=== PATIENT | female | born 1950 | race Caucasian/White ===

== ENCOUNTER 2020-11-07 09:51 | Outpatient (REF) | payer MEDICARE, MEDICAID, SELFPAY ==
[2020-11-07 11:07] LABS: MANUAL DIFF FLAG NO
[2020-11-07 11:12] LABS: Basophils Percent Auto 0.5 % (0-2); Eosinophils Absolute Auto 0.1 X10*3/uL (0.0-0.4); Eosinophils Percent Auto 2.2 % (0-4); Hematocrit 40.1 % (37-47); Hemoglobin 12.9 g/dl (12.0-16.0); Imm Gran Abs Auto 0.02 X10*3/uL (0.00-0.03); Imm Gran Pct Auto 0.4 % (0.0-0.4); Mean Corpuscular HGB Conc 32.2 g/dl (31.0-35.0); Mean Corpuscular Hemoglobin 31.2 pg (27.0-33.0); Mean Corpuscular Volume 97.1 fL (80-98); Mean Platelet Volume 11.7 fL (9.4-12.3); Monocytes Absolute Auto 0.4 X10*3/uL (0.1-1.2); Monocytes Percent Auto 7.7 % (2-11); Neutrophils Absolute Auto 3.9 X10*3/uL (2.0-8.3); Neutrophils Percent Auto 70.2 % (45-73); Platelet Count 168 X10*3/uL (160-400); Red Blood Count 4.13 X10*6/uL (4.20-5.50); Red Cell Distribution Width 12.5 % (11.0-16.0); White Blood Count 5.5 X10*3/uL (4.8-10.8)
[2020-11-07 11:28] LABS: Alanine Aminotransferase 28 U/L (0-31); Albumin Level 4.2 g/dL (3.5-5.0); Alkaline Phosphatase 86 U/L (39-117); Anion Gap 11 (12-20); Aspartate Amino Transferase 29 U/L (5-31); Bilirubin Total 0.4 mg/dL (0.0-1.0); Blood Urea Nitrogen 14 mg/dL (9-16); Calcium 8.9 mg/dL (8.4-10.2); Carbon Dioxide 29 mmol/L (22-29); Chloride 107 mmol/L (96-108); Cholesterol 140 mg/dL; Estimated Glomerular Filt Rate > 60; Glucose Fasting 81 mg/dL (60-99); HDL Cholesterol 61 mg/dL; LDL Cholesterol Calculated 67 mg/dl; Potassium 4.9 mmol/l (3.3-5.1); Sodium 142 mmol/L (135-145); Total Protein 6.5 g/dL (6.5-8.0); Triglycerides 61 mg/dL
[2020-11-07 11:49] LABS: Glucose Urine UA NEG (NEG); Leukocyte Esterase Urine NEG (NEG); Nitrite Urine NEG (NEG); Urine Blood NEG (NEG); Urine Ketones NEG (NEG); Urine Protein NEG (NEG-TRACE)
[2020-11-07 11:51] LABS: TSH reflex Free T4 1.08 mIU/mL (0.32-4.0); Vitamin D 25-OH Total 31.2 ng/mL (>30)
[2020-11-07 11:59] LABS: Appearance Urine CLEAR; Color Urine YELLOW
[2020-11-07 13:02] LABS: Mucus Urine TRACE /LPF; RBC Urine 0 /HPF (0); Squamous Epithelial Cell Urine TRACE /LPF; WBC Urine 0 /HPF (0-4)
== END 2020-11-07 09:52 | disposition home or self-care (01) ==
LOC: HO.LAB 09:51
PROVIDERS: PCP Internal Medicine; Visit Provider Internal Medicine
DX: Z00.00 Encounter for general adult medical examination without abnormal findings (principal); E78.5 Hyperlipidemia, unspecified; R94.5 Abnormal results of liver function studies; J30.9 Allergic rhinitis, unspecified; I49.1 Atrial premature depolarization
CPT/HCPCS: 36415; 80053; 80061; 81001; 82306; 84443; 85025

== ENCOUNTER → 2021-03-27 13:57 | Outpatient (BNVA) | payer MEDICARE, MEDICAID, SELFPAY | PROVIDERS: PCP Internal Medicine; Referring Provider Internal Medicine; Visit Provider Internal Medicine | DX: I49.3 Ventricular premature depolarization (principal); I49.1 Atrial premature depolarization; F79 Unspecified intellectual disabilities | CPT/HCPCS: 93005; 99202 ==

== ENCOUNTER → 2021-04-18 12:58 | Outpatient (REF) | payer MEDICARE, MEDICAID, SELFPAY ==
--- NOTE | 2021-04-18 13:25 | ECG_ITS ---
Hook-up date: 2021-04-18 13:07:00 Duration: 24:43:00 Test Indications: PVC's Medications: 88164 QRS complexes 6085 Ventricular ectopics which represent 6 % of total QRS comp. 77 Supraventricular ectopics which represent <1 % of total QRS comp. * Paced QRS complexs which represent % of total QRS comp. VENTRICULAR ECTOPY 5701 Isolated 266 Bigeminal Cycles 192 Couplets 0 Runs 0 Beats in Runs * Beats LONGEST at * BPM at :: -- * Beats FASTEST at * BPM at :: -- SUPRAVENTRICULAR ECTOPY 67 Isolated 2 Couplets 1 Runs 6 Beats in Runs 6 Beats LONGEST at 96 BPM at 21:20:51 2021-04-18 6 Beats FASTEST at 96 BPM at 21:20:51 2021-04-18 HEART RATES 54 MIN at 19:36:56 2021-04-18 66 AVG 120 MAX at 13:26:16 2021-04-18 LONGEST RR 1.1040 secs at 12:37:11 2021-04-19 S-T LEVELS Channel 1 - 128 mm at 13:07:00 2021-04-18 - 128 mm at 13:07:00 2021-04-18 Channel 2 - 128 mm at 13:07:00 2021-04-18 - 128 mm at 13:07:00 2021-04-18 Channel 3 - 128 mm at 13:07:00 2021-04-18 - 128 mm at 13:07:00 Basic rhythm Normal sinus rhythm No long pause or profound bradycardia Frequent Premature ventricular complexes , 6% of total beats Rare Premature atrial complexes Patient did not report any symptoms in the diary Referred By: Gregorio Garcia Overread By: AMI CHOWDARY MD
== END ==
LOC: HO.CARD 12:58
PROVIDERS: Visit Provider Internal Medicine
DX: I49.3 Ventricular premature depolarization (principal)
CPT/HCPCS: 93225; 93226

== ENCOUNTER → 2021-05-10 08:16 | Outpatient (REF) | payer MEDICARE, MEDICAID, SELFPAY ==
--- NOTE | 2021-05-10 08:24 | CA_ITS ---
Transthoracic Echocardiogram Patient (Last, First, Middle): Melony Chery, Gender: Female Date of : 1950 Age: 70 Procedure Date: 05/10/2021 Procedure Type: Transthoracic Echocardiogram Location: OP Height: 160.02 cm Weight: 63.5 kg BSA: 1.66 m2 Heart Rate: bpm BP: 124 / 60 mmHg Plate Preparer: FRANTZ Referring MD: Gregorio Garcia MD Stacker Attendant: Anthony Dsouza MD Symptoms: I49.3 - Ventricular premature depolarization Study Quality: Good ECG Rhythm: Sinus with extra beats Conclusions: - 1. Normal LV systolic function with grade 1 diastolic dysfunction 2. Normal cardiac valvular morphology 3. Normal RV systolic pressure 4. No pericardial effusion Findings Left Ventricle Normal left ventricular size, thickness, and systolic function. Spectral Doppler is indicative of an impaired relaxation filling pattern. E/E prime ratio is <8, consistent with normal filling pressures. Evidence suggests grade I (mild) diastolic dysfunction. Right Ventricle Normal right ventricular cavity size and systolic function. Atria The left atrium is normal in size. There is no evidence of interatrial shunt. The right atrium is normal in size. Aortic Valve The aortic valve structure and function is likely normal. There is no aortic valve stenosis. There is no aortic valve regurgitation. Mitral Valve Normal mitral valve structure and function. There is trace mitral valve regurgitation. There is no mitral valve stenosis. Pulmonic Valve The pulmonic valve was not well visualized. Tricuspid Valve Likely normal tricuspid valve structure and function. There is trace tricuspid valve regurgitation. The right ventricular systolic pressure is normal. The right ventricular systolic pressure is 22 mmHg. Normal right atrial pressure. There is no evidence of pulmonary hypertension. Great Vessels All visible segments of the aorta are normal in size. The pulmonary artery was not well visualized. Venous The inferior vena cava is normal in size and collapses greater than 50% with inspiration. Pericardium/Pleural There is no evidence of pericardial effusion. Prior Study Comparison No previous study in the last 5 years for comparison Measurements 2D Linear Measurements IVSd: 0.73 0.6-0.9/0.6-1.0 cm LVIDd: 4.73 3.9-5.3/4.2-5.9 cm LVIDd Index: 2.85 2.4-3.2/2.2-3.1 cm/m2 LVIDs: 2.94 2.0-3.6 cm LVPWd: 0.83 0.7-1.1 cm Ao Root: 2.70 2.1-3.5 cm LA Diam: 3.40 2.7-3.8/3.0-4.0 cm LAIDs Index: 2.05 1.5-2.3 cm/m2 LV Mass: 148.26 67-162/88-224 g LV Mass Index: 89.31 43-95/49-115 g/m2 LVOT Diam: 2.20 3.0+(-)1.3 cm 2D Systolic Function EF 4C: 59.80 >55% Mitral Valve MV Pk E: 0.80 MV PK A: 0.97 MV Decel Time: 134.00 E/A: 0.80 E'Lateral: 12.30 E'Medial: 6.53 E/E' Med: 12.30 E/E' Lat: 6.50 PHT: 39.00 MVA PHT: 5.64 Decel [place]: 6.17 Aortic Valve AoV Pk Cricket: 1.37 AoV Pk Grad: 8.00 LVOT LVOT Pk Cricket: 1.02 LVOT Mn Cricket: 0.67 LVOT VTI: 0.19 LVOT Pk Grad: 4.00 LVOT Mn Grad: 2.00 LVOT Diam: 2.20 LVOT Area: 3.80 Diastolic Function MV Pk E: 0.80 MV Pk A: 0.97 E/A: 0.80 E'Medial: 6.53 E/E' Med: 12.30 E' Laterial: 12.30 E/E' Lat: 6.50 Tricuspid Valve TR Pk Cricket: 2.20 TR Pk Grad: 19.00 RA Press: 3.00 RVSP: 22.00 Great Vessels Aorta Ao Root-2D: 2.70 2.0-3.7 cm Ao Asc: 2.90 2.1-3.4 cm Updated in Other Vendor System with Status of Final Anthony Dsouza MD electronically signed on 05/11/2021 5:46:24 PM with status of Final
== END ==
LOC: HO.CARD 08:16
PROVIDERS: Visit Provider Internal Medicine
DX: I49.3 Ventricular premature depolarization (principal)
CPT/HCPCS: 93306

== ENCOUNTER → 2021-05-17 13:41 | Outpatient (BNVA) | payer MEDICARE, MEDICAID, SELFPAY | PROVIDERS: PCP Internal Medicine; Visit Provider Internal Medicine | DX: I49.3 Ventricular premature depolarization (principal); I49.1 Atrial premature depolarization; F79 Unspecified intellectual disabilities | CPT/HCPCS: 99212 ==

== ENCOUNTER 2021-06-19 09:11 | Outpatient (REF) | payer MEDICARE, MEDICAID, SELFPAY ==
--- NOTE | ~2021-06-19 | MM_ITS ---
EXAMINATION: MM SCREENING DIGITAL BREAST TOMOSYNTHESIS, BILATERAL CLINICAL INFORMATION: Screening. Asymptomatic. The lifetime risk of breast cancer based on the Tyrer-Cuzick Model is 6%. COMPARISON: Mammography: 10/26/2019, 10/23/2018, 09/20/2017. TECHNIQUE: Digital breast tomosynthesis is performed in both the craniocaudal and mediolateral oblique views along with computer-aided detection (CAD). Synthesized 2D images are generated from the tomosynthesis. FINDINGS: There are scattered areas of fibroglandular density (ACR BI-RADS breast composition Category b). There is fine fibronodular parenchymal pattern similar to prior studies. No developing density. There is no interval mass or architectural abnormality or abnormal calcifications. The axilla are unremarkable. No significant changes. MM/MM tomosynthesis screening BI IMPRESSION: No mammographic evidence of malignancy. ASSESSMENT: BI-RADS 1: Negative RECOMMENDATION: Routine annual mammography screening. This patient's information was entered into a reminder system with a target due date for their next mammogram.
== END 2021-06-19 09:12 | disposition home or self-care (01) ==
LOC: HO.MAMMO 09:11
PROVIDERS: PCP Internal Medicine; Visit Provider Internal Medicine
DX: Z12.31 Encounter for screening mammogram for malignant neoplasm of breast (principal)
CPT/HCPCS: 77063; 77067

== ENCOUNTER 2021-08-11 12:44 | Outpatient (REF) | payer MEDICARE, MEDICAID, SELFPAY ==
--- NOTE | 2021-08-17 13:39 | MHC.AU.AEV ---
Adult Audiological Evaluation Date of Visit: 08/11/21 Reason for Appointment: History of mild to severe mixed hearing loss. Patient arrives to determine if there have been any changes in hearing. Her caregiver reports that the patient does not seem to have difficulty hearing in her residence. History of PKU. Has hearing been tested previously?: Yes Previous Hearing Test Results: At this clinic on 02/17/2018- Mild to severe mixed hearing loss bilaterally Medical History: Medical History: PKU Otoscopy: Right Ear: Unremarkable Left Ear: Unremarkable Tympanometry: Tympanometry performed due to: To assess integrity of the middle ear system Right Ear: Non-compliant Middle Ear System (Type B), consistent with previous results Left Ear: Non-compliant Middle Ear System (Type B), consistent with previous results Hearing Evaluation: Transducer(s) Used: Circumaural Headphones Method: Conventional Audiometry Stimuli Used: Pure Tones Right Ear: Description of Hearing: Mild/moderate to severe mixed hearing loss Left Ear: Description of Hearing: Mild/moderate to severe mixed hearing loss Speech Recognition Threshold (SRT): Method Used: Recorded Lists Stimuli Used: Spondee Words Right Ear: 40 dBHL Left Ear: 35 dBHL Word Discrimination: Method: Recorded Lists Word Lists Used:: W-22 Right Ear: 84% at 80 dBHL Left Ear: 76% at 80 dBHL Comparison: Compared to most recent evaluation: Slight decrease in thresholds bilaterally Interpretation of Results: Patient presents with mild/moderate to severe sensorineural hearing loss. If the patient is in a quiet environment, one-on-one and [id number], there may be some misunderstandings, but she is likely able to follow along in conversation. If there is background noise or the person talking is not directly in front of her, she is more likely to have difficulty hearing. She likely has trouble hearing the sounds /s/, /sh/, /th/, /k/, /v/, and /z/. Recommendations: Audiological re-evaluation in one year. Audiologically, patient is a candidate for hearing aids. Her caregiver reports that at this time, the patient appears to be hearing and communicating well at her residence. If her caregivers and family feel that she would benefit from amplification, they are welcome to schedule a hearing aid evaluation. Diagnosis: Primary Diagnosis: H90.3 Bilateral Sensorineural Hearing Loss Signature: Provider: Ericka Edge, CCC-A
== END 2021-08-11 12:45 | disposition home or self-care (01) ==
LOC: HO.SH 12:44
PROVIDERS: Visit Provider Internal Medicine
DX: H91.90 Unspecified hearing loss, unspecified ear (principal)
CPT/HCPCS: 92557; 92567

== ENCOUNTER 2022-01-27 07:34 | Outpatient (REF) | payer MEDICARE, MEDICAID, SELFPAY ==
[2022-01-27 08:02] LABS: MANUAL DIFF FLAG NO
[2022-01-27 08:16] LABS: Basophils Percent Auto 0.6 % (0-2); Eosinophils Absolute Auto 0.1 X10*3/uL (0.0-0.4); Eosinophils Percent Auto 2.7 % (0-4); Hematocrit 40.8 % (37.0-47.0); Hemoglobin 13.5 g/dl (12.0-16.0); Imm Gran Abs Auto 0.01 X10*3/uL (0.00-0.03); Imm Gran Pct Auto 0.2 % (0.0-0.4); Lymphocytes Absolute Auto 0.9 X10*3/uL (1.2-4.9); Lymphocytes Percent Auto 19.6 % (20-40); Mean Corpuscular HGB Conc 33.1 g/dl (31.0-35.0); Mean Corpuscular Volume 93.8 fL (80.0-98.0); Mean Platelet Volume 11.7 fL (9.4-12.3); Monocytes Absolute Auto 0.4 X10*3/uL (0.1-1.2); Neutrophils Absolute Auto 3.3 x10*3/uL (2.0-8.3); Neutrophils Percent Auto 67.9 % (45-73); Platelet Count 159 X10*3/uL (160-400); Red Blood Count 4.35 X10*6/uL (4.20-5.50); Red Cell Distribution Width 12.7 % (11.0-16.0); White Blood Count 4.8 X10*3/uL (4.8-10.8)
[2022-01-27 08:40] LABS: Alanine Aminotransferase 29 U/L (0-31); Albumin Level 4.2 g/dL (3.5-5.0); Alkaline Phosphatase 79 U/L (39-117); Anion Gap 12 (12-20); Aspartate Amino Transferase 29 U/L (5-31); Bilirubin Total 0.7 mg/dL (0.0-1.0); Blood Urea Nitrogen 13 mg/dL (9-16); Calcium 9.6 mg/dL (8.4-10.2); Carbon Dioxide 28 mmol/L (22-29); Chloride 108 mmol/L (96-108); Cholesterol 131 mg/dL; Estimated Glomerular Filt Rate > 60; Glucose Fasting 91 mg/dL (60-99); HDL Cholesterol 52 mg/dL; LDL Cholesterol Calculated 62 mg/dl; Potassium 4.2 mmol/L (3.3-5.1); Sodium 144 mmol/L (135-145); Total Protein 6.6 g/dL (6.5-8.0); Triglycerides 86 mg/dL
[2022-01-27 08:58] LABS: Appearance Urine CLEAR; Color Urine YELLOW; Glucose Urine UA NEG (NEG); Leukocyte Esterase Urine NEG (NEG); Nitrite Urine NEG (NEG); Specific Gravity - Urine 1.025 (1.005-1.025); Urine Blood NEG (NEG); Urine Ketones NEG (NEG); Urine Protein NEG (NEG-TRACE)
[2022-01-27 09:03] LABS: TSH reflex Free T4 2.01 uIU/mL (0.32-4.0); Vitamin D 25-OH Total 35.6 ng/mL (>30)
== END 2022-01-27 07:35 | disposition home or self-care (01) ==
LOC: HO.LAB 07:34
PROVIDERS: PCP Internal Medicine; Visit Provider Internal Medicine
DX: Z00.00 Encounter for general adult medical examination without abnormal findings (principal); M81.0 Age-related osteoporosis without current pathological fracture; I49.1 Atrial premature depolarization; I10 Essential (primary) hypertension; E78.00 Pure hypercholesterolemia, unspecified
CPT/HCPCS: 36415; 80053; 80061; 81003; 82306; 84443; 85025

== ENCOUNTER → 2022-05-22 11:01 | Outpatient (REF) | payer MEDICARE, MEDICAID, SELFPAY ==
--- NOTE | 2022-05-22 11:14 | ECG_ITS ---
Hook-up date: 2022-05-22 09:05:00 Duration: 25:03:00 Test Indications: VENTR. PREMATURE DEPOLARIZATION Medications: 74895 QRS complexes 351 Ventricular ectopics which represent <1 % of total QRS comp. 71 Supraventricular ectopics which represent <1 % of total QRS comp. * Paced QRS complexs which represent % of total QRS comp. VENTRICULAR ECTOPY 351 Isolated 3 Bigeminal Cycles 0 Couplets 0 Runs 0 Beats in Runs * Beats LONGEST at * BPM at :: -- * Beats FASTEST at * BPM at :: -- SUPRAVENTRICULAR ECTOPY 34 Isolated 10 Couplets 4 Runs 17 Beats in Runs 5 Beats LONGEST at 111 BPM at 15:44:10 2022-05-22 5 Beats FASTEST at 111 BPM at 15:44:10 2022-05-22 HEART RATES 55 MIN at 21:47:39 2022-05-22 71 AVG 114 MAX at 14:11:10 2022-05-22 LONGEST RR 1.0960 secs at 21:47:34 2022-05-22 S-T LEVELS Channel 1 - 128 mm at 09:05:00 2022-05-22 - 128 mm at 09:05:00 2022-05-22 Channel 2 - 128 mm at 09:05:00 2022-05-22 - 128 mm at 09:05:00 2022-05-22 Channel 3 - 128 mm at 02:82:41 -- - 128 mm at 02:82:41 Basic rhythm Normal sinus rhythm No long pause or profound bradycardia Occasional Premature ventricular complexes Patient did not report any symptoms in the diary Referred By: Gregorio Garcia Overread By: AMI CHOWDARY MD
== END ==
LOC: HO.CARD 11:01
PROVIDERS: PCP Internal Medicine; Visit Provider Internal Medicine
DX: I49.3 Ventricular premature depolarization (principal)
CPT/HCPCS: 93226

== ENCOUNTER → 2022-06-11 09:52 | Outpatient (BNVA) | payer MEDICARE, MEDICAID, SELFPAY | PROVIDERS: PCP Internal Medicine; Referring Provider Internal Medicine; Visit Provider Internal Medicine | DX: I49.3 Ventricular premature depolarization (principal); I49.1 Atrial premature depolarization; F79 Unspecified intellectual disabilities | CPT/HCPCS: 93005; 99212 ==

== ENCOUNTER 2022-07-30 10:01 | Outpatient (REF) | payer MEDICARE, MEDICAID, SELFPAY ==
--- NOTE | ~2022-07-30 | MM_ITS ---
EXAMINATION: MM SCREENING DIGITAL BREAST TOMOSYNTHESIS, BILATERAL CLINICAL INFORMATION: Screening. Asymptomatic. The lifetime risk of breast cancer based on the Tyrer-Cuzick Model is 5%. COMPARISON: Mammography: 06/19/2021, 10/26/2019, 10/23/2018 TECHNIQUE: Digital breast tomosynthesis is performed in both the craniocaudal and mediolateral oblique views along with computer-aided detection (CAD). Synthesized 2D images are generated from the tomosynthesis. Additional left CC and bilateral MLO views are provided. FINDINGS: There are scattered areas of fibroglandular density (ACR BI-RADS breast composition Category b). There are no significant masses, abnormal calcifications, or other abnormalities. Parenchymal pattern is similar to prior studies. There is fine fibronodular pattern with no developing density or architectural abnormality. The skin contours are unremarkable. MM/MM tomosynthesis screening BI IMPRESSION: No mammographic evidence of malignancy. ASSESSMENT: BI-RADS 1: Negative RECOMMENDATION: Routine annual mammography screening. This patient's information was entered into a reminder system with a target due date for their next mammogram.
== END 2022-07-30 10:02 | disposition home or self-care (01) ==
LOC: HO.MAMMO 10:01
PROVIDERS: PCP Internal Medicine; Visit Provider Internal Medicine
DX: Z12.31 Encounter for screening mammogram for malignant neoplasm of breast (principal)
CPT/HCPCS: 77063; 77067

== ENCOUNTER 2022-09-29 07:24 | Outpatient (REF) | payer MEDICARE, MEDICAID, SELFPAY ==
[2022-09-29 07:46] LABS: MANUAL DIFF FLAG NO
[2022-09-29 08:01] LABS: Basophils Percent Auto 0.8 % (0-2); Eosinophils Absolute Auto 0.1 X10*3/uL (0.0-0.4); Eosinophils Percent Auto 1.4 % (0-4); Hematocrit 41.7 % (37.0-47.0); Hemoglobin 14.1 g/dl (12.0-16.0); Imm Gran Abs Auto 0.01 X10*3/uL (0.00-0.03); Imm Gran Pct Auto 0.2 % (0.0-0.4); Lymphocytes Absolute Auto 1.1 X10*3/uL (1.2-4.9); Lymphocytes Percent Auto 20.8 % (20-40); Mean Corpuscular HGB Conc 33.8 g/dl (31.0-35.0); Mean Corpuscular Hemoglobin 31.7 pg (27.0-33.0); Mean Corpuscular Volume 93.7 fL (80.0-98.0); Mean Platelet Volume 10.8 fL (9.4-12.3); Monocytes Absolute Auto 0.4 X10*3/uL (0.1-1.2); Monocytes Percent Auto 7.6 % (2-11); Neutrophils Absolute Auto 3.6 x10*3/uL (2.0-8.3); Neutrophils Percent Auto 69.2 % (45-73); Platelet Count 171 X10*3/uL (160-400); Red Blood Count 4.45 X10*6/uL (4.20-5.50); Red Cell Distribution Width 12.1 % (11.0-16.0); White Blood Count 5.1 X10*3/uL (4.8-10.8)
[2022-09-29 08:47] LABS: Alanine Aminotransferase 26 U/L (0-31); Albumin Level 4.2 g/dL (3.5-5.0); Alkaline Phosphatase 73 U/L (39-117); Anion Gap 13 (12-20); Aspartate Amino Transferase 26 U/L (5-31); Bilirubin Total 0.7 mg/dL (0.0-1.0); Blood Urea Nitrogen 13 mg/dL (9-16); Calcium 9.4 mg/dL (8.4-10.2); Carbon Dioxide 27 mmol/L (22-29); Chloride 108 mmol/L (96-108); Cholesterol 147 mg/dL; Estimated Glomerular Filt Rate > 60; Glucose Fasting 92 mg/dL (60-99); HDL Cholesterol 55 mg/dL; LDL Cholesterol Calculated 74 mg/dl; Potassium 4.5 mmol/L (3.3-5.1); Sodium 143 mmol/L (135-145); TSH reflex Free T4 1.68 uIU/mL (0.32-4.0); Total Protein 6.6 g/dL (6.5-8.0); Triglycerides 92 mg/dL; Vitamin D 25-OH Total 36.4 ng/mL (>30)
[2022-09-29 09:13] LABS: Appearance Urine Clear; Color Urine Yellow; Glucose Urine UA Negative (Negative); Leukocyte Esterase Urine Negative (Negative); Nitrite Urine Negative (Negative); PH 6.5 (5.0-9.0); Urine Blood Negative (Negative); Urine Ketones Negative (Negative); Urine Protein Negative (Neg-Trace)
== END 2022-09-29 07:25 | disposition home or self-care (01) ==
LOC: HO.LAB 07:24
PROVIDERS: PCP Internal Medicine; Visit Provider Internal Medicine
DX: Z00.00 Encounter for general adult medical examination without abnormal findings (principal); E55.9 Vitamin D deficiency, unspecified; E78.00 Pure hypercholesterolemia, unspecified; I10 Essential (primary) hypertension
CPT/HCPCS: 36415; 80053; 80061; 81003; 82306; 84443; 85025

== ENCOUNTER 2023-08-06 09:09 | Outpatient (AMB) | payer MEDICARE, MEDICAID, SELFPAY ==
[2023-08-06 09:13] VITALS: BP 118/64; PULSE 67; BMI 28.8
--- NOTE | 2023-08-06 09:13 | MHC.OFFVIS ---
Intake Vital Signs 08/06/23 09:13 Height 5 ft 3 in Weight 162 lb 11.218 oz BMI 28.8 BP 118/64 Blood Pressure Location Lt brachial Position Sitting Pulse 67 Intake Visit Reasons: follow up Intake Note: follow up [employer] Se[employer] Clerk Required: No Accompanied by: Employee Allergies aspartame [ASPARTAME] Allergy (Unknown, Verified 08/06/23 09:16) UNKNOWN loratadine [From CLARITIN] Allergy (Unknown, Verified 08/06/23 09:16) UNKNOWN phenylalanine [Phenylalanine] Allergy (Unknown, Verified 08/06/23 09:16) UNKNOWN dustmites Allergy (Unknown, Uncoded 08/06/23 09:16) unknown ragweed Allergy (Unknown, Uncoded 08/06/23 09:16) unknown Medication List - Last Reconciled 08/06/23 by Gregorio Garcia MD acetaminophen 650 mg (2 x 325 mg) PO Q6H PRN 30 days atorvastatin 10 mg PO DAILY cetirizine 10 mg PO DAILY PRN cholecalciferol (vitamin D3) 25 mcg PO DAILY 28 days denosumab (Prolia) 60 mg subcut [id number] dicyclomine 20 mg PO BID PRN 28 days ketotifen fumarate 0.025%(0.035%) 1 drp ophthalmic (eye) .QD PRN rblyemiw-zsst-XW-calcium-mins 9 mg iron-400 mcg (Thera-M) 1 tab PO DAILY 28 days paroxetine HCl 40 mg PO DAILY valacyclovir 500 mg PO DAILY 28 days HPI HPI Comments History of Present Illness Details Melony returns for follow-up. Previously, she was seen regarding PACs/PVCs. Has also seen in the past. Overall, no known cardiac problems. No history of any coronary disease or myocardial infarction or any other cardiac issues. Discussed with executive wellness programs director from facility where she lives. Overall, generally doing good. No cardiac symptoms like angina or shortness of breath or in fact anything else cardiac related at all. No new symptoms overall since last seen. Patient herself does not really have much of insight. [facility] Medical History Allergic rhinitis Anxiety Compression fracture of lumbosacral spine Elevated LFTs Mental disability Osteoporosis Premature atrial contractions Pure hypercholesterolemia Surgical History S/P colonoscopy S/P laparoscopic cholecystectomy (~06/28/14) Family History Other Family history unknown Social History Housing: Assisted Living Facility Housing Other:: Residential home Alcohol intake: never Patient Tobacco Use Status: Never used Tobacco e-Cigarette/Vaping Use: Never Used Second Hand Smoke Exposure: No service: No Current occupational status: retired Cognitive needs: No Hearing needs: No Vision needs: No Review of Systems Const Denies weakness ENT Denies dizziness Card Denies chest pain, Denies chest pain with activity, Denies syncope, Denies rapid heart rate, Denies pedal edema, Denies edema, Denies leg edema, Denies lightheadedness, Denies palpitations, Denies dyspnea, Denies dyspnea on exertion and Denies orthopnea Resp Denies cough, Denies dyspnea and Denies dyspnea on exertion GI Denies hematochezia and Denies change in stool character Musc Denies abnormal gait, Denies muscle cramps, Denies muscle weakness, Denies numbness, Denies radiating pain into limb and Denies tingling Neuro Denies abnormal gait, Denies dizziness, Denies syncope, Denies numbness, Denies tingling and Denies weakness Endo Denies palpitations Physical Exam Vital Signs: Last Vital Signs Pulse 67 08/06/23 09:13 BP 118/64 08/06/23 09:13 BMI result Body Mass Index 28.8 Const General: comfortable and no acute distress Orientation/consciousness: No patient oriented x3 HEENT Other: Unremarkable Head: Yes normal to inspection Neck Neck: Yes normal visual inspection Chest Chest palpation & inspection: normal inspection of the chest Resp Auscultation: clear to auscultation bilaterally Cardio Palpation: normal PMI Heart sounds: S1 normal heart sound present, S2 normal heart sound present, no gallops, no murmurs and no rubs GI Palpation (GI): Soft to palpation Back/Spine/Pelvis Other: unremarkable Skin General skin exam: no rashes or lesions noted Neuro General: No patient oriented x3 Extrem General: Yes normal to inspection Psych Mental Status: mental status grossly abnormal Office Procedures EKG Details: EKG with sinus rhythm at 67/Min; no significant ST-T changes and otherwise unremarkable. [place]. 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 Baseline EKG is unremarkable. Echocardiogram with normal LVEF and otherwise unremarkable. Holter from 2020 with underlying sinus rhythm and frequent PVCs at a burden of 6%. In the repeat Holter from 2021, underlying sinus rhythm and PVC burden is minimal at less than 1%. PAC burden is also less than 1%. Clinically, she has got absolutely no symptoms. In the future, if any concerning symptoms thought to be cardiac, advised to contact us. Otherwise, no specific medications at this time. Due to mental disability, patient is unlikely to understand the clinical picture and hence discussed with executive wellness programs director about the plan. Medications: Changed From paroxetine HCl 40 mg PO DAILY 90 days 90 tabs 1RF F41.9 - Anxiety disorder, unspecified To paroxetine HCl 40 mg PO DAILY F41.9 - Anxiety disorder, unspecified Coding Level of Care Code Est Pt Level 3 (54674) Diagnoses PVC (premature ventricular contraction) I49.3 Premature atrial contractions I49.1 Mental disability F79 CPT Codes EKG - CPT: 62490-[id number], Complete ([id number])
== END 2023-08-06 10:15 | disposition home or self-care (01) ==
PROVIDERS: PCP Internal Medicine; Visit Provider Internal Medicine
DX: I49.3 Ventricular premature depolarization (principal); I49.1 Atrial premature depolarization; F79 Unspecified intellectual disabilities
CPT/HCPCS: 93010; 99213

== ENCOUNTER → 2023-08-06 09:09 | Outpatient (BNVA) | payer MEDICARE, MEDICAID, SELFPAY | PROVIDERS: PCP Internal Medicine; Visit Provider Internal Medicine | DX: I49.1 Atrial premature depolarization (principal); I49.3 Ventricular premature depolarization; F79 Unspecified intellectual disabilities | CPT/HCPCS: 93005; 99212 ==

== ENCOUNTER 2023-08-19 13:35 | Outpatient (AMB) | payer MEDICARE, MEDICAID, SELFPAY ==
[2023-08-19 13:37] VITALS: BP 124/80; PULSE 69; O2SAT 95; BMI 27.8
--- NOTE | 2023-08-19 13:37 | MHC.PC.OV ---
Vital Signs 08/19/23 13:37 Height 5 ft 3 in Weight 157 lb BMI 27.8 BP 124/80 Blood Pressure Location Lt brachial Position Sitting Pulse 69 Pulse Source Pulse Oximeter Pulse Oximetry (%) 95 Oxygen Delivery Method Room Air Intake Visit Reasons: PE Workforce Specialist Required: No Accompanied by: senior living staff - Jessica Peters Allergies aspartame [ASPARTAME] Allergy (Unknown, Verified 08/19/23 13:55) UNKNOWN loratadine [From CLARITIN] Allergy (Unknown, Verified 08/19/23 13:55) UNKNOWN phenylalanine [Phenylalanine] Allergy (Unknown, Verified 08/19/23 13:55) UNKNOWN dustmites Allergy (Unknown, Uncoded 08/19/23 13:55) unknown ragweed Allergy (Unknown, Uncoded 08/19/23 13:55) unknown Medication List - Last Reconciled 08/19/23 by Panchito Chance MD acetaminophen 650 mg (2 x 325 mg) PO Q6H PRN 30 days atorvastatin 10 mg PO DAILY cetirizine 10 mg PO DAILY PRN cholecalciferol (vitamin D3) 25 mcg PO DAILY 28 days denosumab (Prolia) 60 mg subcut [id number] dicyclomine 20 mg PO BID PRN 28 days ketotifen fumarate 0.025%(0.035%) 1 drp ophthalmic (eye) .QD PRN hpkydcol-mxpe-HM-calcium-mins 9 mg iron-400 mcg (Thera-M) 1 tab PO DAILY 28 days paroxetine HCl 40 mg PO DAILY valacyclovir 500 mg PO DAILY 28 days Tobacco use date assessed: 08/19/23 Fall risk assessment: No Falls in past year Last assessed Fall Risk: 08/19/23 Dental Screening Dental Screen Date: 08/19/23 Did you have a dental visit in the last 12 months?: Yes Did you have a dental problem in the last 6 months where you did not have access to dental care?: No Was dental information given to patient?: Patient has dentist HPI PE HPI Details Patient is brought in today by her senior living staff for her annual physical examination Staff states that patient had a little nasal congestion a few days ago but she tested negative for COVID Patient states that she currently feels okay She denies any headaches or dizziness; denies any fever or sore throat Denies any chest pains, no SOB No nausea/vomiting, no abdominal pain No change in bowel habits noted Denies any acute urinary symptoms She was reportedly brought to the [facility] [place] in [place] to get her labs done a couple of weeks ago She had her screening colonoscopy last done by Dr. Araiza back in 2019 and was advised that she will need a repeat colonoscopy in 10 years Had her annual mammogram last done in July 2022 and she is due for repeat mammogram Based on her age, she no longer needs to continue with her yearly gynecology exam and pap smear She has also not had her flu shot or COVID booster yet [facility] Medical History (Updated 08/19/23 @ 14:37 by Panchito Chance MD) Compression fracture of lumbosacral spine Anxiety Mental disability Allergic rhinitis Elevated LFTs Osteoporosis Pure hypercholesterolemia Premature atrial contractions Surgical History (Updated 08/19/23 @ 14:27 by Panchito Chance MD) S/P colonoscopy (~07/05/20) S/P laparoscopic cholecystectomy (~06/28/14) Family History Other Family history unknown Social History Housing: Assisted Living Facility Housing Other:: Residential home Alcohol intake: never Patient Tobacco Use Status: Never used Tobacco e-Cigarette/Vaping Use: Never Used Second Hand Smoke Exposure: No service: No Current occupational status: retired Cognitive needs: No Hearing needs: No Vision needs: No Questionnaire PHQ-9 Over the last 2 weeks, how often have you been bothered by any of the following problems? 1. Little interest or pleasure in doing things: not at all 2. Feeling down, depressed, or hopeless: not at all 3. Trouble falling or staying asleep, or sleeping too much: not at all 4. Feeling tired or having little energy: not at all 5. Poor appetite or overeating: not at all 6. Feeling bad about yourself - or that you are a failure or have let yourself or your family down: not at all 7. Trouble concentrating on things, such as reading the newspaper or watching television: not at all 8. Moving or speaking so slowly that other people could have noticed. Or the opposite - being so fidgety or restless that you have been moving around a lot more than usual: not at all 9. Thoughts that you would be better off or of hurting yourself in some way: not at all Total score: 0 Depression Screening Interpretation: Negative Depression Screening Done: Yes 45851 - PHQ-9 Billing: Yes Source: Developed by Drs. Suraj Rushing, Janice Navarro, Micah Pelaez and colleagues, with an educational amna from [employer] ([employer]). Thrive Questionnaire Date Thrive assessed: 08/19/23 I am a: Patient What is your living situation today?: I have a steady place to live Within the past 12 months, did the food you bought not last and you didn't have the money to get more?: Never true Within the past 12 months, did you worry whether your food would run out before you got money to buy more?: Never true Do you have trouble paying for medicines?: No Do you have trouble getting transportation to medical appointments?: No Do you have trouble paying your heating and electricity bill?: No Do you have trouble taking care of your child, family member or friend?: No Do you have trouble with day-to-day activities such as bathing, preparing meals, shopping, managing finances, etc.?: No Are you currently unemployed and looking for a job?: No Are you interested in more education?: No Please select the resources that you would like help with: None Currently or been in a relationship where the following occur: no concerns reported AUDIT C Alcohol Use Questionnaire (AUDIT-C) 1. How often do you have a drink containing alcohol?: Never 3. How often do you have six or more drinks on one occasion?: Never Total Score: 0 Score Reviewed/Action Taken: Yes OANH-7 AMB Questionnaire OANH-7 Date OANH - 7 assessed: 08/19/23 Feeling nervous, anxious, or on edge: 0 = Not at all Not being able to stop or control worryin = Not at all Worrying too much about different things: 0 = Not at all Trouble relaxin = Not at all Being so restless that it is hard to sit still: 0 = Not at all Becoming easily annoyed or irritable: 0 = Not at all Feeling afraid as if something awful might happen: 0 = Not at all Total OANH-7 score (0-4 normal; 5-9 mild; 10-14 moderate; 15-21 severe): 0 Source: Developed by Drs. Suraj Rushing, Janice Navarro, Micah Pelaez and colleagues, with an educational amna from [employer] ([employer]). Review of Systems Const Denies chills, Denies fatigue, Denies fever(s), Denies headache(s) and Denies malaise Eyes Denies blurry vision, Denies change in vision, Denies irritation and Denies itchy eyes ENT Denies dysphagia, Denies dizziness, Denies otalgia, Denies headache(s), Denies nasal congestion, Denies neck pain, Denies odynophagia, Denies sinus pain and Denies sore throat Card Denies chest pain, Denies rapid heart rate, Denies irregular heart rhythm, Denies palpitations and Denies dyspnea Resp Denies chest congestion, Denies cough, Denies dyspnea and Denies wheezing GI Denies abdominal pain, Denies bloating, Denies constipation, Denies dysphagia, Denies heartburn, Denies diarrhea, Denies nausea, Denies odynophagia and Denies vomiting Denies hematuria, Denies urinary frequency, Denies dysuria, Denies urinary incontinence and Denies urinary urgency Musc Denies back pain, Denies arthralgias, Denies joint swelling, Denies muscle weakness and Denies neck pain Skin/Breast Denies breast pain, Denies breast mass, Denies change in pigmentation, Denies lesions, Denies rash and Denies unusual bruising Neuro Denies dizziness, Denies headache(s) and Denies paresthesias Psych Denies anxiety and Denies depression (controlled on Rx) Endo Denies fatigue and Denies palpitations Harsh/Lymph Denies easy bruising Aller/Immun Denies itchy eyes and Denies wheezing Physical exam (Primary Care) Vital Signs: Last Vital Signs Pulse 69 08/19/23 13:37 BP 124/80 08/19/23 13:37 Pulse Ox 95 08/19/23 13:37 Oxygen Delivery Method Room Air 08/19/23 13:37 BMI result Body Mass Index 27.8 Tobacco/Smoking Status: Tobacco use Status Tobacco use date assessed 08/19/23 08/19/23 13:44 Patient Tobacco Use Status Never used Tobacco 08/19/23 13:44 e-Cigarette/Vaping Use Never Used 08/19/23 13:44 PHQ-9: PHQ-9 Score PHQ-9: Total score 0 08/19/23 14:18 Depression Screening Interpretation: Negative Thrive Assessment: Date of Thrive Assessment Date Thrive assessed 08/19/23 08/19/23 13:44 Currently or been in a relationship where the following occur: no concerns reported Const General: no acute distress, alert and awake Orientation/consciousness: patient oriented x3 HENMT Head: Yes normocephalic and Yes atraumatic Ears: external ears normal, TM's normal bilaterally and EAC's normal General nose exam: No nasal discharge present Face and sinus: Yes normal facial exam and Yes sinuses nontender Teeth and gingiva: dentition normal Throat: Yes posterior oropharynx normal and Yes tonsils normal (no TP congestion) Eyes Eyelids: Yes eyelids normal Conjunctivae: conjunctivae normal Pupils: Equal, round and reactive pupils present EOM: EOMs intact bilaterally Neck Neck: Yes no lymphadenopathy and Yes supple Thyroid: Thyroid normal Resp Auscultation: clear to auscultation bilaterally, no rales and no wheezes Cardio Rate: regular rate Rhythm: regular rhythm Heart sounds: no murmurs GI Palpation (GI): Soft to palpation, nontender and No hepatosplenomegaly present Auscultation: normal bowel sounds General: Yes no CVA tenderness Back/Spine/Pelvis Back: no CVA tenderness Thoracic/Lumbar Spine: thoracic and lumbar spine normal to inspection Skin Lesions: no lesions Rashes: no rashes Neuro General: patient oriented x3, moves all extremities, no focal motor deficits and CN's II-XI intact bilaterally Cranial nerves: Yes Equal, round and reactive pupils present Cognition (Neuro): normal cognition Gait exam (Neuro): Normal gait present Extrem General: Yes no clubbing, cyanosis or edema Office Procedures Flu Questionnaire Does the patient have a severe egg allergy?: No Does the patient have severe life threatening allergies?: No Does the patient have a fever or illness today?: No Has the patient ever had Guillain-Bristol Syndrome?: No Has the patient ever had any past reaction to a flu shot?: No Immunizations flu vacc [id number] 6mos up(PF) 60 mcg(15 mcgx4)/0.5 mL IM syringe Performing Provider: Panchito Chance MD [facility] Administered by: Fernando Sandhu on 08/19/23 14:26 Dose Route Admin Location Dispensed Lot Number Expiration Date [place] Ward Service Supervisor 0.5 mL IM Left Deltoid 0.5 mL [id number] 05/10/24 31832-103-55 Access [employer] VIS Given Date VIS Provided VIS Publication Date 08/19/23 Single Vaccine 21 Eligibility Eligibility Date Funding Source Not [facility] Eligible 08/19/23 Private Assessment and Plan Assessment & Plan (1) Annual physical exam: Code(s): Z00.00 - Encounter for general adult medical examination without abnormal findings Plan: Results of her labs done at [facility] a couple of weeks ago reviewed and discussed with patient and senior living staff although these were not fasting labs and did not include her cholesterol levels She is up-to-date with her screening colonoscopy and BMD Is due for repeat mammogram - ordered She no longer has to continue with annual pap smear and patient financial specialist exam (2) Pure hypercholesterolemia: Code(s): E78.00 - Pure hypercholesterolemia, unspecified Plan: Has not had her fasting lipids rechecked since September 2022 Reinforced low cholesterol diet Continue Atorvastatin 10 mg QD Will recheck her labs and fasting lipids in 6 months for follow up (3) Premature atrial contractions: Code(s): I49.1 - Atrial premature depolarization Plan: Stable with no recent recurrence Echocardiogram done a couple of years ago was mostly normal, with a normal EF [place] [facility] [place] as scheduled (4) Elevated LFTs: Code(s): R79.89 - Other specified abnormal findings of blood chemistry Plan: Improved; repeat LFTs were also not included on her recent labs Will recheck her LFTs in 6 months (5) Allergic rhinitis: Code(s): J30.9 - Allergic rhinitis, unspecified Qualifiers: Allergic rhinitis trigger: unspecified Allergic rhinitis seasonality: unspecified Qualified Code(s): J30.9 - Allergic rhinitis, unspecified Plan: Continue Fluticasone 50 mcg nasal spray QD PRN and Loratadine 10 mg QD PRN (6) Osteoporosis: Code(s): M81.0 - Age-related osteoporosis without current pathological fracture Qualifiers: Osteoporosis type: age-related Presence of current pathological fracture: without current pathological fracture Qualified Code(s): M81.0 - Age-related osteoporosis without current pathological fracture Plan: BMD done on 07/03/2018 showed (+) severe osteoporosis with a 23.4% increase in BMD in the AP spine from previous BMD 3 years ago and a 9% increase from baseline; left femur BMD showed just a 1.5% increase from previous Continue Calcium+D tablet 600-200 mg-unit once a day with food; patient was on Fosamax previously but this was discontinued by endocrinology several months ago Was started on Prolia by endocrinology last year and she had repeat BMD done in June 2022 Encouraged again on regular exercise daily, as well as fall precautions Follow up with endocrinology as scheduled (7) Anxiety: Code(s): F41.9 - Anxiety disorder, unspecified Plan: Continue Paroxetine 40 mg QD Follow up with psychiatry as scheduled (8) 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 Panel Fast 6 Months E78.00 - Pure hypercholesterolemia, unspecified Complete Blood Count Auto Diff 6 Months I10 - Essential (primary) hypertension MM tomosynthesis screening BI Today Z12.31 - Encounter for screening mammogram for malignant neoplasm of breast Influenza [id number] Immunization Today Z23 - Encounter for immunization Lipid Panel 6 Months E78.00 - Pure hypercholesterolemia, unspecified TSH reflex Free T4 6 Months E78.00 - Pure hypercholesterolemia, unspecified UA CC w/rflx Micro + Cult 6 Months R30.0 - Dysuria Vitamin D 25-OH Total 6 Months E55.9 - Vitamin D deficiency, unspecified Coding Level of Care Code Est Pt Prev Care >65y(32381) Diagnoses Annual physical exam Z00.00 Pure hypercholesterolemia E78.00 Premature atrial contractions I49.1 Elevated LFTs R79.89 Allergic rhinitis, unspecified seasonality, unspecified trigger J30.9 Allergic rhinitis trigger: unspecified Allergic rhinitis seasonality: unspecified Age-related osteoporosis without current pathological fracture M81.0 Osteoporosis type: age-related Presence of current pathological fracture: without current pathological fracture Anxiety F41.9 Mental disability F79
== END 2023-08-19 14:27 | disposition home or self-care (01) ==
PROVIDERS: PCP Internal Medicine; Visit Provider Internal Medicine
DX: Z00.00 Encounter for general adult medical examination without abnormal findings (principal); E78.00 Pure hypercholesterolemia, unspecified; I49.1 Atrial premature depolarization; R79.89 Other specified abnormal findings of blood chemistry; Z23 Encounter for immunization; J30.9 Allergic rhinitis, unspecified; M81.0 Age-related osteoporosis without current pathological fracture; F41.9 Anxiety disorder, unspecified; F79 Unspecified intellectual disabilities
CPT/HCPCS: 90471; 90686; 99397

== ENCOUNTER 2023-10-09 09:47 | Outpatient (REF) | payer MEDICARE, MEDICAID, SELFPAY | END 2023-10-09 09:48 | disposition home or self-care (01) | LOC: HO.MAMMO 09:47 | PROVIDERS: PCP Internal Medicine; Visit Provider Internal Medicine | DX: Z12.31 Encounter for screening mammogram for malignant neoplasm of breast (principal) | CPT/HCPCS: 77063; 77067 ==

== ENCOUNTER → 2023-10-09 10:00 | Outpatient (BNV) | payer MEDICARE, MEDICAID, SELFPAY | PROVIDERS: PCP Internal Medicine; Visit Provider Radiology Diagnostic Radiology | DX: Z12.31 Encounter for screening mammogram for malignant neoplasm of breast (principal) | CPT/HCPCS: 77063; 77067 ==

== ENCOUNTER 2023-10-21 17:44 | Emergency (ER) | payer MEDICARE, MEDICAID, SELFPAY ==
--- NOTE | ~2023-10-21 | XR_ITS ---
EXAMINATION: XR KNEE, RIGHT CLINICAL INFORMATION: Fall COMPARISON: None available. TECHNIQUE: Four views of the right knee. FINDINGS: No acute visible fracture or dislocation. Mild multicompartment arthritic changes. Joint space alignment are otherwise maintained. No large knee joint effusion. Soft tissues are unremarkable. XR/XR knee RT 4V IMPRESSION: 1. No acute visible fracture or dislocation. 2. Mild multicompartment arthritic changes.
--- NOTE | ~2023-10-21 | CT_ITS ---
EXAMINATION: CT HEAD WITHOUT CONTRAST CLINICAL INFORMATION: Fall. Rule out bleed COMPARISON: CT brain 08/06/2016. TECHNIQUE: Contiguous axial imaging was performed from the skull base to vertex without intravenous administration of contrast. This CT examination was performed using dose optimization techniques as appropriate, variously including the following: *Automated exposure control *Adjustment of mA and/or kV according to patient size (this includes techniques or standardized protocols for targeted exams where dose is matched to indication/reason for exam; i.e. extremities or head) *Use of iterative reconstruction technique DLP: 493 mGy-cm FINDINGS: There is no acute intra-axial, extra-axial bleed, masses or midline shift. There is no acute infarction in evolution.. The [place] to white matter differentiation maintained normal. The lateral ventricles are symmetrical in size and configuration with minimal enlargement. No abnormality seen in the posterior fossa.. Bone windows reveal no calvarial abnormality. Visualized bilateral sinuses are clear. CT/CT head/brain wo IV con IMPRESSION: No acute intracranial process seen
[2023-10-21 17:53] VITALS: BP 159/83; PULSE 69; RESP 18; TEMP 36.5; O2SAT 97; BMI 35.4
--- NOTE | 2023-10-21 17:54 | ED.GENADULT ---
HPI - General Adult General Chief complaint: Fall Stated complaint: fell, hit head, bruising on leg Time Seen by Provider: 10/21/23 20:21 Source: patient Mode of arrival: ambulatory Limitations: no limitations History of Present Illness HPI narrative: 73 yo female with PMH of compression fractures, HLD, anxiety, HLD, not on thinners she is at nursing home - staff heard her get out of shower slip and yell she was awake on her hands and knees and c/o R knee pain. There was water on the floor. Patient has been at baseline only c/o R knee pain. No concern for head trauma MD complaint: R knee pain Onset (ago): hour(s) (prior to arrival ) Location: right and lower extremity Radiation: non-radiation Severity: mild Quality: aching Pain Consistency: constant Relieving factors: rest Exacerbating factors: movement Associated symptoms: denies other symptoms Treatments prior to arrival: none Related Data Home Medications Medication Instructions Recorded Confirmed denosumab 60 mg/mL subcutaneous 60 mg subcut [id number] 08/06/22 08/19/23 syringe (Prolia) paroxetine HCl 40 mg tablet 40 mg PO DAILY 08/06/23 08/19/23 Previous Rx's Medication Instructions Recorded ketotifen fumarate 0.025 % (0.035 1 drp ophthalmic (eye) .QD PRN 06/25/23 %) eye drops allergy symptoms #5 mL valacyclovir 500 mg tablet 500 mg PO DAILY 28 days #28 tabs 06/26/23 atorvastatin 10 mg tablet 10 mg PO DAILY #28 tabs 09/24/23 cetirizine 10 mg tablet 10 mg PO DAILY PRN for allergies 09/24/23 #28 tabs cholecalciferol (vitamin D3) 25 25 mcg PO DAILY 28 days #28 caps 09/24/23 mcg (1,000 unit) capsule multivitamin-iron 9 mg-folic acid 1 tab PO DAILY 28 days #28 tabs 09/24/23 400 mcg-calcium and minerals tablet (Thera-M) acetaminophen 325 mg tablet 650 mg (2 x 325 mg) PO Q6H PRN 10/14/23 headache, toothache 30 days #120 tabs dicyclomine 20 mg tablet 20 mg .Route .COMPLEX abdominal 10/15/23 pain/cramping 30 days #90 tabs Allergies Allergy/AdvReac Type Severity Reaction Status Date / Time aspartame [ASPARTAME] Allergy Unknown UNKNOWN Verified 10/21/23 17:56 loratadine [From CLARITIN] Allergy Unknown UNKNOWN Verified 10/21/23 17:56 phenylalanine [Phenylalanine] Allergy Unknown UNKNOWN Verified 10/21/23 17:56 dustmites Allergy Unknown unknown Uncoded 08/19/23 13:55 ragweed Allergy Unknown unknown Uncoded 08/19/23 13:55 Review of Systems Review of Systems: Constitutional : No Fever, No Chills Cardiovascular : No Chest Pain, No SOB Respiratory : No Cough, No Dyspnea Gastrointestinal : No Nausea, No Vomiting, No Diarrhea, No abdominal Pain Genitourinary : No Dysuria, No Hematuria Musculoskeletal : positive joint pain, No Myalgias, No Joint Swelling Skin : No Skin lacerations, No rash Neuro : No Weakness, No Numbness, No Loss of Consciousness, No Dizziness, No Headache Psych : No Anxiety/Panic, No Depression All other systems reviewed and are negative PMFSH Past Medical History Source: old records reviewed Medical History Compression fracture of lumbosacral spine Anxiety Mental disability Allergic rhinitis Elevated LFTs Osteoporosis Pure hypercholesterolemia Premature atrial contractions Surgical History S/P colonoscopy (~07/05/20) S/P laparoscopic cholecystectomy (~06/28/14) Family History Family History Other Family history unknown Social History Social History Housing: Assisted Living Facility Housing Other:: Residential home Alcohol intake: never Patient Tobacco Use Status: Never used Tobacco Smoked in Last 30 Days: No e-Cigarette/Vaping Use: Never Used Second Hand Smoke Exposure: No Use of substances other than those prescribed or required for medical reasons: No Advance Directives: No Advance Directives Information Provided: Yes service: No Current occupational status: retired Cognitive needs: No Hearing needs: No Vision needs: No Physical Exam ED Vital Signs: Vital Signs - 24 hr 10/21/23 17:53 10/21/23 20:25 10/21/23 21:48 Temperature 97.7 F 98.1 F Pulse Rate 69 61 64 Respiratory Rate 18 20 18 Blood Pressure 159/83 H 141/76 H 152/71 H Pulse Oximetry 97 96 96 Oxygen Delivery Method Room Air Room Air Room Air BMI result Body Mass Index 35.4 Appearance: Alert. at baseline. No acute distress. Eyes: Pupils equal, round and reactive to light. ENT: Pharynx normal. atraumatic Neck: Normal inspection. Neck supple. CVS: Normal heart rate and rhythm. Pulses normal. Respiratory: No respiratory distress. Breath sounds normal. Abdomen: Soft and non-tender. Skin: Skin warm and dry. Normal skin color. Normal skin turgor. Extremities: No lower extremity edema. mild pain to R patella, no pain to left patella has normal ROM of both knees ankles and hips Neuro: at baseline. No motor deficit. No sensory deficit. Course Course Course Narrative: Patient from nursing home slipped on wet floor and hurt her right knee, not sure if she hit her head Possibility of head strike could not be eliminated in the history so I ordered a head CT Otherwise no evidence of fracture in the right knee which is scraped, patient does respond appropriately to questions and is alert and in no distress This is rapid medical exam in triage bending full evaluation by ER provider and disposition by ER provider Reevaluation(s) Reevaluation #1: up and walking no issues Medical Decision Making Medical Decision Making MDM Narrative: 73 yo female with PMH of compression fractures, HLD, anxiety, HLD, not on thinners at this time will need xray of R knee I see no trauma to the head and no trauma reported her mechanism would not be consistsent with head or neck trauma but given age CT head [facility] triage was ordered. Differential Diagnosis Differential Diagnoses: The differential diagnosis associated with the presentation includes contusion sprain strain to R knee Independent Interpretation I performed an independent interpretation of an: Plain X-Ray (no fracture) and CT Scan (no ICH) Radiology Impression Discussion of test interpretation with radiology: I have reviewed the radiologist's reading. Independent Historian Clinical information obtained from an independent historian. History obtained from or confirmed by: Other External Record Review External record reviewed: Office record Discharge Plan Discharge Clinical Impression: Contusion of knee Qualifiers: Encounter type: initial encounter Laterality: right Qualified Code(s): S80.01XA - Contusion of right knee, initial encounter Patient Disposition: Home, Self-Care Instructions: Contusion in Adults (ED) Additional Instructions: return for worsening symptoms confusion, vomiting, weakness, inability to walk or any other concerns. CT head shows no acute trauma knee xray shows no acute trauma Prescriptions: No Action ketotifen fumarate 0.025 % (0.035 %) drops 1 drp ophthalmic (eye) .QD PRN (Reason: allergy symptoms) Qty: 5 2RF Rx Instructions: apply to both eyes once daily at 4 PM valacyclovir 500 mg tablet 500 mg PO DAILY 28 Days Qty: 28 5RF Thera-M 9 mg iron-400 mcg tablet 1 tab PO DAILY 28 Days Qty: 28 5RF cholecalciferol (vitamin D3) 25 mcg (1,000 unit) capsule 25 mcg PO DAILY 28 Days Qty: 28 5RF atorvastatin 10 mg tablet 10 mg PO DAILY Qty: 28 3RF Hold Instructions: Doctor's Order cetirizine 10 mg tablet 10 mg PO DAILY PRN (Reason: for allergies) Qty: 28 2RF acetaminophen 325 mg tablet 650 mg PO Q6H PRN (Reason: headache, toothache) 30 Days Qty: 120 5RF Rx Instructions: Take 2 tablets for temperature > 101, headache, toothache, muscle pain, joint pain, discomfort due to minor injury or sutures. Call PCP if symptoms continue more than 48 hours; DO not exceed 4 doses in 24 hours dicyclomine 20 mg tablet 20 mg .ROUTE .COMPLEX 30 Days Qty: 90 3RF Rx Instructions: Take 1 tablet every 4 hours as needed for abdominal pain/cramps or diarrhea. Call PCP if symptoms last more than 3 days. Do not exceed 3 doses in 24 hours. Prolia 60 mg/mL syringe 60 mg subcut [id number] paroxetine HCl 40 mg tablet 40 mg PO DAILY Interventions: ED Discharge Assessment Last Done: 10/21/23 22:06 Discharge Date/Time: 10/21/23 22:07
[2023-10-21 20:25] VITALS: BP 141/76; PULSE 61; RESP 20; O2SAT 96
[2023-10-21 21:48] VITALS: BP 152/71; PULSE 64; RESP 18; TEMP 36.7; O2SAT 96
--- NOTE | 2023-10-21 22:06 | PC.NURSE ---
pt ambulated well to/from the bathroom, gait even and steady
== END 2023-10-21 22:07 | disposition home or self-care (01) ==
PROVIDERS: Emergency Provider Emergency Medicine; PCP Internal Medicine
DX: S80.01XA Contusion of right knee, initial encounter (principal); W18.2XXA Fall in (into) shower or empty bathtub, initial encounter; Y93.E1 Activity, personal bathing and showering; Y92.192 Bathroom in other specified residential institution as the place of occurrence of the external cause; Y99.9 Unspecified external cause status
CPT/HCPCS: 70450; 73564; 99284

== ENCOUNTER 2023-12-14 10:45 | Outpatient (AMB) | payer MEDICARE, MEDICAID, SELFPAY ==
[2023-12-14 11:24] VITALS: BP 140/70; PULSE 66; TEMP 36.7; O2SAT 94
--- NOTE | 2023-12-14 11:24 | AM.OFFWIN_ITS ---
Intake Vital Signs 12/14/23 11:24 Height 5 ft 5 in BMI Reason not done Patient refused/unable BP 140/70 H Blood Pressure Location Lt brachial Position Sitting Pulse 66 Pulse Source Pulse Oximeter Temp 98.0 F Temp Source Oral Pulse Oximetry (%) 94 Oxygen Delivery Method Room Air Intake Visit Reasons: EP [facility] Intake Note: pt is here for c.o possible pink eye Patient Tobacco Use Status: Never used Tobacco Allergies aspartame [ASPARTAME] Allergy (Unknown, Verified 12/14/23 11:24) UNKNOWN loratadine [From CLARITIN] Allergy (Unknown, Verified 12/14/23 11:24) UNKNOWN phenylalanine [Phenylalanine] Allergy (Unknown, Verified 12/14/23 11:24) UNKNOWN dustmites Allergy (Unknown, Uncoded 08/19/23 13:55) unknown ragweed Allergy (Unknown, Uncoded 08/19/23 13:55) unknown Do you need a note to return to daycare/school/sports/work: No HPI HPI Comments History of Present Illness Details This is a 73-year-old female who presented to the walk-in clinic today complaining of right eye redness and discharge. The patient was evaluated by her primary care physician and she was started on antihistamine eyedrops for suspected allergic conjunctivitis. However, the patient's right eye redness and discharge has not improved and has even slightly worsened. There are no visual disturbances. The patient does not wear contact lenses. History obtained by patient's caregiver at bedside. [facility] Medical History Compression fracture of lumbosacral spine Anxiety Mental disability Allergic rhinitis Elevated LFTs Osteoporosis Pure hypercholesterolemia Premature atrial contractions Surgical History S/P colonoscopy (~07/05/20) S/P laparoscopic cholecystectomy (~06/28/14) Family History Other Family history unknown Social History Housing: Assisted Living Facility Housing Other:: Residential home Alcohol intake: never Patient Tobacco Use Status: Never used Tobacco e-Cigarette/Vaping Use: Never Used Second Hand Smoke Exposure: No service: No Current occupational status: retired Cognitive needs: No Hearing needs: No Vision needs: No Review of Systems Const All systems reviewed & are unremarkable except as noted in HPI and below Reports no additional complaints Eyes Reports no additional complaints ENT Reports no additional complaints Card Reports no additional complaints Resp Reports no additional complaints GI Reports no additional complaints Reports no additional complaints Musc Reports no additional complaints Skin/Breast Reports system reviewed and no additional complaints, except as documented Neuro Reports no additional complaints Psych Reports no additional complaints Endo Reports no additional complaints Harsh/Lymph Reports no additional complaints Aller/Immun Reports no additional complaints Physical Exam Vital Signs: Last Vital Signs Temp 98.0 F 12/14/23 11:24 Pulse 66 12/14/23 11:24 BP 140/70 H 12/14/23 11:24 Pulse Ox 94 12/14/23 11:24 Oxygen Delivery Method Room Air 12/14/23 11:24 Const Other: Vital signs reviewed. Constitutional: Non-toxic appearing. No acute distress. Well-developed and well-nourished. HEENT: Normocephalic and atraumatic. There is mild conjunctival injection of bilateral eyes (right greater than left) with scant discharge. Skin: Warm and dry. No rashes or lesions noted. Neck: Full and painless range of motion. No cervical lymphadenopathy. Cardio: Regular rate. No lower extremity edema. No JVD. Pulmonary: No respiratory distress. No accessory muscle usage. Musculoskeletal: Normal range of motion in joints throughout the body. No deformity or other signs of injury. Neuro: Alert and oriented x4. Cranial nerves 2-12 grossly intact. No focal deficits appreciated. Psych: Normal mood and affect. Assessment & Plan Assessment & Plan (1) Bacterial conjunctivitis of both eyes: Code(s): H10.9 - Unspecified conjunctivitis; B96.89 - Other specified bacterial agents as the cause of diseases classified elsewhere Plan: This is a 73-year-old female presenting to the walk-in clinic today complaining of worsening right eye redness and discharge despite antihistamine eyedrops. On physical examination, there is bilateral conjunctival injection (right greater than left) with scant discharge. History and physical most consistent with bacterial conjunctivitis. She was prescribed ofloxacin 0.03% eyedrops 2 drops to both eyes 4 times daily x7 days. This was explained to patient's caregiver at bedside who verbalized her understanding. Medications: New ofloxacin 0.3% 2 drps ophthalmic (eye) QID 10 mL 0RF 7 days Coding Level of Care Code Est Pt Level 3 (28217) Diagnoses Bacterial conjunctivitis of both eyes H10.9; B96.89
== END 2023-12-14 11:41 | disposition home or self-care (01) ==
PROVIDERS: PCP Internal Medicine; Visit Provider Physician Assistant Medical
DX: H10.9 Unspecified conjunctivitis (principal); B96.89 Other specified bacterial agents as the cause of diseases classified elsewhere
CPT/HCPCS: 99213

== ENCOUNTER 2024-01-03 10:16 | Outpatient (AMB) | payer MEDICARE, MEDICAID, SELFPAY ==
[2024-01-03 10:21] VITALS: BP 120/70; PULSE 76; TEMP 36.8; O2SAT 96; BMI 26.3
--- NOTE | 2024-01-03 10:21 | AM.OFFWIN_ITS ---
Intake Vital Signs 01/03/24 10:21 Height 5 ft 5 in Weight 158 lb BMI 26.3 BP 120/70 Blood Pressure Location Lt brachial Position Sitting Pulse 76 Pulse Source Pulse Oximeter Temp 98.3 F Temp Source Temporal Artery Scan Pulse Oximetry (%) 96 Oxygen Delivery Method Room Air Intake Visit Reasons: EP ?[facility] not better Intake Note: pt is here today for pink eye Patient Tobacco Use Status: Never used Tobacco Allergies aspartame [ASPARTAME] Allergy (Unknown, Verified 01/03/24 10:21) UNKNOWN loratadine [From CLARITIN] Allergy (Unknown, Verified 01/03/24 10:21) UNKNOWN phenylalanine [Phenylalanine] Allergy (Unknown, Verified 01/03/24 10:21) UNKNOWN dustmites Allergy (Unknown, Uncoded 08/19/23 13:55) unknown ragweed Allergy (Unknown, Uncoded 08/19/23 13:55) unknown Do you need a note to return to daycare/school/sports/work: No HPI HPI Comments History of Present Illness Details 73 y/o female patient who presents to [facility] clinic with c/o bilateral eye infection. She was recently seen at walk in clinic and given Abx eye drops for 7 days. The long term care pharmacist reports that symptoms never went away. Pt lives in a halfway. Last eye examination 2 months ago. ?? Cataracts on both eyes. Denies any other symptoms. Denies vision changes, headaches or dizziness. [facility] Medical History Compression fracture of lumbosacral spine Anxiety Mental disability Allergic rhinitis Elevated LFTs Osteoporosis Pure hypercholesterolemia Premature atrial contractions Surgical History S/P colonoscopy (~07/05/20) S/P laparoscopic cholecystectomy (~06/28/14) Family History Other Family history unknown Social History Housing: Assisted Living Facility Housing Other:: Residential home Alcohol intake: never Patient Tobacco Use Status: Never used Tobacco e-Cigarette/Vaping Use: Never Used Second Hand Smoke Exposure: No service: No Current occupational status: retired Cognitive needs: No Hearing needs: No Vision needs: No Review of Systems Const All systems reviewed & are unremarkable except as noted in HPI and below Physical Exam Vital Signs: Last Vital Signs Temp 98.3 F 01/03/24 10:21 Pulse 76 01/03/24 10:21 BP 120/70 01/03/24 10:21 Pulse Ox 96 01/03/24 10:21 Oxygen Delivery Method Room Air 01/03/24 10:21 BMI result Body Mass Index 26.3 Const General: no acute distress and well developed HEENT Head: Yes normocephalic Ears: external ears normal and TM's normal bilaterally General nose exam: No nasal discharge present Face and sinus: Yes sinuses nontender Mouth: moist mucous membranes Throat: Yes posterior oropharynx normal Eyes Conjunctivae: conjunctival abnormal bilateral and diffuse Pupils: Equal, round and reactive pupils present EOM: EOMs intact bilaterally Direct Ophthalmoscopy: normal light reflex Neuro Cranial nerves: Yes Equal, round and reactive pupils present Assessment & Plan Assessment & Plan (1) Bacterial conjunctivitis of both eyes: Code(s): H10.9 - Unspecified conjunctivitis; B96.89 - Other specified bacterial agents as the cause of diseases classified elsewhere Plan: - Ointment Abx for 7 days - Advised to make an appointment with an eye doctor soon - Keep eyes clean with warm water - Avoid touching face and eyes - Keep hands clean, wash with soap and water Medications: New erythromycin APPLY A THIN LAYER ON BOTH EYES AT BEDTIME 1 appl ophthalmic (eye) BEDTIME 3.5 grams 0RF Coding Level of Care Code Est Pt Level 3 (93141) Diagnoses Bacterial conjunctivitis of both eyes H10.9; B96.89 Time Spent (min) 15
== END 2024-01-03 11:52 | disposition home or self-care (01) ==
PROVIDERS: PCP Internal Medicine; Visit Provider Nurse Practitioner Family
DX: H10.9 Unspecified conjunctivitis (principal); B96.89 Other specified bacterial agents as the cause of diseases classified elsewhere
CPT/HCPCS: 99213

== ENCOUNTER 2024-05-09 09:38 | Outpatient (AMB) | payer MEDICARE, MEDICAID, SELFPAY ==
[2024-05-09 09:51] VITALS: BP 126/80; PULSE 73; TEMP 36.3; O2SAT 95; BMI 25.8
--- NOTE | 2024-05-09 09:51 | AM.OFFWIN_ITS ---
Intake Vital Signs 05/09/24 09:51 Height 5 ft 5 in Weight 155 lb BMI 25.8 BP 126/80 Blood Pressure Location Lt brachial Position Sitting Pulse 73 Pulse Source Pulse Oximeter Temp 97.3 F Temp Source Temporal Artery Scan Pulse Oximetry (%) 95 Oxygen Delivery Method Room Air Intake Visit Reasons: EP Rash both arms Intake Note: pt is here today for rash on both arms started 3 days ago Patient Tobacco Use Status: Never used Tobacco Allergies aspartame [ASPARTAME] Allergy (Unknown, Verified 05/09/24 10:42) UNKNOWN loratadine [From CLARITIN] Allergy (Unknown, Verified 05/09/24 10:42) UNKNOWN phenylalanine [Phenylalanine] Allergy (Unknown, Verified 05/09/24 10:42) UNKNOWN dustmites Allergy (Unknown, Uncoded 05/09/24 10:42) unknown ragweed Allergy (Unknown, Uncoded 05/09/24 10:42) unknown Do you need a note to return to daycare/school/sports/work: No HPI EP Rash both arms HPI Details Patient is a 73-year-old female with 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 She presents to the walk-in with staff member who reports that she had developed a rash to her inner elbow areas over last few days. She goes to day camp, and her staff reports that they believe she got into something there . She reports some discomfort to the area as well as it lamont. Staff reports that she has not been found to itch the areas at all. No other apparent rashes, and no fever or chills, weakness or dizziness, or other obvious issues, however patient is not very reliable for review of systems in history otherwise. Family member gives no history of eczema or psoriasis, and ports allergies to environmental triggers as well as dust mite. Patient takes daily medication for this. [facility] Medical History Compression fracture of lumbosacral spine Anxiety Mental disability Allergic rhinitis Elevated LFTs Osteoporosis Pure hypercholesterolemia Premature atrial contractions Surgical History S/P colonoscopy (~07/05/20) S/P laparoscopic cholecystectomy (~06/28/14) Family History Other Family history unknown Social History Housing: Assisted Living Facility Housing Other:: Residential home Alcohol intake: never Patient Tobacco Use Status: Never used Tobacco e-Cigarette/Vaping Use: Never Used Second Hand Smoke Exposure: No service: No Current occupational status: retired Cognitive needs: No Hearing needs: No Vision needs: No Review of Systems Const All systems reviewed & are unremarkable except as noted in HPI and below Physical Exam Vital Signs: Last Vital Signs Temp 97.3 F 05/09/24 09:51 Pulse 73 05/09/24 09:51 BP 126/80 05/09/24 09:51 Pulse Ox 95 05/09/24 09:51 Oxygen Delivery Method Room Air 05/09/24 09:51 BMI result Body Mass Index 25.8 Skin Other: Bilateral AC areas on the anterior elbows are erythematous, edematous and warm to the touch. Skin is thickened and wrinkled and area, with an almost plaque- like appearance. Both areas are about 5 cm in area, with the left being more erythematous than right. No excoriation. No bleeding or discharge. Assessment & Plan Assessment & Plan (1) Cellulitis: Code(s): L03.90 - Cellulitis, unspecified Qualifiers: Site of cellulitis: extremity Site of cellulitis of extremity: upper extremity Laterality: unspecified laterality Qualified Code(s): L03.119 - Cellulitis of unspecified part of limb Plan Patient has rash to bilateral inner elbow creases that appear to be a dermatophyte infection that is possibly co infected with a bacteria, as it is now very warm, edematous and erythematous. We will cover her with Keflex today, and she can use antifungal cream also. If symptoms persist despite this, a steroid could be trialed. Staff knows to follow up if her symptoms persist or worsen. Medications: New tolnaftate 1% 1 appl topical BID 30 grams 0RF cephalexin 500 mg PO QID 40 caps 0RF 10 days Coding Level of Care Code Est Pt Level 3 (03047) Diagnoses Cellulitis of upper extremity, unspecified laterality L03.119 Site of cellulitis: extremity Site of cellulitis of extremity: upper extremity Laterality: unspecified laterality
== END 2024-05-09 11:44 | disposition home or self-care (01) ==
PROVIDERS: PCP Internal Medicine; Visit Provider Physician Assistant Medical
DX: L03.119 Cellulitis of unspecified part of limb (principal)
CPT/HCPCS: 99213

== ENCOUNTER 2024-06-17 09:57 | Outpatient (AMB) | payer MEDICARE, MEDICAID, SELFPAY ==
--- NOTE | 2024-06-17 10:02 | A.OFFPC_ITS ---
Vital Signs 06/17/24 10:03 Height 5 ft 5 in Weight 150 lb 0.4 oz BMI 25.0 BP 108/70 Blood Pressure Location Lt brachial Position Sitting Pulse 80 Pulse Source Pulse Oximeter Pulse Oximetry (%) 97 Oxygen Delivery Method Room Air Intake Visit Reasons: RxEvaluation Loss Control Engineer Required: No Allergies aspartame [ASPARTAME] Allergy (Unknown, Verified 06/17/24 10:03) UNKNOWN loratadine [From CLARITIN] Allergy (Unknown, Verified 06/17/24 10:03) UNKNOWN phenylalanine [Phenylalanine] Allergy (Unknown, Verified 06/17/24 10:03) UNKNOWN dustmites Allergy (Unknown, Uncoded 06/17/24 10:03) unknown ragweed Allergy (Unknown, Uncoded 06/17/24 10:03) unknown Medication List - Last Reconciled 06/17/24 by Mary Olivier PA-C acetaminophen 650 mg (2 x 325 mg) PO Q6H PRN 30 days atorvastatin 10 mg PO DAILY cetirizine 10 mg PO DAILY PRN cholecalciferol (vitamin D3) 25 mcg PO DAILY 28 days denosumab (Prolia) 60 mg subcut [id number] dicyclomine 20 mg PO QID ketotifen fumarate 0.025%(0.035%) 1 drp ophthalmic (eye) .QD PRN [id number]-gbab-KL-calcium-mins 9 mg iron-400 mcg 1 tab PO DAILY 28 days paroxetine HCl 40 mg PO DAILY 90 days tolnaftate 1% 1 appl topical BID valacyclovir 500 mg PO DAILY 28 days Tobacco use date assessed: 06/17/24 Fall risk assessment: No Falls in past year Last assessed Fall Risk: 06/17/24 Dental Screening Dental Screen Date: 08/19/23 HPI RxEvaluation HPI Details 73-year-old female with past medical his tory of hypercholesterolemia, anxiety, and compression fracture of lumbosacral spine last seen by Dr. Chance August 2023 coming in for follow up.? In review of the notes patient has been seen in the walk-in clinic for bacterial conjunctivitis.? Mammogram completed 10/09/2023 BI-RADS 1 follow up in 1 year.? Most recently was seen in the walk-in clinic 05/09/2024 treated for cellulitis. Patient was treated for cellulitis as well as fungal infection at urgent care. The rash initially resolved with treatment and has now returned. There was no identifiable trigger. [facility] Medical History Compression fracture of lumbosacral spine Anxiety Mental disability Allergic rhinitis Elevated LFTs Osteoporosis Pure hypercholesterolemia Premature atrial contractions Surgical History S/P colonoscopy (~07/05/20) S/P laparoscopic cholecystectomy (~06/28/14) Family History Other Family history unknown Social History Housing: Assisted Living Facility Housing Other:: Residential home Alcohol intake: never Patient Tobacco Use Status: Never used Tobacco e-Cigarette/Vaping Use: Never Used Second Hand Smoke Exposure: No service: No Current occupational status: retired Cognitive needs: No Hearing needs: No Vision needs: No Questionnaire Thrive Questionnaire Date Thrive assessed: 08/19/23 AUDIT C Alcohol Use Questionnaire (AUDIT-C) 1. How often do you have a drink containing alcohol?: Never 3. How often do you have six or more drinks on one occasion?: Never Total Score: 0 Score Reviewed/Action Taken: Yes OANH-7 AMB Questionnaire OANH-7 Date OANH - 7 assessed: 08/19/23 Source: Developed by Drs. Suraj Rushing, Janice Navarro, Micah Pelaez and colleagues, with an educational amna from [employer]. Review of Systems Const Denies body aches, Denies chills, Denies fever(s), Denies headache(s) and Denies poor appetite Eyes Reports no additional complaints ENT Denies headache(s) Card Denies chest pain GI Denies abdominal pain Reports no additional complaints Musc Reports no additional complaints and Denies abnormal gait Skin/Breast Details: Rash is only on in her elbows and not present on anywhere else on the body Reports as per HPI Neuro Denies abnormal gait and Denies headache(s) Psych Reports no additional complaints Physical exam (Primary Care) Vital Signs: Last Vital Signs Pulse 80 06/17/24 10:03 BP 108/70 06/17/24 10:03 Pulse Ox 97 06/17/24 10:03 Oxygen Delivery Method Room Air 06/17/24 10:03 BMI result Body Mass Index 25.0 Tobacco/Smoking Status: Tobacco use Status Tobacco use date assessed 06/17/24 06/17/24 10:08 Patient Tobacco Use Status Never used Tobacco 06/17/24 10:08 e-Cigarette/Vaping Use Never Used 06/17/24 10:08 Thrive Assessment: Date of Thrive Assessment Date Thrive assessed 08/19/23 06/17/24 10:08 Const General: cooperative, healthy appearing, comfortable and no acute distress Orientation/consciousness: patient oriented x3 HENMT Head: Yes normocephalic Ears: hearing grossly normal bilaterally General nose exam: Normal external nose present Eyes General: appearance normal, both eyes and all related structures Conjunctivae: conjunctivae normal Neck Neck: Yes full ROM and Yes no lymphadenopathy Resp Effort & Inspection: normal respiratory effort Auscultation: clear to auscultation bilaterally, no crackles, no rales, no rhonchi and no wheezes Cardio Rate: regular rate Rhythm: regular rhythm Skin Other: Red, flaking, warm rash on bilateral antecubital fossa with pain to palpation. No rash under the breasts or on the feet. Neuro General: patient oriented x3 Gait exam (Neuro): Normal gait present Extrem General: Yes normal to inspection, Yes full ROM and No edema Psych Affect: normal affect Attitude: cooperative Insight: Good insight present (Psych) Judgement: Good judgement present (Psych) Assessment and Plan Assessment & Plan (1) Rash: Code(s): R21 - Rash and other nonspecific skin eruption Plan: The location and presentation of the rash is most consistent with a fungal infection further supported by resolution with antifungal creams. However the rash is painful and warm as well as itchy and unclear if this is a cellulitis. We will treat with topical antifungal cream along with oral antibiotics to cover for possible cellulitis. Prescription for nystatin powder was also sent to pharmacy for prevention after the initial rash clears. Plan This note was constructed using voice recognition software. While every effort has been made to ensure accuracy and building performance specialist, still areas may have been included sometimes these areas may affect the content or meeting of the given symptoms. Total time spent caring for the patient today was 30 minutes. This includes time spent before the visit reviewing the chart, time spent during the visit, and time spent after the visit and documentation. Medications: New nystatin Not to be used with antifungal cream. 1 appl topical DAILY PRN 15 grams 0RF rash sulfamethoxazole-trimethoprim 800-160 mg (Bactrim DS) 1 tab PO BID 10 tabs 0RF 5 days Changed From tolnaftate 1% 1 appl topical BID 30 grams 0RF To tolnaftate 1% 1 appl topical BID PRN 30 grams 0RF rash Refilled tolnaftate 1% 1 appl topical BID PRN 30 grams 0RF rash Coding Level of Care Code Est Pt Level 4 (82650) Diagnoses Rash R21
[2024-06-17 10:03] VITALS: BP 108/70; PULSE 80; O2SAT 97; BMI 25.0
== END 2024-06-17 10:35 | disposition home or self-care (01) ==
PROVIDERS: PCP Internal Medicine
DX: R21 Rash and other nonspecific skin eruption (principal)
CPT/HCPCS: 99214

== ENCOUNTER 2024-08-21 10:03 | Outpatient (AMB) | payer MEDICARE, MEDICAID, SELFPAY ==
[2024-08-21 10:16] VITALS: BP 100/70; PULSE 68; O2SAT 97; BMI 25.1
--- NOTE | 2024-08-21 10:16 | MHC.PC.OV ---
Vital Signs 08/21/24 10:16 Height 5 ft 5 in Weight 151 lb 2 oz BMI 25.1 BP 100/70 Blood Pressure Location Lt brachial Position Sitting Pulse 68 Pulse Source Pulse Oximeter Pulse Oximetry (%) 97 Oxygen Delivery Method Room Air Intake Visit Reasons: annual exam Platform Worker Required: No Accompanied by: Self / Same As Patient Allergies aspartame [ASPARTAME] Allergy (Unknown, Verified 08/21/24 11:02) UNKNOWN loratadine [From CLARITIN] Allergy (Unknown, Verified 08/21/24 11:02) UNKNOWN phenylalanine [Phenylalanine] Allergy (Unknown, Verified 08/21/24 11:02) UNKNOWN dustmites Allergy (Unknown, Uncoded 08/21/24 11:02) unknown ragweed Allergy (Unknown, Uncoded 08/21/24 11:02) unknown Medication List - Last Reconciled 08/21/24 by Panchito Chance MD acetaminophen 650 mg (2 x 325 mg) PO Q6H PRN 30 days atorvastatin 10 mg PO DAILY cetirizine 10 mg PO DAILY PRN cholecalciferol (vitamin D3) 25 mcg PO DAILY 28 days denosumab (Prolia) 60 mg subcut [id number] dicyclomine 20 mg PO QID ketotifen fumarate 0.025%(0.035%) 1 drp ophthalmic (eye) .QD PRN nsdapdzh-rtzx-RS-calcium-mins 9 mg iron-400 mcg 1 tab PO DAILY 28 days nystatin 1 appl topical DAILY PRN paroxetine HCl 40 mg PO DAILY 90 days tolnaftate 1% 1 appl topical BID PRN valacyclovir 500 mg PO DAILY 28 days Tobacco use date assessed: 08/21/24 Fall risk assessment: 1 Fall in past year Last assessed Fall Risk: 08/21/24 Dental Screening Dental Screen Date: 08/21/24 Did you have a dental visit in the last 12 months?: Yes Did you have a dental problem in the last 6 months where you did not have access to dental care?: No Was dental information given to patient?: Patient has dentist HPI annual exam HPI Details Patient comes in today for her annual physical examination - is accompanied as usual by her [facility] staff/assistant credit manager Patient states that she feels okay She denies any headaches or dizziness Denies any chest pains, no SOB No nausea/vomiting, no abdominal pain No change in bowel habits noted She denies any acute urinary symptoms jail staff states that she will need her Ketotifen eyedrops Rx redone and changed to just PRN use They are also requesting for patient to get her flu shot today Patient was not able to get her follow-up labs done prior to today's visit Patient had her screening colonoscopy last done on 07/05/2020 and she was recommended to have repeat colonoscopy done in 10 years (2029) She is scheduled for her yearly mammogram on 10/12/2024 She no longer has to keep up with her yearly gynecology exam and pap smear based on her age She has not had a bone density scan done since 2018 [facility] Medical History Compression fracture of lumbosacral spine Anxiety Mental disability Allergic rhinitis Elevated LFTs Osteoporosis Pure hypercholesterolemia Premature atrial contractions Surgical History S/P colonoscopy (~07/05/20) S/P laparoscopic cholecystectomy (~06/28/14) Family History Other Family history unknown Social History Housing: Assisted Living Facility Housing Other:: Residential home Alcohol intake: never Patient Tobacco Use Status: Never used Tobacco e-Cigarette/Vaping Use: Never Used Second Hand Smoke Exposure: No service: No Current occupational status: retired Cognitive needs: No Hearing needs: No Vision needs: No Questionnaire PHQ-9 Over the last 2 weeks, how often have you been bothered by any of the following problems? 1. Little interest or pleasure in doing things: not at all 2. Feeling down, depressed, or hopeless: not at all 3. Trouble falling or staying asleep, or sleeping too much: not at all 4. Feeling tired or having little energy: not at all 5. Poor appetite or overeating: not at all 6. Feeling bad about yourself - or that you are a failure or have let yourself or your family down: not at all 7. Trouble concentrating on things, such as reading the newspaper or watching television: not at all 8. Moving or speaking so slowly that other people could have noticed. Or the opposite - being so fidgety or restless that you have been moving around a lot more than usual: not at all 9. Thoughts that you would be better off or of hurting yourself in some way: not at all Total score: 0 Depression Screening Interpretation: Negative Depression Screening Done: Yes 39776 - PHQ-9 Billing: Yes Source: Developed by Drs. Suraj Rushing, Janice Navarro, Micah Pelaez and colleagues, with an educational amna from [employer]. Thrive Questionnaire Date Thrive assessed: 08/21/24 I am a: Patient What is your living situation today?: I have a steady place to live Within the past 12 months, did the food you bought not last and you didn't have the money to get more?: Never true Within the past 12 months, did you worry whether your food would run out before you got money to buy more?: Never true Do you have trouble paying for medicines?: No Do you have trouble getting transportation to medical appointments?: No Do you have trouble paying your heating and electricity bill?: No Do you have trouble taking care of your child, family member or friend?: No Do you have trouble with day-to-day activities such as bathing, preparing meals, shopping, managing finances, etc.?: No Are you currently unemployed and looking for a job?: No Are you interested in more education?: No Please select the resources that you would like help with: None Currently or been in a relationship where the following occur: No concerns reported THRIVE Score: 0 AUDIT C Alcohol Use Questionnaire (AUDIT-C) 1. How often do you have a drink containing alcohol?: Never 3. How often do you have six or more drinks on one occasion?: Never Total Score: 0 Score Reviewed/Action Taken: Yes OANH-7 AMB Questionnaire OANH-7 Date OANH - 7 assessed: 08/21/24 Feeling nervous, anxious, or on edge: 0 = Not at all Not being able to stop or control worryin = Not at all Worrying too much about different things: 0 = Not at all Trouble relaxin = Not at all Being so restless that it is hard to sit still: 0 = Not at all Becoming easily annoyed or irritable: 0 = Not at all Feeling afraid as if something awful might happen: 0 = Not at all Total OANH-7 score (0-4 normal; 5-9 mild; 10-14 moderate; 15-21 severe): 0 Source: Developed by Drs. Suraj Rushing, Janice Navarro, Micah Pelaez and colleagues, with an educational amna from [employer]. Review of Systems Const Denies chills, Denies fatigue, Denies fever(s), Denies headache(s) and Denies malaise Eyes Denies blurry vision, Denies change in vision, Denies irritation and Denies itchy eyes ENT Denies dysphagia, Denies dizziness, Denies otalgia, Denies headache(s), Denies nasal congestion, Denies neck pain, Denies odynophagia, Denies sinus pain and Denies sore throat Card Denies chest pain, Denies rapid heart rate, Denies irregular heart rhythm, Denies palpitations and Denies dyspnea Resp Denies chest congestion, Denies cough, Denies dyspnea and Denies wheezing GI Denies abdominal pain, Denies bloating, Denies constipation, Denies dysphagia, Denies heartburn, Denies diarrhea, Denies nausea, Denies odynophagia and Denies vomiting Denies hematuria, Denies urinary frequency, Denies dysuria, Denies urinary incontinence and Denies urinary urgency Musc Denies back pain, Denies arthralgias, Denies joint swelling, Denies muscle weakness and Denies neck pain Skin/Breast Denies breast pain, Denies breast mass, Denies change in pigmentation, Denies lesions, Denies rash and Denies unusual bruising Neuro Denies dizziness, Denies headache(s) and Denies paresthesias Psych Denies anxiety and Denies depression (controlled on Rx) Endo Denies fatigue and Denies palpitations Harsh/Lymph Denies easy bruising Aller/Immun Denies itchy eyes and Denies wheezing Physical exam (Primary Care) Vital Signs: Last Vital Signs Pulse 68 08/21/24 10:16 BP 100/70 08/21/24 10:16 Pulse Ox 97 08/21/24 10:16 Oxygen Delivery Method Room Air 08/21/24 10:16 BMI result Body Mass Index 25.1 Tobacco/Smoking Status: Tobacco use Status Tobacco use date assessed 08/21/24 08/21/24 10:24 Patient Tobacco Use Status Never used Tobacco 08/21/24 10:24 e-Cigarette/Vaping Use Never Used 08/21/24 10:24 PHQ-9: PHQ-9 Score PHQ-9: Total score 0 08/21/24 16:15 Depression Screening Interpretation: Negative Thrive Assessment: Date of Thrive Assessment Date Thrive assessed 08/21/24 08/21/24 10:24 Currently or been in a relationship where the following occur: No concerns reported Const General: no acute distress, alert and awake Orientation/consciousness: patient oriented x3 HENMT Head: Yes normocephalic and Yes atraumatic Ears: external ears normal, TM's normal bilaterally and EAC's normal General nose exam: No nasal discharge present Face and sinus: Yes normal facial exam and Yes sinuses nontender Teeth and gingiva: dentition normal Throat: Yes posterior oropharynx normal and Yes tonsils normal (no TP congestion) Eyes Eyelids: Yes eyelids normal Conjunctivae: conjunctivae normal Pupils: Equal, round and reactive pupils present EOM: EOMs intact bilaterally Neck Neck: Yes no lymphadenopathy and Yes supple Thyroid: Thyroid normal Resp Auscultation: clear to auscultation bilaterally, no rales and no wheezes Cardio Rate: regular rate Rhythm: regular rhythm Heart sounds: no murmurs GI Palpation (GI): Soft to palpation, nontender and No hepatosplenomegaly present Auscultation: normal bowel sounds General: Yes no CVA tenderness Back/Spine/Pelvis Back: no CVA tenderness Thoracic/Lumbar Spine: thoracic and lumbar spine normal to inspection Skin Lesions: no lesions Rashes: no rashes Neuro General: patient oriented x3, moves all extremities, no focal motor deficits and CN's II-XI intact bilaterally Cranial nerves: Yes Equal, round and reactive pupils present Cognition (Neuro): normal cognition Gait exam (Neuro): Normal gait present Extrem General: Yes no clubbing, cyanosis or edema Office Procedures Flu Questionnaire Does the patient have a severe egg allergy?: No Does the patient have severe life threatening allergies?: No Does the patient have a fever or illness today?: No Has the patient ever had Guillain-[place] Syndrome?: No Has the patient ever had any past reaction to a flu shot?: No Immunizations Fluarix Triv [id number] (PF) 45 mcg (15 mcg x 3)/0.5 mL IM syringe Performing Provider: Panchito Chance MD Performing Location: [facility] Administered by: TYREE Sheldon on 08/21/24 11:17 Dose Route Admin Location Dispensed Lot Number Expiration Date NDC Flat Surfacer 0.5 mL IM Left Deltoid 0.5 mL [id number] 05/10/25 [id number] [id number] Local VIS Given Date VIS Provided VIS Publication Date 08/21/24 Single Vaccine 21 Eligibility Eligibility Date Funding Source Not [facility] Eligible 08/21/24 Private Coding Level of Care Code Est Pt Prev Care >65y(45248) Diagnoses Annual physical exam Z00.00 Pure hypercholesterolemia E78.00 Premature atrial contractions I49.1 Elevated LFTs R79.89 Allergic rhinitis, unspecified seasonality, unspecified trigger J30.9 Allergic rhinitis seasonality: unspecified Allergic rhinitis trigger: unspecified Age-related osteoporosis without current pathological fracture M81.0 Osteoporosis type: age-related Presence of current pathological fracture: without current pathological fracture Closed compression fracture of lumbosacral spine, sequela S32.000S Encounter type: sequela Fracture type: closed Anxiety F41.9 Mental disability F79 Assessment & Plan Assessment & Plan (1) Annual physical exam: Code(s): Z00.00 - Encounter for general adult medical examination without abnormal findings Category: Medical Plan: Check labs - orders are printed out and handed to her [facility] staff She had her BMD last done at [facility] in 2021; had one done here at [facility] in 2017 She is scheduled for her annual mammogram in October 2024 She is up-to-date with her screening colonoscopy (2) Pure hypercholesterolemia: Code(s): E78.00 - Pure hypercholesterolemia, unspecified Category: Medical Plan: Patient has not had her fasting lipids rechecked since September 2022 - will have her go and get her labs done STEPHANIE Reinforced low cholesterol diet Continue Atorvastatin 10 mg QD (3) Premature atrial contractions: Code(s): I49.1 - Atrial premature depolarization Category: Medical Plan: Stable with no recent recurrence Echocardiogram done a couple of years ago was mostly normal, with a normal EF Follow up with [facility] as scheduled (4) Elevated LFTs: Code(s): R79.89 - Other specified abnormal findings of blood chemistry Category: Medical Plan: Improved; repeat LFTs were also not included on her recent labs Will recheck her LFTs for follow up (5) Allergic rhinitis: Code(s): J30.9 - Allergic rhinitis, unspecified Category: Medical Qualifiers: Allergic rhinitis seasonality: unspecified Allergic rhinitis trigger: unspecified Qualified Code(s): J30.9 - Allergic rhinitis, unspecified Plan: Continue Fluticasone 50 mcg nasal spray QD PRN and Loratadine 10 mg QD PRN (6) Osteoporosis: Code(s): M81.0 - Age-related osteoporosis without current pathological fracture Category: Medical Qualifiers: Osteoporosis type: age-related Presence of current pathological fracture: without current pathological fracture Qualified Code(s): M81.0 - Age-related osteoporosis without current pathological fracture Plan: BMD done on 07/03/2018 showed (+) severe osteoporosis with a 23.4% increase in BMD in the AP spine from previous BMD 3 years ago and a 9% increase from baseline; left femur BMD showed just a 1.5% increase from previous Continue Calcium+D tablet 600-200 mg-unit once a day with food; patient was on Fosamax previously but this was discontinued by endocrinology several months ago She was started on Prolia by endocrinology last year and she had repeat BMD done in June 2022 - we do not have the results of this for review purposes She is encouraged again on regular exercise daily, as well as fall precautions Follow up with endocrinology as scheduled (7) Compression fracture of lumbosacral spine: Comment: L3 - seen on x-rays done in 09/2016 Code(s): S32.000A - Wedge compression fracture of unspecified lumbar vertebra, initial encounter for closed fracture Category: Medical Qualifiers: Encounter type: sequela Fracture type: closed Qualified Code(s): S32.000S - Wedge compression fracture of unspecified lumbar vertebra, sequela Plan: Reinforced activity and weight-lifting restrictions although patient does not do too much in terms of physical activity (8) Anxiety: Code(s): F41.9 - Anxiety disorder, unspecified Category: Medical Plan: Continue Paroxetine 40 mg QD Follow up with psychiatry as scheduled (9) 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 Panel Fast 08/22/24 E78.00 - Pure hypercholesterolemia, unspecified, Z00.00 - Encounter for general adult medical examination without abnormal findings Hemoglobin A1c 08/22/24 E11.9 - Type 2 diabetes mellitus without complications, Z00.00 - Encounter for general adult medical examination without abnormal findings Vitamin D 25-OH Total 08/22/24 E55.9 - Vitamin D deficiency, unspecified, Z00.00 - Encounter for general adult medical examination without abnormal findings Influenza [id number] Immunization 08/21/24 Z23 - Encounter for immunization Lipid Panel 08/22/24 E78.00 - Pure hypercholesterolemia, unspecified, Z00.00 - Encounter for general adult medical examination without abnormal findings TSH reflex Free T4 08/22/24 E78.00 - Pure hypercholesterolemia, unspecified, Z00.00 - Encounter for general adult medical examination without abnormal findings UA CC w/rflx Micro + Cult 08/22/24 R30.0 - Dysuria, Z00.00 - Encounter for general adult medical examination without abnormal findings
== END 2024-08-21 11:23 | disposition home or self-care (01) ==
PROVIDERS: PCP Internal Medicine; Visit Provider Internal Medicine
DX: Z00.00 Encounter for general adult medical examination without abnormal findings (principal); E78.00 Pure hypercholesterolemia, unspecified; I49.1 Atrial premature depolarization; R79.89 Other specified abnormal findings of blood chemistry; J30.9 Allergic rhinitis, unspecified; M81.0 Age-related osteoporosis without current pathological fracture; S32.000S Wedge compression fracture of unspecified lumbar vertebra, sequela; F41.9 Anxiety disorder, unspecified; F79 Unspecified intellectual disabilities

== ENCOUNTER → 2024-08-21 10:03 | Outpatient (BNVA) | payer MEDICARE, MEDICAID, SELFPAY | PROVIDERS: PCP Internal Medicine; Visit Provider Internal Medicine | DX: Z00.00 Encounter for general adult medical examination without abnormal findings (principal); Z23 Encounter for immunization; E78.00 Pure hypercholesterolemia, unspecified; I49.1 Atrial premature depolarization; R79.89 Other specified abnormal findings of blood chemistry; J30.9 Allergic rhinitis, unspecified; M81.0 Age-related osteoporosis without current pathological fracture; S32.000S Wedge compression fracture of unspecified lumbar vertebra, sequela; F41.9 Anxiety disorder, unspecified; F79 Unspecified intellectual disabilities | CPT/HCPCS: 90471; 90656; 96127; 99397 ==

== ENCOUNTER 2024-08-22 08:04 | Outpatient (REF) | payer MEDICARE, MEDICAID, SELFPAY ==
[2024-08-22 08:23] LABS: MANUAL DIFF FLAG NO
[2024-08-22 08:40] LABS: Appearance Urine Clear; Color Urine Yellow; Glucose Urine UA Negative (Negative); Leukocyte Esterase Urine Negative (Negative); Nitrite Urine Negative (Negative); PH 6.5 (5.0-9.0); Urine Blood Negative (Negative); Urine Ketones Negative (Negative); Urine Protein Negative (Neg-Trace)
[2024-08-22 08:54] LABS: Estimated Average Glucose 103 mg/dL; Hemoglobin A1C 108.4366 umol/L; Hemoglobin A1c % 5.2 % (<6.0); Total Hemoglobin (HGBA1C) 3227.7318 umol/L
[2024-08-22 09:15] LABS: Basophils Percent Auto 0.8 % (0-2); Eosinophils Absolute Auto 0.1 X10*3/uL (0.0-0.4); Eosinophils Percent Auto 1.4 % (0-4); Hematocrit 40.3 % (37.0-47.0); Hemoglobin 13.5 g/dl (12.0-16.0); Imm Gran Abs Auto 0.01 X10*3/uL (0.00-0.03); Imm Gran Pct Auto 0.2 % (0.0-0.4); Lymphocytes Absolute Auto 0.8 X10*3/uL (1.2-4.9); Lymphocytes Percent Auto 15.7 % (20-40); Mean Corpuscular HGB Conc 33.5 g/dl (31.0-35.0); Mean Corpuscular Hemoglobin 31.8 pg (27.0-33.0); Mean Platelet Volume 11.2 fL (9.4-12.3); Monocytes Absolute Auto 0.4 X10*3/uL (0.1-1.2); Monocytes Percent Auto 8.8 % (2-11); Neutrophils Absolute Auto 3.6 x10*3/uL (2.0-8.3); Neutrophils Percent Auto 73.1 % (45-73); Platelet Count 161 X10*3/uL (160-400); Red Blood Count 4.24 X10*6/uL (4.20-5.50); Red Cell Distribution Width 12.2 % (11.0-16.0); White Blood Count 4.9 X10*3/uL (4.8-10.8)
[2024-08-22 09:35] LABS: Alanine Aminotransferase 24 U/L (0-31); Alkaline Phosphatase 79 U/L (39-117); Anion Gap 11 (12-20); Aspartate Amino Transferase 22 U/L (5-31); Bilirubin Total 0.7 mg/dL (0.0-1.0); Blood Urea Nitrogen 16 mg/dL (9-16); Calcium 9.3 mg/dL (8.4-10.2); Carbon Dioxide 26 mmol/L (22-29); Chloride 109 mmol/L (96-108); Cholesterol 135 mg/dL (<200); Estimated Glomerular Filt Rate > 60; Glucose Fasting 92 mg/dL (60-99); HDL Cholesterol 53 mg/dL (>40); LDL Cholesterol Calculated 67 mg/dL (<100); Potassium 4.1 mmol/L (3.3-5.1); Sodium 142 mmol/L (135-145); Total Protein 6.7 g/dL (6.5-8.0); Triglycerides 79 mg/dL (<150)
[2024-08-22 09:42] LABS: Vitamin D 25-OH Total 40.3 ng/mL (>30)
== END 2024-08-22 08:05 | disposition home or self-care (01) ==
LOC: HO.LAB 08:04
PROVIDERS: PCP Internal Medicine; Visit Provider Internal Medicine
DX: Z00.00 Encounter for general adult medical examination without abnormal findings (principal); D64.9 Anemia, unspecified; E78.00 Pure hypercholesterolemia, unspecified; E11.9 Type 2 diabetes mellitus without complications; R30.0 Dysuria; E55.9 Vitamin D deficiency, unspecified
CPT/HCPCS: 36415; 80053; 80061; 81003; 82306; 83036; 84443; 85025

== ENCOUNTER 2024-10-12 14:41 | Outpatient (REF) | payer MEDICARE, MEDICAID, SELFPAY ==
--- NOTE | ~2024-10-12 | MM_ITS ---
EXAMINATION: MM SCREENING DIGITAL BREAST TOMOSYNTHESIS, BILATERAL CLINICAL INFORMATION: Screening. Asymptomatic. COMPARISON: Mammography: Comparison is made with available priors TECHNIQUE: Digital breast mammography with tomosynthesis is performed in both the craniocaudal and mediolateral oblique views along with computer-aided detection (CAD). FINDINGS: There are scattered areas of fibroglandular density (ACR BI-RADS breast composition Category b). There are no significant masses, abnormal calcifications, or other abnormalities. MM/MM tomosynthesis screening BI IMPRESSION: No mammographic evidence of malignancy. ASSESSMENT: BI-RADS BI-RADS 1 - Negative RECOMMENDATION: Routine annual mammography screening. 1 year F/U This examination should not preclude the clinical evaluation of a suspicious palpable abnormality. This patient's information was entered into a reminder system with a target due date for their next mammogram. Electronically signed by: Linette Huertas DO 10/19/2024 10:37 AM FLORINDA
== END 2024-10-12 14:42 | disposition home or self-care (01) ==
LOC: HO.MAMMO 14:41
PROVIDERS: PCP Internal Medicine; Visit Provider Internal Medicine
DX: Z12.31 Encounter for screening mammogram for malignant neoplasm of breast (principal)
CPT/HCPCS: 77063; 77067

== ENCOUNTER → 2024-10-12 14:45 | Outpatient (BNV) | payer MEDICARE, MEDICAID, SELFPAY | PROVIDERS: PCP Internal Medicine; Visit Provider Internal Medicine | DX: Z12.31 Encounter for screening mammogram for malignant neoplasm of breast (principal) | CPT/HCPCS: 77063; 77067 ==

== ENCOUNTER 2024-10-14 10:32 | Outpatient (REF) | payer MEDICARE, MEDICAID, SELFPAY ==
[2024-10-14 14:37] LABS: Influenza A PCR NEGATIVE (Negative); Influenza B PCR NEGATIVE (Negative); Resp Syncy Virus RNA Qual PCR POSITIVE (Negative); SARS COV2 PCR INHOUSE NEGATIVE (Negative)
== END 2024-10-14 10:33 | disposition home or self-care (01) ==
LOC: HO.LNP 10:32
PROVIDERS: PCP Internal Medicine; Visit Provider Registered Nurse
DX: J06.9 Acute upper respiratory infection, unspecified (principal)
CPT/HCPCS: 0241U; 99212

== ENCOUNTER 2024-10-14 10:32 | Outpatient (AMB) | payer MEDICARE, MEDICAID, SELFPAY ==
--- NOTE | 2024-10-14 11:25 | AM.OFFWIN_ITS ---
Intake Vital Signs 10/14/24 11:26 Height 5 ft 5 in Weight 154 lb BMI 25.6 BP 120/80 Blood Pressure Location Lt brachial Position Sitting Pulse 75 Pulse Source Pulse Oximeter Temp 98.8 F Temp Source Oral Pulse Oximetry (%) 95 Oxygen Delivery Method Room Air Intake Visit Reasons: EP cough, chest pain Intake Note: Patient here for cough, chest tightness, congestion and headaches that started yesterday. Patient Tobacco Use Status: Never used Tobacco Allergies aspartame [ASPARTAME] Allergy (Unknown, Verified 10/14/24 11:) UNKNOWN loratadine [From CLARITIN] Allergy (Unknown, Verified 10/14/24 11:) UNKNOWN phenylalanine [Phenylalanine] Allergy (Unknown, Verified 10/14/24:) UNKNOWN dustmites Allergy (Unknown, Uncoded 10/14/24:) unknown ragweed Allergy (Unknown, Uncoded 10/14/24:) unknown Do you need a note to return to daycare/school/sports/work: No HPI EP cough, chest pain HPI Details This note is constructed using voice recognition software. While every effort has been made to ensure accuracy, repair department manager errors may have been included. The patient is a 74 year old female who presents to the clinic today with cough, chest congestion, and fatigue for the past 2 days. She resides in a assisted, however has an independent apartment, and goes to a day program during the day. There are unknown sick contacts. She denies fever, chills, shortness of breath. She has not taken anything yet for symptom management. [facility] Medical History Compression fracture of lumbosacral spine Anxiety Mental disability Allergic rhinitis Elevated LFTs Osteoporosis Pure hypercholesterolemia Premature atrial contractions Surgical History S/P colonoscopy (~07/05/20) S/P laparoscopic cholecystectomy (~06/28/14) Family History Other Family history unknown Social History Housing: Assisted Living Facility Housing Other:: Residential home Alcohol intake: never Patient Tobacco Use Status: Never used Tobacco e-Cigarette/Vaping Use: Never Used Second Hand Smoke Exposure: No service: No Current occupational status: retired Cognitive needs: No Hearing needs: No Vision needs: No Review of Systems Const All systems reviewed & are unremarkable except as noted in HPI and below Physical Exam Vital Signs: Last Vital Signs Temp 98.8 F 10/14/24 11:26 Pulse 75 10/14/24 11:26 BP 120/80 10/14/24 11:26 Pulse Ox 95 10/14/24 11:26 Oxygen Delivery Method Room Air 10/14/24 11:26 BMI result Body Mass Index 25.6 Const General: cooperative, healthy appearing, comfortable and no acute distress Orientation/consciousness: patient oriented x3 Limitations: no limitations HEENT Head: Yes normal to inspection Ears: hearing grossly normal bilaterally, external ears normal and TM's normal bilaterally General nose exam: Normal external nose present, Normal nares present and No nasal discharge present Face and sinus: Yes normal facial exam and Yes sinuses nontender Mouth: Normal oral and palatal mucosa present and moist mucous membranes Throat: Yes tonsils normal, Yes uvula midline and Yes posterior oropharynx abnormal (Erythema) Eyes General: appearance normal, both eyes and all related structures Neck Neck: Yes normal visual inspection Resp Effort & Inspection: normal respiratory effort, able to speak in complete sentences, Actively coughing, no respiratory distress, not tachypneic, no tripod positioning and no use of accessory muscles Auscultation: clear to auscultation bilaterally Cardio Jugular venous distension: no JVD Rate: regular rate Rhythm: regular rhythm Heart sounds: S1 normal heart sound present, S2 normal heart sound present, no click, no gallops, no murmurs and no rubs Skin General skin exam: no rashes or lesions noted, elasticity normal and turgor normal Neuro General: patient oriented x3 Extrem General: Yes normal to inspection and Yes no clubbing, cyanosis or edema Assessment & Plan Assessment & Plan (1) URI (upper respiratory infection): Code(s): J06.9 - Acute upper respiratory infection, unspecified Qualifiers: URI type: unspecified URI Qualified Code(s): J06.9 - Acute upper respiratory infection, unspecified Plan: Viral swab obtained to rule out Covid, Influenza, and RSV based on symptoms. Advised mask wearing while symptomatic and quarantine per current CDC guidelines. Reviewed at home support methods including hydration, humidification, vix vapor rub, sinus rinse, and otc treatment options. Advised follow up with worsening symptoms such as dyspnea at rest, which would require emergent evaluation. Plan See above for full details and plan. Orders: Orders SARS-CoV2/FLU/RSV Today J06.9 - Acute upper respiratory infection, unspecified Coding Level of Care Code Est Pt Level 3 (07531) Diagnoses Upper respiratory tract infection, unspecified type J06.9 URI type: unspecified URI
[2024-10-14 11:26] VITALS: BP 120/80; PULSE 75; TEMP 37.1; O2SAT 95; BMI 25.6
== END 2024-10-14 12:09 | disposition home or self-care (01) ==
PROVIDERS: PCP Internal Medicine; Visit Provider Registered Nurse
DX: J06.9 Acute upper respiratory infection, unspecified (principal)

== ENCOUNTER 2024-10-14 11:47 | Outpatient (REF) | payer MEDICARE, MEDICAID, SELFPAY | END 2024-10-14 11:48 | disposition home or self-care (01) | LOC: HO.LAB 11:47 | PROVIDERS: Visit Provider Registered Nurse | DX: Z13.89 Encounter for screening for other disorder (principal) ==

== ENCOUNTER 2024-12-10 14:30 | Inpatient (IN) | payer MEDICARE, MEDICAID, SELFPAY ==
--- NOTE | ~2024-12-10 | XR_ITS ---
EXAMINATION: XR CHEST CLINICAL INFORMATION: cough COMPARISON: March 03, 2019 TECHNIQUE: 2 views of the chest were obtained. FINDINGS: Pulmonary reticular nodular pattern without subtle patchy opacities. No pleural effusion. No pneumothorax. Cardiomediastinal silhouette is normal in size. Multilevel thoracolumbar stenosis. Osteopenia versus to process. Calcifications along the anterior longitudinal ligament. XR/XR chest 2V IMPRESSION: Acute on chronic airspace disease should be considered. 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 Electronically signed by: Faizan Alexander MD 12/10/2024 03:54 PM EST
[2024-12-10 14:40] VITALS: BP 149/84; PULSE 86; RESP 20; TEMP 37.5; O2SAT 94; BMI 26.7
--- NOTE | 2024-12-10 14:46 | ED_ITS ---
HPI - General Adult General Chief complaint: Upper Respiratory Symptoms Stated complaint: Cough, low oxygen - sent by urgent care Time Seen by Provider: 12/10/24 19:26 Source: patient Limitations: no limitations History of Present Illness ED Provider: Yary Bowie PA-C HPI narrative: 74-year-old female with a history of anxiety, mental disability, PVCs/PACs, hyperlipidemia, presents with cough and cold symptoms x1 day. Patient was seen at urgent Care, her oxygen saturation was 90% on room air, she was sent here for further assessment. Per her caregiver who is at bedside, the patient does not have a history of asthma or COPD, she has never smoked tobacco per their knowledge. No sick contacts with same symptoms, unclear if the patient has had fevers. The patient has not been complaining of chest pain, or lower extremity swelling or pain. Related Data Home Medications ?Medication ?Instructions ?Recorded ?Confirmed denosumab 60 mg/mL subcutaneous 60 mg subcut [id number] 08/06/22 08/21/24 syringe (Prolia) dicyclomine 20 mg tablet 20 mg PO QID 06/17/24 08/21/24 Previous Rx's ?Medication ?Instructions ?Recorded nystatin 100,000 unit/gram topical 1 appl topical DAILY PRN rash #15 06/17/24 powder grams tolnaftate 1 % topical cream 1 appl topical BID PRN rash #30 06/17/24 grams ketotifen fumarate 0.025 % (0.035 1 drp ophthalmic (eye) .QD PRN 08/06/24 %) eye drops allergy symptoms #5 mL paroxetine HCl 40 mg tablet 40 mg PO DAILY 90 days #90 tabs 09/22/24 acetaminophen 325 mg tablet 650 mg (2 x 325 mg) PO Q6H PRN 10/13/24 headache, toothache 30 days #120 tabs dextromethorphan-guaifenesin 10 10 ml PO Q4H PRN cough #237 mL 10/15/24 mg-100 mg/5 mL oral syrup atorvastatin 10 mg tablet 10 mg PO DAILY #28 tabs 11/15/24 cholecalciferol (vitamin D3) 25 25 mcg PO DAILY 28 days #28 caps 11/15/24 mcg (1,000 unit) capsule multivitamin-iron 9 mg-folic acid 1 tab PO DAILY 28 days #28 tabs 11/15/24 400 mcg-calcium and minerals tablet valacyclovir 500 mg tablet 500 mg PO DAILY 28 days #28 tabs 11/15/24 cetirizine 10 mg tablet 10 mg PO DAILY PRN for allergies 12/01/24 #28 tabs Allergies Allergy/AdvReac Type Severity Reaction Status Date / Time aspartame [ASPARTAME] Allergy Unknown UNKNOWN Verified 12/10/24 14:43 loratadine [From CLARITIN] Allergy Unknown UNKNOWN Verified 12/10/24 14:43 phenylalanine [Phenylalanine] Allergy Unknown UNKNOWN Verified 12/10/24 14:43 dustmites Allergy Unknown unknown Uncoded 10/14/24 11:27 ragweed Allergy Unknown unknown Uncoded 10/14/24 11:27 Review of Systems 2 Review of Systems: Yes all other systems are reviewed and are negative Constitutional: Constitutional: Denies fatigue and Denies fever(s) Cardiovascular: Cardiovascular: Denies chest pain and Reports dyspnea Respiratory: Respiratory: Reports chest congestion, Reports cough, Reports dyspnea and Reports wheezing Endocrine: Endocrine: Denies fatigue Allergic/Immunologic: Allergic/Immunologic: Reports wheezing PMFSH Past Medical History Attestation statement: The following information was validated with the patient. Medical History Compression fracture of lumbosacral spine Anxiety Mental disability Allergic rhinitis Elevated LFTs Osteoporosis Pure hypercholesterolemia Premature atrial contractions Surgical History S/P colonoscopy (~07/05/20) S/P laparoscopic cholecystectomy (~06/28/14) Family History Family History Other Family history unknown Social History Social History Housing: Assisted Living Facility Housing Other:: Residential home Alcohol intake: never Patient Tobacco Use Status: Never used Tobacco Smoked in Last 30 Days: No e-Cigarette/Vaping Use: Never Used Second Hand Smoke Exposure: No Use of substances other than those prescribed or required for medical reasons: No Advance Directives: No Advance Directives Information Provided: Yes service: No Current occupational status: retired Cognitive needs: No Hearing needs: No Vision needs: No Physical Exam ED Vital Signs: Vital Signs - 24 hr 12/10/24 14:40 12/10/24 15:56 12/10/24 19:02 Temperature 99.5 F 98.8 F Pulse Rate 86 73 86 Respiratory Rate 20 18 21 H Blood Pressure 149/84 H 127/79 Pulse Oximetry 94 90 L Oxygen Delivery Method Room Air Room Air 12/10/24 19:39 12/10/24 19:41 12/10/24 22:07 Temperature 98.7 F Pulse Rate 86 90 Respiratory Rate 21 H 24 H Blood Pressure 126/67 Pulse Oximetry 93 92 Oxygen Delivery Method Room Air Nasal Cannula BMI result Body Mass Index 26.7 Const Other: Alert Orientation/consciousness: oriented to person Resp Other: Tachypneic, expiratory wheezes that are scattered noted posterior sears, active wet cough Cardio Other: Normal peripheral perfusion Skin Other: Warm dry no rash Neuro General: oriented to person, no focal motor deficits and CN's II-XI intact bilaterally Extrem Other: No unilateral calf pain or swelling Psych Other: Cooperative Course Course Course Narrative: RME, this is a rapid medical exam performed by Leonard Clements please refer to primary provider for complete H&P- 74-year-old female presents for evaluation of cough for last few days. She had RSV last month. She went to urgent care and was found to be wheezy, she had a chest x-ray that showed viral pneumonitis but no evidence of pneumonia. I was unable to have our radiology department up low these images. On exam she does have some mild wheezing, plan for repeat viral swabs and chest x-ray. Oxygen saturation of 94% on room air Reevaluation(s) Reevaluation #1: Ambulated the patient she dropped her oxygen to 88- 89% on room air, her heart rate bumped up to 126, we will now be place on 2 L nasal cannula Medications Administered Generic Name Dose Route Start Last Admin Trade Name Freq PRN Reason Stop Dose Admin Magnesium Sulfate 2 gm in 50 mls @ 25 mls/hr 12/10/24 21:33 12/10/24 21:54 Magnesium Sulfate/H2o IV 12/10/24 23:32 25 mls/hr ONCE ONE Administration Discontinued Medications Generic Name Dose Route Start Last Admin Trade Name Freq PRN Reason Stop Dose Admin Albuterol Sulfate 5 mg/ 7.5 mg 12/10/24 19:39 12/10/24 19:41 Albuterol Sulfate 2.5 mg INHALE 12/10/24 19:40 7.5 mg ONCE ONE Administration Albuterol/Ipratropium 3 ml 12/10/24 15:56 12/10/24 16:00 Albuterol/Iprat 2.5/0.5mg 3 Ml Ampul.Neb INHALE 12/10/24 15:57 3 ml ONCE ONE Administration Prednisone 40 mg 12/10/24 19:28 12/10/24 19:35 Prednisone 20 Mg Tablet PO 12/10/24 19:29 40 mg ONCE ONE Administration Medical Decision Making Medical Decision Making MDM Narrative: 74-year-old female with a history of anxiety, mental disability, PVCs/PACs, hyperlipidemia, presents with cough and cold symptoms x1 day. Patient was seen at urgent Care, her oxygen saturation was 90% on room air, she was sent here for further assessment. Per her caregiver who is at bedside, the patient does not have a history of asthma or COPD, she has never smoked tobacco per their knowledge. No sick contacts with same symptoms, unclear if the patient has had fevers. The patient has not been complaining of chest pain, or lower extremity swelling or pain. Problem: Mental disability History: Per patient's caregiver I have considered the following differential diagnoses: Asthma/COPD exacerbation, bronchitis, pneumonia, new heart failure, PE Plan: The patient's airway is reactive, she has no underlying respiratory illness. Screening labs including viral panel and chest x-ray were obtained, they are unremarkable. The patient had ipratropium, we will be giving albuterol and steroid. Thought about new heart failure, however the patient does not appear volume overloaded on exam, she is not overtly hypertensive, CXR is clear...adding trop, bnp and EKG. I am also considering PE, the patient does not have underlying respiratory illness to account for her hypoxia, I am adding a dimer. I have independently reviewed the following tests: Labs: No leukocytosis, not anemic, no electrolyte abnormality, troponin less than 2.7, dimer 245, with age correction, not positive EKG: Normal sinus rhythm, rate of 93, no ectopy, T-wave inversions noted inferior leads, Chest x-ray: XR/XR chest 2V IMPRESSION: Acute on chronic airspace disease should be considered. 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 Electronically signed by: Faizan Alexander MD 12/10/2024 03:54 PM [facility] [place], [place] Lab Data 12/10/24 21:49 12/10/24 21:49 Labs: Lab Results 12/10/24 12/10/24 12/10/24 Range/Units 14:48 21:44 21:49 WBC 5.3 (4.8-10.8) X10*3/uL RBC 4.08 L (4.20-5.50) X10*6/uL Hgb 12.8 (12.0-16.0) g/dl Hct 37.7 (37.0-47.0) % MCV 92.4 (80.0-98.0) fL MCH 31.4 (27.0-33.0) pg MCHC 34.0 (31.0-35.0) g/dl RDW 12.3 (11.0-16.0) % Plt Count 133 L (160-400) X10*3/uL MPV 10.6 (9.4-12.3) fL Immature Gran % (Auto) 0.2 (0.0-0.4) % Neut % (Auto) 84.5 H (45-73) % Lymph % (Auto) 10.1 L (20-40) % Cherry % (Auto) 4.6 (2-11) % Eos % (Auto) 0.4 (0-4) % Baso % (Auto) 0.2 (0-2) % Lymph # (Auto) 0.5 L (1.2-4.9) X10*3/uL Cherry # (Auto) 0.2 (0.1-1.2) X10*3/uL Eos # (Auto) 0.0 (0.0-0.4) X10*3/uL Baso # (Auto) 0.0 (0.0-0.2) X10*3/uL Abs Immat Gran (auto) 0.01 (0.00-0.03) X10*3/uL Absolute Neuts (auto) 4.5 (2.0-8.3) x10*3/uL Absolute Nucleated RBC 0.000 (0.0-0.012) X10*3/uL Nucleated RBC % (auto) 0.0 (0.0-0.2) /100WBC D-Dimer High Sensitivty 245 NG/ML Sodium 140 (135-145) mmol/L Potassium 3.7 (3.3-5.1) mmol/L Chloride 105 (96-108) mmol/L Carbon Dioxide 23 (22-29) mmol/L Anion Gap 16 (12-20) BUN 17 H (9-16) mg/dL Creatinine 0.79 (0.5-1.4) mg/dL Estim Creat Clear Calc 58.8 Estimated GFR > 60 Random Glucose 131 H (60-115) mg/dL Calcium 9.3 (8.4-10.2) mg/dL Troponin I High Sens < 2.7 (<3.5-17.0) ng/L B-Natriuretic Peptide < 10 (<100) pg/mL Influenza Type A (PCR) NEGATIVE (Negative) Influenza Type B (PCR) NEGATIVE (Negative) RSV RNA Qual (PCR) NEGATIVE (Negative) SARS-CoV-2 RNA (RT-PCR) NEGATIVE (Negative) Discharge Plan Discharge Prescriptions: No Action ketotifen fumarate 0.025 % (0.035 %) drops 1 drp ophthalmic (eye) .QD PRN (Reason: allergy symptoms) Qty: 5 0RF Rx Instructions: apply to both eyes once daily at 4 PM paroxetine HCl 40 mg tablet 40 mg PO DAILY 90 Days Qty: 90 0RF acetaminophen 325 mg tablet 650 mg PO Q6H PRN (Reason: headache, toothache) 30 Days Qty: 120 5RF Rx Instructions: Take 2 tablets for temperature > 101, headache, toothache, muscle pain, joint pain, discomfort due to minor injury or sutures. Call PCP if symptoms continue more than 48 hours; DO not exceed 4 doses in 24 hours dextromethorphan-guaifenesin 10-100 mg/5 mL syrup 10 ml PO Q4H PRN (Reason: cough) Qty: 237 3RF Rx Instructions: Call PCP if cough continues > 3 days; Orally every 4hrs prn; Do not exceed > 6 doses in 24hrs atorvastatin 10 mg tablet 10 mg PO DAILY Qty: 28 0RF cholecalciferol (vitamin D3) 25 mcg (1,000 unit) capsule 25 mcg PO DAILY 28 Days Qty: 28 0RF rrgwowad-hsss-TP-calcium-mins 9 mg iron-400 mcg tablet 1 tab PO DAILY 28 Days Qty: 28 0RF valacyclovir 500 mg tablet 500 mg PO DAILY 28 Days Qty: 28 0RF cetirizine 10 mg tablet 10 mg PO DAILY PRN (Reason: for allergies) Qty: 28 0RF Prolia 60 mg/mL syringe 60 mg subcut [id number] dicyclomine 20 mg tablet 20 mg PO QID nystatin 100,000 unit/gram powder 1 appl topical DAILY PRN (Reason: rash) Qty: 15 0RF Rx Instructions: Not to be used with antifungal cream. tolnaftate 1 % cream 1 appl topical BID PRN (Reason: rash) Qty: 30 0RF Print Language: Cuban
[2024-12-10 15:35] LABS: Influenza A PCR NEGATIVE (Negative); Influenza B PCR NEGATIVE (Negative); Resp Syncy Virus RNA Qual PCR NEGATIVE (Negative); SARS COV2 PCR INHOUSE NEGATIVE (Negative)
[2024-12-10 15:56] VITALS: PULSE 73; RESP 18; O2SAT 92
[2024-12-10] MEDS: Albuterol/Iprat 2.5/0.5MG 3 ML AMPUL.NEB INHALE (16:00)
[2024-12-10 19:02] VITALS: BP 127/79; PULSE 86; RESP 21; TEMP 37.1; O2SAT 90
[2024-12-10] MEDS: predniSONE 20 MG TABLET 40 MG PO (19:35)
[2024-12-10 19:39] VITALS: O2SAT 93
[2024-12-10 19:41] VITALS: PULSE 86; RESP 21; O2SAT 94
[2024-12-10] MEDS: Albuterol Sulfate 5 MG, Albuterol Sulfate (0.083%) 2.5 MG 7.5 MG INHALE (19:41)
--- NOTE | 2024-12-10 19:42 | PC.NURSE ---
this rn assumed care of pt @ 1900. retirement staff at bedside pt boosted up in bed placed on spo2 monitor 92-94% RA pt medicated according to nitin rt at bedside for breathing treatment
--- NOTE | 2024-12-10 21:45 | ECG_ITS ---
Test Reason : SOB Blood Pressure : */* mmHG Vent. Rate : 93 BPM Atrial Rate : 93 BPM P-R Int : 164 ms QRS Dur : 80 ms QT Int : 370 ms P-R-T Axes : 49 41 30 degrees QTcB Int : 460 ms Normal sinus rhythm Septal infarct , age undetermined Nonspecific ST and T wave abnormality Abnormal ECG When compared with ECG of 08-Mar-2018 20:08, T wave inversion now evident in Inferior leads Nonspecific T wave abnormality now evident in Anterior leads Referred By: Yary Bowie Electronically Signed By: SARAH BABB
[2024-12-10 21:54] LABS: MANUAL DIFF FLAG NO
[2024-12-10] MEDS: Magnesium Sulfate/H2O 2 GM/50 ML PIGGYBACK IV (21:54)
[2024-12-10 21:55] LABS: Basophils Percent Auto 0.2 % (0-2); Hemoglobin 12.8 g/dl (12.0-16.0); Mean Platelet Volume 10.6 fL (9.4-12.3); PLT CLUMP 1; SCAN SMEAR FLAG 1
[2024-12-10 21:56] LABS: Eosinophils Percent Auto 0.4 % (0-4); Hematocrit 37.7 % (37.0-47.0); Imm Gran Abs Auto 0.01 X10*3/uL (0.00-0.03); Imm Gran Pct Auto 0.2 % (0.0-0.4); Lymphocytes Absolute Auto 0.5 X10*3/uL (1.2-4.9); Lymphocytes Percent Auto 10.1 % (20-40); Mean Corpuscular Hemoglobin 31.4 pg (27.0-33.0); Mean Corpuscular Volume 92.4 fL (80.0-98.0); Monocytes Absolute Auto 0.2 X10*3/uL (0.1-1.2); Monocytes Percent Auto 4.6 % (2-11); Neutrophils Absolute Auto 4.5 x10*3/uL (2.0-8.3); Neutrophils Percent Auto 84.5 % (45-73); Red Blood Count 4.08 X10*6/uL (4.20-5.50); Red Cell Distribution Width 12.3 % (11.0-16.0)
[2024-12-10 21:57] LABS: Platelet Count 133 X10*3/uL (160-400); White Blood Count 5.3 X10*3/uL (4.8-10.8)
[2024-12-10 21:58] LABS: D Dimer High Sensitivity 245 NG/ML
[2024-12-10 22:07] VITALS: BP 126/67; PULSE 90; RESP 24; TEMP 37.1; O2SAT 92
[2024-12-10 22:07] LABS: Anion Gap 16 (12-20); Blood Urea Nitrogen 17 mg/dL (9-16); Calcium 9.3 mg/dL (8.4-10.2); Carbon Dioxide 23 mmol/L (22-29); Chloride 105 mmol/L (96-108); Creatinine Clr Calc Pharmacy 58.8; Estimated Glomerular Filt Rate > 60; Glucose Random 131 mg/dL (60-115); Potassium 3.7 mmol/L (3.3-5.1); Sodium 140 mmol/L (135-145)
[2024-12-10 22:14] LABS: B Type Natriuretic Peptide < 10 pg/mL (<100)
[2024-12-10 22:15] LABS: Troponin-I High Sensitivity < 2.7 ng/L (<3.5-17.0)
--- NOTE | 2024-12-10 23:19 | PM.IMHP ---
History of Present Illness Date of Service: 12/10/24 Chief Complaint: sob 74F PMH intellectual delay, hld, anxiety, presented from intermediate with cough and sob. Staff had noted the patient had been having a dry cough, tachypneic complaining of difficulty catching her breath. Was brought to urgent care where saturation was noted to be 90% sent to ED. In ED found to be wheezing and saturation of 88% on room air. Chest x-ray with acute on chronic airspace disease, RSV/flu/COVID negative, intermediate staff reports multiple exposures with people with similar upper respiratory tract symptoms. Review of Systems Review of Systems: Yes all other systems are reviewed and are negative [facility] Medical History Compression fracture of lumbosacral spine Anxiety Mental disability Allergic rhinitis Elevated LFTs Osteoporosis Pure hypercholesterolemia Premature atrial contractions Family History Other Family history unknown Surgical History S/P colonoscopy (~07/05/20) S/P laparoscopic cholecystectomy (~06/28/14) Social History Housing: Assisted Living Facility Housing Other:: Residential home Alcohol intake: never Patient Tobacco Use Status: Never used Tobacco Smoked in Last 30 Days: No e-Cigarette/Vaping Use: Never Used Second Hand Smoke Exposure: No Use of substances other than those prescribed or required for medical reasons: No Advance Directives: No Advance Directives Information Provided: Yes service: No Current occupational status: retired Cognitive needs: No Hearing needs: No Vision needs: No Meds Allergies Allergy/AdvReac Type Severity Reaction Status Date / Time aspartame [ASPARTAME] Allergy Unknown UNKNOWN Verified 12/10/24 14:43 loratadine [From CLARITIN] Allergy Unknown UNKNOWN Verified 12/10/24 14:43 phenylalanine [Phenylalanine] Allergy Unknown UNKNOWN Verified 12/10/24 14:43 dustmites Allergy Unknown unknown Uncoded 10/14/24 11:27 ragweed Allergy Unknown unknown Uncoded 10/14/24 11:27 Active Medications: Current Medications Albuterol/Ipratropium (Albuterol/Iprat 2.5/0.5mg 3 Ml Ampul.Neb) 3 ml INHALE RQ4H WHILE AWAKE PRN PRN Reason: sob Atorvastatin Calcium (Atorvastatin Calcium 10 Mg Tablet) 10 mg PO BEDTIME RENUKA Magnesium Sulfate (Magnesium Sulfate/H2o) 2 gm in 50 mls @ 25 mls/hr IV ONCE ONE Stop: 12/10/24 23:32 Last Admin: 12/10/24 21:54 Dose: 25 mls/hr Methylprednisolone Sodium Succinate (Methylprednisolone Sod Succ 40 Mg/Ml Vial) 40 mg IVPUSH Q12H RENUKA Paroxetine HCl (Paroxetine Hcl 10 Mg Tablet) 10 mg PO DAILY RENUKA Valacyclovir HCl (Valacyclovir Hcl 500 Mg Tablet) 500 mg PO DAILY RENUKA Home Medications ?Medication ?Instructions ?Recorded ?Confirmed ?Last Taken ?Type denosumab 60 mg/mL subcutaneous 60 mg subcut [id number] 08/06/22 08/21/24 Unknown History syringe (Prolia) dicyclomine 20 mg tablet 20 mg PO QID 06/17/24 08/21/24 Unknown History Physical Exam Vital Signs and Narrative: Vital Signs: Last Vital Signs Temp 98.7 F 12/10/24 22:07 Pulse 90 12/10/24 22:07 Resp 24 H 12/10/24 22:07 BP 126/67 12/10/24 22:07 Pulse Ox 92 12/10/24 22:07 O2 Del Method Nasal Cannula 12/10/24 22:07 BMI result Body Mass Index 26.7 General: AO X 2, no acute distress Resp: Kyphosis, mild expiratory wheeze CVS: S1,S2,RRR GI: soft, non tender, non distended Neuro: motor grossly intact, alert Psych: appropriate affect, impaired insight Results Labs 12/10/24 21:49 12/10/24 21:49 Labs: Laboratory Results - last 24 hr 12/10/24 12/10/24 12/10/24 14:48 21:44 21:49 MCV 92.4 MCH 31.4 MCHC 34.0 RDW 12.3 Plt Count 133 L MPV 10.6 Immature Gran % (Auto) 0.2 Neut % (Auto) 84.5 H Lymph % (Auto) 10.1 L Morrison % (Auto) 4.6 Eos % (Auto) 0.4 Baso % (Auto) 0.2 Lymph # (Auto) 0.5 L Morrison # (Auto) 0.2 Eos # (Auto) 0.0 Baso # (Auto) 0.0 Abs Immat Gran (auto) 0.01 Absolute Neuts (auto) 4.5 Absolute Nucleated RBC 0.000 Nucleated RBC % (auto) 0.0 D-Dimer High Sensitivty 245 Anion Gap 16 Estim Creat Clear Calc 58.8 Estimated GFR > 60 Random Glucose 131 H Calcium 9.3 Troponin I High Sens < 2.7 B-Natriuretic Peptide < 10 Influenza Type A (PCR) NEGATIVE Influenza Type B (PCR) NEGATIVE RSV RNA Qual (PCR) NEGATIVE SARS-CoV-2 RNA (RT-PCR) NEGATIVE Imaging Radiologist's Impressions: Impressions Chest X-Ray 12/10/24 15:15 IMPRESSION: Acute on chronic airspace disease should be considered. 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 Electronically signed by: Faizan Alexander MD 12/10/2024 03:54 PM EST Assessment and Plan (1) Anxiety: Status: Acute Plan 74F PMH intellectual delay, hld, anxiety, presented from intermediate with cough and sob Acute hypoxic respiratory failure secondary to acute bronchitis likely due to upper respiratory tract viral infection Steroids, DuoNebs, check respiratory viral swab Wean O2 as tolerated Hyperlipidemia Statin Anxiety Paroxetine DVT prophylaxis with Lovenox Full Code Given acute hypoxia and need for oxygen supplementation expected require at least 2 midnights inpatient Quality Stroke Does the patient have a stroke diagnosis?: No VTE Prior VTE?: No VTE Risk Level:: Medical - moderate - high VTE Device Contraindication: Treatment Not Indicated VTE Drug Contraindication: N/A - Med Ordered
[2024-12-11] VITALS (9 sets, daily range): BP systolic 121–138; BP diastolic 66–78; PULSE 75–90; RESP 16–20; TEMP 36–36.9; O2SAT 92–97
--- NOTE | 2024-12-11 00:36 | MHC.EDTECH ---
This pct assumed care of Patient at 2300 ,vitals taken ,Patient belonging list done ,Patient was given Chicken salad sandwich ,budding and nancy catalino for snack ,Patient Comfortable ,no apparent distress noted ,Call prabhakar within Pt reach .
[2024-12-11] MEDS: 0.9 % Sodium Chloride Flush 3 ML SYRINGE IVFLUSH ×4 (00:37→20:55)
[2024-12-11] MEDS: Albuterol/Iprat 2.5/0.5MG 3 ML AMPUL.NEB INHALE (03:40)
[2024-12-11 04:24] LABS: Hematocrit 38.6 % (37.0-47.0); Hemoglobin 13.2 g/dl (12.0-16.0); Mean Corpuscular HGB Conc 34.2 g/dl (31.0-35.0); Mean Corpuscular Hemoglobin 31.4 pg (27.0-33.0); Mean Corpuscular Volume 91.7 fL (80.0-98.0); Mean Platelet Volume 10.3 fL (9.4-12.3); Platelet Count 137 X10*3/uL (160-400); Red Blood Count 4.21 X10*6/uL (4.20-5.50); Red Cell Distribution Width 12.3 % (11.0-16.0)
[2024-12-11 04:49] LABS: Anion Gap 17 (12-20); Blood Urea Nitrogen 18 mg/dL (9-16); Carbon Dioxide 22 mmol/L (22-29); Chloride 105 mmol/L (96-108); Creatinine Clr Calc Pharmacy 53.4; Estimated Glomerular Filt Rate > 60; Glucose Random 263 mg/dL (60-115); Magnesium 2.5 mg/dL (1.6-2.6); Potassium 3.6 mmol/L (3.3-5.1); Sodium 140 mmol/L (135-145)
--- NOTE | 2024-12-11 06:42 | PC.NURSE ---
pt [facility] staff member remains in place at bedside pt disposition pending bed assignment
[2024-12-11] MEDS: valACYclovir HCL 500 MG TABLET PO (09:23)
[2024-12-11] MEDS: methylPREDNISolone Sod Succ 40 MG/ML VIAL IVPUSH ×2 (09:23→20:55)
[2024-12-11] MEDS: Enoxaparin Sodium 40 MG/0.4 ML SYRINGE SUBCUT (09:24)
[2024-12-11] MEDS: PARoxetine HCL 10 MG TABLET PO (09:24)
--- NOTE | 2024-12-11 09:47 | MHC.CM.PN ---
PT FROM [facility] WHERE SHE WILL RETURN WHEN DCD CALL DIVINE JUAREZ SHOULD BE CONTACTED TO MAKE THOSE ARRANGEMENT S [phone] REQUESTED A FAX OF [employer] FOR PT AND MD [employer] PAPERWORK DC PLAN RETURN TO [facility]
--- NOTE | 2024-12-11 12:02 | PHA.MEDREC ---
Addendum entered by Lev Ha RPh 12/11/24 12:15: MED REC CHECKED BY [facility] Original Note: Pharmacy Consult ? Medication Reconciliation Pharmacy has completed the medication reconciliation. Spoke with assistance biodiesel division manager D[facility] and she was able to confirm the patients medications. She stated the patient takes her medications every day at 1600. She confirmed the patient is still taking the denosumab 60 mg/mL subcutaneous syringe once ever 6 months and she stated the patient got it in the last few months from her Dr. Dena confirmed the patient has not taken any medications since Saturday @1600.
[2024-12-11 13:27] LABS: Adenovirus PCR Not Detected (Not Detect.); Bordetella parapertussis PCR Not Detected (Not Detect.); Bordetella pertussis PCR Not Detected (Not Detect.); Chlamydia pneumoniae PCR Not Detected (Not Detect.); Coronavirus 229E PCR Not Detected (Not Detect.); Coronavirus HKU1 PCR Not Detected (Not Detect.); Coronavirus NL63 PCR Not Detected (Not Detect.); Coronavirus OC43 PCR Not Detected (Not Detect.); Human metapneumovirus PCR Detected (Not Detect.); Influenza A PCR Not Detected (Not Detect.); Influenza B PCR Not Detected (Not Detect.); Mycoplasma pneumoniae PCR Not Detected (Not Detect.); Parainfluenza 1 PCR Not Detected (Not Detect.); Parainfluenza 2 PCR Not Detected (Not Detect.); Parainfluenza 3 PCR Not Detected (Not Detect.); Parainfluenza 4 PCR Not Detected (Not Detect.); RSV PCR Not Detected (Not Detect.); Rhino/Enterovirus PCR Not Detected (Not Detect.)
[2024-12-11 13:29] LABS: SARS-CoV-2 PCR Not Detected (Not Detect.)
--- NOTE | 2024-12-11 14:12 | HO.PM.IMPN ---
Subjective Subjective Date of Service: 12/11/24 Interval History: seen and examined this AM feeling better half-way staff bedside Review of Systems Negative except HPI/interval history. Physical Exam Vital Signs: Vital Signs: Last Vital Signs Temp 97.9 F 12/11/24 12:00 Pulse 90 12/11/24 12:00 Resp 18 12/11/24 12:00 BP 126/78 12/11/24 12:00 Pulse Ox 92 12/11/24 12:00 O2 Del Method Room Air 12/11/24 12:00 O2 Flow Rate 2.5 12/11/24 08:50 BMI result Body Mass Index 26.7 Const: Other: General - no acute distress, appears comfortable Cardiovascular - regular rate and rhythm, S1-S2 Lungs - min exp wheezing Abdomen - soft, nontender, no rebound or guarding Extremities - no edema bilaterally Neuro - awake and alert, no focal deficits Objective Data Active Medications Acetaminophen (Acetaminophen 325 Mg Tablet) 650 mg PO Q6H PRN PRN Reason: Pain, Mild 1-3,fever,headache Albuterol/Ipratropium (Albuterol/Iprat 2.5/0.5mg 3 Ml Ampul.Neb) 3 ml INHALE RQ4H WHILE AWAKE PRN PRN Reason: sob Last Admin: 12/11/24 03:40 Dose: 3 ml Documented By: LUCY Atorvastatin Calcium (Atorvastatin Calcium 10 Mg Tablet) 10 mg PO BEDTIME FORMERLY [facility], [facility]1983 Calcium Carbonate (Calcium Carbonate 750 Mg Tab.Chew) 750 mg PO Q4H PRN PRN Reason: Heartburn Enoxaparin Sodium (Enoxaparin Sodium 40 Mg/0.4 Ml Syringe) 40 mg SUBCUT DAILY FORMERLY [facility], [facility]–1983 Last Admin: 12/11/24 09:24 Dose: 40 mg Documented By: ANTONIO Magnesium Hydroxide (Milk Of Magnesia 30 Ml Oral.Susp) 30 ml PO DAILY PRN PRN Reason: Constipation Melatonin (Melatonin 3 Mg Tablet) 6 mg PO BEDTIME PRN PRN Reason: Insomnia Methylprednisolone Sodium Succinate (Methylprednisolone Sod Succ 40 Mg/Ml Vial) 40 mg IVPUSH Q12H FORMERLY [facility], [facility]–1983 Last Admin: 12/11/24 09:23 Dose: 40 mg Documented By: ANTONIO Paroxetine HCl (Paroxetine Hcl 10 Mg Tablet) 10 mg PO DAILY FORMERLY [facility], [facility]1983 Last Admin: 12/11/24 09:24 Dose: 10 mg Documented By: ANTONIO Sodium Chloride (0.9 % Sodium Chloride Flush 3 Ml Syringe) 3 ml IVFLUSH QSHIFT FORMERLY [facility], 1928–1983 Last Admin: 12/11/24 09:23 Dose: 3 ml Documented By: ANTONIO Valacyclovir HCl (Valacyclovir Hcl 500 Mg Tablet) 500 mg PO DAILY FORMERLY [facility], [facility]1983 Last Admin: 12/11/24 09:23 Dose: 500 mg Documented By: ANTONIO Labs 12/11/24 04:11 12/11/24 04:11 Labs: Laboratory Results - last 24 hr 12/10/24 12/10/24 12/10/24 14:48 21:44 21:49 MCV 92.4 MCH 31.4 MCHC 34.0 RDW 12.3 Plt Count 133 L MPV 10.6 Immature Gran % (Auto) 0.2 Neut % (Auto) 84.5 H Lymph % (Auto) 10.1 L [place] % (Auto) 4.6 Eos % (Auto) 0.4 Baso % (Auto) 0.2 Lymph # (Auto) 0.5 L [place] # (Auto) 0.2 Eos # (Auto) 0.0 Baso # (Auto) 0.0 Abs Immat Gran (auto) 0.01 Absolute Neuts (auto) 4.5 Absolute Nucleated RBC 0.000 Nucleated RBC % (auto) 0.0 D-Dimer High Sensitivty 245 Anion Gap 16 Estim Creat Clear Calc 58.8 Estimated GFR > 60 Random Glucose 131 H Calcium 9.3 Magnesium Troponin I High Sens < 2.7 B-Natriuretic Peptide < 10 Respiratory Panel Brown Adenovirus (Rapid PCR) B.pert (TEM-PCR) B.parapertussis DNA PCR C. pneumoniae DNA (PCR) Coronavirus OC43 (PCR) Coronavirus HKU1 (PCR) Coronavirus 229E (PCR) Coronavirus NL63 (PCR) Human Metapneumovir PCR Influenza A (RT-PCR) Influenza Type A (PCR) NEGATIVE Influenza Type B (PCR) NEGATIVE Influenza B (RT-PCR) M. pneumoniae (PCR) Parainfluenza 1 (PCR) Parainfluenza 2 (PCR) Parainfluenza 3 (PCR) Parainfluenza 4 (PCR) RSV RNA Qual (PCR) NEGATIVE RSV (PCR) Entero/Rhino (PCR) SARS-CoV-2 RNA (RT-PCR) NEGATIVE 12/11/24 12/11/24 00:33 04:11 MCV 91.7 MCH 31.4 MCHC 34.2 RDW 12.3 Plt Count 137 L MPV 10.3 Immature Gran % (Auto) Neut % (Auto) Lymph % (Auto) [place] % (Auto) Eos % (Auto) Baso % (Auto) Lymph # (Auto) [place] # (Auto) Eos # (Auto) Baso # (Auto) Abs Immat Gran (auto) Absolute Neuts (auto) Absolute Nucleated RBC 0.000 Nucleated RBC % (auto) 0.0 D-Dimer High Sensitivty Anion Gap 17 Estim Creat Clear Calc 53.4 Estimated GFR > 60 Random Glucose 263 H Calcium 9.0 Magnesium 2.5 Troponin I High Sens B-Natriuretic Peptide Respiratory Panel Brown See Note Adenovirus (Rapid PCR) Not Detected B.pert (TEM-PCR) Not Detected B.parapertussis DNA PCR Not Detected C. pneumoniae DNA (PCR) Not Detected Coronavirus OC43 (PCR) Not Detected Coronavirus HKU1 (PCR) Not Detected Coronavirus 229E (PCR) Not Detected Coronavirus NL63 (PCR) Not Detected Human Metapneumovir PCR Detected A Influenza A (RT-PCR) Not Detected Influenza Type A (PCR) Influenza Type B (PCR) Influenza B (RT-PCR) Not Detected M. pneumoniae (PCR) Not Detected Parainfluenza 1 (PCR) Not Detected Parainfluenza 2 (PCR) Not Detected Parainfluenza 3 (PCR) Not Detected Parainfluenza 4 (PCR) Not Detected RSV RNA Qual (PCR) RSV (PCR) Not Detected Entero/Rhino (PCR) Not Detected SARS-CoV-2 RNA (RT-PCR) Not Detected Assessment and Plan (1) Acute viral syndrome: Status: Acute Plan 74F PMH intellectual delay, hld, anxiety, presented from half-way with cough and sob Acute hypoxic respiratory failure secondary to acute bronchitis likely due to human metapneumo virus wean o2 as tolerated (doing okay this AM off o2) continue steroids and bronchodilators Hyperlipidemia Statin Anxiety Paroxetine DVT prophylaxis with Lovenox Full Code reason for continued hospitalization: monitoring oxygen status on RA, if stays stable off anticipate d/c tomorrow Quality Stroke Does the patient have a stroke diagnosis?: No VTE Prior VTE?: No VTE Risk Level:: Medical - moderate - high VTE Device Contraindication: Treatment Not Indicated VTE Drug Contraindication: N/A - Med Ordered
[2024-12-11] MEDS: Acetaminophen 325 MG TABLET 650 MG PO (20:53)
[2024-12-11] MEDS: Melatonin 3 MG TABLET 6 MG PO (20:53)
[2024-12-11] MEDS: Atorvastatin Calcium 10 MG TABLET PO (20:55)
[2024-12-12] VITALS: BP 127/66; PULSE 62; RESP 16; TEMP 36.1; O2SAT 92
[2024-12-12 03:41] VITALS: BP 156/66; PULSE 78; RESP 17; TEMP 36.1; O2SAT 92
[2024-12-12 08:00] VITALS: BP 138/62; PULSE 65; RESP 17; TEMP 36.8; O2SAT 90
--- NOTE | 2024-12-12 08:21 | P.DS_ITS ---
DS: Providers Provider Date of Service: 12/12/24 Date of admission: 12/10/24 23:18 Date of discharge: 12/12/24 Primary care physician: Panchito Chance MD DS: Diagnosis Discharge Diagnosis (1) Acute viral syndrome: Status: Inactive DS: Summary Hospital Course Hospital Course: HPI From admission H&P: 74F PMH intellectual delay, hld, anxiety, presented from assisted with cough and sob. Staff had noted the patient had been having a dry cough, tachypneic complaining of difficulty catching her breath. Was brought to urgent care where saturation was noted to be 90% sent to ED. In ED found to be wheezing and saturation of 88% on room air. Chest x-ray with acute on chronic airspace disease, RSV/flu/COVID negative, assisted staff reports multiple exposures with people with similar upper respiratory tract symptoms.' Hospital course: patient was placed on supplemental oxygen and was started on IV steroids and nebulized bronchodilators. She was able to be quickly weaned from her oxygen and was continued on IV steroids for an additional 24 hours. She has now improved, has saturations above 90 on room air without any symptoms. She will be transitioned to 3 more days of oral prednisone. Patient's other chronic conditions were stable in the hospital. Final discharge diagnoses 1. Acute respiratory failure with hypoxia due to viral bronchitis from human metapneumovirus 2. Hyperlipidemia 3. Anxiety Time Attestation Discharge Coordination Time (in mins): 35 Quality: Safe Use of Opioids Does Pt have an Active Cancer Diagnosis on the Problem List?: No Quality: Stroke Does the patient have a stroke diagnosis?: No Physical Exam Vital Signs: Vital Signs: Last Vital Signs Temp 98.3 F 12/12/24 08:00 Pulse 65 12/12/24 08:00 Resp 17 12/12/24 08:00 BP 138/62 12/12/24 08:00 Pulse Ox 90 L 12/12/24 08:00 O2 Del Method Room Air 12/12/24 08:00 O2 Flow Rate 2.5 12/11/24 08:50 BMI result Body Mass Index 26.7 DS: Data Data Completed and Pending Labs on day of discharge: Laboratory Results - last 24 hr 12/11/24 00:33 Respiratory Panel Brown See Note Adenovirus (Rapid PCR) Not Detected B.pert (TEM-PCR) Not Detected B.parapertussis DNA PCR Not Detected C. pneumoniae DNA (PCR) Not Detected Coronavirus OC43 (PCR) Not Detected Coronavirus HKU1 (PCR) Not Detected Coronavirus 229E (PCR) Not Detected Coronavirus NL63 (PCR) Not Detected Human Metapneumovir PCR Detected A Influenza A (RT-PCR) Not Detected Influenza B (RT-PCR) Not Detected M. pneumoniae (PCR) Not Detected Parainfluenza 1 (PCR) Not Detected Parainfluenza 2 (PCR) Not Detected Parainfluenza 3 (PCR) Not Detected Parainfluenza 4 (PCR) Not Detected RSV (PCR) Not Detected Entero/Rhino (PCR) Not Detected SARS-CoV-2 RNA (RT-PCR) Not Detected Discharge Plan Discharge Anticipated Discharge Date/Time: 12/12/24 08:16 Patient Disposition: Home, Self-Care Discharge Diagnosis: Viral bronchitis, acute respiratory failure with hypoxia Referrals: Panchito Chance MD [Primary Care Provider] - 1 Week Discharge Medications: New prednisone 20 mg tablet 40 mg PO DAILY Qty: 6 0RF Continued ketotifen fumarate 0.025 % (0.035 %) drops 1 drp ophthalmic (eye) .QD PRN (Reason: allergy symptoms) Qty: 5 0RF Rx Instructions: apply to both eyes once daily at 4 PM acetaminophen 325 mg tablet 650 mg PO Q6H PRN (Reason: headache, toothache) 30 Days Qty: 120 5RF Rx Instructions: Take 2 tablets for temperature > 101, headache, toothache, muscle pain, joint pain, discomfort due to minor injury or sutures. Call PCP if symptoms continue more than 48 hours; DO not exceed 4 doses in 24 hours dextromethorphan-guaifenesin 10-100 mg/5 mL syrup 10 ml PO Q4H PRN (Reason: cough) Qty: 237 3RF Rx Instructions: Call PCP if cough continues > 3 days; Orally every 4hrs prn; Do not exceed > 6 doses in 24hrs Prolia 60 mg/mL syringe 60 mg subcut [id number] dicyclomine 20 mg tablet 20 mg PO QID PRN (Reason: IBS) nystatin 100,000 unit/gram powder 1 appl topical DAILY PRN (Reason: rash) Qty: 15 0RF Rx Instructions: Not to be used with antifungal cream. tolnaftate 1 % cream 1 appl topical BID PRN (Reason: rash) Qty: 30 0RF No Action paroxetine HCl 40 mg tablet 40 mg PO DAILY Qty: 30 0RF cetirizine 10 mg tablet 10 mg PO DAILY PRN (Reason: for allergies) Qty: 28 0RF cholecalciferol (vitamin D3) [Vitamin D3] 25 mcg (1,000 unit) capsule 25 mcg PO DAILY Qty: 28 0RF valacyclovir 500 mg tablet 500 mg PO DAILY Qty: 28 0RF multivitamin with folic acid [High Potency Multivitamin] 400 mcg tablet 1 tab PO DAILY Qty: 28 0RF atorvastatin 10 mg tablet 10 mg PO DAILY Qty: 28 0RF Discharge Orders: Discharge Order (Routine); Ordered 12/12/24 Ordered By: Dean Junior Diet: Advance to usual diet Activity on Discharge: As tolerated Stand Alone Forms: Patient Portal Discharge page Print Language: Kinyarwanda Care Plan Goals: To stay healthy and out of the hospital. Health Concerns: See discharge summary Plan of Treatment: See discharge summary Assessment: See discharge summary Patient Instructions: Acute Bronchitis (GEN) Discharge Date/Time: 12/12/24 11:52
[2024-12-12 08:47] VITALS: O2SAT 94
[2024-12-12] MEDS: methylPREDNISolone Sod Succ 40 MG/ML VIAL IVPUSH (09:10)
[2024-12-12] MEDS: 0.9 % Sodium Chloride Flush 3 ML SYRINGE IVFLUSH (09:10)
[2024-12-12] MEDS: Enoxaparin Sodium 40 MG/0.4 ML SYRINGE SUBCUT (09:10)
[2024-12-12] MEDS: PARoxetine HCL 10 MG TABLET PO (09:10)
[2024-12-12] MEDS: valACYclovir HCL 500 MG TABLET PO (09:10)
--- NOTE | 2024-12-12 09:46 | MHC.CM.PN ---
Addendum entered by Lakia Whitmore 12/12/24 11:46: CM RECEIVED A MESSAGE FROM BAM [phone], RN, WHO REPORTED BEING UPSET THAT NURSING HAD NOT BEEN CONTACTED CM EXPLAINED THAT BOTH THE EQUALIZER OPERATOR AND DIRECTOR HAD BEEN CONTACTED AND NEITHER INDICATED ANYONE ELSE NEEDED TO BE NOTIFIED BAM REPORTS SHE NEEDS TO MAKE SURE ALL OF THE DOCUMENTATION IS CORRECT FOR PT TO GET HER MEDS, AND IT APPEARS A DC MED IS MISSING SHE REPORTS SHE WAS NOTIFIED THE PT WOULD HAVE PREDNISONE AND AN INHALER AT DC AND THE PHARMACY DOES NOT HAVE THE INHALER CM ASSURED HER PREDNISONE WAS THE ONLY NEW MEDICATION ORDERED PER THE DCS SHE REQUESTED A COPY OF THE DCS BE EMAILED TO HER AT [email or web address], WHICH WAS DONE CM MET WITH THE NEW STAFF MEMBER NOW AT BEDSIDE SHE CONFIRMS SHE WILL BE TRANSPORTING PT HOME Original Note: PT CLEARED TO DC TODAY CM SPOKE TO [employer] [phone], EQUALIZER OPERATOR, WHO STATES THE STAFF MEMBER AT BEDSIDE WILL TRANSPORT AND THEY WILL NEED THE SIGNED ENCOUNTER FORM AND DCS CM CALLED PTS LEGAL GUARDIAN, JANINE (VARUN) RAMIREZ [phone], SHE IS AWARE OF PLAN TO DC PT WILL DC BACK TO [facility] TODAY VIA STAFF
== END 2024-12-12 11:52 | disposition home or self-care (01) | DRG 202 ==
LOC: HO.ED 22:50 → HO.EDOVER 23:23 → HO.S3 12-11 07:29
PROVIDERS: Physician Assistant; Physician Assistant Medical; Admitting Provider Internal Medicine; Emergency Provider Emergency Medicine; PCP Internal Medicine; Visit Provider Family Medicine
DX: J20.8 Acute bronchitis due to other specified organisms (principal); J96.01 Acute respiratory failure with hypoxia; B97.81 Human metapneumovirus as the cause of diseases classified elsewhere; E78.5 Hyperlipidemia, unspecified; F41.9 Anxiety disorder, unspecified; Z20.822 Contact with and (suspected) exposure to COVID-19; Z79.899 Other long term (current) drug therapy
CPT/HCPCS: 0241U; 36415; 71046; 80048; 83735; 83880; 84484; 85025; 85027; 85379; 87633; 93005; 94640; 99285; J1650; J2919; J3475

== ENCOUNTER → 2024-12-10 14:44 | Outpatient (BNV) | payer MEDICARE, MEDICAID, SELFPAY | PROVIDERS: PCP Internal Medicine; Visit Provider Radiology Diagnostic Radiology | DX: R05.9 Cough, unspecified (principal) | CPT/HCPCS: 71046 ==

== ENCOUNTER → 2024-12-10 21:45 | Outpatient (BNV) | payer MEDICARE, MEDICAID, SELFPAY | PROVIDERS: Admitting Provider Internal Medicine; Emergency Provider Emergency Medicine; PCP Internal Medicine; Visit Provider Internal Medicine | DX: R94.31 Abnormal electrocardiogram [ECG] [EKG] (principal); R06.02 Shortness of breath | CPT/HCPCS: 93010 ==

== ENCOUNTER → 2024-12-10 23:18 | Outpatient (BNV) | payer MEDICARE, MEDICAID, SELFPAY | PROVIDERS: Admitting Provider Internal Medicine; Emergency Provider Emergency Medicine; PCP Internal Medicine; Visit Provider Internal Medicine | DX: J96.01 Acute respiratory failure with hypoxia (principal); B34.9 Viral infection, unspecified; F41.9 Anxiety disorder, unspecified; J20.9 Acute bronchitis, unspecified | CPT/HCPCS: 99223; 99232 ==

== ENCOUNTER 2024-12-25 11:20 | Outpatient (AMB) | payer MEDICARE, MEDICAID, SELFPAY ==
[2024-12-25 11:22] VITALS: BP 122/78; PULSE 78; TEMP 36.2; O2SAT 95; BMI 26.4
--- NOTE | 2024-12-25 11:22 | A.OFFPC_ITS ---
Vital Signs 12/25/24 11:22 Height 5 ft 3 in Weight 149 lb 2 oz BMI 26.4 BP 122/78 Blood Pressure Location Lt brachial Position Sitting Pulse 78 Pulse Source Pulse Oximeter Temp 97.1 F Temp Source Temporal Artery Scan Pulse Oximetry (%) 95 Oxygen Delivery Method Room Air Intake Visit Reasons: [facility] Bronchitis 12/11 Allergies aspartame [ASPARTAME] Allergy (Unknown, Verified 12/10/24 14:43) UNKNOWN loratadine [From CLARITIN] Allergy (Unknown, Verified 12/10/24 14:43) UNKNOWN phenylalanine [Phenylalanine] Allergy (Unknown, Verified 12/10/24 14:43) UNKNOWN dustmites Allergy (Unknown, Uncoded 10/14/24 11:27) unknown ragweed Allergy (Unknown, Uncoded 10/14/24 11:27) unknown Tobacco use date assessed: 08/21/24 Dental Screening Dental Screen Date: 08/21/24 HPI [facility] TCM Information Date of Discharge 12/12/24 Discharged From [facility] Interactive Contact Date (Reference documentation from this date) 12/14/24 HPI Comments History of Present Illness Details 74 Y/O Female patient who presents to [facility] for EDF. Her PMhx significant for intellectual delay, hld, and anxiety. Accompanied by New Car Inspector who provides history. She was admitted at [facility] on 12/10/24 and discharged home 12/12/24 due to SOB, cough and wheezing. RSV/COVID/Flu were negative. She was diagnosed with Acute viral Syndrome; Bronchitis. [facility] Medical History (Updated 12/25/24 @ 11:35 by Michelle Parker NP) Wheezing on auscultation Acute viral bronchitis Acute viral syndrome Reactive airway disease Hypoxia Compression fracture of lumbosacral spine Anxiety Mental disability Allergic rhinitis Elevated LFTs Osteoporosis Pure hypercholesterolemia Premature atrial contractions Surgical History S/P colonoscopy (~07/05/20) S/P laparoscopic cholecystectomy (~06/28/14) Family History Other Family history unknown Social History Household Members: Other Housing: Other Housing Other:: Snf Do you presently have visiting nurse or other home services: Yes Alcohol intake: never Comment: care home staff at bedside. Patient Tobacco Use Status: Never used Tobacco e-Cigarette/Vaping Use: Never Used Second Hand Smoke Exposure: No service: No Current occupational status: retired Cognitive needs: No Hearing needs: No Vision needs: No Questionnaire PHQ-9 Over the last 2 weeks, how often have you been bothered by any of the following problems? 1. Little interest or pleasure in doing things: not at all 2. Feeling down, depressed, or hopeless: not at all 3. Trouble falling or staying asleep, or sleeping too much: not at all 4. Feeling tired or having little energy: not at all 5. Poor appetite or overeating: not at all 6. Feeling bad about yourself - or that you are a failure or have let yourself or your family down: not at all 7. Trouble concentrating on things, such as reading the newspaper or watching television: not at all 8. Moving or speaking so slowly that other people could have noticed. Or the opposite - being so fidgety or restless that you have been moving around a lot more than usual: not at all 9. Thoughts that you would be better off or of hurting yourself in some way: not at all Total score: 0 Depression Screening Interpretation: Negative Depression Screening Done: Yes 88646 - PHQ-9 Billing: Yes Source: Developed by Drs. Suraj Rushing, Janice Navarro, Micah Pelaez and colleagues, with an educational amna from [employer]. Thrive Questionnaire Date Thrive assessed: 12/25/24 OANH-7 AMB Questionnaire OANH-7 Date OANH - 7 assessed: 12/25/24 Feeling nervous, anxious, or on edge: 0 = Not at all Not being able to stop or control worryin = Not at all Worrying too much about different things: 0 = Not at all Trouble relaxin = Not at all Being so restless that it is hard to sit still: 0 = Not at all Becoming easily annoyed or irritable: 0 = Not at all Feeling afraid as if something awful might happen: 0 = Not at all Total OANH-7 score (0-4 normal; 5-9 mild; 10-14 moderate; 15-21 severe): 0 Source: Developed by Drs. Suraj Rushing, Janice Navarro, Micah Pelaez and colleagues, with an educational amna from [employer]. OANH-7 Assessment Billing OANH-7 Assessment Tool: OANH-7 Assessment 90450 Review of Systems Const All systems reviewed & are unremarkable except as noted in HPI and below Physical exam (Primary Care) Vital Signs: Last Vital Signs Temp 97.1 F 12/25/24 11:22 Pulse 78 12/25/24 11:22 BP 122/78 12/25/24 11:22 Pulse Ox 95 12/25/24 11:22 Oxygen Delivery Method Room Air 12/25/24 11:22 BMI result Body Mass Index 26.4 Tobacco/Smoking Status: Tobacco use Status Tobacco use date assessed 08/21/24 12/25/24 11:24 Patient Tobacco Use Status Never used Tobacco 12/25/24 11:24 e-Cigarette/Vaping Use Never Used 12/25/24 11:24 PHQ-9: PHQ-9 Score PHQ-9: Total score 0 12/25/24 11:28 Depression Screening Interpretation: Negative Thrive Assessment: Date of Thrive Assessment Date Thrive assessed 12/25/24 12/25/24 11:24 Const General: cooperative and no acute distress Nutritional Appearance: overweight Orientation/consciousness: patient oriented x3 Resp Effort & Inspection: normal respiratory effort and able to speak in complete sentences Auscultation: clear to auscultation bilaterally, no crackles, no rales, no rhonchi and wheezes inspiratory wheezes Cardio Heart sounds: S1 normal heart sound present and S2 normal heart sound present Neuro General: patient oriented x3 Coding Level of Care Code TCM Mod MDM <= 14 Days Diagnoses Acute viral bronchitis J20.8 Wheezing on auscultation R06.2 Additional Codes OANH-7 Assessment Billing - OANH-7 Assessment Tool: OANH-7 Assessment 24557 ([id number]) PHQ-9 - 04228 - PHQ-9 Billing: Yes ([id number]) Time Spent (min) 20 Assessment & Plan Assessment & Plan (1) Acute viral bronchitis: Code(s): J20.8 - Acute bronchitis due to other specified organisms Category: Medical Plan: Ordered Prednisone due to Inspiratory Wheezes Ordered cough medicine Rest and hydrate well with warm fluids (2) Wheezing on auscultation: Code(s): R06.2 - Wheezing Category: Medical Plan: Ordered Prednisone due to Inspiratory Wheezes Ordered cough medicine Rest and hydrate well with warm fluids Medications: New prednisone 50 mg PO DAILY 5 days 5 tabs 0RF J20.8 - Acute bronchitis due to other specified organisms, R06.2 - Wheezing benzonatate 100 mg PO BID 14 days 28 caps 0RF J20.8 - Acute bronchitis due to other specified organisms Discontinued prednisone Discontinued Reason: Patient Completed Course 40 mg (2 x 20 mg) PO DAILY 6 tabs 0RF
== END 2024-12-25 13:25 | disposition home or self-care (01) ==
PROVIDERS: PCP Internal Medicine; Visit Provider Nurse Practitioner Family
DX: J20.8 Acute bronchitis due to other specified organisms (principal); R06.2 Wheezing

== ENCOUNTER → 2024-12-25 11:20 | Outpatient (BNVA) | payer MEDICARE, MEDICAID, SELFPAY | PROVIDERS: PCP Internal Medicine; Visit Provider Nurse Practitioner Family | DX: J20.8 Acute bronchitis due to other specified organisms (principal); R06.2 Wheezing | CPT/HCPCS: 96127; 99495 ==

== ENCOUNTER 2025-02-15 09:38 | Outpatient (REF) | payer MEDICARE, MEDICAID, SELFPAY | END 2025-02-15 09:39 | disposition home or self-care (01) | LOC: HO.SH 09:38 | PROVIDERS: Visit Provider Internal Medicine | DX: Z01.118 Encounter for examination of ears and hearing with other abnormal findings (principal); H91.90 Unspecified hearing loss, unspecified ear | CPT/HCPCS: 92553; 92555; 92567 ==

== ENCOUNTER 2025-02-19 10:43 | Outpatient (AMB) | payer MEDICARE, MEDICAID, SELFPAY ==
[2025-02-19 10:51] VITALS: BP 128/70; PULSE 70; TEMP 36.3; O2SAT 97; BMI 26.4
--- NOTE | 2025-02-19 10:51 | MHC.PC.OV ---
Vital Signs 02/19/25 10:51 Height 5 ft 3 in Weight 149 lb 4 oz BMI 26.4 BP 128/70 Blood Pressure Location Lt brachial Position Sitting Pulse 70 Pulse Source Pulse Oximeter Temp 97.3 F Temp Source Temporal Artery Scan Pulse Oximetry (%) 97 Oxygen Delivery Method Room Air Intake Visit Reasons: 6mth f/u Administrative Associate Required: No Accompanied by: Monica Dial Allergies aspartame [ASPARTAME] Allergy (Unknown, Verified 02/19/25 11:23) UNKNOWN loratadine [From CLARITIN] Allergy (Unknown, Verified 02/19/25 11:23) UNKNOWN phenylalanine [Phenylalanine] Allergy (Unknown, Verified 02/19/25 11:23) UNKNOWN dustmites Allergy (Unknown, Uncoded 02/19/25 11:23) unknown ragweed Allergy (Unknown, Uncoded 02/19/25 11:23) unknown Medication List - Last Reconciled 02/19/25 by Panchito Chance MD acetaminophen 650 mg (2 x 325 mg) PO Q6H PRN 30 days atorvastatin 10 mg PO DAILY cetirizine 10 mg PO DAILY PRN cholecalciferol (vitamin D3) (Vitamin D3) 25 mcg PO DAILY denosumab (Prolia) 60 mg subcut [id number] dextromethorphan-guaifenesin 10-100 mg/5 mL 10 mL PO Q4H PRN dicyclomine 20 mg PO QID PRN ketotifen fumarate 0.025%(0.035%) 1 drp ophthalmic (eye) .QD PRN multivitamin with folic acid 400 mcg (High Potency Multivitamin) 1 tab PO DAILY nystatin 1 appl topical DAILY PRN paroxetine HCl 40 mg PO DAILY tolnaftate 1% 1 appl topical BID PRN valacyclovir 500 mg PO DAILY Tobacco use date assessed: 02/19/25 Fall risk assessment: No Falls in past year Last assessed Fall Risk: 02/19/25 Dental Screening Dental Screen Date: 02/19/25 Did you have a dental visit in the last 12 months?: Yes Did you have a dental problem in the last 6 months where you did not have access to dental care?: No Was dental information given to patient?: Patient has dentist HPI 6mth f/u HPI Details Patient comes in today for her follow up visit - is accompanied as usual by one of her penitentiary staff Patient was admitted to the hospital for a few days back in November 2024 for pneumonia custodial staff states that she has been doing well since with no acute issues Patient denies any headaches or dizziness She denies any chest pains, no SOB No nausea/vomiting, no abdominal pain No change in bowel habits noted [facility] Medical History Wheezing on auscultation Acute viral bronchitis Acute viral syndrome Reactive airway disease Hypoxia Compression fracture of lumbosacral spine Anxiety Mental disability Allergic rhinitis Elevated LFTs Osteoporosis Pure hypercholesterolemia Premature atrial contractions Surgical History S/P colonoscopy (~07/05/20) S/P laparoscopic cholecystectomy (~06/28/14) Family History Other Family history unknown Social History Household Members: Other Housing: Other Housing Other:: Skilled Nursing Do you presently have visiting nurse or other home services: Yes Alcohol intake: never Comment: custodial staff at bedside. Patient Tobacco Use Status: Never used Tobacco e-Cigarette/Vaping Use: Never Used Second Hand Smoke Exposure: No service: No Current occupational status: retired Cognitive needs: No Hearing needs: No Vision needs: No Questionnaire Thrive Questionnaire Date Thrive assessed: 12/25/24 OANH-7 AMB Questionnaire OANH-7 Date OANH - 7 assessed: 12/25/24 Source: Developed by Drs. Suraj Rushing, Janice Navarro, Micah Pelaez and colleagues, with an educational amna from [email or web address]. Review of Systems Const Denies chills, Denies fatigue, Denies fever(s) and Denies headache(s) ENT Denies dysphagia, Denies dizziness, Denies otalgia, Denies headache(s), Denies neck pain, Denies odynophagia and Denies sore throat Card Denies chest pain, Denies irregular heart rhythm, Denies palpitations and Denies dyspnea Resp Denies chest congestion, Denies cough and Denies dyspnea GI Denies abdominal pain, Denies constipation, Denies dysphagia, Denies heartburn, Denies diarrhea, Denies nausea, Denies odynophagia and Denies vomiting Denies urinary frequency, Denies dysuria and Denies urinary urgency Musc Denies back pain, Denies arthralgias and Denies neck pain Skin/Breast Denies lesions and Denies unusual bruising Neuro Denies dizziness, Denies headache(s) and Denies paresthesias Psych Denies anxiety and Denies depression (controlled on Rx) Endo Denies fatigue and Denies palpitations Harsh/Lymph Denies easy bruising Physical exam (Primary Care) Vital Signs: Last Vital Signs Temp 97.3 F 02/19/25 10:51 Pulse 70 02/19/25 10:51 BP 128/70 02/19/25 10:51 Pulse Ox 97 02/19/25 10:51 Oxygen Delivery Method Room Air 02/19/25 10:51 BMI result Body Mass Index 26.4 Tobacco/Smoking Status: Tobacco use Status Tobacco use date assessed 02/19/25 02/19/25 11:06 Patient Tobacco Use Status Never used Tobacco 02/19/25 10:54 e-Cigarette/Vaping Use Never Used 02/19/25 10:54 Thrive Assessment: Date of Thrive Assessment Date Thrive assessed 12/25/24 02/19/25 10:54 Const General: no acute distress and alert HENMT Ears: TM's normal bilaterally and EAC's normal Throat: Yes posterior oropharynx normal and Yes tonsils normal (no TP congestion) Neck Neck: Yes supple and No lymphadenopathy Thyroid: Thyroid normal Resp Auscultation: clear to auscultation bilaterally, no rales and no wheezes Cardio Rate: regular rate Rhythm: regular rhythm Heart sounds: no murmurs GI Palpation (GI): Soft to palpation and nontender Auscultation: normal bowel sounds General: Yes no CVA tenderness Back/Spine/Pelvis Back: no CVA tenderness Thoracic/Lumbar Spine: No lumbar spinal tenderness Skin Rashes: no rashes Extrem General: Yes no clubbing, cyanosis or edema Coding Level of Care Code Est Pt Level 4 (47997) Diagnoses Pure hypercholesterolemia E78.00 Premature atrial contractions I49.1 Elevated LFTs R79.89 Allergic rhinitis, unspecified seasonality, unspecified trigger J30.9 Allergic rhinitis trigger: unspecified Allergic rhinitis seasonality: unspecified Age-related osteoporosis without current pathological fracture M81.0 Osteoporosis type: age-related Presence of current pathological fracture: without current pathological fracture Closed compression fracture of lumbosacral spine, sequela S32.000S Encounter type: sequela Fracture type: closed Anxiety F41.9 Mental disability F79 Assessment & Plan Assessment & Plan (1) Pure hypercholesterolemia: Code(s): E78.00 - Pure hypercholesterolemia, unspecified Category: Medical Plan: Her cholesterol levels were normal when they were last checked in August 2024 Reinforced low cholesterol diet Continue Atorvastatin 10 mg QD Will have patient recheck her labs and fasting lipids in 6 months for follow up (2) Premature atrial contractions: Code(s): I49.1 - Atrial premature depolarization Category: Medical Plan: Reports no recent recurrence of her cardiac symptoms Echocardiogram done a couple of years ago was mostly normal, with a normal EF Follow up with [facility] Cardiology as scheduled (3) Elevated LFTs: Code(s): R79.89 - Other specified abnormal findings of blood chemistry Category: Medical Plan: Improved - her LFTs were normal when last checked in August 2024 Will continue to monitor her LFTs regularly (4) Allergic rhinitis: Code(s): J30.9 - Allergic rhinitis, unspecified Category: Medical Qualifiers: Allergic rhinitis trigger: unspecified Allergic rhinitis seasonality: unspecified Qualified Code(s): J30.9 - Allergic rhinitis, unspecified Plan: Continue Fluticasone 50 mcg nasal spray QD PRN and Loratadine 10 mg QD PRN (5) Osteoporosis: Code(s): M81.0 - Age-related osteoporosis without current pathological fracture Category: Medical Qualifiers: Osteoporosis type: age-related Presence of current pathological fracture: without current pathological fracture Qualified Code(s): M81.0 - Age-related osteoporosis without current pathological fracture Plan: BMD done on 07/03/2018 showed (+) severe osteoporosis with a 23.4% increase in BMD in the AP spine from previous BMD 3 years ago and a 9% increase from baseline; left femur BMD showed just a 1.5% increase from previous Continue Calcium+D tablet 600-200 mg-unit once a day with food; patient was on Fosamax previously but this was discontinued by endocrinology several months ago She reportedly had a follow up BMD sometime a couple of years ago - we have not received a copy of this for documentation Continue Prolia 60 mg SQ Q 6 months Follow up with endocrinology as scheduled (6) Compression fracture of lumbosacral spine: Comment: L3 - seen on x-rays done in 09/2016 Code(s): S32.000A - Wedge compression fracture of unspecified lumbar vertebra, initial encounter for closed fracture Category: Medical Qualifiers: Encounter type: sequela Fracture type: closed Qualified Code(s): S32.000S - Wedge compression fracture of unspecified lumbar vertebra, sequela Plan: Reinforced activity and weight-lifting restrictions although patient does not do too much in terms of physical activity (7) Anxiety: Code(s): F41.9 - Anxiety disorder, unspecified Category: Medical Plan: Continue Paroxetine 40 mg QD Follow up with psychiatry as scheduled (8) 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 Panel Fast 08/11/25 E78.00 - Pure hypercholesterolemia, unspecified, Z00.00 - Encounter for general adult medical examination without abnormal findings TSH reflex Free T4 08/11/25 E78.00 - Pure hypercholesterolemia, unspecified, Z00.00 - Encounter for general adult medical examination without abnormal findings UA CC w/rflx Micro + Cult 08/11/25 R30.0 - Dysuria, Z00.00 - Encounter for general adult medical examination without abnormal findings Vitamin D 25-OH Total 08/11/25 E55.9 - Vitamin D deficiency, unspecified, Z00.00 - Encounter for general adult medical examination without abnormal findings AMB Hemoglobin A1c Today Z13.1 - Encounter for screening for diabetes mellitus Complete Blood Count Auto Diff 08/11/25 D64.9 - Anemia, unspecified, Z00.00 - Encounter for general adult medical examination without abnormal findings Lipid Panel 08/11/25 E78.00 - Pure hypercholesterolemia, unspecified, Z00.00 - Encounter for general adult medical examination without abnormal findings Vitamin B12 and Folate 08/11/25 E53.8 - Deficiency of other specified B group vitamins, Z00.00 - Encounter for general adult medical examination without abnormal findings
== END 2025-02-19 11:54 | disposition home or self-care (01) ==
LOC: HO.HMCH 10:44
PROVIDERS: PCP Internal Medicine; Visit Provider Internal Medicine
DX: E78.00 Pure hypercholesterolemia, unspecified (principal); I49.1 Atrial premature depolarization; R79.89 Other specified abnormal findings of blood chemistry; J30.9 Allergic rhinitis, unspecified; M81.0 Age-related osteoporosis without current pathological fracture; S32.000S Wedge compression fracture of unspecified lumbar vertebra, sequela; F41.9 Anxiety disorder, unspecified; F79 Unspecified intellectual disabilities

== ENCOUNTER → 2025-02-19 10:43 | Outpatient (BNVA) | payer MEDICARE, MEDICAID, SELFPAY | PROVIDERS: PCP Internal Medicine; Visit Provider Internal Medicine | DX: E78.00 Pure hypercholesterolemia, unspecified (principal); I49.1 Atrial premature depolarization; R79.89 Other specified abnormal findings of blood chemistry; J30.9 Allergic rhinitis, unspecified; M81.0 Age-related osteoporosis without current pathological fracture; F41.9 Anxiety disorder, unspecified; S32.000S Wedge compression fracture of unspecified lumbar vertebra, sequela; X58.XXXS Exposure to other specified factors, sequela; Z87.01 Personal history of pneumonia (recurrent) | CPT/HCPCS: 99212 ==

== ENCOUNTER 2025-02-22 12:25 | Inpatient (IN) | payer MEDICARE, MEDICAID, SELFPAY ==
--- NOTE | ~2025-02-22 | XR_ITS ---
EXAMINATION: XR WRIST 3 OR MORE VIEWS RIGHT, XR HAND 3 OR MORE VIEWS RIGHT HISTORY: FOOSH COMPARISON: There are no prior studies available for comparison. FINDINGS: Seven views of the right hand and wrist including a scaphoid view are submitted. The bones are osteopenic. There is no fracture or dislocation. 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 The soft tissues are unremarkable. XR/XR wrist RT min 3V IMPRESSION: Osteopenia. No evidence of fracture of the right hand or wrist. Electronically signed by: Suraj Reynoso MD 02/22/2025 01:32 PM EDT
--- NOTE | ~2025-02-22 | XR_ITS ---
EXAMINATION: XR KNEE 4 OR MORE VIEWS LEFT HISTORY: fall, left knee pain COMPARISON: There are no prior studies available for comparison. FINDINGS: Three views of the left knee are submitted. The patient refused a lateral view. Osseous mineralization is normal. No fracture is seen on these images. However, evaluation is limited by lack of a lateral view. The medial and lateral joint spaces are preserved. The patellofemoral compartment cannot be assessed without a lateral view. The presence of a joint effusion similarly, cannot be assessed by lack of a lateral view. XR/XR knee LT 4V IMPRESSION: Markedly limited examination by lack of a lateral view. No evidence of fracture on the views obtained. Electronically signed by: Suraj Reynoso MD 02/22/2025 01:34 PM EDT
--- NOTE | ~2025-02-22 | CT_ITS ---
CLINICAL HISTORY: new large mass CT chest with contrast Comparison: CT - CT CHEST W IV CON - 02/22/25 19:45 EDT Findings: The heart size is normal. The visualized thyroid and mediastinum are unremarkable. No mediastinal or axillary adenopathy. There is a pulmonary nodule in the left upper lobe measuring 2.2 x 1.5 x 2.9 cm. Linear scarring or atelectasis at the right lung base. Calcified granuloma in the right middle lobe, evidence of previous granulomatous disease. The upper abdomen is unremarkable. No acute fracture deformity. Multilevel degenerative change of the thoracic spine. No lytic or blastic bone lesion seen. IMPRESSION: 2.2 x 1.5 x 2.9 cm solitary left upper lobe pulmonary nodule, raising concern for malignancy. This document has been electronically signed by: Tam Maldonado MD on 02/22/2025 20:49:15
--- NOTE | ~2025-02-22 | CT_ITS ---
EXAMINATION: CT CERVICAL SPINE WITHOUT CONTRAST CLINICAL INFORMATION: Fall with head strike, neck pain. COMPARISON: None available. TECHNIQUE: Spiral CT imaging of the cervical spine performed in axial plane without contrast. Multiplanar reformatted images were constructed from the axial data set. This CT examination was performed using dose optimization techniques as appropriate, variously including the following: *Automated exposure control *Adjustment of mA and/or kV according to patient size (this includes techniques or standardized protocols for targeted exams where dose is matched to indication/reason for exam; i.e. extremities or head) *Use of iterative reconstruction technique FINDINGS: CORONAL ALIGNMENT: -Mild right convex scoliosis. SAGITTAL ALIGNMENT: -Minimal straightening of the normal lordosis. -2 mm degenerative appearing anterolistheses of C3 on C4 and C4 on C5. Alignment is otherwise anatomic. C1-C2 AND CRANIOCERVICAL JUNCTION: -Intact and normally aligned. VERTEBRAL BODIES AND FACETS: -No fracture, traumatic subluxation, compression deformity, or suspicious bone lesion. DISCS: -Mild to moderate disc degeneration present throughout, most significant C3-C7. There is relative sparing of C2-3. CENTRAL CANAL: -No evidence of high-grade central canal narrowing or large disc herniation allowing for modality limitations. PREVERTEBRAL AND PARAVERTEBRAL SOFT TISSUES: -No pre or paravertebral soft tissue swelling or fluid collection. -Small 0.9 cm left-sided thyroid nodule suspected, no follow-up recommended in this age group. LUNG APICES: -Masslike opacity measuring 2.0 x 1.6 cm in the superior segment of left lower lobe abutting the major fissure. This is incompletely imaged. This is suspicious. CT/CT cervical spine wo IV con IMPRESSION: 1. No CT evidence of acute cervical spine fracture or injury. 2. Masslike opacity measuring 2.0 x 1.6 cm in the superior segment of left lower lobe abutting the major fissure, incompletely imaged. This is suspicious. Consider correlating with chest CT in non-emergent setting. Electronically signed by: Antonino Carrera MD 02/22/2025 02:18 PM EDT
--- NOTE | ~2025-02-22 | XR_ITS ---
EXAMINATION: XR WRIST 3 OR MORE VIEWS RIGHT, XR HAND 3 OR MORE VIEWS RIGHT HISTORY: FOOSH COMPARISON: There are no prior studies available for comparison. FINDINGS: Seven views of the right hand and wrist including a scaphoid view are submitted. The bones are osteopenic. There is no fracture or dislocation. 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 The soft tissues are unremarkable. XR/XR hand RT min 3V IMPRESSION: Osteopenia. No evidence of fracture of the right hand or wrist. Electronically signed by: Suraj Reynoso MD 02/22/2025 01:32 PM EDT
--- NOTE | ~2025-02-22 | CT_ITS ---
EXAMINATION: CT HEAD AND FACIAL BONES WITHOUT CONTRAST CLINICAL INFORMATION: Fall with right facial strike. COMPARISON: CT head dated 10/21/2023. No prior CT facial bones. TECHNIQUE: Contiguous axial imaging was performed from the skull base to vertex, as well as the maxillofacial bones/mandible without intravenous administration of contrast. Multiplanar reformatted imaging was constructed from the axial data set. This CT examination was performed using dose optimization techniques as appropriate, variously including the following: *Automated exposure control *Adjustment of mA and/or kV according to patient size (this includes techniques or standardized protocols for targeted exams where dose is matched to indication/reason for exam; i.e. extremities or head) *Use of iterative reconstruction technique CT HEAD: There is no evidence of intracranial hemorrhage or extra-axial fluid collection. There is no mass effect, or edema. No CT evidence of acute territorial infarct. Ventricles, sulci, and cisterns are normal in size and configuration for patient age. No hydrocephalus. No midline shift. Negative hyperdense MCA sign. Negative insular ribbon sign. Patchy low attenuation in the supratentorial white matter, in keeping with mild to moderate small vessel ischemic changes. Normal pituitary. Globes and orbital contents image normally. No extracranial soft tissue abnormalities. The calvarium and skull base are intact without fracture. CT MAXILLOFACIAL BONES: The mandible is intact without fracture. The TM joints are normally oriented. Degenerative changes in the left TM joint. The nasal bones, nasal process, maxilla, orbits, zygomatic arches, pterygoid plates, and sphenoid bone are intact without fracture. Mild left nasal septal deviation. Paranasal sinuses are normally pneumatized throughout. No paranasal sinus fractures. Right mastoid effusion without evidence of tympanic space involvement. No definite mastoid fracture identified. The mastoids and tympanic cavities are normally aerated. Imaged maxillofacial/neck soft tissues appear normal. CT/CT facial bones wo IV con IMPRESSION: 1. No acute intracranial abnormality. No calvarial or skull base fracture. 2. No acute maxillofacial bone or mandibular fracture. 3. Right mastoid effusion. Electronically signed by: Antonino Carrera MD 02/22/2025 02:10 PM EDT
[2025-02-22 12:36] VITALS: BP 140/75; PULSE 81; RESP 19; TEMP 36.6; O2SAT 98; BMI 24.6
--- NOTE | 2025-02-22 12:38 | ED.GENADULT ---
HPI - General Adult General Chief complaint: Fall Stated complaint: R Sonnyie Face and Hand Pain Fall Time Seen by Provider: 02/22/25 17:40 Source: other History of Present Illness ED Provider: Carolina Bowie PA-C HPI narrative: 74-year-old female with a history of mental disability, OCD, anxiety, hyperlipidemia, osteoporosis, who presents after mechanical fall. Patient tripped, falling onto her right side, she did strike her head. No loss consciousness, the patient was not on a blood thinner, Related Data Home Medications ?Medication ?Instructions ?Recorded ?Confirmed denosumab 60 mg/mL subcutaneous 60 mg subcut [id number] 08/06/22 02/19/25 syringe (Prolia) dicyclomine 20 mg tablet 20 mg PO QID PRN IBS 06/17/24 02/19/25 Previous Rx's ?Medication ?Instructions ?Recorded nystatin 100,000 unit/gram topical 1 appl topical DAILY PRN rash #15 06/17/24 powder grams tolnaftate 1 % topical cream 1 appl topical BID PRN rash #30 06/17/24 grams ketotifen fumarate 0.025 % (0.035 1 drp ophthalmic (eye) .QD PRN 08/06/24 %) eye drops allergy symptoms #5 mL acetaminophen 325 mg tablet 650 mg (2 x 325 mg) PO Q6H PRN 10/13/24 headache, toothache 30 days #120 tabs dextromethorphan-guaifenesin 10 10 ml PO Q4H PRN cough #237 mL 10/15/24 mg-100 mg/5 mL oral syrup atorvastatin 10 mg tablet 10 mg PO DAILY #28 tabs 02/09/25 cetirizine 10 mg tablet 10 mg PO DAILY PRN for allergies 02/09/25 #28 tabs cholecalciferol (vitamin D3) 25 25 mcg PO DAILY #28 caps 02/09/25 mcg (1,000 unit) capsule (Vitamin D3) multivitamin with folic acid 400 1 tab PO DAILY #28 tabs 02/09/25 mcg tablet (High Potency Multivitamin) paroxetine HCl 40 mg tablet 40 mg PO DAILY #30 tabs 02/09/25 valacyclovir 500 mg tablet 500 mg PO DAILY #28 tabs 02/09/25 Allergies Allergy/AdvReac Type Severity Reaction Status Date / Time aspartame [ASPARTAME] Allergy Unknown UNKNOWN Verified 02/22/25 12:37 loratadine [From CLARITIN] Allergy Unknown UNKNOWN Verified 02/22/25 12:37 phenylalanine [Phenylalanine] Allergy Unknown UNKNOWN Verified 02/22/25 12:37 dustmites Allergy Unknown unknown Uncoded 02/22/25 12:37 ragweed Allergy Unknown unknown Uncoded 02/22/25 12:37 Review of Systems Review of Systems: Unable to obtain secondary to cognitive impairment Yes all other systems are reviewed and are negative [facility] Past Medical History Attestation statement: The following information was validated with the patient. Medical History Wheezing on auscultation Acute viral bronchitis Acute viral syndrome Reactive airway disease Hypoxia Compression fracture of lumbosacral spine Anxiety Mental disability Allergic rhinitis Elevated LFTs Osteoporosis Pure hypercholesterolemia Premature atrial contractions Surgical History S/P colonoscopy (~07/05/20) S/P laparoscopic cholecystectomy (~06/28/14) Family History Family History Other Family history unknown Social History Social History Household Members: Other Housing: Other Housing Other:: Senior Care Do you presently have visiting nurse or other home services: Yes Alcohol intake: never Comment: detention staff at bedside. Patient Tobacco Use Status: Never used Tobacco e-Cigarette/Vaping Use: Never Used Second Hand Smoke Exposure: No Advance Directives: No Advance Directives Information Provided: No Do you have a plan to hurt others: No Plan service: No Current occupational status: retired Cognitive needs: No Hearing needs: No Vision needs: No Physical Exam ED Vital Signs: Vital Signs - 24 hr 02/22/25 12:36 02/22/25 20:00 02/22/25 22:00 Temperature 98 F 97.2 F 97.8 F Pulse Rate 81 88 92 Respiratory Rate 19 16 16 Blood Pressure 140/75 H 139/73 122/73 Pulse Oximetry 98 94 90 L Oxygen Delivery Method Room Air Room Air Room Air Oxygen Flow Rate 02/22/25 23:00 02/22/25 23:01 02/22/25 23:02 Temperature 98.7 F Pulse Rate 94 Respiratory Rate 16 Blood Pressure 111/71 Pulse Oximetry 91 L 84 L 95 Oxygen Delivery Method Room Air Nasal Cannula Oxygen Flow Rate 2 BMI result Body Mass Index 24.6 Const Other: Alert well-appearing, contusion noted lateral right eye Orientation/consciousness: oriented to person Resp Effort & Inspection: normal respiratory effort Cardio Other: Normal peripheral perfusion Skin Other: Warm dry no rash Neuro Other: Antalgic gait General: oriented to person, no focal motor deficits and CN's II-XI intact bilaterally Extrem Other: Abrasion noted to anterior left knee able to flex and extend Psych Other: Cooperative Course Course Course Narrative: This is a Rapid Medical Examination (RME) performed by Tonia Simpson PA-C in triage. Full HPI, ROS, assessment and treatment plan per primary provider in the Main ED. 02/22/25 0679 PLAC[address] Go Hx: 74 yo female hx of mental disability here w/ managed care nurse following witnessed mechanical fall. Had just got done playing basketball at day program, attempting to get into a car when she lost her balance and fell. +head/facial strike. no thinners. no LOC. having right hand/wrist and left knee pain. PE/vitals: abrasions to right palm. No deformity. full ROM intact to right wrist. small abrasion to right eye brow. EOMs intact. PERRLA. no midline c spine tenderness. Plan: imaging. Reevaluation(s) Reevaluation #1: Ambulated the patient, she dropped to 84% on room air with a brief walk. At rest she maintains O2 of 90-91%. Placing on a nasal cannula. We will admit. Medications Administered Discontinued Medications Generic Name Dose Route Start Last Admin Trade Name Freq PRN Reason Stop Dose Admin Iohexol 100 ml 02/22/25 19:48 02/22/25 19:49 Iohexol 350 Mg/Ml 100 Ml Infus..Btl IV 02/22/25 19:49 65 ml ONCE ONE Administration Medical Decision Making Medical Decision Making [facility] Narrative: 74-year-old female with a history of mental disability, OCD, anxiety, hyperlipidemia, osteoporosis, who presents after mechanical fall. Patient tripped, falling onto her right side, she did strike her head. No loss consciousness, the patient was not on a blood thinner, Problem: Cognitive impairment History: Per patient's caregiver I have considered the following differential diagnoses: Intracranial hemorrhage, facial bone fracture, cervical spine injury, fracture, dislocation Plan: Imaging was ordered from triage, she has no acute injury. However, an incidental finding of a new lung mass was partially captured on the cervical spine imaging. We will obtain a dedicated chest CT, we will obtain screening labs at this time. To note the patient's oxygen saturation is 90% on room air. She has no underlying respiratory illnesses. I have independently reviewed the following tests: Labs: Leukocytosis with left shift, not anemic, no electrolyte abnormality CT brain: CT/CT head/brain wo IV con IMPRESSION: 1. No acute intracranial abnormality. No calvarial or skull base fracture. 2. No acute maxillofacial bone or mandibular fracture. 3. Right mastoid effusion. CT cervical spine: CT/CT cervical spine wo IV con IMPRESSION: 1. No CT evidence of acute cervical spine fracture or injury. 2. Masslike opacity measuring 2.0 x 1.6 cm in the superior segment of left lower lobe abutting the major fissure, incompletely imaged. This is suspicious. Consider correlating with chest CT in non-emergent setting. CT max face: CT/CT head/brain wo IV con IMPRESSION: 1. No acute intracranial abnormality. No calvarial or skull base fracture. 2. No acute maxillofacial bone or mandibular fracture. 3. Right mastoid effusion. Wrist x-ray: XR/XR wrist RT min 3V IMPRESSION: Osteopenia. No evidence of fracture of the right hand or wrist. Knee x-ray: XR/XR knee LT 4V IMPRESSION: Markedly limited examination by lack of a lateral view. No evidence of fracture on the views obtained. Hand x-ray: XR/XR hand RT min 3V IMPRESSION: Osteopenia. No evidence of fracture of the right hand or wrist. CT chest:IMPRESSION: 2.2 x 1.5 x 2.9 cm solitary left upper lobe pulmonary nodule, raising concern for malignancy. Lab Data 02/22/25 17:55 02/22/25 17:55 Labs: Lab Results 02/22/25 Range/Units 17:55 WBC 12.4 H (4.8-10.8) X10*3/uL RBC 4.37 (4.20-5.50) X10*6/uL Hgb 13.5 (12.0-16.0) g/dl Hct 40.2 (37.0-47.0) % MCV 92.0 (80.0-98.0) fL MCH 30.9 (27.0-33.0) pg MCHC 33.6 (31.0-35.0) g/dl RDW 12.9 (11.0-16.0) % Plt Count 162 (160-400) X10*3/uL MPV 10.9 (9.4-12.3) fL Immature Gran % (Auto) 0.3 (0.0-0.4) % Neut % (Auto) 87.1 H (45-73) % Lymph % (Auto) 5.7 L (20-40) % [place] % (Auto) 6.6 (2-11) % Eos % (Auto) 0.1 (0-4) % Baso % (Auto) 0.2 (0-2) % Lymph # (Auto) 0.7 L (1.2-4.9) X10*3/uL [place] # (Auto) 0.8 (0.1-1.2) X10*3/uL Eos # (Auto) 0.0 (0.0-0.4) X10*3/uL Baso # (Auto) 0.0 (0.0-0.2) X10*3/uL Abs Immat Gran (auto) 0.04 H (0.00-0.03) X10*3/uL Absolute Neuts (auto) 10.8 H (2.0-8.3) x10*3/uL Absolute Nucleated RBC 0.000 (0.0-0.012) X10*3/uL Nucleated RBC % (auto) 0.0 (0.0-0.2) /100WBC Sodium 139 (135-145) mmol/L Potassium 4.2 (3.3-5.1) mmol/L Chloride 103 (96-108) mmol/L Carbon Dioxide 27 (22-29) mmol/L Anion Gap 13 (12-20) BUN 13 (9-16) mg/dL Creatinine 0.80 (0.5-1.4) mg/dL Estim Creat Clear Calc 55.9 Estimated GFR > 60 Random Glucose 153 H (60-115) mg/dL Calcium 9.5 (8.4-10.2) mg/dL Magnesium 1.9 (1.6-2.6) mg/dL Total Bilirubin 0.8 (0.0-1.0) mg/dL AST 47 H (5-31) U/L ALT 34 H (0-31) U/L Alkaline Phosphatase 66 (39-117) U/L Total Protein 6.7 (6.5-8.0) g/dL Albumin 4.2 (3.5-5.0) g/dL Discharge Plan Discharge Clinical Impression: Mass of left lung, Hypoxia Patient Disposition: Admitted As Inpatient Prescriptions: No Action ketotifen fumarate 0.025 % (0.035 %) drops 1 drp ophthalmic (eye) .QD PRN (Reason: allergy symptoms) Qty: 5 0RF Rx Instructions: apply to both eyes once daily at 4 PM acetaminophen 325 mg tablet 650 mg PO Q6H PRN (Reason: headache, toothache) 30 Days Qty: 120 5RF Rx Instructions: Take 2 tablets for temperature > 101, headache, toothache, muscle pain, joint pain, discomfort due to minor injury or sutures. Call PCP if symptoms continue more than 48 hours; DO not exceed 4 doses in 24 hours dextromethorphan-guaifenesin 10-100 mg/5 mL syrup 10 ml PO Q4H PRN (Reason: cough) Qty: 237 3RF Rx Instructions: Call PCP if cough continues > 3 days; Orally every 4hrs prn; Do not exceed > 6 doses in 24hrs atorvastatin 10 mg tablet 10 mg PO DAILY Qty: 28 0RF cetirizine 10 mg tablet 10 mg PO DAILY PRN (Reason: for allergies) Qty: 28 0RF cholecalciferol (vitamin D3) [Vitamin D3] 25 mcg (1,000 unit) capsule 25 mcg PO DAILY Qty: 28 0RF multivitamin with folic acid [High Potency Multivitamin] 400 mcg tablet 1 tab PO DAILY Qty: 28 0RF paroxetine HCl 40 mg tablet 40 mg PO DAILY Qty: 30 0RF valacyclovir 500 mg tablet 500 mg PO DAILY Qty: 28 0RF Prolia 60 mg/mL syringe 60 mg subcut [id number] dicyclomine 20 mg tablet 20 mg PO QID PRN (Reason: IBS) nystatin 100,000 unit/gram powder 1 appl topical DAILY PRN (Reason: rash) Qty: 15 0RF Rx Instructions: Not to be used with antifungal cream. tolnaftate 1 % cream 1 appl topical BID PRN (Reason: rash) Qty: 30 0RF Print Language: [place]
[2025-02-22 17:59] LABS: MANUAL DIFF FLAG NO
[2025-02-22 18:01] LABS: Basophils Percent Auto 0.2 % (0-2); Eosinophils Percent Auto 0.1 % (0-4); Hematocrit 40.2 % (37.0-47.0); Hemoglobin 13.5 g/dl (12.0-16.0); Imm Gran Abs Auto 0.04 X10*3/uL (0.00-0.03); Imm Gran Pct Auto 0.3 % (0.0-0.4); Lymphocytes Absolute Auto 0.7 X10*3/uL (1.2-4.9); Lymphocytes Percent Auto 5.7 % (20-40); Mean Corpuscular HGB Conc 33.6 g/dl (31.0-35.0); Mean Corpuscular Hemoglobin 30.9 pg (27.0-33.0); Mean Platelet Volume 10.9 fL (9.4-12.3); Monocytes Absolute Auto 0.8 X10*3/uL (0.1-1.2); Monocytes Percent Auto 6.6 % (2-11); Neutrophils Absolute Auto 10.8 x10*3/uL (2.0-8.3); Neutrophils Percent Auto 87.1 % (45-73); Platelet Count 162 X10*3/uL (160-400); Red Blood Count 4.37 X10*6/uL (4.20-5.50); Red Cell Distribution Width 12.9 % (11.0-16.0); White Blood Count 12.4 X10*3/uL (4.8-10.8)
[2025-02-22 18:15] LABS: Alanine Aminotransferase 34 U/L (0-31); Albumin Level 4.2 g/dL (3.5-5.0); Alkaline Phosphatase 66 U/L (39-117); Anion Gap 13 (12-20); Aspartate Amino Transferase 47 U/L (5-31); Bilirubin Total 0.8 mg/dL (0.0-1.0); Blood Urea Nitrogen 13 mg/dL (9-16); Calcium 9.5 mg/dL (8.4-10.2); Carbon Dioxide 27 mmol/L (22-29); Chloride 103 mmol/L (96-108); Creatinine Clr Calc Pharmacy 55.9; Estimated Glomerular Filt Rate > 60; Glucose Random 153 mg/dL (60-115); Magnesium 1.9 mg/dL (1.6-2.6); Potassium 4.2 mmol/L (3.3-5.1); Sodium 139 mmol/L (135-145); Total Protein 6.7 g/dL (6.5-8.0)
--- NOTE | 2025-02-22 19:22 | PC.NURSE ---
this rn assumed care of pt, pt resting in stretcher, offers no complaints at this time. 20G placed in right ac, pt taken to ct. [employer] teacher at bedside.
[2025-02-22] MEDS: iohexoL 350 MG/ML 100 ML INFUS..BTL IV (19:49)
[2025-02-22 20:00] VITALS: BP 139/73; PULSE 88; RESP 16; TEMP 36.2; O2SAT 94
[2025-02-22 22:00] VITALS: BP 122/73; PULSE 92; RESP 16; TEMP 36.6; O2SAT 90
[2025-02-22 23:00] VITALS: BP 111/71; PULSE 94; RESP 16; TEMP 37.1; O2SAT 91
[2025-02-22 23:01] VITALS: O2SAT 84
[2025-02-22 23:02] VITALS: O2SAT 95
[2025-02-23] VITALS (8 sets, daily range): BP systolic 122–146; BP diastolic 66–75; PULSE 71–84; RESP 14–22; TEMP 36.1–36.9; O2SAT 95–98; BMI 25.6
--- NOTE | 2025-02-23 | ECG_ITS ---
Test Reason : CHEST SORENESS Blood Pressure : */* mmHG Vent. Rate : 67 BPM Atrial Rate : 67 BPM P-R Int : 164 ms QRS Dur : 82 ms QT Int : 394 ms P-R-T Axes : 41 45 51 degrees QTcB Int : 416 ms Normal sinus rhythm Normal ECG When compared with ECG of 10-Dec-2024 22:12, Criteria for Septal infarct are no longer Present Referred By: Pooja Kiser Electronically Signed By: AMI CHOWDARY MD
--- NOTE | 2025-02-23 01:08 | PC.NURSE ---
pt assisted with bedpan at this time, tolerated well. worker remains at [facility].
--- NOTE | 2025-02-23 03:31 | P.HPHOSP_ITS ---
History of Present Illness Date of Service: 02/23/25 Attending physician on admission: Mack Avelar Chief Complaint: fall Pt is a 74 yo [place] female living in a nursing home and is a client of [facility] with a legal guardian with past medical history of hyperlipidemia, OCD, osteoporosis, vitamin D def, mental disability, exposure to secondhand smoke, cholecystectomy presents to the emergency department status post a fall after playing basketball. Patient was trying to get into the car in the passenger side and fell to her right side. Patient is able to answer questions and denied any loss of consciousness, dizziness, lightheadedness, chest pain but did hit her head. Pt is not on blood thinners. A nursing home staff member was with patient at the time of the fall. Patient was also noted to be hypoxic with exertion upon further assessment. Patient had a contusion over the right eye and an abrasion on the left knee. CT of the head, cervical spine CT and x-rays of the left knee and right hand/wrist were all negative for acute findings except for an incidental finding of a 2.7 x 1.5 x 2.9 solid node in the left upper lobe highly. CT of the chest was completed and this node was suspicious for malignancy per radiologist's finding. A R mastoid effusion also noted. Patient is being admitted for oxygen requirement of 2 L and consultation with Oncology. Pt currently denies any pain issues. Pt has a luekocytosis, no fever, no evidence for PNA. Reviewed starting ABX for R mastoid effusion with attending Dr Avelar, have deciced to hold off on ABX. UA pending. Patient's guardian is Chanelle Ramirez [phone] and is involved in signing consents and approving treatment plan. Review of Systems 2 Review of Systems: Patient denies chest pain, shortness of breath at rest, nausea, vomiting, lower leg pain. Patient reports pain over the right eye. Patient reports current issues with constipation involving straining. Yes all other systems are reviewed and are negative [facility] Medical History Wheezing on auscultation Acute viral bronchitis Acute viral syndrome Reactive airway disease Hypoxia Compression fracture of lumbosacral spine Anxiety Mental disability Allergic rhinitis Elevated LFTs Osteoporosis Pure hypercholesterolemia Premature atrial contractions Cognitive capacity: Patient is awake, alert and orientated to self and location. Patient does have a legal guardian and lives in a nursing home. Functional capacity: independent ambulation Patient : No Family History Other Family history unknown Surgical History S/P colonoscopy (~07/05/20) S/P laparoscopic cholecystectomy (~06/28/14) Social History Household Members: Other Housing: Other Housing Other:: [facility] Do you presently have visiting nurse or other home services: Yes Alcohol intake: never Comment: [facility] staff at bedside. Patient Tobacco Use Status: Never used Tobacco e-Cigarette/Vaping Use: Never Used Second Hand Smoke Exposure: No Advance Directives: No Advance Directives Information Provided: No Do you have a plan to hurt others: No Plan Patient : No service: No Current occupational status: retired Cognitive needs: No Hearing needs: No Vision needs: No Ebola Risk: Travel/Contact With Anyone From Affected Area/s: No Has Patient Experienced Ebola Symptoms: No Meds Allergies Allergy/AdvReac Type Severity Reaction Status Date / Time aspartame [ASPARTAME] Allergy Unknown UNKNOWN Verified 02/22/25 12:37 loratadine [From CLARITIN] Allergy Unknown UNKNOWN Verified 02/22/25 12:37 phenylalanine [Phenylalanine] Allergy Unknown UNKNOWN Verified 02/22/25 12:37 dustmites Allergy Unknown unknown Uncoded 02/22/25 12:37 ragweed Allergy Unknown unknown Uncoded 02/22/25 12:37 Active Medications: Current Medications Acetaminophen (Acetaminophen 325 Mg Tablet) 650 mg PO Q6H PRN PRN Reason: Pain, Mild 1-3,fever,headache Albuterol/Ipratropium (Albuterol/Iprat 2.5/0.5mg 3 Ml Ampul.Neb) 3 ml INHALE Q4H PRN PRN Reason: Shortness of Breath/Wheezing Calcium Carbonate (Calcium Carbonate 750 Mg Tab.Chew) 750 mg PO Q4H PRN PRN Reason: Heartburn Enoxaparin Sodium (Enoxaparin Sodium 40 Mg/0.4 Ml Syringe) 40 mg SUBCUT Q24H RENUKA Magnesium Hydroxide (Milk Of Magnesia 30 Ml Oral.Susp) 30 ml PO DAILY PRN PRN Reason: Constipation Melatonin (Melatonin 3 Mg Tablet) 6 mg PO BEDTIME PRN PRN Reason: Insomnia Polyethylene Glycol (Polyethylene Glycol 3350 17 Gm Powd.Pack) 17 gm PO DAILY RENUKA Senna (Sennosides 8.6 Mg Tablet) 17.2 mg PO BEDTIME RENUKA Sodium Chloride (0.9 % Sodium Chloride Flush 3 Ml Syringe) 3 ml IVFLUSH QSHIFT RENUKA Home Medications ?Medication ?Instructions ?Recorded ?Confirmed ?Last Taken ?Type denosumab 60 mg/mL subcutaneous 60 mg subcut [id number] 08/06/22 02/19/25 3 Months Ago History syringe (Prolia) ~09/10/24 dicyclomine 20 mg tablet 20 mg PO QID PRN IBS 06/17/24 02/19/25 Unknown History Physical Exam 2 Vital Signs and Narrative: Vital Signs: Last Vital Signs Temp 98.7 F 02/22/25 23:00 Pulse 94 02/22/25 23:00 Resp 16 02/22/25 23:00 BP 111/71 02/22/25 23:00 Pulse Ox 95 02/22/25 23:02 O2 Del Method Nasal Cannula 02/22/25 23:02 O2 Flow Rate 2 02/22/25 23:02 BMI result Body Mass Index 24.6 Alert and orientated X2, able to answer questions, denies pain. Neuro: CN II-X11 intact, no deficits, visual acuity intact EYES: PERRLA, EOM intact ENT: hearing intact, no issues with swallowing, uvula midline, lips moist, nares patent no epistaxis Cardiac: S1 S2 RRR, no murmur, no JVD, no edema in Lower ext Pulmonary: lungs clear to auscultation B Abdominal: BS active in all 4 quadrants, no guarding, tenderness, rebounding MSK: strength 5/5 upper and lower extremities : no CVA tenderness no bladder distension Extremities: no edema in lower extremities, PT and DP pulses palpable +2 Psych: mood stable Skin:contusion over R eye, abrasion L knee Results Labs 02/22/25 17:55 02/22/25 17:55 Labs: Laboratory Results - last 24 hr 02/22/25 17:55 MCV 92.0 MCH 30.9 MCHC 33.6 RDW 12.9 Plt Count 162 MPV 10.9 Immature Gran % (Auto) 0.3 Neut % (Auto) 87.1 H Lymph % (Auto) 5.7 L [place] % (Auto) 6.6 Eos % (Auto) 0.1 Baso % (Auto) 0.2 Lymph # (Auto) 0.7 L [place] # (Auto) 0.8 Eos # (Auto) 0.0 Baso # (Auto) 0.0 Abs Immat Gran (auto) 0.04 H Absolute Neuts (auto) 10.8 H Absolute Nucleated RBC 0.000 Nucleated RBC % (auto) 0.0 Anion Gap 13 Estim Creat Clear Calc 55.9 Estimated GFR > 60 Random Glucose 153 H Calcium 9.5 Magnesium 1.9 Total Bilirubin 0.8 AST 47 H ALT 34 H Alkaline Phosphatase 66 Total Protein 6.7 Albumin 4.2 Imaging Radiologist's Impressions: Impressions Cervical Spine CT 02/22/25 12:38 IMPRESSION: 1. No CT evidence of acute cervical spine fracture or injury. 2. Masslike opacity measuring 2.0 x 1.6 cm in the superior segment of left lower lobe abutting the major fissure, incompletely imaged. This is suspicious. Consider correlating with chest CT in non-emergent setting. Electronically signed by: Antonino Carrera MD 02/22/2025 02:18 PM EDT Hand X-Ray 02/22/25 12:38 IMPRESSION: Osteopenia. No evidence of fracture of the right hand or wrist. Electronically signed by: Suraj Reynoso MD 02/22/2025 01:[address] 02/22/25 12:38 IMPRESSION: 1. No acute intracranial abnormality. No calvarial or skull base fracture. 2. No acute maxillofacial bone or mandibular fracture. 3. Right mastoid effusion. Electronically signed by: Antonino Carrera MD 02/22/2025 02:10 PM EDT Knee X-Ray 02/22/25 12:38 IMPRESSION: Markedly limited examination by lack of a lateral view. No evidence of fracture on the views obtained. Electronically signed by: Suraj Reynoso MD 02/22/2025 01:34 PM EDT RP Wrist X-Ray 02/22/25 12:57 IMPRESSION: Osteopenia. No evidence of fracture of the right hand or wrist. Electronically signed by: Suraj Reynoso MD 02/22/2025 01:32 PM EDT RP Face CT 02/22/25 13:11 IMPRESSION: 1. No acute intracranial abnormality. No calvarial or skull base fracture. 2. No acute maxillofacial bone or mandibular fracture. 3. Right mastoid effusion. Electronically signed by: Antonino Carrera MD 02/22/2025 02:10 PM EDT RP Assessment and Plan (1) Hypoxia: Status: Acute (2) Mass of left lung: Status: Acute (3) Fall: Qualifiers: Encounter type: initial encounter Qualified Code(s): W19.XXXA - Unspecified fall, initial encounter Status: Acute (4) Contusion, eye, right: Qualifiers: Encounter type: initial encounter Qualified Code(s): S05.11XA - Contusion of eyeball and orbital tissues, right eye, initial encounter Status: Acute (5) OCD (obsessive compulsive disorder): Qualifiers: Obsessive-compulsive disorder type: unspecified Qualified Code(s): F 42.9 - Obsessive-compulsive disorder, unspecified Status: Acute (6) Mental disability: Status: Acute (7) Leukocytosis: Qualifiers: Leukocytosis type: other Qualified Code(s): D72.828 - Other elevated white blood cell count Status: Acute Plan Pt is a 74 yo [place] female living in a nursing home and is a client of [facility] with a legal guardian with past medical history of hyperlipidemia, OCD, osteoporosis, vitamin D def, mental disability, exposure to secondhand smoke, cholecystectomy being admitted for hypoxia and current need for oxygen status post witnessed fall with no loss of consciousness. Incidental finding of a left upper lobe nodule that is highly suspicious for malignancy found when completing cervical spine CT. Right mastoid effusion also found and antibiotics are not indicated at this time. 1. Hypoxia -patient found to be hypoxic with exertion only, pulse ox 91-92% at rest. -oxygen via nasal cannula 2 L with normalized pulse ox -incidental finding of left lung nodule suspicious for malignancy may be contributing -patient was exposed to secondhand smoke for many years when she was younger -albuterol nebs p.r.n., wean O2 as tolerated -patient may require home O2 2. Mass of the left lung -incidental finding during cervical spine CT, chest CT completed left upper lobe has a 2.2 x 1.5 x 2.9 solid nodule highly suspicious for malignancy -oncology consulted -supportive care including oxygen 3. Fall -mechanical fall witnessed as patient was trying to get into the car after playing basketball -all scans negative for acute findings -left knee x-ray and right wrist x-ray all negative for fracture or acute findings -PT eval -patient is not orthostatic -fall precautions 4. Contusion right eye -Secondary to fall -visual acuity is intact, CT of the head/face negative -Tylenol for pain, cold pack as needed 5. OCD with known mental disability -patient resides in a nursing home. Due to her OCD patient can be restless and unable to sit still but currently doing well in the ED -patient has a legal guardian Sheila Ramirez [phone] 6. Leukocytosis -No evidence of PNA, UA pending -Mastoid effusion noted on CT, reviewed with attending, no current need for ABX at this time Medication reconciliation pending Lovenox for DVT prophylaxis Patient requires inpatient admission due to hypoxia and oxygen needs and will require a minimum of 48 hours for treatment to include Oncology consult for new finding of a suspicious nodule in the left upper lobe. Total time managing care of this patient today: 40 minutes. Quality Stroke Does the patient have a stroke diagnosis?: No Reason for No Anti-thrombotic by Day Two: N/A - Med Ordered VTE Prior VTE?: No VTE Risk Level:: Medical - moderate - high VTE Device Contraindication: N/A - Device Ordered VTE Drug Contraindication: N/A - Med Ordered
[2025-02-23 04:02] LABS: Free T4 (Free Thyroxine) 0.97 ng/dL (0.71-1.85); Thyroid Stimulating Hormone 1.34 uIU/mL (0.32-4.0)
[2025-02-23] MEDS: Enoxaparin Sodium 40 MG/0.4 ML SYRINGE SUBCUT (04:28)
--- NOTE | 2025-02-23 04:32 | PC.NURSE ---
pt assisted to bathroom, able to void urine and assisted back to bed.
[2025-02-23 06:27] LABS: MANUAL DIFF FLAG NO
[2025-02-23 06:33] LABS: Basophils Percent Auto 0.4 % (0-2); Eosinophils Absolute Auto 0.2 X10*3/uL (0.0-0.4); Eosinophils Percent Auto 2.3 % (0-4); Hemoglobin 12.4 g/dl (12.0-16.0); Imm Gran Abs Auto 0.02 X10*3/uL (0.00-0.03); Imm Gran Pct Auto 0.3 % (0.0-0.4); Lymphocytes Absolute Auto 0.9 X10*3/uL (1.2-4.9); Mean Corpuscular HGB Conc 34.4 g/dl (31.0-35.0); Mean Corpuscular Hemoglobin 31.6 pg (27.0-33.0); Mean Corpuscular Volume 91.8 fL (80.0-98.0); Mean Platelet Volume 11.5 fL (9.4-12.3); Monocytes Absolute Auto 0.7 X10*3/uL (0.1-1.2); Monocytes Percent Auto 9.7 % (2-11); Neutrophils Absolute Auto 5.5 x10*3/uL (2.0-8.3); Neutrophils Percent Auto 75.3 % (45-73); Platelet Count 153 X10*3/uL (160-400); Red Blood Count 3.92 X10*6/uL (4.20-5.50); Red Cell Distribution Width 13.2 % (11.0-16.0); White Blood Count 7.3 X10*3/uL (4.8-10.8)
[2025-02-23 06:44] LABS: Alanine Aminotransferase 26 U/L (0-31); Albumin Level 3.7 g/dL (3.5-5.0); Alkaline Phosphatase 62 U/L (39-117); Anion Gap 11 (12-20); Aspartate Amino Transferase 38 U/L (5-31); Bilirubin Total 0.7 mg/dL (0.0-1.0); Blood Urea Nitrogen 11 mg/dL (9-16); Carbon Dioxide 24 mmol/L (22-29); Chloride 109 mmol/L (96-108); Creatinine Clr Calc Pharmacy 61.4; Estimated Glomerular Filt Rate > 60; Glucose Random 101 mg/dL (60-115); Potassium 3.7 mmol/L (3.3-5.1); Sodium 140 mmol/L (135-145)
[2025-02-23 06:49] LABS: B Type Natriuretic Peptide 15 pg/mL (<100)
--- NOTE | 2025-02-23 08:56 | PC.NURSE ---
per [facility] rn pt has a guardian sarai aleman [phone]
[2025-02-23] MEDS: 0.9 % Sodium Chloride Flush 3 ML SYRINGE IVFLUSH ×3 (09:07→20:09)
--- NOTE | 2025-02-23 10:56 | PHA.MEDREC ---
Pharmacy Consult ? Medication Reconciliation Pharmacy has completed the medication reconciliation. Spoke to Sasha (assistant manager quality management of [facility]) in patient's room who had patient's medication list with her. Per Sasha, last dose of medications was Saturday02/21/25.
--- NOTE | 2025-02-23 12:03 | MHC.CM.PN ---
IMM 02/23/25, sent to guardian via email at her request, guardian is: Chanelle Pat. Pt. lives in a detention. penitentiary nurse: [phone], detention clinical program manager.: Cindy [phone]. Pt. lives in a detention, and has 24 / 7 care. PT eval rec no services, she can walk independently. Pt. is needing supplemental O2 here. DCP: home with services. CM to follow for DC needs.
[2025-02-23 13:53] LABS: Appearance Urine Clear; Color Urine Yellow; Glucose Urine UA Negative (Negative); Leukocyte Esterase Urine Trace (Negative); Nitrite Urine Negative (Negative); PH 7.5 (5.0-9.0); UMIC TRIGGER UA YES; Urine Blood Negative (Negative); Urine Ketones Negative (Negative); Urine Protein Negative (Neg-Trace)
[2025-02-23 13:58] LABS: Bacteria Urine None Seen (None Seen); Hyaline Casts Urine 0-2 /LPF (0-2); RBC Urine 0-2 /HPF (0-2); Squamous Epithelial Cell Urine 0-2 /HPF (0-2); WBC Urine 0-5 /HPF (0-5)
[2025-02-23] MEDS: Loratadine 10 MG TABLET PO (17:11)
[2025-02-23] MEDS: Atorvastatin Calcium 10 MG TABLET PO (17:12)
[2025-02-23] MEDS: PARoxetine HCL 40 MG TABLET PO (17:12)
[2025-02-23] MEDS: Cholecalciferol (Vitamin D3) 25 MCG TABLET PO (17:12)
[2025-02-23] MEDS: valACYclovir HCL 500 MG TABLET PO (17:12)
[2025-02-23] MEDS: Multivitamin TABLET 1 TAB PO (17:12)
--- NOTE | 2025-02-23 17:31 | PM.EVENT ---
Event Note Date of Service: 02/23/25 Event Note: This patient is seen and examined with hospitalist team this morning Seen and examined again. Patient keep repeating words on her own Seems like at about her baseline as per the staff sitting with her. Saying soreness all over chest but sitting without any discomfort Physical exam and assessment and plan coordinated in H&P note In addition: EKG done which seems to be NSR no ST changes. Continue monitor on tele. Rest of the assessment and plan as per H&P. hypoxia -improving ,unclear etiology pulm eval for hypoxia/lung nodule Time Spent With Patient Time: Total time managing care of this patient today ____ minutes.
[2025-02-23] MEDS: Sennosides 8.6 MG TABLET 17.2 MG PO (20:08)
[2025-02-24 03:04] VITALS: BP 136/72; PULSE 76; RESP 18; TEMP 36.1; O2SAT 95
[2025-02-24] MEDS: Enoxaparin Sodium 40 MG/0.4 ML SYRINGE SUBCUT (03:06)
--- NOTE | 2025-02-24 03:30 | ECG_ITS ---
Test Reason : SVT Blood Pressure : */* mmHG Vent. Rate : 74 BPM Atrial Rate : 74 BPM P-R Int : 156 ms QRS Dur : 78 ms QT Int : 422 ms P-R-T Axes : 32 56 50 degrees QTcB Int : 468 ms Normal sinus rhythm Septal infarct , age undetermined Abnormal ECG When compared with ECG of 23-Feb-2025 16:58, Septal infarct is now Present QT has lengthened Referred By: Mack Avelar Electronically Signed By: AMI CHOWDARY MD
--- NOTE | 2025-02-24 05:05 | PM.EVENT ---
Event Note Date of Service: 02/24/25 Event Note: As per the nurse, patient had a run of SVT which resolved without any intervention. Repeat EKG with normal sinus rhythm. Time Spent With Patient Time: Total time managing care of this patient today ____ minutes.
[2025-02-24 07:14] VITALS: BP 123/75; PULSE 70; RESP 16; TEMP 36.4; O2SAT 93
[2025-02-24] MEDS: Acetaminophen 325 MG TABLET 650 MG PO ×2 (07:52→18:21)
[2025-02-24] MEDS: polyethylene glycoL 3350 17 GM POWD.PACK PO (07:53)
[2025-02-24] MEDS: 0.9 % Sodium Chloride Flush 3 ML SYRINGE IVFLUSH ×3 (08:01→22:12)
--- NOTE | 2025-02-24 09:45 | P.CONPL_ITS ---
History of Present Illness History of Present Illness Consult date: 02/24/25 Chief complaint: S/p fall with incidental L lung nodule suspicious Narrative: This is an inpatient pulmonary consultation. The patient is a 74 yo [place] female living in a snf and is a client of [facility] with a legal guardian with past medical history of hyperlipidemia, OCD, osteoporosis, vitamin D def, mental disability, exposure to secondhand smoke, cholecystectomy presents to the emergency department status post a fall after playing basketball. Patient was trying to get into the car in the passenger side and fell to her right side. Patient is able to answer questions and denied any loss of consciousness, dizziness, lightheadedness, chest pain but did hit her head. Pt is not on blood thinners. A snf staff member was with patient at the time of the fall. Patient was also noted to be hypoxic with exertion upon further assessment. Patient had a contusion over the right eye and an abrasion on the left knee. CT of the head, cervical spine CT and x-rays of the left knee and right hand/wrist were all negative for acute findings except for an incidental finding of a 2.7 x 1.5 x 2.9 solid node in the left upper lobe. CT of the chest, personally by me, demonstrating some mosaic pattern in addition some areas of emphysema although difficult to interpret because of the motion artifact. Indeed she does have a 2.7 cm by 2.9 cm masslike density in the left upper lobe. In addition to that she does have some calcifications and some lymph nodes suggesting a exposure to granulomatous disease in the past. We do not have any testing for that. She is still on 2 L of oxygen. The patient is a poor historian although denies any chest pains denies any significant coughing or wheezing. The patient does not use any respiratory medications. She is a lifelong nonsmoker although she was not exposed to secondhand smoke. Therefore, 2 issues going up from a pulmonary standpoint is the incidental finding of this concerning masslike density in the left upper lobe and also the what appears to be hypoxia. Patient's guardian is Chanelle De Leon [phone] and is involved in signing consents and approving treatment plan. Review of Systems 2 Review of Systems: Yes all other systems are reviewed and are negative Constitutional: Constitutional: Denies fatigue and Denies fever(s) Cardiovascular: Cardiovascular: Denies chest pain and Denies dyspnea Respiratory: Respiratory: Denies chest congestion, Denies cough, Denies dyspnea and Denies wheezing Musculoskeletal: Musculoskeletal: Reports as per HPI and Reports myalgias Endocrine: Endocrine: Denies fatigue Hematologic/Lymphatic: Hematologic/Lymphatic: Reports no additional hematologic/lymphatic complaints Allergic/Immunologic: Allergic/Immunologic: Denies wheezing PMFSH Past Medical History Medical History Wheezing on auscultation Acute viral bronchitis Acute viral syndrome Reactive airway disease Hypoxia Compression fracture of lumbosacral spine Anxiety Mental disability Allergic rhinitis Elevated LFTs Osteoporosis Pure hypercholesterolemia Premature atrial contractions Family History Family History Other Family history unknown Surgical History Surgical History S/P colonoscopy (~07/05/20) S/P laparoscopic cholecystectomy (~06/28/14) Social History Social History Household Members: Other Household Members Other:: snf Housing: Other Housing Other:: snf Do you presently have visiting nurse or other home services: Yes Alcohol intake: never Comment: retirement staff at bedside. Patient Tobacco Use Status: Never used Tobacco e-Cigarette/Vaping Use: Never Used Second Hand Smoke Exposure: No service: No Current occupational status: retired Cognitive needs: No Hearing needs: No Vision needs: No Travel History Ebola Risk: Travel/Contact With Anyone From Affected Area/s: No Has Patient Experienced Ebola Symptoms: No Meds Allergies Allergy/AdvReac Type Severity Reaction Status Date / Time aspartame [ASPARTAME] Allergy Unknown UNKNOWN Verified 02/22/25 12:37 loratadine [From CLARITIN] Allergy Unknown UNKNOWN Verified 02/22/25 12:37 phenylalanine [Phenylalanine] Allergy Unknown UNKNOWN Verified 02/22/25 12:37 dustmites Allergy Unknown unknown Uncoded 02/22/25 12:37 ragweed Allergy Unknown unknown Uncoded 02/22/25 12:37 Active Medications: Current Medications Acetaminophen (Acetaminophen 325 Mg Tablet) 650 mg PO Q6H PRN PRN Reason: Pain, Mild 1-3,fever,headache Last Admin: 02/24/25 07:52 Dose: 650 mg Albuterol/Ipratropium (Albuterol/Iprat 2.5/0.5mg 3 Ml Ampul.Neb) 3 ml INHALE Q4H PRN PRN Reason: Shortness of Breath/Wheezing Atorvastatin Calcium (Atorvastatin Calcium 10 Mg Tablet) 10 mg PO DAILY@1600 [facility] Last Admin: 02/23/25 17:12 Dose: 10 mg Calcium Carbonate (Calcium Carbonate 750 Mg Tab.Chew) 750 mg PO Q4H PRN PRN Reason: Heartburn Clotrimazole (Clotrimazole 1 % Cream 15 Gm Tube) 1 appl TOPICAL BID PRN PRN Reason: rash Dicyclomine HCl (Dicyclomine Hcl 10 Mg Capsule) 20 mg PO Q4H PRN PRN Reason: IBS Enoxaparin Sodium (Enoxaparin Sodium 40 Mg/0.4 Ml Syringe) 40 mg SUBCUT Q24H [facility] Last Admin: 02/24/25 03:06 Dose: 40 mg Guaifenesin/Dextromethorphan (Guaifenesin Dm 100/10/5 Ml 5 Ml Syrup) 10 ml PO Q4H PRN PRN Reason: cough Ketotifen Fumarate (Ketotifen Fumarate 0.025% Oph 5 Ml Drpbtl) 1 drop EYE-BOTH DAILY PRN PRN Reason: allergy symptoms Loratadine (Loratadine 10 Mg Tablet) 10 mg PO DAILY@1600 [facility] Last Admin: 02/23/25 17:11 Dose: 10 mg Magnesium Hydroxide (Milk Of Magnesia 30 Ml Oral.Susp) 30 ml PO DAILY PRN PRN Reason: Constipation Melatonin (Melatonin 3 Mg Tablet) 6 mg PO BEDTIME PRN PRN Reason: Insomnia Multivitamins/Vitamin C (Multivitamin Tablet) 1 tab PO DAILY@1600 [facility] Last Admin: 02/23/25 17:12 Dose: 1 tab Nystatin (Nystatin Powder 15 Gm Bottle) 1 appl TOPICAL DAILY PRN; Protocol PRN Reason: rash Paroxetine HCl (Paroxetine Hcl 40 Mg Tablet) 40 mg PO DAILY@1600 [facility] Last Admin: 02/23/25 17:12 Dose: 40 mg Polyethylene Glycol (Polyethylene Glycol 3350 17 Gm Powd.Pack) 17 gm PO DAILY [facility] Last Admin: 02/24/25 07:53 Dose: 17 gm Senna (Sennosides 8.6 Mg Tablet) 17.2 mg PO BEDTIME [facility] Last Admin: 02/23/25 20:08 Dose: 17.2 mg Sodium Chloride (0.9 % Sodium Chloride Flush 3 Ml Syringe) 3 ml IVFLUSH QSHIFT [facility] Last Admin: 02/24/25 08:01 Dose: 3 ml Valacyclovir HCl (Valacyclovir Hcl 500 Mg Tablet) 500 mg PO DAILY@1600 [facility] Last Admin: 02/23/25 17:12 Dose: 500 mg Vitamin D (Cholecalciferol (Vitamin D3) 25 Mcg Tablet) 25 mcg PO DAILY@1600 [facility] Last Admin: 02/23/25 17:12 Dose: 25 mcg Home Medications ?Medication ?Instructions ?Recorded ?Confirmed ?Last Taken ?Type denosumab 60 mg/mL subcutaneous 60 mg subcut [id number] 08/06/22 02/23/25 3 Months Ago History syringe (Prolia) ~09/10/24 dicyclomine 20 mg tablet 20 mg PO Q4H PRN IBS 06/17/24 02/23/25 Unknown History acetaminophen 325 mg tablet 650 mg PO Q6H PRN Headache, 02/23/25 02/23/25 Unknown History Toothache, Muscle/Joint Pain, Discomfort atorvastatin 10 mg tablet 10 mg PO DAILY@159902/23/25 02/23/25 02/21/25 History calcium 600 mg (as 1 tab PO DAILY@159902/23/25 02/23/25 Unknown History carbonate)-vitamin D3 10 mcg (400 unit) tablet (Calcium 600 + D(3)) cetirizine 10 mg tablet 10 mg PO DAILY@1600 for allergies 02/23/25 02/23/25 02/21/25 History cholecalciferol (vitamin D3) 25 25 mcg PO DAILY@159902/23/25 02/23/25 02/21/25 History mcg (1,000 unit) capsule (Vitamin D3) ketotifen fumarate 0.025 % (0.035 1 drp ophthalmic (eye) DAILY PRN 02/23/25 02/23/25 Unknown History %) eye drops allergy symptoms multivitamin,tx-minerals 1 tab PO DAILY@159902/23/25 02/23/25 02/21/25 History paroxetine HCl 40 mg tablet 40 mg PO DAILY@159902/23/25 02/23/25 02/21/25 History valacyclovir 500 mg tablet 500 mg PO DAILY@1600 02/23/25 02/23/25 02/21/25 History Physical Exam 2 Vital Signs: Vital Signs: Last Vital Signs Temp 97.6 F 02/24/25 07:14 Pulse 70 02/24/25 07:14 Resp 16 02/24/25 07:14 BP 123/75 02/24/25 07:14 Pulse Ox 93 02/24/25 07:14 O2 Del Method Nasal Cannula 02/24/25 07:14 O2 Flow Rate 2 02/24/25 07:14 BMI result Body Mass Index 25.6 Const: General: comfortable and no acute distress HEENT: Other: Unremarkable Head: Yes normal to inspection Neck: Neck: Yes normal visual inspection Chest: Chest palpation & inspection: normal inspection of the chest Resp: Effort & Inspection: normal respiratory effort Auscultation: d iminished lung sounds Cardio: Heart sounds: S1 normal heart sound present and S2 normal heart sound present GI: Palpation (GI): Soft to palpation Back/Spine/Pelvis: Other: unremarkable Skin: General skin exam: no rashes or lesions noted Extrem: General: Yes normal to inspection Psych: Mental Status: mental status grossly abnormal Results Laboratory Findings 02/23/25 05:44 02/23/25 05:44 Abnormal lab findings: Abnormal Labs 02/22/25 02/23/25 02/23/25 17:55 05:44 13:07 WBC 12.4 H RBC 3.92 L Hct 36.0 L Plt Count 153 L Neut % (Auto) 87.1 H 75.3 H Lymph % (Auto) 5.7 L 12.0 L Lymph # (Auto) 0.7 L 0.9 L Abs Immat Gran (auto) 0.04 H Absolute Neuts (auto) 10.8 H Chloride 109 H Anion Gap 11 L Random Glucose 153 H AST 47 H 38 H ALT 34 H Total Protein 6.0 L Ur Leukocyte Esterase Trace H Assessment and Plan (1) Mass of left lung: Status: Acute (2) Hypoxia: Status: Acute Plan bloodwork ABG on RA to asesss PaO2 and if she has an aA gradient. If she does, then we will have to investigate the hypoxia further, if her aA gradiet is ok, then should encourage deep breathing exercises. Would add Breo for the Mosiac pattern on CT chest and the fact that she has had wheezing in the past Regarding the mass, she should get a biopsy, likely CT guided biopsy would be reasonable. Also can consider getting a PET scan as an outpt first to improve yield of the biopsy ISS/OOB Titrate O2 to keep pox>90% Procedures Date of Service Date of Service: 02/24/25
[2025-02-24 10:15] LABS: ABG Base Excess -0.7 mmol/L; ABG HCO3 23 mmol/L (22-26); ABG pCO2 36 mmHg (32-45); ABG pH 7.41 (7.35-7.45); ABG pO2 85 mmHg (83-108)
[2025-02-24 11:05] VITALS: BP 116/64; PULSE 75; RESP 20; TEMP 36.3; O2SAT 92
[2025-02-24 11:29] LABS: Erythrocyte Sedimentation Rate 36 MM/HR (0-20)
[2025-02-24 13:33] LABS: ABG Refer to POC result
[2025-02-24] MEDS: Multivitamin TABLET 1 TAB PO (15:28)
[2025-02-24] MEDS: Atorvastatin Calcium 10 MG TABLET PO (15:28)
[2025-02-24] MEDS: PARoxetine HCL 40 MG TABLET PO (15:28)
[2025-02-24] MEDS: Loratadine 10 MG TABLET PO (15:28)
[2025-02-24] MEDS: valACYclovir HCL 500 MG TABLET PO (15:28)
[2025-02-24] MEDS: Cholecalciferol (Vitamin D3) 25 MCG TABLET PO (15:28)
[2025-02-24 16:00] VITALS: BP 123/65; PULSE 76; RESP 14; TEMP 36.5; O2SAT 98
--- NOTE | 2025-02-24 16:11 | HO.PM.IMPN ---
Subjective Subjective Date of Service: 02/25/25 Interval History: hypoxia Review of Systems Patient De sats with walking in 88-89 range no fevers Physical Exam Vital Signs: Vital Signs: Last Vital Signs Temp 97.4 F 02/24/25 11:05 Pulse 75 02/24/25 11:05 Resp 20 02/24/25 11:05 BP 116/64 02/24/25 11:05 Pulse Ox 92 02/24/25 11:05 O2 Del Method Room Air 02/24/25 11:05 O2 Flow Rate 2 02/24/25 07:14 BMI result Body Mass Index 25.6 Appearance: Alert.? Oriented X3.? cvs: rrr, [id number]. res: clear to auscultation . abd: no rebound or guarding ,nt, bs present. ext pulses present , no cyanosis. neuro: axo3 , nonfocal. Objective Data Active Medications Acetaminophen (Acetaminophen 325 Mg Tablet) 650 mg PO Q6H PRN PRN Reason: Pain, Mild 1-3,fever,headache Last Admin: 02/24/25 07:52 Dose: 650 mg Documented By: KELLEY Albuterol/Ipratropium (Albuterol/Iprat 2.5/0.5mg 3 Ml Ampul.Neb) 3 ml INHALE Q4H PRN PRN Reason: Shortness of Breath/Wheezing Atorvastatin Calcium (Atorvastatin Calcium 10 Mg Tablet) 10 mg PO DAILY@1600 [facility] Last Admin: 02/24/25 15:28 Dose: 10 mg Documented By: KELLEY Calcium Carbonate (Calcium Carbonate 750 Mg Tab.Chew) 750 mg PO Q4H PRN PRN Reason: Heartburn Clotrimazole (Clotrimazole 1 % Cream 15 Gm Tube) 1 appl TOPICAL BID PRN PRN Reason: rash Dicyclomine HCl (Dicyclomine Hcl 10 Mg Capsule) 20 mg PO Q4H PRN PRN Reason: IBS Enoxaparin Sodium (Enoxaparin Sodium 40 Mg/0.4 Ml Syringe) 40 mg SUBCUT Q24H [facility] Last Admin: 02/24/25 03:06 Dose: 40 mg Documented By: BUDDY Fluticasone/Vilanterol (Fluticasone/Vilanterol 200/25 Blst.W.Dev) 1 puff INHALE [facility] Guaifenesin/Dextromethorphan (Guaifenesin Dm 100/10/5 Ml 5 Ml Syrup) 10 ml PO Q4H PRN PRN Reason: cough Ketotifen Fumarate (Ketotifen Fumarate 0.025% Oph 5 Ml Drpbtl) 1 drop EYE-BOTH DAILY PRN PRN Reason: allergy symptoms Loratadine (Loratadine 10 Mg Tablet) 10 mg PO DAILY@1600 [facility] Last Admin: 02/24/25 15:28 Dose: 10 mg Documented By: KELLEY Magnesium Hydroxide (Milk Of Magnesia 30 Ml Oral.Susp) 30 ml PO DAILY PRN PRN Reason: Constipation Melatonin (Melatonin 3 Mg Tablet) 6 mg PO BEDTIME PRN PRN Reason: Insomnia Multivitamins/Vitamin C (Multivitamin Tablet) 1 tab PO DAILY@1600 [facility] Last Admin: 02/24/25 15:28 Dose: 1 tab Documented By: KELLEY Nystatin (Nystatin Powder 15 Gm Bottle) 1 appl TOPICAL DAILY PRN; Protocol PRN Reason: rash Paroxetine HCl (Paroxetine Hcl 40 Mg Tablet) 40 mg PO DAILY@1600 [facility] Last Admin: 02/24/25 15:28 Dose: 40 mg Documented By: KELLEY Polyethylene Glycol (Polyethylene Glycol 3350 17 Gm Powd.Pack) 17 gm PO DAILY [facility] Last Admin: 02/24/25 07:53 Dose: 17 gm Documented By: KELLEY Senna (Sennosides 8.6 Mg Tablet) 17.2 mg PO BEDTIME [facility] Last Admin: 02/23/25 20:08 Dose: 17.2 mg Documented By: BUDDY Sodium Chloride (0.9 % Sodium Chloride Flush 3 Ml Syringe) 3 [facility] Last Admin: 02/24/25 15:33 Dose: 3 ml Documented By: KELLEY Valacyclovir HCl (Valacyclovir Hcl 500 Mg Tablet) 500 mg PO DAILY@1600 [facility] Last Admin: 02/24/25 15:28 Dose: 500 mg Documented By: KELLEY Vitamin D (Cholecalciferol (Vitamin D3) 25 Mcg Tablet) 25 mcg PO DAILY@1600 [facility] Last Admin: 02/24/25 15:28 Dose: 25 mcg Documented By: KELLEY Labs 02/23/25 05:44 02/23/25 05:44 Labs: Laboratory Results - last 24 hr 02/24/25 02/24/25 10:11 10:14 ESR 36 H O2 Saturation 98.0 ABG pH at Pt Temp 7.41 ABG pCO2 at Pt Temp 36 ABG pO2 at Pt Temp 85 ABG HCO3 23 ABG Base Excess (Actual) -0.7 Assessment and Plan (1) Hypoxia: Status: Acute Assessment and Plan: 74 yo [place] female living in a assisted and is a client of [facility] with a legal guardian with past medical history of hyperlipidemia, OCD, osteoporosis, vitamin D def, mental disability, exposure to secondhand smoke, cholecystectomy being admitted for hypoxia and current need for oxygen status post witnessed fall with no loss of consciousness. Incidental finding of a left upper lobe nodule that is highly suspicious for malignancy found when completing cervical spine CT. Right mastoid effusion also found and antibiotics are not indicated at this time. Hypoxia-patient found to be hypoxic with exertion only -oxygen via nasal cannula 2 L with normalized pulse ox -incidental finding of left lung nodule suspicious for malignancy may be contributing -patient was exposed to secondhand smoke for many years when she was younger plan: albuterol nebs p.r.n., wean O2 as tolerated, may require home O2 Mass of the left lung -incidental finding during cervical spine CT, chest CT completed left upper lobe has a 2.2 x 1.5 x 2.9 solid nodule highly suspicious for malignancy -supportive care including oxygen pulm eval added . Fall -mechanical fall witnessed as patient was trying to get into the car after playing basketball -all scans negative for acute findings -left knee x-ray and right wrist x-ray all negative for fracture or acute findings -PT eval -patient is not orthostatic -fall precautions Contusion right eye -Secondary to fall -visual acuity is intact, CT of the head/face negative -Tylenol for pain, cold pack as needed OCD with known mental disability -patient resides in a assisted. Due to her OCD patient can be restless and unable to sit still but currently doing well in the ED -patient has a legal guardian Sheila Ramirez [phone] Leukocytosis -No evidence of PNA, UA negative -Mastoid effusion noted on CT, reviewed with attending, no current need for ABX at this time Lovenox for DVT prophylaxis ongoing hospitlisation need due to hypoxia and oxygen needs and will require a minimum of 48 hours for treatment to include Oncology consult for new finding of a suspicious nodule in the left upper lobe. Quality Stroke Does the patient have a stroke diagnosis?: No Reason for No Anti-thrombotic by Day Two: N/A - Med Ordered VTE Prior VTE?: No VTE Risk Level:: Medical - moderate - high VTE Device Contraindication: N/A - Device Ordered VTE Drug Contraindication: N/A - Med Ordered
[2025-02-24 19:41] VITALS: BP 135/75; PULSE 77; RESP 14; TEMP 36.6; O2SAT 97
[2025-02-24] MEDS: Sennosides 8.6 MG TABLET 17.2 MG PO (22:12)
[2025-02-24 23:57] VITALS: BP 115/67; PULSE 79; RESP 18; TEMP 36.6; O2SAT 93
[2025-02-25] MEDS: Melatonin 3 MG TABLET 6 MG PO (00:55)
[2025-02-25 01:55] VITALS: RESP 20
[2025-02-25 03:49] VITALS: BP 134/79; PULSE 80; RESP 18; TEMP 36.2; O2SAT 93
[2025-02-25 07:23] LABS: Immunoglobulin E 6 kU/L (<OR=114)
[2025-02-25 07:25] VITALS: BP 131/73; PULSE 68; RESP 16; TEMP 36.3; O2SAT 94
[2025-02-25] MEDS: Fluticasone/Vilanterol 200/25 BLST.W.DEV 1 PUFF INHALE (07:34)
[2025-02-25 07:38] VITALS: PULSE 68; RESP 16; O2SAT 94
--- NOTE | 2025-02-25 09:34 | P.PNPL_ITS ---
Subjective Subjective Date of Service: 02/25/25 Interval history: The patient was seen on exam. Denies any complaints at this time. She did have a blood gas yesterday demonstrated a PaO2 of 85 mmHg which is completely normal. This suggests that her gas exchange is within normal limits. Will go ahead and titrate off the oxygen for home I have walking oximetry. In addition to that the patient should consider having a sleep study at some point. The patient does have a left upper lobe nodular density which is concerning in appearance. If the patient is doing well we can request a PET scan as an outpatient to better evaluate this area and if there is any other areas involved that would warrant a better yield biopsy. The other option is for her to stay in the hospital and perform a biopsy to try to facilitate a diagnosis. Objective Data Labs 02/23/25 05:44 02/23/25 05:44 Labs: Laboratory Results - last 24 hr 02/24/25 02/24/25 02/24/25 10:11 10:14 14:15 ESR 36 H O2 Saturation 98.0 ABG pH at Pt Temp 7.41 ABG pCO2 at Pt Temp 36 ABG pO2 at Pt Temp 85 ABG HCO3 23 ABG Base Excess (Actual) -0.7 IgE 6 Review of Systems Review of Systems Yes all other systems are reviewed and are negative Constitutional: Denies fatigue and Denies fever(s) Cardiovascular: Denies chest pain and Denies dyspnea Respiratory: Denies chest congestion, Denies cough, Denies dyspnea and Denies wheezing Musculoskeletal: Reports as per HPI and Reports myalgias Endocrine: Denies fatigue Hematologic/Lymphatic: Reports no additional hematologic/lymphatic complaints Allergic/Immunologic: Denies wheezing Physical Exam 2 Vital Signs: Vital Signs: Last Vital Signs Temp 97.3 F 02/25/25 07:25 Pulse 68 02/25/25 07:38 Resp 16 02/25/25 07:38 BP 131/73 02/25/25 07:25 Pulse Ox 94 02/25/25 07:25 O2 Del Method Room Air 02/25/25 07:25 O2 Flow Rate 2 02/25/25 03:49 BMI result Body Mass Index 25.6 Const: General: comfortable and no acute distress HEENT: Other: Unremarkable Head: Yes normal to inspection Neck: Neck: Yes normal visual inspection Chest: Chest palpation & inspection: normal inspection of the chest Resp: Effort & Inspection: normal respiratory effort Auscultation: d iminished lung sounds Cardio: Heart sounds: S1 normal heart sound present and S2 normal heart sound present GI: Palpation (GI): Soft to palpation Back/Spine/Pelvis: Other: unremarkable Skin: General skin exam: no rashes or lesions noted Extrem: General: Yes normal to inspection Psych: Mental Status: mental status grossly abnormal Procedures Date of Service Date of Service: 02/25/25 Assessment and Plan Assessment and plan (1) Mass of left lung: Status: Acute (2) Hypoxia: Status: Acute Plan Deep breathing exercises. Out of bed as tolerated with assistance. Should be using incentive spirometer 4 times a day Repeat walking oximetry If she is stable to be discharged she can have a PET scan as an outpatient. Otherwise if she continues to be hypoxic and needs additional evaluation in the hospital consider CT-guided biopsy while she is in-house. Consider sleep study Time Spent With Patient Time: Total time managing care of this patient today ____ minutes. Progress Note: Quality Stroke Does the patient have a stroke diagnosis?: No Reason for No Anti-thrombotic by Day Two: N/A - Med Ordered
[2025-02-25 11:16] VITALS: BP 152/68; PULSE 80; RESP 16; TEMP 36.2; O2SAT 93
--- NOTE | 2025-02-25 12:04 | MHC.CM.PN ---
Per MD, Patient is medically cleared for dc today, to return to the [facility]. STEPHANIE spoke with [facility] RN/Elizabeth @ [phone] to coordinate dc and [facility] staff will transport home today at 2PM. STEPHANIE has asked MD to contact Elizabeth to answer her clinical questions. is aware that staff will bring in required paperwork for MD's completion, today at noon.
--- NOTE | 2025-02-25 12:42 | PM.DS ---
DS: Providers Provider Date of Service: 02/25/25 Date of admission: 02/23/25 03:14 Date of discharge: 02/25/25 Primary care physician: Panchito Chance MD Consults: 02/23/25 03:28 Consult to Hematology / Oncology Routine Consulting Provider: [facility] [place] Reason for consultation: new lung nodule found, high suspicion for malignancy Has provider been notified: No 02/23/25 08:42 Consult to Pulmonology Routine Consulting Provider: [facility] Reason for consultation: hypoxia unclear etiology Attending physician on discharge: Pooja Kiser Discharging clinician: Pooja Kiser DS: Diagnosis Discharge Diagnosis (1) Mass of left lung: Status: Acute (2) Hypoxia: Status: Acute DS: Summary Hospital Course Hospital Course: hpi:74 yo [place] female living in a detention and is a client of DDS with a legal guardian with past medical history of hyperlipidemia, OCD, osteoporosis, vitamin D def, mental disability, exposure to secondhand smoke, cholecystectomy presents to the emergency department status post a fall after playing basketball. Patient was trying to get into the car in the passenger side and fell to her right side. Patient is able to answer questions and denied any loss of consciousness, dizziness, lightheadedness, chest pain but did hit her head. Pt is not on blood thinners. A detention staff member was with patient at the time of the fall. Patient was also noted to be hypoxic with exertion upon further assessment. Patient had a contusion over the right eye and an abrasion on the left knee. CT of the head, cervical spine CT and x-rays of the left knee and right hand/wrist were all negative for acute findings except for an incidental finding of a 2.7 x 1.5 x 2.9 solid node in the left upper lobe highly. CT of the chest was completed and this node was suspicious for malignancy per radiologist's finding. A R mastoid effusion also noted. Patient is being admitted for oxygen requirement of 2 L and consultation with Oncology. Pt currently denies any pain issues. Pt has a luekocytosis, no fever, no evidence for PNA. Reviewed starting ABX for R mastoid effusion with attending Dr Avelar, have deciced to hold off on ABX. UA pending. Patient's guardian is Chanellevitaliy GarciaRamirez [phone] and is involved in signing consents and approving treatment plan. Hospital course: 74 yo [place] female living in a detention and is a client of DDS with a legal guardian with past medical history of hyperlipidemia, OCD, osteoporosis, vitamin D def, mental disability, exposure to secondhand smoke, cholecystectomy being admitted for hypoxia and current need for oxygen status post witnessed fall with no loss of consciousness. Incidental finding of a left upper lobe nodule that is highly suspicious for malignancy found when completing cervical spine CT. Right mastoid effusion also found and antibiotics are not indicated at this time. Hypoxia-patient found to be hypoxia:possible Mosiac pattern on CT chest and the fact that she has had wheezing in the past: possible component of bronchospasm. given albuterol nebs p.r.n.,also added breo -hypoxia improved ,patient will benefit from outpatient sleep study. has episode per the nurse on 02/24/25: patient had a run of SVT which resolved without any intervention. Repeat EKG with normal sinus rhythm. Mass of the left lung-incidental finding during cervical spine CT, chest CT completed left upper lobe has a 2.2 x 1.5 x 2.9 solid nodule highly suspicious for malignancy:patient will need outpatient PET scan and workup possible biopsy. follow with pulmonary Dr Pathak office outpatient. Fall-mechanical fall witnessed as patient was trying to get into the car after playing basketball all scans negative for acute findings,left knee x-ray and right wrist x-ray all negative for fracture or acute findings. patient is not orthostatic. seen by PT -recomended go back to detention. Contusion right eye-Secondary to fall visual acuity is intact, CT of the head/face negative Tylenol prn if needed. Leukocytosis-No evidence of PNA, UA negative likely reactive ,improved. plan: continue breo follow with pulmonary Dr Pathak office outpatient. Patient is seen by PT recommended to go back to her detention program, patient can return to day program as tolerated. Assessment and plan coordination time spent 40 minute. Time Attestation Total time managing care of this patient today: 40 mintues. Discharge Coordination Time (in mins): 40 min Quality: Safe Use of Opioids Does Pt have an Active Cancer Diagnosis on the Problem List?: No Quality: Stroke Does the patient have a stroke diagnosis?: No Physical Exam Vital Signs: Vital Signs: Last Vital Signs Temp 97.2 F 04/17/25 11:16 Pulse 80 02/25/25 11:16 Resp 16 02/25/25 11:16 BP 152/68 H 02/25/25 11:16 Pulse Ox 93 02/25/25 11:16 O2 Del Method Room Air 02/25/25 11:16 O2 Flow Rate 2 02/25/25 03:49 BMI result Body Mass Index 25.6 Appearance: awake ,alert near to her baseline.? cvs: rrr, [id number]. res: clear to auscultation . abd: no rebound or guarding ,nt, bs present. ext pulses present , no cyanosis. neuro: nonfocal. DS: Data Data Completed and Pending Labs on day of discharge: Laboratory Results - last 24 hr 02/24/25 14:15 IgE 6 Imaging Chest x-ray: Radiologist's impression: ITS Impressions Cervical Spine CT 02/22/25 12:38 IMPRESSION: 1. No CT evidence of acute cervical spine fracture or injury. 2. Masslike opacity measuring 2.0 x 1.6 cm in the superior segment of left lower lobe abutting the major fissure, incompletely imaged. This is suspicious. Consider correlating with chest CT in non-emergent setting. Electronically signed by: Antonino Carrera MD 02/22/2025 02:18 PM EDT RP Hand X-Ray 02/22/25 12:38 IMPRESSION: Osteopenia. No evidence of fracture of the right hand or wrist. Electronically signed by: Suraj Reynoso MD 02/22/2025 01:32 PM EDT RP Head CT 02/22/25 12:38 IMPRESSION: 1. No acute intracranial abnormality. No calvarial or skull base fracture. 2. No acute maxillofacial bone or mandibular fracture. 3. Right mastoid effusion. Electronically signed by: Antonino Carrera MD 02/22/2025 02:10 PM EDT RP Knee X-Ray 02/22/25 12:38 IMPRESSION: Markedly limited examination by lack of a lateral view. No evidence of fracture on the views obtained. Electronically signed by: Suraj Reynoso MD 02/22/2025 01:34 PM EDT RP Wrist X-Ray 02/22/25 12:57 IMPRESSION: Osteopenia. No evidence of fracture of the right hand or wrist. Electronically signed by: Suraj Reynoso MD 02/22/2025 01:32 PM EDT RP Face CT 02/22/25 13:11 IMPRESSION: 1. No acute intracranial abnormality. No calvarial or skull base fracture. 2. No acute maxillofacial bone or mandibular fracture. 3. Right mastoid effusion. Electronically signed by: Antonino Carrera MD 02/22/2025 02:10 PM EDT RP Discharge Plan Discharge Anticipated Discharge Date/Time: 02/25/25 12:24 Patient Disposition: Home, Self-Care Discharge Diagnosis: Lung mass ,fall ,hypoxia Referrals: Panchito Chance MD [Primary Care Provider] - 1 Week Alek Pathak MD [Physician] - 1 Week Discharge Medications: New fluticasone furoate-vilanterol [Breo Ellipta] 200-25 mcg/dose Blister With Device 1 inh inhalation RDAILY Qty: 1 0RF Continued dextromethorphan-guaifenesin 10-100 mg/5 mL syrup 10 ml PO Q4H PRN (Reason: cough) Qty: 237 3RF Rx Instructions: Call PCP if cough continues > 3 days; Orally every 4hrs prn; Do not exceed > 6 doses in 24hrs multivitamin,tx-minerals Tablet 1 tab PO DAILY@1600 calcium carbonate-vitamin D3 [Calcium 600 + D(3)] 600 mg-10 mcg (400 unit) Tablet 1 tab PO DAILY@1600 acetaminophen 325 mg tablet 650 mg PO Q6H PRN (Reason: Headache, Toothache, Muscle/Joint Pain, Discomfort) Rx Instructions: Take 2 tablets for temperature > 101, headache, toothache, muscle pain, joint pain, discomfort due to minor injury or sutures. Call PCP if symptoms continue more than 48 hours; DO not exceed 4 doses in 24 hours cetirizine 10 mg tablet 10 mg PO DAILY@1600 atorvastatin 10 mg tablet 10 mg PO DAILY@1600 valacyclovir 500 mg tablet 500 mg PO DAILY@1600 paroxetine HCl 40 mg tablet 40 mg PO DAILY@1600 cholecalciferol (vitamin D3) [Vitamin D3] 25 mcg (1,000 unit) capsule 25 mcg PO DAILY@1600 ketotifen fumarate 0.025 % (0.035 %) drops 1 drp ophthalmic (eye) DAILY PRN (Reason: allergy symptoms) Rx Instructions: apply to both eyes once daily at 4 PM Prolia 60 mg/mL syringe 60 mg subcut [id number] dicyclomine 20 mg tablet 20 mg PO Q4H PRN (Reason: IBS) nystatin 100,000 unit/gram powder 1 appl topical DAILY PRN (Reason: rash) Qty: 15 0RF Rx Instructions: Not to be used with antifungal cream. tolnaftate 1 % cream 1 appl topical BID PRN (Reason: rash) Qty: 30 0RF Discharge Orders: Discharge Order (Routine); Ordered 02/25/25 Ordered By: Pooja Kiser Diet: Advance to usual diet Activity on Discharge: As tolerated Stand Alone Forms: Patient Portal Discharge page Print Language: Spanish Care Plan Goals: 74 yo [place] female living in a detention and is a client of DDS with a legal guardian with past medical history of hyperlipidemia, OCD, osteoporosis, vitamin D def, mental disability, exposure to secondhand smoke, cholecystectomy being admitted for hypoxia and current need for oxygen status post witnessed fall with no loss of consciousness. Incidental finding of a left upper lobe nodule that is highly suspicious for malignancy found when completing cervical spine CT. Right mastoid effusion also found and antibiotics are not indicated at this time. Hypoxia-patient found to be hypoxia:possible Mosiac pattern on CT chest and the fact that she has had wheezing in the past: possible component of bronchospasm. given albuterol nebs p.r.n.,also added breo -hypoxia improved,sats 90-93% on room air even with walking ,patient will benefit from outpatient sleep study. She had episode per the nurse on 02/24/25: patient had a run of SVT which resolved without any intervention. Repeat EKG with normal sinus rhythm.no new symptoms Mass of the left lung-incidental finding during cervical spine CT, chest CT completed left upper lobe has a 2.2 x 1.5 x 2.9 solid nodule highly suspicious for malignancy:patient will need outpatient PET scan and workup possible biopsy. follow with pulmonary Dr Pathak office outpatient. Fall-mechanical fall witnessed as patient was trying to get into the car after playing basketball all scans negative for acute findings,left knee x-ray and right wrist x-ray all negative for fracture or acute findings. patient is not orthostatic. seen by PT -recomended go back to detention. Contusion right eye-Secondary to fall visual acuity is intact, CT of the head/face negative Tylenol prn if needed. Leukocytosis-No evidence of PNA, UA negative likely reactive ,improved. Health Concerns: continue breo follow with pulmonary Dr Pathka office outpatient. Plan of Treatment: as above. Assessment: as above/
[2025-02-25 22:14] LABS: Myeloperoxidase Antibody <1.0 AI; Proteinase 3 PR3 Antibodies <1.0 AI
[2025-02-27 10:08] LABS: TS Negative Control Passed; TS Panel A 0; TS Panel B 0; TS Positive Control Passed; TSpotTB Negative (Negative)
[2025-02-28 14:13] LABS: Anti Nuclear Antibody Screen NEGATIVE (NEGATIVE)
[2025-03-03 12:33] LABS: Asperg fumigatus Precip Abs NEGATIVE (NEGATIVE); Micropoly faeni Abs NEGATIVE (NEGATIVE); Pigeon serum Abs NEGATIVE (NEGATIVE); Saccharo pora viridis Abs NEGATIVE (NEGATIVE); Thermo candidus Abs NEGATIVE (NEGATIVE); Thermoa vulgaris #1 NEGATIVE (NEGATIVE)
== END 2025-02-25 15:15 | disposition home or self-care (01) | DRG 206 ==
LOC: HO.ED 02-23 00:21 → HO.EDOVER 02-23 04:06 → HO.IMC 02-23 15:28
PROVIDERS: Hospitalist; Physician Assistant Medical; Admitting Provider Nurse Practitioner Family; Emergency Provider Emergency Medicine; PCP Internal Medicine; Visit Provider Internal Medicine
DX: R09.02 Hypoxemia (principal); I47.10 Supraventricular tachycardia, unspecified; C34.12 Malignant neoplasm of upper lobe, left bronchus or lung; F42.9 Obsessive-compulsive disorder, unspecified; S00.11XA Contusion of right eyelid and periocular area, initial encounter; W19.XXXA Unspecified fall, initial encounter; Z79.51 Long term (current) use of inhaled steroids; Z79.620 Long term (current) use of immunosuppressive biologic; Z79.899 Other long term (current) drug therapy
CPT/HCPCS: 36415; 36600; 70450; 70486; 71260; 72125; 73110; 73130; 73564; 80053; 81001; 82785; 82803; 83735; 83880; 84439; 84443; 85025; 85652; 86021; 86038; 86331; 86481; 86606; 86609; 93005; 94640; 97161; 99285; J1650; Q9967

== ENCOUNTER → 2025-02-22 12:38 | Outpatient (BNV) | payer MEDICARE, MEDICAID, SELFPAY | PROVIDERS: PCP Internal Medicine; Visit Provider Radiology Diagnostic Radiology | DX: R91.1 Solitary pulmonary nodule (principal); M54.2 Cervicalgia; S09.93XA Unspecified injury of face, initial encounter; M25.562 Pain in left knee; M25.531 Pain in right wrist; M85.841 Other specified disorders of bone density and structure, right hand | CPT/HCPCS: 70450; 70486; 72125 ==

== ENCOUNTER 2025-02-23 03:14 | Outpatient (BNV) | payer MEDICARE, MEDICAID, SELFPAY | END 2025-02-23 16:58 | PROVIDERS: Admitting Provider Nurse Practitioner Family; Emergency Provider Emergency Medicine; PCP Internal Medicine; Visit Provider Internal Medicine Cardiovascular Disease | DX: R07.89 Other chest pain (principal) | CPT/HCPCS: 93010 ==

== ENCOUNTER 2025-02-23 03:14 | Outpatient (BNV) | payer MEDICARE, MEDICAID, SELFPAY | END 2025-02-24 03:30 | PROVIDERS: Admitting Provider Nurse Practitioner Family; Emergency Provider Emergency Medicine; PCP Internal Medicine; Visit Provider Internal Medicine Cardiovascular Disease | DX: R94.31 Abnormal electrocardiogram [ECG] [EKG] (principal); I47.10 Supraventricular tachycardia, unspecified | CPT/HCPCS: 93010 ==

== ENCOUNTER → 2025-02-23 03:14 | Outpatient (BNV) | payer MEDICARE, MEDICAID, SELFPAY | PROVIDERS: Admitting Provider Nurse Practitioner Family; Emergency Provider Emergency Medicine; PCP Internal Medicine; Visit Provider Nurse Practitioner Family | DX: R09.02 Hypoxemia (principal); R91.8 Other nonspecific abnormal finding of lung field; W19.XXXA Unspecified fall, initial encounter; S05.11XA Contusion of eyeball and orbital tissues, right eye, initial encounter; F42.9 Obsessive-compulsive disorder, unspecified; F79 Unspecified intellectual disabilities; D72.828 Other elevated white blood cell count | CPT/HCPCS: 99222; 99499 ==

== ENCOUNTER → 2025-02-23 03:14 | Outpatient (BNV) | payer MEDICARE, MEDICAID, SELFPAY | PROVIDERS: Admitting Provider Nurse Practitioner Family; Emergency Provider Emergency Medicine; PCP Internal Medicine; Visit Provider Hospitalist | DX: R91.8 Other nonspecific abnormal finding of lung field (principal); R09.02 Hypoxemia | CPT/HCPCS: 99223; 99232 ==

== ENCOUNTER 2025-03-05 12:20 | Outpatient (AMB) | payer MEDICARE, MEDICAID, SELFPAY ==
[2025-03-05 12:30] VITALS: BP 116/64; PULSE 94; TEMP 36.3; O2SAT 96; BMI 25.9
--- NOTE | 2025-03-05 12:30 | A.OFFPC_ITS ---
Vital Signs 03/05/25 12:30 Height 5 ft 3 in Weight 146 lb 4 oz BMI 25.9 BP 116/64 Blood Pressure Location Lt brachial Position Sitting Pulse 94 Pulse Source Pulse Oximeter Temp 97.3 F Temp Source Temporal Artery Scan Pulse Oximetry (%) 96 Oxygen Delivery Method Room Air Intake Visit Reasons: TCM [facility] 02/24 Credit Verification Clerk Required: No Accompanied by: program Allergies aspartame [ASPARTAME] Allergy (Unknown, Verified 03/05/25 12:32) UNKNOWN loratadine [From CLARITIN] Allergy (Unknown, Verified 03/05/25 12:32) UNKNOWN phenylalanine [Phenylalanine] Allergy (Unknown, Verified 03/05/25 12:32) UNKNOWN dustmites Allergy (Unknown, Uncoded 03/05/25 12:32) unknown ragweed Allergy (Unknown, Uncoded 03/05/25 12:32) unknown Tobacco use date assessed: 02/19/25 Dental Screening Dental Screen Date: 02/19/25 [facility] TCM TCM Information Date of Discharge 02/24/25 Discharged From [facility] Interactive Contact Date (Reference documentation from this date) 03/02/25 HPI Comments History of Present Illness Details 74 y/o Female patient who presents [facility] today for TCM. She lives in a longterm and is a client of DDS accompanied with a legal guardian and has past medical history of hyperlipidemia, OCD, osteoporosis, vitamin D def, mental disability, exposure to secondhand smoke, and cholecystectomy. She was admitted at [facility] on 02/23 - 02/25 for hypoxia and current need for oxygen status post witnessed fall with no loss of consciousness. There was an Incidental finding of a left upper lobe nodule that is highly suspicious for malignancy found when completing cervical spine CT. Mass of the left lung upper lobe has a 2.2 x 1.5 x 2.9 solid nodule highly suspicious for malignancy. Care-taker states that Patient is having difficulties using her Breo Inhaler due to mental disability. In the past Patient was able to use Spacer with her Inhalers with no problem, unfortunately Breo is in powder form. Advised Pt that I will change to HFA. Patient waiting for Oncology and Pulmonology appointments. [facility] Medical History Wheezing on auscultation Acute viral bronchitis Acute viral syndrome Reactive airway disease Hypoxia Compression fracture of lumbosacral spine Anxiety Mental disability Allergic rhinitis Elevated LFTs Osteoporosis Pure hypercholesterolemia Premature atrial contractions Surgical History S/P colonoscopy (~07/05/20) S/P laparoscopic cholecystectomy (~06/28/14) Family History Other Family history unknown Social History Household Members: Other Household Members Other:: longterm Housing: Other Housing Other:: longterm Do you presently have visiting nurse or other home services: Yes Alcohol intake: never Comment: long term staff at bedside. Patient Tobacco Use Status: Never used Tobacco e-Cigarette/Vaping Use: Never Used Second Hand Smoke Exposure: No service: No Current occupational status: retired Cognitive needs: No Hearing needs: No Vision needs: No Questionnaire Thrive Questionnaire Date Thrive assessed: 12/25/24 OANH-7 AMB Questionnaire OANH-7 Date OANH - 7 assessed: 12/25/24 Source: Developed by Drs. Suraj Rushing, Janice Navarro, Micah Pelaez and colleagues, with an educational amna from [employer]. Review of Systems Const All systems reviewed & are unremarkable except as noted in HPI and below Physical exam (Primary Care) Vital Signs: Last Vital Signs Temp 97.3 F 03/05/25 12:30 Pulse 94 03/05/25 12:30 BP 116/64 03/05/25 12:30 Pulse Ox 96 03/05/25 12:30 Oxygen Delivery Method Room Air 03/05/25 12:30 BMI result Body Mass Index 25.9 Tobacco/Smoking Status: Tobacco use Status Tobacco use date assessed 02/19/25 03/05/25 12:32 Patient Tobacco Use Status Never used Tobacco 03/05/25 12:32 e-Cigarette/Vaping Use Never Used 03/05/25 12:32 Thrive Assessment: Date of Thrive Assessment Date Thrive assessed 12/25/24 03/05/25 12:32 Const General: no acute distress Nutritional Appearance: overweight Resp Effort & Inspection: normal respiratory effort Auscultation: clear to auscultation bilaterally Cardio Heart sounds: S1 normal heart sound present and S2 normal heart sound present Neuro General: gait normal and moves all extremities Coding Level of Care Code TCM Mod MDM <= 14 Days Diagnoses Mass of left lung R91.8 Wheezing on auscultation R06.2 Time Spent (min) 20 Assessment & Plan Assessment & Plan (1) Mass of left lung: Code(s): R91.8 - Other nonspecific abnormal finding of lung field Category: Medical Plan: Referral Placed to Pulmonology and Oncology. (2) Wheezing on auscultation: Code(s): R06.2 - Wheezing Category: Medical Plan: D/C Breo Prescribed Symbicort HFA with Spacer. Referral to Pulmonology Placed. Orders: Referrals Hematology & Oncology Referral R91.8 - Other nonspecific abnormal finding of lung field Pulmonology Referral R06.2 - Wheezing, R91.8 - Other nonspecific abnormal finding of lung field Medications: New budesonide-formoterol 80-4.5 mcg/actuation (Symbicort) 1 puff inhalation BID 10.2 grams 0RF R06.2 - Wheezing inhalational spacing device (Tae Aerosol [place] Enhancer spacer) As directed 1 ea 0RF R06.2 - Wheezing Discontinued fluticasone furoate-vilanterol 200-25 mcg/dose (Breo Ellipta) Discontinued Reason: Doctor's Order 1 inh inhalation RDAILY 1 ea 0RF dextromethorphan-guaifenesin 10-100 mg/5 mL Call PCP if cough continues > 3 days; Orally every 4hrs prn; Do not exceed > 6 doses in 24hrs Discontinued Reason: Patient Completed Course 10 mL PO Q4H PRN 237 mL 3RF cough
--- OUTSIDE RECORDS SUMMARY | 2025-03-05 13:04 | XMS_ITS | Continuity of Care Document ---
Author Organization [facility] Address [address] [place] [id number]- Care Team Providers Care Bonbon Cream Warmer Name Role Phone Robson JOHNSON, Panchito Smith Primary Care Physician [phone] Encounter [place] Date(s): 01/30/25 - 03/01/25 [facility] [address] [place] [id number] Encounter Type: Triage Allergies, Adverse Reactions, Alerts Substance Criticality Severity Reaction Reaction Severity Status Claritin Active Cats Active house dust mite allergen extract Active Pollen Active Medications Amoxicillin By Mouth, Maintenance, 04/18/16 1:53:10 PM EDT Start Date: 04/18/16 Status: Ordered Repeat number: 1 Atorvastatin By Mouth, Daily at bedtime, Maintenance, 02/07/15 2:12:32 PM EDT Start Date: 02/07/15 Status: Ordered Repeat number: 1 BD pen needles [id number] BD pen needles [id number], See Instructions, # 100 each, Refills 6, Tot. Refills 6, Maintenance, Use daily with Forteo, 09/02/18 2:16:12 PM EDT, Compound Start Date: 09/02/18 Status: Ordered Quantity: 100.0 Unit: each Repeat number: 7 calcium-vitamin D 600 mg-400 intl units oral tablet 1 tablet, By Mouth, Daily, AT 4PM., # 28 tablet, 11 Refills, Maintenance, 05/05/24 2:26:00 PM EDT, [facility], 0, 1 tablet By Mouth Daily,Instr:AT 4PM., 156, cm, 04/09/24 10:30:00 EDT,Height, 72, kg, 04/09/24 10:30:00 EDT, Dry Weight Start Date: 05/05/24 Status: Ordered Quantity: 28.0 Unit: tablet Repeat number: 12 D 1000 IU oral tablet See Instructions, TAKE 1 TABLET BY MOUTH ONCE DAILY IN THE AFTERNOON AT 4 P.M., # 28 tablet, 11 Refills, Soft Stop, 01/18/21 7:31:00 AM FLORINDA LONI [facility], 154.9, cm, 06/09/20 11:04:00 EDT, Height, 64.4, kg, 04/08/19 14:09:00 EDT, Dry Weight Start Date: 01/18/21 Status: Ordered Quantity: 28.0 Unit: tablet Repeat number: 12 dicyclomine 20 mg oral tablet 1 tablet = 20 mg, By Mouth, 4 times a day, 0 Refills, Maintenance, 04/18/16 1:53:25 PM EDT Start Date: 04/18/16 Status: Ordered Repeat number: 1 Metoprolol Succinate ER 25 mg oral tablet, extended release 1 tablet = 25 mg, By Mouth, Daily, 0 Refills, Maintenance, 02/07/15 2:11:39 PM EDT Start Date: 02/07/15 Status: Ordered Repeat number: 1 Multivitamin By Mouth, Daily, 0 Refills, Maintenance, 08/22/12 9:01:05 AM EDT Start Date: 08/22/12 Status: Ordered Repeat number: 1 Pataday 1 drops, Eyes, Both, Daily, 0 Refills, Maintenance, 02/07/15 2:14:08 PM EDT Start Date: 02/07/15 Status: Ordered Repeat number: 1 Pataday 0.2% ophthalmic solution 1 drops, Eyes, Both, Daily, # 2.5 mL, 0 Refills, Maintenance, 08/22/12 9:00:48 AM EDT, Ophth Solution Start Date: 08/22/12 Status: Ordered Quantity: 2.5 Unit: mL Repeat number: 1 Paxil 40 mg oral tablet 1 tablet = 40 mg, By Mouth, Daily, # 30 tablet, 0 Refills, Maintenance, 08/22/12 9:00:57 AM EDT, Tablet Start Date: 08/22/12 Status: Ordered Quantity: 30.0 Unit: tablet Repeat number: 1 permethrin 5% topical cream 1 application, Topically, Once, # 60 Gm, 0 Refills, Soft Stop, 06/02/13 12:44:26 PM EDT, Cream Start Date: 06/02/13 Status: Ordered Quantity: 60.0 Unit: g Repeat number: 1 Prolia 60 mg/mL subcutaneous solution 1 mL = 60 mg, Subcutaneous Injection, Once, # 1 mL, 0 Refills, Soft Stop, 02/05/25 11:27:00 AM EDT, Solution, Partial fill upon patient request if the prescription is for a schedule II opioid drug. Start Date: 02/05/25 Status: Ordered Quantity: 1.0 Unit: mL Repeat number: 1 Prolia 60 mg/mL subcutaneous solution 1 mL = 60 mg, Subcutaneous Injection, Every 6 months, # 1 mL, 0 Refills, Maintenance, 04/09/24 10:40:00 AM EDT, Solution, [facility], Partial fill upon patient request if the prescription is for a schedule II opioid drug., 156, cm, 04/09/24 10:30:00 EDT, Height, 72, kg, 04/09/24 10:30:00 EDT, Dry Weight Start Date: 04/09/24 Status: Ordered Quantity: 1.0 Unit: mL Repeat number: 1 Indication: Age-related osteoporosis without current pathological fracture Robitussin D 10 mL, By Mouth, Every 4 hours, 0 Refills, Maintenance, 04/18/16 1:52:30 PM EDT Start Date: 04/18/16 Status: Ordered Repeat number: 1 Tylenol Caplet = 650 mg, By Mouth, Every 4 hours, 0 Refills, Maintenance, 04/18/16 1:52:55 PM EDT Start Date: 04/18/16 Status: Ordered Repeat number: 1 Valtrex 500 mg oral tablet 1 tablet = 500 mg, By Mouth, Every 12 hours, # 6 tablet, 0 Refills, Maintenance, 08/22/12 9:00:25 AM EDT, Tablet Start Date: 08/22/12 Status: Ordered Quantity: 6.0 Unit: tablet Repeat number: 1 Zyrtec 10 mg oral tablet 1 tablet = 10 mg, By Mouth, Daily, # 30 tablet, 0 Refills, Maintenance, 08/22/12 9:01:34 AM EDT, Tablet Start Date: 08/22/12 Status: Ordered Quantity: 30.0 Unit: tablet Repeat number: 1 Problem List Condition Confirmation Course Effective Dates Status Health St atus Informant OP (osteoporosis) Confirmed Active Social History Social History Type Response Smoking Status Never smoker entered on: 04/01/17 Sex Sex Representation Female (finding) Patient Care team information Care Team Personnel Name: Robson JOHNSON, Panchito Smith Position: Reference Physician Member Role: PCP Address: [address] [place] [address] [place] [address] Telecom: Care Team Related Persons Name: REBEKA MAXWELL Name: ISAIAH GILLESPIE Name: RUBBER EXTRUSION MACHINE OPERATOR, GLADIS Name: STEPHANI BLAKE Insurance Providers Guarantor name: KAMI VAZQUEZ Health Plan Information #: 1 Payer: MEDICARE PART B OUTPT Member Number: NA Policy Number: NA Group Number: NA Health Plan Information #: 2 Payer: [facility] Member Number: NA Policy Number: NA Group Number: NA
== END 2025-03-05 13:08 | disposition home or self-care (01) ==
LOC: HO.HMCH 12:20
PROVIDERS: PCP Internal Medicine; Visit Provider Nurse Practitioner Family
DX: R91.8 Other nonspecific abnormal finding of lung field (principal); R06.2 Wheezing

== ENCOUNTER → 2025-03-05 12:20 | Outpatient (BNVA) | payer MEDICARE, MEDICAID, SELFPAY | PROVIDERS: PCP Internal Medicine; Visit Provider Nurse Practitioner Family | DX: R91.8 Other nonspecific abnormal finding of lung field (principal); R06.2 Wheezing | CPT/HCPCS: 99495 ==

== ENCOUNTER 2025-03-13 11:55 | Emergency (ER) | payer MEDICARE, MEDICAID, SELFPAY ==
--- NOTE | ~2025-03-13 | XR_ITS ---
CLINICAL HISTORY: chest pain 2 view chest x-ray Comparison: CT/SR - CT CHEST W IV CON - 02/22/25 19:48 EDT CR/SR - XR CHEST 2V - 12/10/24 15:24 EST Findings: Known left upper lobe mass measures 4.6 cm in craniocaudal dimension. On prior CT, corresponding measurement is 4.0 cm. Mild diffuse interstitial changes. Small calcified pulmonary granuloma in the right middle lobe. No pleural effusion or pneumothorax. Normal size heart. No acute fracture. There are surgical clips in the upper abdomen. IMPRESSION: 1. Mild increase size of the known left upper lobe mass versus apparent size difference related to different modalities. 2. Mild interstitial changes secondary to pneumonitis or fluid overload 3. No superimposed acute consolidation. This document has been electronically signed by: Amarilis Reese DO on 03/13/2025 13:50:57
--- NOTE | 2025-03-13 11:56 | ECG_ITS ---
Test Reason : CHEST PAIN Blood Pressure : */* mmHG Vent. Rate : 76 BPM Atrial Rate : 76 BPM P-R Int : 158 ms QRS Dur : 74 ms QT Int : 380 ms P-R-T Axes : 51 47 43 degrees QTcB Int : 427 ms Normal sinus rhythm Septal infarct (cited on or before 24-Feb-2025) Abnormal ECG When compared with ECG of 24-Feb-2025 03:30, Nonspecific T wave abnormality, worse in Anterior leads Referred By: Pratima Rain Electronically Signed By: Tino Guzman
[2025-03-13 12:16] VITALS: BP 139/86; PULSE 77; RESP 18; TEMP 36.2; O2SAT 94; BMI 23.9
--- NOTE | 2025-03-13 12:16 | ED_ITS ---
HPI - Chest Pain General Chief Complaint: Chest Pain Stated Complaint: chest pain Time Seen by Provider: 03/13/25 14:15 Related Data Home Medications ?Medication ?Instructions ?Recorded ?Confirmed denosumab 60 mg/mL subcutaneous 60 mg subcut [id number] 08/06/22 03/02/25 syringe (Prolia) dicyclomine 20 mg tablet 20 mg PO Q4H PRN IBS 06/17/24 03/02/25 acetaminophen 325 mg tablet 650 mg PO Q6H PRN Headache, 02/23/25 03/02/25 Toothache, Muscle/Joint Pain, Discomfort calcium 600 mg (as 1 tab PO DAILY@1600 02/23/25 03/02/25 carbonate)-vitamin D3 10 mcg (400 unit) tablet (Calcium 600 + D(3)) ketotifen fumarate 0.025 % (0.035 1 drp ophthalmic (eye) DAILY PRN 02/23/25 03/02/25 %) eye drops allergy symptoms Previous Rx's ?Medication ?Instructions ?Recorded nystatin 100,000 unit/gram topical 1 appl topical DAILY PRN rash #15 06/17/24 powder grams tolnaftate 1 % topical cream 1 appl topical BID PRN rash #30 06/17/24 grams atorvastatin 10 mg tablet 10 mg PO DAILY@1600 #30 tabs 03/04/25 cetirizine 10 mg tablet 10 mg PO DAILY@1600 for allergies 03/04/25 #30 tabs valacyclovir 500 mg tablet 500 mg PO DAILY@1600 #28 tabs 03/04/25 budesonide-formoterol HFA 80 1 puff inhalation BID #10.2 grams 03/05/25 mcg-4.5 mcg/actuation aerosol inhaler (Symbicort) inhalational spacing device (Tae #1 ea 03/05/25 Aerosol Brooks Enhancer spacer) cholecalciferol (vitamin D3) 25 25 mcg PO DAILY #28 caps 03/11/25 mcg (1,000 unit) capsule (Vitamin D3) multivitamin with folic acid 400 1 tab PO DAILY 90 days #90 tabs 03/11/25 mcg tablet (High Potency Multivitamin) paroxetine HCl 40 mg tablet 40 mg PO DAILY 90 days #90 tabs 03/11/25 Allergies Allergy/AdvReac Type Severity Reaction Status Date / Time aspartame [ASPARTAME] Allergy Unknown UNKNOWN Verified 03/13/25 12:18 loratadine [From CLARITIN] Allergy Unknown UNKNOWN Verified 03/13/25 12:18 phenylalanine [Phenylalanine] Allergy Unknown UNKNOWN Verified 03/13/25 12:18 dustmites Allergy Unknown unknown Uncoded 03/05/25 12:32 ragweed Allergy Unknown unknown Uncoded 03/05/25 12:32 [facility] Past Medical History Medical History Mental disability OCD (obsessive compulsive disorder) Wheezing on auscultation Acute viral bronchitis Acute viral syndrome Reactive airway disease Hypoxia Compression fracture of lumbosacral spine Anxiety Mental disability Allergic rhinitis Elevated LFTs Osteoporosis Pure hypercholesterolemia Premature atrial contractions Surgical History S/P colonoscopy (~07/05/20) S/P laparoscopic cholecystectomy (~06/28/14) Family History Family History Other Family history unknown Social History Social History Household Members: Other Household Members Other:: longterm Housing: Other Housing Other:: longterm Do you presently have visiting nurse or other home services: Yes Alcohol intake: never Comment: care home staff at bedside. Patient Tobacco Use Status: Never used Tobacco e-Cigarette/Vaping Use: Never Used Second Hand Smoke Exposure: No Advance Directives: No Advance Directives Information Provided: No service: No Current occupational status: retired Cognitive needs: No Hearing needs: No Vision needs: No Physical Exam 2 Vital Signs: Vital Signs: Last Vital Signs Temp 98.2 F 03/13/25 16:41 Pulse 69 03/13/25 16:41 Resp 16 03/13/25 16:41 BP 131/78 03/13/25 16:41 Pulse Ox 95 03/13/25 16:41 O2 Del Method Room Air 03/13/25 16:41 BMI result Body Mass Index 23.9 Course Course Course Narrative: This is an RME performed by Bety Rain CNP: Additional HPI, ROS, PE not included below will be deferred to primary provider. Patient is a 74-year-old female who presents emergency department for evaluation of chest pain since last night. Due to developmental delay, difficult to obtain much more history from patient, she simply repeats any questions that are asked of her Plan: Serum labs, EKG. CXR Reevaluation(s) Reevaluation #1: See additional note dated from Dr. Vernon 03/13/2025 Medications Administered Discontinued Medications Generic Name Dose Route Start Last Admin Trade Name Dev PRN Reason Stop Dose Admin Acetaminophen 975 mg 03/13/25 14:29 03/13/25 14:44 Acetaminophen 325 Mg Tablet PO 03/13/25 14:30 975 mg ONCE ONE Administration Medical Decision Making Lab Data 03/13/25 12:28 03/13/25 12:28 Labs: Lab Results 03/13/25 03/13/25 Range/Units 12:28 14:35 WBC 7.0 (4.8-10.8) X10*3/uL RBC 4.36 (4.20-5.50) X10*6/uL Hgb 13.3 (12.0-16.0) g/dl Hct 40.6 (37.0-47.0) % MCV 93.1 (80.0-98.0) fL MCH 30.5 (27.0-33.0) pg MCHC 32.8 (31.0-35.0) g/dl RDW 12.9 (11.0-16.0) % Plt Count 221 D (160-400) X10*3/uL MPV 10.5 (9.4-12.3) fL Immature Gran % (Auto) 0.4 (0.0-0.4) % Neut % (Auto) 71.2 (45-73) % Lymph % (Auto) 18.1 L (20-40) % [place] % (Auto) 7.5 (2-11) % Eos % (Auto) 1.9 (0-4) % Baso % (Auto) 0.9 (0-2) % Lymph # (Auto) 1.3 (1.2-4.9) X10*3/uL [place] # (Auto) 0.5 (0.1-1.2) X10*3/uL Eos # (Auto) 0.1 (0.0-0.4) X10*3/uL Baso # (Auto) 0.1 (0.0-0.2) X10*3/uL Abs Immat Gran (auto) 0.03 (0.00-0.03) X10*3/uL Absolute Neuts (auto) 5.0 (2.0-8.3) x10*3/uL Absolute Nucleated RBC 0.000 (0.0-0.012) X10*3/uL Nucleated RBC % (auto) 0.0 (0.0-0.2) /100WBC Sodium 146 H (135-145) mmol/L Potassium 4.1 (3.3-5.1) mmol/L Chloride 112 H (96-108) mmol/L Carbon Dioxide 24 (22-29) mmol/L Anion Gap 14 (12-20) BUN 18 H (9-16) mg/dL Creatinine 0.73 (0.5-1.4) mg/dL Estim Creat Clear Calc 64.2 Estimated GFR > 60 Random Glucose 83 (60-115) mg/dL Calcium 9.2 (8.4-10.2) mg/dL Magnesium 2.1 (1.6-2.6) mg/dL Total Bilirubin 0.3 (0.0-1.0) mg/dL AST 28 (5-31) U/L ALT 22 (0-31) U/L Alkaline Phosphatase 106 (39-117) U/L Troponin I High Sens < 2.7 < 2.7 (<3.5-17.0) ng/L B-Natriuretic Peptide 19 (<100) pg/mL Total Protein 6.5 (6.5-8.0) g/dL Albumin 3.9 (3.5-5.0) g/dL Influenza Type A (PCR) NEGATIVE (Negative) Influenza Type B (PCR) NEGATIVE (Negative) RSV RNA Qual (PCR) NEGATIVE (Negative) SARS-CoV-2 RNA (RT-PCR) NEGATIVE (Negative) Discharge Plan Discharge Clinical Impression: Mass of left lung Chest pain Qualifiers: Chest pain type: unspecified Qualified Code(s): R07.9 - Chest pain, unspecified Patient Disposition: Home, Self-Care Instructions: Chest Pain (DC) Additional Instructions: Please follow-up with your primary care physician on Saturday return to the emergency room if worse, take Tylenol extra-strength 2 tablets every 6 hour as needed for pain Prescriptions: No Action atorvastatin 10 mg tablet 10 mg PO DAILY@1600 Qty: 30 3RF cetirizine 10 mg tablet 10 mg PO DAILY@1600 Qty: 30 2RF valacyclovir 500 mg tablet 500 mg PO DAILY@1600 Qty: 28 0RF cholecalciferol (vitamin D3) [Vitamin D3] 25 mcg (1,000 unit) capsule 25 mcg PO DAILY Qty: 28 3RF paroxetine HCl 40 mg tablet 40 mg PO DAILY 90 Days Qty: 90 0RF multivitamin with folic acid [High Potency Multivitamin] 400 mcg tablet 1 tab PO DAILY 90 Days Qty: 90 3RF calcium carbonate-vitamin D3 [Calcium 600 + D(3)] 600 mg-10 mcg (400 unit) Tablet 1 tab PO DAILY@1600 acetaminophen 325 mg tablet 650 mg PO Q6H PRN (Reason: Headache, Toothache, Muscle/Joint Pain, Discomfort) Rx Instructions: Take 2 tablets for temperature > 101, headache, toothache, muscle pain, joint pain, discomfort due to minor injury or sutures. Call PCP if symptoms continue more than 48 hours; DO not exceed 4 doses in 24 hours ketotifen fumarate 0.025 % (0.035 %) drops 1 drp ophthalmic (eye) DAILY PRN (Reason: allergy symptoms) Rx Instructions: apply to both eyes once daily at 4 PM Prolia 60 mg/mL syringe 60 mg subcut [id number] dicyclomine 20 mg tablet 20 mg PO Q4H PRN (Reason: IBS) nystatin 100,000 unit/gram powder 1 appl topical DAILY PRN (Reason: rash) Qty: 15 0RF Rx Instructions: Not to be used with antifungal cream. tolnaftate 1 % cream 1 appl topical BID PRN (Reason: rash) Qty: 30 0RF budesonide-formoterol [Symbicort] 80-4.5 mcg/actuation HFA aerosol inhaler 1 puff inhalation BID Qty: 10.2 0RF (DME) Tae Aerosol Brooks Enhancer Spacer See Rx Instructions .Route Qty: 1 0RF Rx Instructions: As directed Referrals: Panchito Chance MD [Primary Care Provider] - 03/15/25 Interventions: ED Discharge Assessment Last Done: 03/13/25 16:41 Discharge Date/Time: 03/13/25 16:42 Print Language: Mauritanian
[2025-03-13 12:45] LABS: MANUAL DIFF FLAG NO
[2025-03-13 12:51] LABS: Basophils Absolute Auto 0.1 X10*3/uL (0.0-0.2); Basophils Percent Auto 0.9 % (0-2); Eosinophils Absolute Auto 0.1 X10*3/uL (0.0-0.4); Eosinophils Percent Auto 1.9 % (0-4); Hematocrit 40.6 % (37.0-47.0); Hemoglobin 13.3 g/dl (12.0-16.0); Imm Gran Abs Auto 0.03 X10*3/uL (0.00-0.03); Imm Gran Pct Auto 0.4 % (0.0-0.4); Lymphocytes Absolute Auto 1.3 X10*3/uL (1.2-4.9); Lymphocytes Percent Auto 18.1 % (20-40); Mean Corpuscular HGB Conc 32.8 g/dl (31.0-35.0); Mean Corpuscular Hemoglobin 30.5 pg (27.0-33.0); Mean Corpuscular Volume 93.1 fL (80.0-98.0); Mean Platelet Volume 10.5 fL (9.4-12.3); Monocytes Absolute Auto 0.5 X10*3/uL (0.1-1.2); Monocytes Percent Auto 7.5 % (2-11); Neutrophils Percent Auto 71.2 % (45-73); Platelet Count 221 X10*3/uL (160-400); Red Blood Count 4.36 X10*6/uL (4.20-5.50); Red Cell Distribution Width 12.9 % (11.0-16.0)
[2025-03-13 13:09] LABS: Alanine Aminotransferase 22 U/L (0-31); Albumin Level 3.9 g/dL (3.5-5.0); Alkaline Phosphatase 106 U/L (39-117); Anion Gap 14 (12-20); Aspartate Amino Transferase 28 U/L (5-31); Bilirubin Total 0.3 mg/dL (0.0-1.0); Blood Urea Nitrogen 18 mg/dL (9-16); Calcium 9.2 mg/dL (8.4-10.2); Carbon Dioxide 24 mmol/L (22-29); Chloride 112 mmol/L (96-108); Creatinine Clr Calc Pharmacy 64.2; Estimated Glomerular Filt Rate > 60; Glucose Random 83 mg/dL (60-115); Magnesium 2.1 mg/dL (1.6-2.6); Potassium 4.1 mmol/L (3.3-5.1); Sodium 146 mmol/L (135-145); Total Protein 6.5 g/dL (6.5-8.0)
[2025-03-13 13:14] LABS: B Type Natriuretic Peptide 19 pg/mL (<100)
[2025-03-13 13:22] LABS: Troponin-I High Sensitivity < 2.7 ng/L (<3.5-17.0)
[2025-03-13 13:51] LABS: Influenza A PCR NEGATIVE (Negative); Influenza B PCR NEGATIVE (Negative); Resp Syncy Virus RNA Qual PCR NEGATIVE (Negative); SARS COV2 PCR INHOUSE NEGATIVE (Negative)
--- NOTE | 2025-03-13 14:32 | ED_ITS ---
HPI - Chest Pain General Chief Complaint: Chest Pain Stated Complaint: chest pain Time Seen by Provider: 03/13/25 14:15 Source: patient Mode of arrival: ambulatory History of Present Illness HPI narrative: This is a 74 years old [facility] with intellectual disability, history of lung mass, presented to the emergency department with a chief complaint of chest pain since last night. Patient is very difficult historian according to the staff the chest pain started last night. MD complaint: chest pain Pertinent past history: other (Lung mass primary care physician is aware they are referring the patient to oncology) Onset (ago): day(s) (1) Prior episodes: No Onset: during rest Pain location: left chest Pain radiation: none Severity: mild Risk Factors Coronary artery disease risk factors: none Related Data Home Medications ?Medication ?Instructions ?Recorded ?Confirmed denosumab 60 mg/mL subcutaneous 60 mg subcut [id number] 08/06/22 03/02/25 syringe (Prolia) dicyclomine 20 mg tablet 20 mg PO Q4H PRN IBS 06/17/24 03/02/25 acetaminophen 325 mg tablet 650 mg PO Q6H PRN Headache, 02/23/25 03/02/25 Toothache, Muscle/Joint Pain, Discomfort calcium 600 mg (as 1 tab PO DAILY@1600 02/23/25 03/02/25 carbonate)-vitamin D3 10 mcg (400 unit) tablet (Calcium 600 + D(3)) ketotifen fumarate 0.025 % (0.035 1 drp ophthalmic (eye) DAILY PRN 02/23/25 03/02/25 %) eye drops allergy symptoms Previous Rx's ?Medication ?Instructions ?Recorded nystatin 100,000 unit/gram topical 1 appl topical DAILY PRN rash #15 06/17/24 powder grams tolnaftate 1 % topical cream 1 appl topical BID PRN rash #30 06/17/24 grams atorvastatin 10 mg tablet 10 mg PO DAILY@1600 #30 tabs 03/04/25 cetirizine 10 mg tablet 10 mg PO DAILY@1600 for allergies 03/04/25 #30 tabs valacyclovir 500 mg tablet 500 mg PO DAILY@1600 #28 tabs 03/04/25 budesonide-formoterol HFA 80 1 puff inhalation BID #10.2 grams 03/05/25 mcg-4.5 mcg/actuation aerosol inhaler (Symbicort) inhalational spacing device (Tae #1 ea 03/05/25 Aerosol Davis Enhancer spacer) cholecalciferol (vitamin D3) 25 25 mcg PO DAILY #28 caps 03/11/25 mcg (1,000 unit) capsule (Vitamin D3) multivitamin with folic acid 400 1 tab PO DAILY 90 days #90 tabs 03/11/25 mcg tablet (High Potency Multivitamin) paroxetine HCl 40 mg tablet 40 mg PO DAILY 90 days #90 tabs 03/11/25 Allergies Allergy/AdvReac Type Severity Reaction Status Date / Time aspartame [ASPARTAME] Allergy Unknown UNKNOWN Verified 03/13/25 12:18 loratadine [From CLARITIN] Allergy Unknown UNKNOWN Verified 03/13/25 12:18 phenylalanine [Phenylalanine] Allergy Unknown UNKNOWN Verified 03/13/25 12:18 dustmites Allergy Unknown unknown Uncoded 03/05/25 12:32 ragweed Allergy Unknown unknown Uncoded 03/05/25 12:32 Review of Systems 2 Constitutional: Constitutional: Reports no additional constitutional complaints Cardiovascular: Cardiovascular: Reports as per [facility] Past Medical History Attestation statement: The following information was validated with the patient. [facility] Narrative: LUNG MASS by ct scan 02/22/2025 Medical History Mental disability OCD (obsessive compulsive disorder) Wheezing on auscultation Acute viral bronchitis Acute viral syndrome Reactive airway disease Hypoxia Compression fracture of lumbosacral spine Anxiety Mental disability Allergic rhinitis Elevated LFTs Osteoporosis Pure hypercholesterolemia Premature atrial contractions Surgical History S/P colonoscopy (~07/05/20) S/P laparoscopic cholecystectomy (~06/28/14) Family History Family History Other Family history unknown Social History Social History Household Members: Other Household Members Other:: jail Housing: Other Housing Other:: jail Do you presently have visiting nurse or other home services: Yes Alcohol intake: never Comment: correction staff at bedside. Patient Tobacco Use Status: Never used Tobacco e-Cigarette/Vaping Use: Never Used Second Hand Smoke Exposure: No Advance Directives: No Advance Directives Information Provided: No service: No Current occupational status: retired Cognitive needs: No Hearing needs: No Vision needs: No Physical Exam 2 Vital Signs: Vital Signs: Last Vital Signs Temp 98.2 F 03/13/25 15:16 Pulse 70 03/13/25 15:16 Resp 16 03/13/25 15:16 BP 197/77 H 03/13/25 15:16 Pulse Ox 95 03/13/25 15:16 O2 Del Method Room Air 03/13/25 15:16 BMI result Body Mass Index 23.9 The patient is in no distress comfortable in the stretcher Const: General: cooperative Nutritional Appearance: well nourished HEENT: Head: Yes normal to inspection General nose exam: Normal external nose present Face and sinus: Yes normal facial exam Neck: Neck: Yes normal visual inspection Chest: Chest palpation & inspection: normal inspection of the chest Resp: Effort & Inspection: normal respiratory effort Auscultation: clear to auscultation bilaterally Cardio: Jugular venous distension: no JVD Rhythm: regular rhythm GI: Inspection: Yes normal to inspection Palpation (GI): Soft to palpation Skin: General skin exam: no rashes or lesions noted and elasticity normal Course Reevaluation(s) Reevaluation #1: Delta trop is flat she is feeling better at this point we will discharge her home. Also I did POCUS cardiac no effusion good wall motion Time: 16:18 Medications Administered Discontinued Medications Generic Name Dose Route Start Last Admin Trade Name Freq PRN Reason Stop Dose Admin Acetaminophen 975 mg 03/13/25 14:29 03/13/25 14:44 Acetaminophen 325 Mg Tablet PO 03/13/25 14:30 975 mg ONCE ONE Administration Medical Decision Making Medical Decision Making [facility] Narrative: Patient is here with chest yesterday very poor historian she does have a lung mass, we will obtain electrocardiogram I sensitive troponin Differential Diagnosis Differential Diagnoses: The differential diagnosis associated with the presentation includes Musculoskeletal pain/acute coronary syndrome/pericardial effusion/ Admission/Observation Consideration of admission/observation: Escalation of care including admission/observation considered Lab Data [facility] Lab Attestation statement: I reviewed the patient's lab results. 03/13/25 12:28 03/13/25 12:28 Labs: Lab Results 03/13/25 03/13/25 Range/Units 12:28 14:35 WBC 7.0 (4.8-10.8) X10*3/uL RBC 4.36 (4.20-5.50) X10*6/uL Hgb 13.3 (12.0-16.0) g/dl Hct 40.6 (37.0-47.0) % MCV 93.1 (80.0-98.0) fL MCH 30.5 (27.0-33.0) pg MCHC 32.8 (31.0-35.0) g/dl RDW 12.9 (11.0-16.0) % Plt Count 221 D (160-400) X10*3/uL MPV 10.5 (9.4-12.3) fL Immature Gran % (Auto) 0.4 (0.0-0.4) % Neut % (Auto) 71.2 (45-73) % Lymph % (Auto) 18.1 L (20-40) % [place] % (Auto) 7.5 (2-11) % Eos % (Auto) 1.9 (0-4) % Baso % (Auto) 0.9 (0-2) % Lymph # (Auto) 1.3 (1.2-4.9) X10*3/uL [place] # (Auto) 0.5 (0.1-1.2) X10*3/uL Eos # (Auto) 0.1 (0.0-0.4) X10*3/uL Baso # (Auto) 0.1 (0.0-0.2) X10*3/uL Abs Immat Gran (auto) 0.03 (0.00-0.03) X10*3/uL Absolute Neuts (auto) 5.0 (2.0-8.3) x10*3/uL Absolute Nucleated RBC 0.000 (0.0-0.012) X10*3/uL Nucleated RBC % (auto) 0.0 (0.0-0.2) /100WBC Sodium 146 H (135-145) mmol/L Potassium 4.1 (3.3-5.1) mmol/L Chloride 112 H (96-108) mmol/L Carbon Dioxide 24 (22-29) mmol/L Anion Gap 14 (12-20) BUN 18 H (9-16) mg/dL Creatinine 0.73 (0.5-1.4) mg/dL Estim Creat Clear Calc 64.2 Estimated GFR > 60 Random Glucose 83 (60-115) mg/dL Calcium 9.2 (8.4-10.2) mg/dL Magnesium 2.1 (1.6-2.6) mg/dL Total Bilirubin 0.3 (0.0-1.0) mg/dL AST 28 (5-31) U/L ALT 22 (0-31) U/L Alkaline Phosphatase 106 (39-117) U/L Troponin I High Sens < 2.7 < 2.7 (<3.5-17.0) ng/L B-Natriuretic Peptide 19 (<100) pg/mL Total Protein 6.5 (6.5-8.0) g/dL Albumin 3.9 (3.5-5.0) g/dL Influenza Type A (PCR) NEGATIVE (Negative) Influenza Type B (PCR) NEGATIVE (Negative) RSV RNA Qual (PCR) NEGATIVE (Negative) SARS-CoV-2 RNA (RT-PCR) NEGATIVE (Negative) Independent Interpretation I performed an independent interpretation of an: EKG (EKG shows normal sinus rhythm rate [address]-T changes this is a normal electrocardiogram) and Plain X- Ray Radiology Impression Discussion of test interpretation with radiology: I have reviewed the radiologist's reading. Radiologist Impression: Old lung mass Independent Historian Clinical information obtained from an independent historian. History obtained from or confirmed by: Other (correction staff) Discharge Plan Discharge Clinical Impression: Mass of left lung Chest pain Qualifiers: Chest pain type: unspecified Qualified Code(s): R07.9 - Chest pain, unspecified Patient Disposition: Home, Self-Care Instructions: Chest Pain (DC) Additional Instructions: Please follow-up with your primary care physician on Saturday return to the emergency room if worse, take Tylenol extra-strength 2 tablets every 6 hour as needed for pain Prescriptions: No Action atorvastatin 10 mg tablet 10 mg PO DAILY@1600 Qty: 30 3RF cetirizine 10 mg tablet 10 mg PO DAILY@1600 Qty: 30 2RF valacyclovir 500 mg tablet 500 mg PO DAILY@1600 Qty: 28 0RF cholecalciferol (vitamin D3) [Vitamin D3] 25 mcg (1,000 unit) capsule 25 mcg PO DAILY Qty: 28 3RF paroxetine HCl 40 mg tablet 40 mg PO DAILY 90 Days Qty: 90 0RF multivitamin with folic acid [High Potency Multivitamin] 400 mcg tablet 1 tab PO DAILY 90 Days Qty: 90 3RF calcium carbonate-vitamin D3 [Calcium 600 + D(3)] 600 mg-10 mcg (400 unit) Tablet 1 tab PO DAILY@1600 acetaminophen 325 mg tablet 650 mg PO Q6H PRN (Reason: Headache, Toothache, Muscle/Joint Pain, Discomfort) Rx Instructions: Take 2 tablets for temperature > 101, headache, toothache, muscle pain, joint pain, discomfort due to minor injury or sutures. Call PCP if symptoms continue more than 48 hours; DO not exceed 4 doses in 24 hours ketotifen fumarate 0.025 % (0.035 %) drops 1 drp ophthalmic (eye) DAILY PRN (Reason: allergy symptoms) Rx Instructions: apply to both eyes once daily at 4 PM Prolia 60 mg/mL syringe 60 mg subcut [id number] dicyclomine 20 mg tablet 20 mg PO Q4H PRN (Reason: IBS) nystatin 100,000 unit/gram powder 1 appl topical DAILY PRN (Reason: rash) Qty: 15 0RF Rx Instructions: Not to be used with antifungal cream. tolnaftate 1 % cream 1 appl topical BID PRN (Reason: rash) Qty: 30 0RF budesonide-formoterol [Symbicort] 80-4.5 mcg/actuation HFA aerosol inhaler 1 puff inhalation BID Qty: 10.2 0RF (DME) Tae Aerosol Davis Enhancer Spacer See Rx Instructions .Route Qty: 1 0RF Rx Instructions: As directed Referrals: Panchito Chance MD [Primary Care Provider] - 03/15/25 Print Language: Nepali
[2025-03-13] MEDS: Acetaminophen 325 MG TABLET 975 MG PO (14:44)
[2025-03-13 15:16] VITALS: BP 197/77; PULSE 70; RESP 16; TEMP 36.8; O2SAT 95
[2025-03-13 15:18] LABS: Troponin-I High Sensitivity < 2.7 ng/L (<3.5-17.0)
[2025-03-13 16:37] VITALS: BP 131/78; PULSE 69; RESP 16; TEMP 36.8; O2SAT 95
[2025-03-13 16:41] VITALS: BP 131/78; PULSE 69; RESP 16; TEMP 36.8; O2SAT 95
== END 2025-03-13 16:42 | disposition home or self-care (01) ==
PROVIDERS: Nurse Practitioner Family; Emergency Provider Emergency Medicine; PCP Internal Medicine
DX: R07.9 Chest pain, unspecified (principal); R91.8 Other nonspecific abnormal finding of lung field; Z03.818 Encounter for observation for suspected exposure to other biological agents ruled out; J45.909 Unspecified asthma, uncomplicated; E78.00 Pure hypercholesterolemia, unspecified; Z79.02 Long term (current) use of antithrombotics/antiplatelets; Z79.899 Other long term (current) drug therapy
CPT/HCPCS: 0241U; 36415; 71046; 80053; 83735; 83880; 84484; 85025; 93005; 99285

== ENCOUNTER → 2025-03-13 11:56 | Outpatient (BNV) | payer MEDICARE, MEDICAID, SELFPAY | PROVIDERS: Emergency Provider Emergency Medicine; PCP Internal Medicine; Visit Provider Internal Medicine Cardiovascular Disease | DX: I25.2 Old myocardial infarction (principal) | CPT/HCPCS: 93010 ==

== ENCOUNTER → 2025-03-13 12:20 | Outpatient (BNV) | payer MEDICARE, MEDICAID, SELFPAY | PROVIDERS: PCP Internal Medicine; Visit Provider Radiology Diagnostic Radiology | DX: R07.9 Chest pain, unspecified (principal) | CPT/HCPCS: 71046 ==

== ENCOUNTER → 2025-03-17 09:33 | Outpatient (BNV) | payer MEDICARE, MEDICAID, SELFPAY | PROVIDERS: PCP Internal Medicine; Referring Provider Internal Medicine; Visit Provider Internal Medicine | DX: C34.92 Malignant neoplasm of unspecified part of left bronchus or lung (principal) | CPT/HCPCS: 99204; G2211 ==

== ENCOUNTER 2025-03-23 12:52 | Outpatient (AMB) | payer MEDICARE, MEDICAID, SELFPAY ==
--- NOTE | 2025-03-23 13:02 | MHC.OFFVIS ---
Vital Signs 03/23/25 13:04 Height 5 ft 1 in Weight 149 lb BMI 28.2 BP 134/72 Pulse 66 Pulse Oximetry (%) 97 Oxygen Delivery Method Room Air Intake Visit Reasons: Lung Mass Workforce Development Specialist Required: No Editor Managing Director: Editor Managing Director offered & declined Accompanied by: Student Services Counselor Allergies aspartame [ASPARTAME] Allergy (Unknown, Verified 03/23/25 13:09) UNKNOWN loratadine [From CLARITIN] Allergy (Unknown, Verified 03/23/25 13:09) UNKNOWN phenylalanine [Phenylalanine] Allergy (Unknown, Verified 03/23/25 13:09) UNKNOWN dustmites Allergy (Unknown, Uncoded 03/23/25 13:09) unknown ragweed Allergy (Unknown, Uncoded 03/23/25 13:09) unknown Medication List - Last Reconciled 03/23/25 by Carol Ann Markham LPN acetaminophen 650 mg PO Q6H PRN atorvastatin 10 mg PO DAILY@1600 budesonide-formoterol 80-4.5 mcg/actuation (Symbicort) 1 puff inhalation BID calcium carbonate-vitamin D3 600 mg-10 mcg (400 unit) (Calcium 600 + D(3)) 1 tab PO DAILY@1600 cetirizine 10 mg PO DAILY@1600 cholecalciferol (vitamin D3) (Vitamin D3) 25 mcg PO DAILY denosumab (Prolia) 60 mg subcut [id number] dicyclomine 20 mg PO Q4H PRN fluticasone furoate-vilanterol 200-25 mcg/dose (Breo Ellipta) inhalation inhalational spacing device (Tae Aerosol Hitchcock Enhancer spacer) As directed ketotifen fumarate 0.025%(0.035%) 1 drp ophthalmic (eye) DAILY PRN multivitamin with folic acid 400 mcg (High Potency Multivitamin) 1 tab PO DAILY 90 days nystatin 1 appl topical DAILY PRN paroxetine HCl 40 mg PO DAILY 90 days tolnaftate 1% 1 appl topical BID PRN valacyclovir 500 mg PO DAILY@1600 HPI HPI Lung Mass: Details: Melony is a pleasant 74 year old female, never smoker, diagnosed with phenylketonuria at , HLD, osteoporosis, vitamin-D deficiency and history of cholecystectomy. She was referred by PCP for pulmonary evaluation for possible asthma vs RAD and incidental finding of JENNIFER nodule, now under the care of oncology. She is accompanied by staff from [facility], however unable to provide any information. 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 Liane stated patient had URI in November with prolonged cough and reports of chest pain from patient, otherwise no prior h/o asthma, respiratory symptoms or recurrent respiratory infections. Liane also noted that patient is quite active and would be visibly dyspneic with activity. She then had accidental fall in February subsequently evaluated [place] [facility] with incidental finding of suspicious 2.7 x 2.9 cm solid nodule in the left upper lobe. Upon discharge patient was started on Breo for symptoms suggestive of asthma, however patient could not use effectively, therefore switched to Symbicort. Since using for the last week patient reported her chest discomfort has been relieved and no longer appearing dyspneic with activity. She was evaluated by Dr. Dugan, who sent for PET scan which she had last week through [facility], report not available today. She is also scheduled for lung biopsy scheduled for next week. Liane- [phone] [facility] Medical History (Updated 03/23/25 @ 13:42 by Ana Villalobos NP) Reactive airway disease Mental disability OCD (obsessive compulsive disorder) Wheezing on auscultation Acute viral bronchitis Acute viral syndrome Hypoxia Compression fracture of lumbosacral spine Anxiety Mental disability Allergic rhinitis Elevated LFTs Osteoporosis Pure hypercholesterolemia Premature atrial contractions Surgical History (Updated 03/17/25 @ 09:54 by Kaitlin Dugan MD) S/P colonoscopy (~07/05/20) S/P laparoscopic cholecystectomy (~06/28/14) Family History Other Family history unknown Social History Household Members: Other Household Members Other:: [facility] Housing: Other Housing Other:: [facility] Do you presently have visiting nurse or other home services: Yes Alcohol intake: never Comment: [facility] staff at bedside. Patient Tobacco Use Status: Never used Tobacco e-Cigarette/Vaping Use: Never Used Second Hand Smoke Exposure: No service: No Current occupational status: retired Cognitive needs: No Hearing needs: No Vision needs: No Review of Systems Const Denies chills, Denies excessive sweating, Denies fever(s), Denies headache(s) and Denies night sweats Eyes Denies dry eyes, Denies irritation and Denies itchy eyes ENT Reports Normal hearing present, Denies headache(s), Denies nasal congestion, Denies nasal discharge, Denies post nasal drip and Denies sore throat Card Denies chest pain, Denies chest pain at rest, Denies chest pain with activity, Denies claudication, Denies leg edema, Denies dyspnea, Denies dyspnea on exertion, Denies orthopnea and Denies paroxysmal nocturnal dyspnea Resp Denies chest congestion, Denies cough, Denies excessive phlegm production, Denies pain on inspiration, Denies pain with cough, Denies dyspnea, Denies dyspnea on exertion, Denies stridor and Denies wheezing Musc Denies myalgias Neuro Reports Normal hearing present and Denies headache(s) Endo Denies excessive sweating Harsh/Lymph Denies lymphadenopathy Aller/Immun Denies itchy eyes, Denies seasonal rhinorrhea and Denies wheezing Physical Exam Vital Signs: Last Vital Signs Pulse 66 03/23/25 13:04 BP 134/72 03/23/25 13:04 Pulse Ox 97 03/23/25 13:04 Oxygen Delivery Method Room Air 03/23/25 13:04 BMI result Body Mass Index 28.2 Const General: cooperative, healthy appearing, comfortable, no acute distress, well developed and alert Limitations: other limitations (cognitive delay d/t PKU) HEENT Head: Yes normal to inspection, Yes normocephalic and Yes atraumatic Ears: hearing grossly normal bilaterally and external ears normal Eyes General: appearance normal, both eyes and all related structures Eyelids: Yes eyelids normal Sclerae: sclerae normal EOM: EOMs intact bilaterally Neck Neck: Yes normal visual inspection and Yes no lymphadenopathy Lymphatic: no lymphadenopathy noted Chest Chest palpation & inspection: normal inspection of the chest Resp Effort & Inspection: normal respiratory effort, able to speak in complete sentences, no audible wheezes, no cough, no stridor, not tachypneic, no tripod positioning and no use of accessory muscles Auscultation: clear to auscultation bilaterally Cardio Jugular venous distension: no JVD Rate: regular rate Rhythm: regular rhythm Skin Other: warm, dry General skin exam: no rashes or lesions noted Neuro Cranial nerves: Yes Normal hearing present Cognition (Neuro): normal cognition Gait exam (Neuro): Normal gait present Extrem General: Yes normal to inspection, Yes capillary refill normal, Yes no clubbing, cyanosis or edema and Yes no pedal edema Psych Appearance: grossly normal and well kempt Speech and movement: Normal speech and movement present and Clear speech present Attitude: cooperative Insight: Poor insight present (Psych) Judgement: Poor judgement present (Psych) Assessment & Plan Assessment & Plan (1) Reactive airway disease: Code(s): J45.909 - Unspecified asthma, uncomplicated Category: Medical (2) Mass of left lung: Code(s): R91.8 - Other nonspecific abnormal finding of lung field Category: Medical (3) Mental disability: Comment: 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 Unlikely should be able to perform PFT. She has been well controlled on Symbicort, advised to continue 1 inhalation twice daily. Staff is aware to call if symptoms become less controlled. She is under the care of Oncology for suspicious 2.7 x 2.9 cm solid nodule of left upper lobe. She denies any hemoptysis or prior family history of lung cancer. She underwent PET scan at [facility] last week, report not available today. She will be undergoing lung biopsy scheduled for next week. Will be following closely for results and plan through Oncology. All questions were answered and patient is in agreement of plan. Will follow-up in 6-8 weeks or sooner if needed. Medications: New budesonide-formoterol 80-4.5 mcg/actuation (Symbicort) 1 puff inhalation Q12H 10.2 grams 6RF Coding Level of Care Code New Pt Level 4 (84951) Diagnoses Reactive airway disease J45.909 Mass of left lung R91.8 Mental disability F79
[2025-03-23 13:04] VITALS: BP 134/72; PULSE 66; O2SAT 97; BMI 28.2
== END 2025-03-23 13:19 | disposition home or self-care (01) ==
LOC: HO.HPSW 12:53
PROVIDERS: PCP Internal Medicine; Referring Provider Nurse Practitioner Family; Visit Provider Nurse Practitioner Family
DX: J45.909 Unspecified asthma, uncomplicated (principal); R91.8 Other nonspecific abnormal finding of lung field; F79 Unspecified intellectual disabilities
CPT/HCPCS: 99204

== ENCOUNTER → 2025-03-23 12:52 | Outpatient (BNVA) | payer MEDICARE, MEDICAID, SELFPAY | PROVIDERS: PCP Internal Medicine; Referring Provider Nurse Practitioner Family; Visit Provider Nurse Practitioner Family | DX: J45.909 Unspecified asthma, uncomplicated (principal); R91.8 Other nonspecific abnormal finding of lung field; F79 Unspecified intellectual disabilities | CPT/HCPCS: 99202 ==

== ENCOUNTER 2025-03-31 11:07 | Day surgery (SDC) | payer MEDICARE, MEDICAID, SELFPAY ==
[2025-03-31 11:52] VITALS: BP 149/72; PULSE 66; RESP 14; TEMP 36.7; O2SAT 97; BMI 28.2
[2025-03-31 12:04] LABS: Prothrombin Time 11.3 SEC (10.9-12.4)
--- NOTE | 2025-03-31 14:45 | PC.NURSE ---
patient arrived to pacu as per Rn. Hernandez no procedure done and no anesthesia completed.
== END 2025-03-31 14:47 | disposition home or self-care (01) ==
LOC: HO.SSS 11:08
PROVIDERS: Radiology Diagnostic Radiology; Student in an Organized Health Care Education/Training Program; PCP Internal Medicine; Visit Provider Internal Medicine
DX: R91.8 Other nonspecific abnormal finding of lung field (principal); Z53.8 Procedure and treatment not carried out for other reasons; R06.02 Shortness of breath; R05.9 Cough, unspecified; J45.909 Unspecified asthma, uncomplicated; Z77.22 Contact with and (suspected) exposure to environmental tobacco smoke (acute) (chronic); E70.1 Other hyperphenylalaninemias; Z91.81 History of falling; F79 Unspecified intellectual disabilities; M81.0 Age-related osteoporosis without current pathological fracture; E55.9 Vitamin D deficiency, unspecified; E78.5 Hyperlipidemia, unspecified
CPT/HCPCS: 36415; 85610; J2003; J2250; J2310; J3010

== ENCOUNTER 2025-04-19 17:58 | Emergency (ER) | payer MEDICARE, MEDICAID, SELFPAY ==
--- NOTE | ~2025-04-19 | XR_ITS ---
CLINICAL HISTORY: trauma 4 view left knee Comparison: X-rays of the left knee from 02/22/2025. Findings: Lateral positioning of the patella as can be seen with patellofemoral tracking syndrome. Borderline patella [place]. No displaced fracture. No dislocation. Moderate to severe osteoarthritis of the left knee. Moderate effusion present. IMPRESSION: 1. [id number] osteoarthritis of the left knee. 2. Lateral positioning of the patella, without displaced fracture or dislocation. 3. Moderate effusion present. This document has been electronically signed by: Stefano Cervantes MD on 04/19/2025 19:53:53
[2025-04-19 18:11] VITALS: BP 123/75; PULSE 74; RESP 18; TEMP 36.6; O2SAT 98; BMI 28.3
--- NOTE | 2025-04-19 19:02 | ED.GENADULT ---
HPI - General Adult General Chief complaint: Extremity Injury, Lower Stated complaint: was in day program fell on knees swollen Time Seen by Provider: 04/19/25 22:43 Source: patient and other Mode of arrival: wheelchair Limitations: no limitations History of Present Illness ED Provider: SHANIKA QUICK narrative: 74 yo female with PMH of intellectual disability, PAC, HLD, no thinners here with c/o fall after basketball at day program. Landed on both knees no head strike. NO other injuries. This is the 2nd time she has fallen. Has residentialhome improvement contractor with her. I asked if I needed to call guardian they said as long as paper filled out should be okay complaint: knee pain Onset (ago): day(s) (today) Location: left, right and lower extremity Radiation: non-radiation Severity: moderate Quality: aching Pain Consistency: intermittent Relieving factors: rest Exacerbating factors: movement Associated symptoms: denies other symptoms Treatments prior to arrival: none Related Data Home Medications ?Medication ?Instructions ?Recorded ?Confirmed denosumab 60 mg/mL subcutaneous 60 mg subcut [id number] 08/06/22 03/23/25 syringe (Prolia) dicyclomine 20 mg tablet 20 mg PO Q4H PRN IBS 06/17/24 03/23/25 acetaminophen 325 mg tablet 650 mg PO Q6H PRN Headache, 02/23/25 03/23/25 Toothache, Muscle/Joint Pain, Discomfort calcium 600 mg (as 1 tab PO DAILY@1600 02/23/25 03/23/25 carbonate)-vitamin D3 10 mcg (400 unit) tablet (Calcium 600 + D(3)) ketotifen fumarate 0.025 % (0.035 1 drp ophthalmic (eye) DAILY PRN 02/23/25 03/23/25 %) eye drops allergy symptoms amoxicillin 500 mg capsule 1,000 mg PO BID 04/07/25 04/07/25 dextromethorphan-guaifenesin 20 10 ml PO DAILY 04/07/25 04/07/25 mg-200 mg/10 mL prefilled spoon dicyclomine 20 mg tablet 20 mg PO DAILY 04/07/25 04/07/25 valacyclovir 500 mg tablet mg 04/07/25 (Valtrex) Previous Rx's ?Medication ?Instructions ?Recorded nystatin 100,000 unit/gram topical 1 appl topical DAILY PRN rash #15 06/17/24 powder grams tolnaftate 1 % topical cream 1 appl topical BID PRN rash #30 06/17/24 grams atorvastatin 10 mg tablet 10 mg PO DAILY@1600 #30 tabs 03/04/25 inhalational spacing device (Tae #1 ea 03/05/[address] [place] Enhancer spacer) cholecalciferol (vitamin D3) 25 25 mcg PO DAILY #28 caps 03/11/25 mcg (1,000 unit) capsule (Vitamin D3) paroxetine HCl 40 mg tablet 40 mg PO DAILY 90 days #90 tabs 03/11/25 budesonide-formoterol HFA 80 1 puff inhalation BID #10.2 grams 03/23/25 mcg-4.5 mcg/actuation aerosol inhaler (Symbicort) budesonide-formoterol HFA 80 1 puff inhalation Q12H #10.2 grams 03/23/25 mcg-4.5 mcg/actuation aerosol inhaler (Symbicort) cetirizine 10 mg tablet 10 mg PO DAILY@1600 for allergies 04/06/25 #30 tabs multivitamin with folic acid 400 1 tab PO DAILY 90 days #90 tabs 04/06/25 mcg tablet (High Potency Multivitamin) valacyclovir 500 mg tablet 500 mg PO DAILY@1600 #28 tabs 04/06/25 Allergies Allergy/AdvReac Type Severity Reaction Status Date / Time aspartame [ASPARTAME] Allergy Unknown UNKNOWN Verified 04/19/25 18:13 loratadine [From CLARITIN] Allergy Unknown UNKNOWN Verified 04/19/25 18:13 phenylalanine [Phenylalanine] Allergy Unknown UNKNOWN Verified 04/19/25 18:13 dustmites Allergy Unknown unknown Uncoded 04/19/25 18:13 ragweed Allergy Unknown unknown Uncoded 04/19/25 18:13 Review of Systems Review of Systems: Constitutional : No Fever, No Chills ENT/Mouth : No Ear Pain, No Hoarseness, No sore throat Eyes: No Eye Pain, No Swelling, No Redness, No Foreign Body Cardiovascular : No Chest Pain, No SOB Respiratory : No Cough, No Dyspnea Gastrointestinal : No Nausea, No Vomiting, No Diarrhea, No abdominal Pain Genitourinary : No Dysuria, No Hematuria Musculoskeletal : positive joint pain, No Myalgias, pos Joint Swelling Skin : No Skin lacerations, No rash Neuro : No Weakness, No Numbness, No Loss of Consciousness, No Dizziness, No Headache All other systems reviewed and are negative [facility] Past Medical History Medical History (Updated 04/19/25 @ 22:49 by Meghann Quintero DO) PKU (phenylketonuria) OCD (obsessive compulsive disorder) Wheezing on auscultation Acute viral bronchitis Reactive airway disease Hypoxia Compression fracture of lumbosacral spine Anxiety Mental disability Allergic rhinitis Elevated LFTs Osteoporosis Pure hypercholesterolemia Premature atrial contractions Surgical History S/P colonoscopy (~07/05/20) S/P laparoscopic cholecystectomy (~06/28/14) Family History Family History Other Family history unknown Social History Social History Household Members: Other Household Members Other:: residential Housing: Other Housing Other:: residential Are you a primary home care associate to a significant other at home: No Do you presently have visiting nurse or other home services: No Alcohol intake: never Comment: alf staff at bedside. Patient Tobacco Use Status: Never used Tobacco e-Cigarette/Vaping Use: Never Used Second Hand Smoke Exposure: No Advance Directives: No Advance Directives Information Provided: No Do you have a plan to hurt others: No Plan service: No Current occupational status: retired Cognitive needs: No Hearing needs: No Vision needs: No Physical Exam ED Vital Signs: Vital Signs - 24 hr 04/19/25 18:11 Temperature 98 F Pulse Rate 74 Respiratory Rate 18 Blood Pressure 123/75 Pulse Oximetry 98 Oxygen Delivery Method Room Air BMI result Body Mass Index 28.3 Appearance: Alert. Oriented at baseline. No acute distress. Eyes: Pupils equal, round and reactive to light. ENT: Pharynx normal. Neck: Normal inspection. Neck supple. CVS: Normal heart rate and rhythm. Pulses normal. Respiratory: No respiratory distress. Breath sounds normal. Abdomen: Soft and nontender. Skin: Skin warm and dry. Normal skin color. Normal skin turgor. Extremities: No lower extremity edema. abrasions to both knees, effusion noted mild, distal NV intact, normal ROM of knee and no pain on patella Neuro: Oriented X at baseline No motor deficit. No sensory deficit. CN2-12 intact Course Course Course Narrative: RME, this is a rapid medical exam performed by Leonard Clements please refer to primary provider for complete H&P- 74-year-old female presents for evaluation of left knee pain. She is playing basketball at a day program when she fell on injure her left knee. Plan for x-rays Medications Administered Discontinued Medications Generic Name Dose Route Start Last Admin Trade Name Freq PRN Reason Stop Dose Admin Acetaminophen 650 mg 04/19/25 21:11 04/19/25 21:13 Acetaminophen 325 Mg Tablet PO 04/19/25 21:12 650 mg ONCE ONE Administration Medical Decision Making Medical Decision Making [facility] Narrative: 74 yo female with PMH of intellectual disability, PAC, HLD, no thinners here with c/o fall to knees no LOC and no headstrike reported at this time xray ordered, she is NV intact, will provide TAE wrap and defer crutches due to inability to use them. No head strike noted. Refer to PCP Differential Diagnosis Differential Diagnoses: The differential diagnosis associated with the presentation includes sprain, strain, fracture Independent Interpretation I performed an independent interpretation of an: Plain X-Ray (no fx) Radiology Impression Discussion of test interpretation with radiology: I have reviewed the radiologist's reading. Independent Historian Clinical information obtained from an independent historian. History obtained from or confirmed by: Other External Record Review External record reviewed: Outpatient record Prescription Management I considered prescription management with: Pain Medication Discharge Plan Discharge Clinical Impression: Injury of knee, left Qualifiers: Encounter type: initial encounter Qualified Code(s): S89.92XA - Unspecified injury of left lower leg, initial encounter Patient Disposition: Home, Self-Care Instructions: Swollen Knee Joint (ED), Arthralgia (ED) Additional Instructions: xray no broken bone needs to follow up with PCP for possible MRI no basketball until cleared return for worsening symptoms, pain, swelling or any other concerns tae wrap for the next 1 week Prescriptions: No Action atorvastatin 10 mg tablet 10 mg PO DAILY@1600 Qty: 30 3RF cholecalciferol (vitamin D3) [Vitamin D3] 25 mcg (1,000 unit) capsule 25 mcg PO DAILY Qty: 28 3RF paroxetine HCl 40 mg tablet 40 mg PO DAILY 90 Days Qty: 90 0RF budesonide-formoterol [Symbicort] 80-4.5 mcg/actuation HFA aerosol inhaler 1 puff inhalation BID Qty: 10.2 0RF valacyclovir 500 mg tablet 500 mg PO DAILY@1600 Qty: 28 0RF multivitamin with folic acid [High Potency Multivitamin] 400 mcg tablet 1 tab PO DAILY 90 Days Qty: 90 0RF cetirizine 10 mg tablet 10 mg PO DAILY@1600 Qty: 30 0RF calcium carbonate-vitamin D3 [Calcium 600 + D(3)] 600 mg-10 mcg (400 unit) Tablet 1 tab PO DAILY@1600 acetaminophen 325 mg tablet 650 mg PO Q6H PRN (Reason: Headache, Toothache, Muscle/Joint Pain, Discomfort) Rx Instructions: Take 2 tablets for temperature > 101, headache, toothache, muscle pain, joint pain, discomfort due to minor injury or sutures. Call PCP if symptoms continue more than 48 hours; DO not exceed 4 doses in 24 hours ketotifen fumarate 0.025 % (0.035 %) drops 1 drp ophthalmic (eye) DAILY PRN (Reason: allergy symptoms) Rx Instructions: apply to both eyes once daily at 4 PM amoxicillin 500 mg capsule 1,000 mg PO BID valacyclovir [Valtrex] 500 mg Tablet dicyclomine 20 mg Tablet 20 mg PO DAILY Robitussin DM To Go 20-200 mg/10 mL Prefilled Spoon 10 ml PO DAILY Prolia 60 mg/mL syringe 60 mg subcut [id number] dicyclomine 20 mg tablet 20 mg PO Q4H PRN (Reason: IBS) nystatin 100,000 unit/gram powder 1 appl topical DAILY PRN (Reason: rash) Qty: 15 0RF Rx Instructions: Not to be used with antifungal cream. tolnaftate 1 % cream 1 appl topical BID PRN (Reason: rash) Qty: 30 0RF (DME) Tae Aerosol [facility] Enhancer Spacer See Rx Instructions .Route Qty: 1 0RF Rx Instructions: As directed budesonide-formoterol [Symbicort] 80-4.5 mcg/actuation HFA aerosol inhaler 1 puff inhalation Q12H Qty: 10.2 6RF Interventions: ED Discharge Assessment Last Done: 04/19/25 23:02 Print Language: Indian
[2025-04-19] MEDS: Acetaminophen 325 MG TABLET 650 MG PO (21:13)
--- OUTSIDE RECORDS SUMMARY | 2025-04-19 22:51 | XMS_ITS | Clinical Summary ---
Author Organization [facility] Address [address] [place] [address] Phone Care Team Providers Care Slope Hoist Operator Name Role Phone Unavailable Primary Care Provider Unavailabl e Encounters Date Type Department Care Team Description 03/19/2025 10:30 AM EDT - 03/19/2025 11:59 PM EDT Hospital Encounter [facility] PET Scan [address] [place] [address] Lung mass Discharge Disposition: Home [...] Signed Date: 03/24/2025 13:53 ET Workstation ID: [id number] Transcribed By: Self Edit Transcribed Date: 03/24/2025 [...] Signed Date: 03/24/2025 13:53 ET Workstation ID: [id number] Transcribed By: Self Edit Transcribed Date: 03/24/2025 13:48 ET [facility]aitlin Dugan MD [facility] Final Result from Last 3 Months Insurance MEDICARE MEDICAID - [place]
[2025-04-19 23:02] VITALS: BP 123/75; PULSE 74; RESP 18; TEMP 36.6; O2SAT 98
== END 2025-04-19 23:02 | disposition home or self-care (01) ==
PROVIDERS: Emergency Provider Emergency Medicine; PCP Internal Medicine
DX: S89.92XA Unspecified injury of left lower leg, initial encounter (principal); F79 Unspecified intellectual disabilities; X50.1XXA Overexertion from prolonged static or awkward postures, initial encounter; X50.3XXA Overexertion from repetitive movements, initial encounter; Y93.9 Activity, unspecified; Y92.310 Basketball court as the place of occurrence of the external cause; Y99.8 Other external cause status; Z79.899 Other long term (current) drug therapy
CPT/HCPCS: 73564; 99283

== ENCOUNTER → 2025-04-19 19:02 | Outpatient (BNV) | payer MEDICARE, MEDICAID, SELFPAY | PROVIDERS: PCP Internal Medicine; Visit Provider Radiology Neuroradiology | DX: M17.12 Unilateral primary osteoarthritis, left knee (principal) | CPT/HCPCS: 73564 ==

== ENCOUNTER 2025-04-26 10:48 | Day surgery (SDC) | payer MEDICARE, MEDICAID, SELFPAY ==
--- OUTSIDE RECORDS SUMMARY | 2025-04-12 13:10 | XMS_ITS | Clinical Summary ---
Author Organization [facility] Address [address] [place] [address] Phone Care Team Providers Care Insulator Cutter And Former Name Role Phone Unavailable Primary Care Provider Unavailabl e Encounters Date Type Department Care Team Description 03/19/2025 10:30 AM EDT - 03/19/2025 11:59 PM EDT Hospital Encounter [facility] PET Scan [address] [place] [address] Lung mass Discharge Disposition: Home or Self Care from Last 3 Months Social History Tobacco Use Types Packs/Day Years Used Date Smoking Tobacco: Never Assessed Comments Unknown Sex and Gender Information Value Date Recorded Sex Assigned at Not on file Legal Sex Female 2:22 PM EDT Gender Identity Not on file Sexual Orientation Not on file Plan of Treatment Health Maintenance Due Date Last Done Comments Breast Cancer Screening 1950 Pneumococcal Vaccine: 50+ Years (2 of 2 - PCV) 04/11/2017 04/11/2016 Zoster Vaccines (2 of 2) 01/15/2020 11/20/2019, 08/04/2015 COVID-19 Vaccine ( season) 2024 11/29/2021, 01/13/2021, 12/16/2020 Colorectal Cancer Screening: Colonoscopy 03/19/2025 Depression Screening 03/19/2025 Falls Risk Assessment 03/19/2025 Hepatitis C Screening 03/19/2025 Medicare Annual Wellness Visit 03/19/2025 Osteoporosis Screening (Bone Density Screening) 03/19/2025 Social Influencers of Health Screening 03/19/2025 DTaP,Tdap,and Td Vaccines (2 - Td or Tdap) 04/11/2026 04/11/2016 RSV Immunization Adult Patients (1 - 1-dose 75+ series) 2026 Varicella Vaccines Aged Out 06/16/2015 No longer eligible based on patient's age to complete this topic Influenza Vaccine Completed 08/21/2024, , 09/15/2022, Additional history exists HIB Vaccines Aged Out No longer eligi ble based on patient's age to complete this topic HPV Vaccines Aged Out No longer eligi ble based on patient's age to complete this topic Hepatitis A Vaccines Aged Out No long er eligible based on patient's age to complete this topic Hepatitis B Vaccines Aged Out No long er eligible based on patient's age to complete this topic IPV Vaccines Aged Out No longer eligi ble based on patient's age to complete this topic MMR Vaccines Aged Out No longer eligi ble based on patient's age to complete this topic Meningococcal ACWY Vaccine Aged Out N o longer eligible based on patient's age to complete this topic Meningococcal B Vaccine Aged Out No l onger eligible based on patient's age to complete this topic RSV Immunization Patients Under 20 months Aged Out No longer eligible based on patient's age to complete this topic Procedures Procedure Name Priority Date/Time Associated Diagnosis Comments PET CT SKULL TO MID THIGH INITIAL Routine 03/19/2025 12:09 PM EDT Lung mass from Last 3 Months Results * PET CT Skull to Mid Thigh Initial (03/19/2025 12:09 PM EDT) Anatomical Region Laterality Modality Body Radiographic Charlette ging 03/24/2025 1:48 PM EDT Impressions 03/24/2025 1:53 PM EDT Mild metabolic activity associated with left upper lobe pulmonary nodule. Consider neoplasm versus inflammatory changes. Mild metabolic activity within left hilum and AP window regions may represent small avid nodes. Recommend CT scan with contrast for further evaluation. Diagnostic quality of imaging limited secondary to patient motion. -------- FINAL REPORT -------- Dictated By: Refugio Owens Dictated Date: 03/24/2025 13:48 ET Assigned Physician: Refugio Owens Reviewed and Electronically Signed By: Refugio Owens Signed Date: 03/24/2025 13:53 ET Workstation ID: [id number] Transcribed By: Self Edit Transcribed Date: 03/24/2025 13:48 ET Narrative 03/24/2025 1:53 PM EDT INDICATION: Lung carcinoma, initial treatment strategy Prior relevant studies: No prior studies available for review or comparison. Radiopharmaceutical: 11.1 mCi of F-18 FDG IV. Blood glucose: 99 mg/dl. PROCEDURE: Routine body FDG PET-CT imaging was performed from the skull base to the proximal/mid thighs and reconstructed in axial, coronal, and sagittal planes at the computer workstation with fused data from both the PET imaging study and attenuation correction CT. The CT portion of the examination was done strictly for attenuation correction and is not a true diagnostic CT examination. CTDI: 4.21 mGy FINDINGS: Study is limited secondary to motion which significantly limits the utility of the fused images particularly within the lower abdomen and pelvis as well as head and neck region. HEAD AND NECK: No abnormal FDG activity. THORAX: Mild focal activity associated with left upper lobe pulmonary nodule SUV max of 2. Mild focal activity in the region of the AP window and left upper hilar region SUV max of 2.6 is nonspecific and small avid nodes cannot be excluded. Multifocal activity noted along anterior right ribs consistent with fractures. ABDOMEN/PELVIS: No abnormal FDG activity. MUSCULOSKELETAL: No abnormal FDG activity. Procedure Note Refugio Owens MD - 03/24/2025 INDICATION: Lung carcinoma, initial treatment strategy Prior relevant studies: No prior studies available for review orcomparison. Radiopharmaceutical: 11.1 mCi of F-18 FDG IV. Blood glucose: 99 mg/dl. PROCEDURE: Routine body FDG PET-CT imaging was performed from the skullbase to the proximal/mid thighs and reconstructed in axial, coronal, andsagittal planes at the computer workstation with fused data from both thePET imaging study and attenuation correction CT. The CT portion of theexamination was done strictly for attenuation correction and is not a truediagnostic CT examination. CTDI: 4.21 mGy FINDINGS: Study is limited secondary to motion which significantly limitsthe utility of the fused images particularly within the lower abdomen andpelvis as well as head and neck region. HEAD AND NECK: No abnormal FDG activity. THORAX: Mild focal activity associated with left upper lobe pulmonarynodule SUV max of 2. Mild focal activity in the region of the AP window and left upper hilarregion SUV max of 2.6 is nonspecific and small avid nodes cannot beexcluded. Multifocal activity noted along anterior right ribs consistent withfractures. ABDOMEN/PELVIS: No abnormal FDG activity. MUSCULOSKELETAL: No abnormal FDG activity. IMPRESSION: Mild metabolic activity associated with left upper lobe pulmonary nodule.Consider neoplasm versus inflammatory changes. Mild metabolic activity within left hilum and AP window regions mayrepresent small avid nodes. Recommend CT scan with contrast for furtherevaluation. Diagnostic quality of imaging limited secondary to patient motion. -------- FINAL REPORT -------- Dictated By: Refugio Owens Dictated Date: 03/24/2025 13:48 ET Assigned Physician: Refugio Owens Reviewed and Electronically Signed By: Refugio Owens Signed Date: 03/24/2025 13:53 ET Workstation ID: [id number] Transcribed By: Self Edit Transcribed Date: 03/24/2025 13:48 ET Kaitlin Dugan MD [facility] Final Result from Last 3 Months Insurance MEDICARE [place]ICA[place] - [place]
[2025-04-21 09:45] VITALS: BMI 28.2
[2025-04-21 11:26] VITALS: BMI 23.0
--- NOTE | 2025-04-21 13:44 | HO.ANESPROP2 ---
Documented by User: Kay Mack NP 04/22/25 09:31 HPI - Anesthesia Eval Consult details Narrative: 74yo F for Left Fine Needle Biopsy CT Guided lung (pt previously did not tolerate with conscious sedation) PKU - consider when administering propofol or N2O Guardian for consent PMFSH Active Problems Active Problems: All Active Problems Leukocytosis (Acute) Contusion, eye, right (Acute) Fall (Acute) Hypoxia (Acute) Mass of left lung (Acute) Rash (Acute) Annual physical exam (Acute) PVC (premature ventricular contraction) (Acute) Reactive airway disease (Acute) Wheezing on auscultation (Acute) Acute viral bronchitis (Acute) Compression fracture of lumbosacral spine (Acute) Mental disability (Acute) Allergic rhinitis (Acute) Elevated LFTs (Acute) Osteoporosis (Acute) Pure hypercholesterolemia (Acute) Premature atrial contractions (Acute) Past Medical History Medical History (Updated 04/21/25 @ 09:57 by Yary Espinoza RN) PKU (phenylketonuria) OCD (obsessive compulsive disorder) Wheezing on auscultation Acute viral bronchitis Reactive airway disease Hypoxia Compression fracture of lumbosacral spine Anxiety Mental disability Allergic rhinitis Elevated LFTs Osteoporosis Pure hypercholesterolemia Premature atrial contractions Family History Family History Other Family history unknown Surgical History Surgical History S/P colonoscopy (~07/05/20) S/P laparoscopic cholecystectomy (~06/28/14) Social History Social History Household Members: Other Household Members Other:: long term residents 7 staff Housing: Other Housing Other:: long term Are you a primary palliative care coordinator to a significant other at home: No Do you presently have visiting nurse or other home services: Yes (resides in long term) Alcohol intake: never Comment: [facility] staff at bedside. Patient Tobacco Use Status: Never used Tobacco e-Cigarette/Vaping Use: Never Used Second Hand Smoke Exposure: No Use of substances other than those prescribed or required for medical reasons: No Have you been hit, kicked, punched, or otherwise hurt by someone within the past year? If so, by whom?: No Spiritual Healthcare Practices: no Rastafarian Healthcare Practices: no Cultural Healthcare Practices: no Are you DNR?: No Advance Directives: Yes (guardianship document) Advance Directives Information Provided: Yes Advance Directives on File: Yes Advance Directives Date on File: 02/26/25 Patient : No FDLMP: n/a service: No Current occupational status: retired Cognitive needs: No Hearing needs: No Vision needs: No Meds Allergies Allergy/AdvReac Type Severity Reaction Status Date / Time aspartame [ASPARTAME] Allergy Severe cannot Verified 04/26/25 11:23 take due to PKU dx phenylalanine [Phenylalanine] Allergy Severe cannot Verified 04/26/25 11:23 take due to PKU dx cat dander [cats] Allergy Intermediate Itching Verified 04/26/25 11:24 loratadine [From CLARITIN] Allergy Intermediate Itchy and Verified 04/26/25 11:23 red eyes tree and shrub pollen Allergy Intermediate Itching Verified 04/26/25 11:24 dustmites Allergy Intermediate Itching Uncoded 04/26/25 11:23 ragweed Allergy Intermediate Itching Uncoded 04/26/25 11:23 Home Medications ?Medication ?Instructions ?Recorded ?Confirmed ?Last Taken ?Type denosumab 60 mg/mL subcutaneous 60 mg subcut [id number] 08/06/22 04/26/25 3 Months Ago History syringe (Prolia) ~09/10/24 acetaminophen 325 mg tablet 650 mg PO Q6H PRN Headache, 02/23/25 04/26/25 Unknown History Toothache, Muscle/Joint Pain, Discomfort calcium 600 mg (as 1 tab PO DAILY@1600 02/23/25 04/26/25 Unknown History carbonate)-vitamin D3 10 mcg (400 unit) tablet (Calcium 600 + D(3)) ketotifen fumarate 0.025 % (0.035 1 drp ophthalmic (eye) DAILY PRN 02/23/25 04/26/25 Unknown History %) eye drops allergy symptoms dextromethorphan-guaifenesin 20 10 ml PO DAILY 04/07/25 04/26/25 Unknown History mg-200 mg/10 mL prefilled spoon dicyclomine 20 mg tablet 20 mg PO DAILY 04/07/25 04/26/25 Unknown History Exam Height,Weight and Vital Signs: Height 5 ft 2 in Weight 57.153 kg Pertinent Lab Results Pertinent Lab Results: Laboratory Tests 03/13/25 12:28 WBC 7.0 Hgb 13.3 Hct 40.6 Plt Count 221 D Sodium 146 H Potassium 4.1 Chloride 112 H Carbon Dioxide 24 BUN 18 H Creatinine 0.73 Narrative Narrative: EKG 03/2025 Vent. Rate : 76 BPM Atrial Rate : 76 BPM P-R Int : 158 ms QRS Dur : 74 ms QT Int : 380 ms P-R-T Axes : 51 47 43 degrees QTcB Int : 427 ms Normal sinus rhythm Septal infarct (cited on or before 24-Feb-2025) Abnormal ECG When compared with ECG of 24-Feb-2025 03:30, Nonspecific T wave abnormality, worse in Anterior leads Assessment and Plan Assessment Anesthesia Assessment: Chart Reviewed Documented by User: Kristi Rosario MD 04/26/25 11:47 [facility] Past Medical History Medical History (Updated 04/21/25 @ 09:57 by Yary Espinoza RN) PKU (phenylketonuria) OCD (obsessive compulsive disorder) Wheezing on auscultation Acute viral bronchitis Reactive airway disease Hypoxia Compression fracture of lumbosacral spine Anxiety Mental disability Allergic rhinitis Elevated LFTs Osteoporosis Pure hypercholesterolemia Premature atrial contractions Family History Family History Other Family history unknown Family history of problems with anesthesia: No Surgical History Surgical History S/P colonoscopy (~07/05/20) S/P laparoscopic cholecystectomy (~06/28/14) History of Problems with Anesthesia: No Social History Social History Household Members: Other Household Members Other:: long term residents 7 staff Housing: Other Housing Other:: long term Are you a primary palliative care coordinator to a significant other at home: No Do you presently have visiting nurse or other home services: Yes (resides in long term) Alcohol intake: never Comment: [facility] staff at bedside. Patient Tobacco Use Status: Never used Tobacco e-Cigarette/Vaping Use: Never Used Second Hand Smoke Exposure: No Use of substances other than those prescribed or required for medical reasons: No Have you been hit, kicked, punched, or otherwise hurt by someone within the past year? If so, by whom?: No Spiritual Healthcare Practices: no Rastafarian Healthcare Practices: no Cultural Healthcare Practices: no Are you DNR?: No Advance Directives: Yes (guardianship document) Advance Directives Information Provided: Yes Advance Directives on File: Yes Advance Directives Date on File: 02/26/25 Patient : No FDLMP: n/a service: No Current occupational status: retired Cognitive needs: No Hearing needs: No Vision needs: No Meds Allergies Allergy/AdvReac Type Severity Reaction Status Date / Time aspartame [ASPARTAME] Allergy Severe cannot Verified 04/26/25 11:23 take due to PKU dx phenylalanine [Phenylalanine] Allergy Severe cannot Verified 04/26/25 11:23 take due to PKU dx cat dander [cats] Allergy Intermediate Itching Verified 04/26/25 11:24 loratadine [From CLARITIN] Allergy Intermediate Itchy and Verified 04/26/25 11:23 red eyes tree and shrub pollen Allergy Intermediate Itching Verified 04/26/25 11:24 dustmites Allergy Intermediate Itching Uncoded 04/26/25 11:23 ragweed Allergy Intermediate Itching Uncoded 04/26/25 11:23 Home Medications ?Medication ?Instructions ?Recorded ?Confirmed ?Last Taken ?Type denosumab 60 mg/mL subcutaneous 60 mg subcut [id number] 08/06/22 04/26/25 3 Months Ago History syringe (Prolia) ~09/10/24 acetaminophen 325 mg tablet 650 mg PO Q6H PRN Headache, 02/23/25 04/26/25 Unknown History Toothache, Muscle/Joint Pain, Discomfort calcium 600 mg (as 1 tab PO DAILY@1600 02/23/25 04/26/25 Unknown History carbonate)-vitamin D3 10 mcg (400 unit) tablet (Calcium 600 + D(3)) ketotifen fumarate 0.025 % (0.035 1 drp ophthalmic (eye) DAILY PRN 02/23/25 04/26/25 Unknown History %) eye drops allergy symptoms dextromethorphan-guaifenesin 20 10 ml PO DAILY 04/07/25 04/26/25 Unknown History mg-200 mg/10 mL prefilled spoon dicyclomine 20 mg tablet 20 mg PO DAILY 04/07/25 04/26/25 Unknown History Exam Airway Mallampati Class: II TM Dist: >3cm Neck ROM: Full Partial: Lower Heart: rrr Lungs: cta Assessment and Plan Assessment Anesthesia Assessment: Anesthesia Plan Discussed Final Anesthetic Review Family History of Problems with Anesthesia: No History of Problems with Anesthesia: No NPO: Yes ASA Class: III Final Preanesthetic Review: No Changes in Pt Med Stat, Meds/Allgs Chart Reviewed and Consent Obtained/Reviewed Patient Risk: Intermediate Procedure Risk: Intermediate Anesthetic Plan Anesthetic Plan: MAC: Disposition: Standard PACU
[2025-04-26] VITALS (12 sets, daily range): BP systolic 103–153; BP diastolic 59–81; PULSE 76–93; RESP 16–21; TEMP 36.4–37.2; O2SAT 93–97
--- NOTE | ~2025-04-26 | XR_ITS ---
EXAMINATION: XR CHEST CLINICAL INFORMATION: s/p lung biopsy, assess pneumo COMPARISON: CT biopsy left lung earlier same day. Chest x-ray 03/13/2025. TECHNIQUE: Inspiratory and expiratory AP views of the chest were obtained. FINDINGS: The cardiac, hilar, and mediastinal contours are normal. Left upper lobe rounded opacity, consistent with postbiopsy changes and index lesion. Trace left apical pneumothorax measuring 4 mm seen only on the expiratory view. This is not well seen on the inspiratory view. The right lung remains clear. There is no focal osseous or soft tissue abnormality. Cholecystectomy clips noted. XR/XR chest 2V IMPRESSION: 1. Expected postbiopsy changes left upper lobe, with index lesion. 2. Tiny left apical pneumothorax seen only on expiratory view. This is similar in size to the post biopsy CT images. Electronically signed by: Antonino Carrera MD 04/26/2025 04:26 PM EDT
--- NOTE | ~2025-04-26 | CT_ITS ---
PROCEDURE: CT GUIDED BIOPSY, LUNG CLINICAL INFORMATION: Left upper lobe 2.9 x 2.2 x 1.5 cm mass. COMPARISON: CT chest 02/22/2025 TECHNIQUE: Following explaining CT-guided left upper lobe biopsy procedure, benefits and risk to the patient's guardian, a written consent was obtained. Patient was placed in the right semi decubitus view and preliminary CT imaging was obtained. Markers were placed along the left upper lateral chest wall and repeat CT imaging was obtained. An optimal marker was selected and marked on the skin. The marked site was cleaned and draped in usual sterile manner. 1% lidocaine was injected at puncture site. Through a small skin incision a 20-gauge guide needle was inserted from the marked site on the skin to the left upper lobe lesion. Coaxially a biopsy gun was administered and 3 pass biopsy was performed. After after obtaining adequate sample 5 to 10 mL of blood was injected through the guide needle and needle withdrawn. Patient tolerated procedure extremely well. Simple dressing was applied post procedure. A chest x-ray was to be obtained at 4:[address] was performed with anesthesia department. This CT examination was performed using dose optimization techniques as appropriate, variously including the following: *Automated exposure control *Adjustment of mA and/or kV according to patient size (this includes techniques or standardized protocols for targeted exams where dose is matched to indication/reason for exam; i.e. extremities or head) *Use of iterative reconstruction technique FINDINGS/ CT/CT biopsy lung LT IMPRESSION: There is a left upper lobe mass. The mass appears increased in size compared to previous study and measures approximately 2.[address] fluoroscopy guided left upper lobe mass biopsy performed. Postbiopsy there is a very tiny left apical pneumothorax noted. A chest x-ray was to be obtained subsequently at 4:00 PM. DLP: 410 mGy/cm. Electronically signed by: Jeancarlos Quiroga MD 04/26/2025 04:20 PM EDT
[2025-04-26] MEDS: Lactated Ringers 1,000 ML 100 ML IVCONT (11:31)
[2025-04-26 11:34] LABS: MANUAL DIFF FLAG NO
[2025-04-26 11:36] LABS: Basophils Percent Auto 0.5 % (0-2); Eosinophils Absolute Auto 0.1 X10*3/uL (0.0-0.4); Eosinophils Percent Auto 1.3 % (0-4); Hematocrit 40.3 % (37.0-47.0); Hemoglobin 13.5 g/dl (12.0-16.0); Imm Gran Abs Auto 0.02 X10*3/uL (0.00-0.03); Imm Gran Pct Auto 0.3 % (0.0-0.4); Lymphocytes Absolute Auto 1.3 X10*3/uL (1.2-4.9); Lymphocytes Percent Auto 20.8 % (20-40); Mean Corpuscular HGB Conc 33.5 g/dl (31.0-35.0); Mean Corpuscular Hemoglobin 30.8 pg (27.0-33.0); Mean Platelet Volume 10.6 fL (9.4-12.3); Monocytes Absolute Auto 0.5 X10*3/uL (0.1-1.2); Monocytes Percent Auto 8.3 % (2-11); Neutrophils Absolute Auto 4.4 x10*3/uL (2.0-8.3); Neutrophils Percent Auto 68.8 % (45-73); Platelet Count 180 X10*3/uL (160-400); Red Blood Count 4.38 X10*6/uL (4.20-5.50); Red Cell Distribution Width 12.5 % (11.0-16.0); White Blood Count 6.4 X10*3/uL (4.8-10.8)
[2025-04-26 11:47] LABS: Prothrombin Time 10.9 SEC (10.9-12.4)
[2025-04-26 11:48] LABS: Anion Gap 12 (12-20); Blood Urea Nitrogen 13 mg/dL (9-16); Calcium 9.2 mg/dL (8.4-10.2); Carbon Dioxide 27 mmol/L (22-29); Chloride 108 mmol/L (96-108); Creatinine Clr Calc Pharmacy 53.6; Estimated Glomerular Filt Rate > 60; Glucose Random 92 mg/dL (60-115); Potassium 4.2 mmol/L (3.3-5.1); Sodium 143 mmol/L (135-145)
[2025-04-26 11:50] LABS: Partial Thromboplastin Time 31.9 SEC (26.0-36.8)
== END 2025-04-26 17:09 | disposition home or self-care (01) ==
PROVIDERS: Radiology Diagnostic Radiology; PCP Internal Medicine; Visit Provider Internal Medicine
DX: R91.1 Solitary pulmonary nodule (principal); E70.1 Other hyperphenylalaninemias; F79 Unspecified intellectual disabilities; F42.9 Obsessive-compulsive disorder, unspecified; I49.1 Atrial premature depolarization; E78.00 Pure hypercholesterolemia, unspecified; J45.909 Unspecified asthma, uncomplicated; R09.02 Hypoxemia; M80.88XA Other osteoporosis with current pathological fracture, vertebra(e), initial encounter for fracture; Z77.22 Contact with and (suspected) exposure to environmental tobacco smoke (acute) (chronic); Z79.83 Long term (current) use of bisphosphonates; Z79.899 Other long term (current) drug therapy; Z88.8 Allergy status to other drugs, medicaments and biological substances; Z90.49 Acquired absence of other specified parts of digestive tract
CPT/HCPCS: 32408; 36415; 71046; 80048; 85025; 85610; 85730; 88305; J2003; J2250; J2704; J3010

== ENCOUNTER → 2025-04-26 13:16 | Outpatient (BNV) | payer MEDICARE, MEDICAID, SELFPAY | PROVIDERS: PCP Internal Medicine; Visit Provider Radiology Diagnostic Radiology | DX: R91.8 Other nonspecific abnormal finding of lung field (principal) | CPT/HCPCS: 32408; 71046 ==

== ENCOUNTER 2025-04-30 08:56 | Outpatient (AMB) | payer MEDICARE, MEDICAID, SELFPAY ==
--- OUTSIDE RECORDS SUMMARY | 2025-04-30 09:04 | XMS_ITS | Clinical Summary ---
Author Organization [facility] Address [address] [place] [address] Phone Care Team Providers Care Care Clinician Name Role Phone Unavailable Primary Care Provider Unavailabl e Encounters Date Type Department Care Team Description 03/19/2025 10:30 AM EDT - 03/19/2025 11:59 PM EDT Hospital Encounter [facility] PET Scan [address] [place] [address] Lung mass Discharge Disposition: Home [...] Signed Date: 03/24/2025 13:53 ET Workstation ID: [id number] Transcribed By: Self Edit Transcribed Date: 03/24/2025 [...] Signed Date: 03/24/2025 13:53 ET Workstation ID: [id number] Transcribed By: Self Edit Transcribed Date: 03/24/2025 13:48 ET Kaitlin Dugan MD [facility] Final Result from Last 3 Months Insurance MEDICARE MEDICAID - [place]
[2025-04-30 09:09] VITALS: BP 120/62; PULSE 70; TEMP 36.2; O2SAT 97
--- NOTE | 2025-04-30 09:09 | A.OFFPC_ITS ---
Vital Signs 04/30/25 09:09 Weight 149 lb 4 oz BP 120/62 Blood Pressure Location Lt brachial Position Sitting Pulse 70 Pulse Source Pulse Oximeter Temp 97.1 F Temp Source Temporal Artery Scan Pulse Oximetry (%) 97 Oxygen Delivery Method Room Air Intake Visit Reasons: [facility] [place] 04/19 left knee pain Registered Dietician Required: No Accompanied by: Commercial Litigation Paralegal-Patti Ford aspartame (ASPARTAME) Allergy (Severe, Verified 04/30/25 09:12) cannot take due to PKU dx phenylalanine (Phenylalanine) Allergy (Severe, Verified 04/30/25 09:12) cannot take due to PKU dx cat dander (cats) Allergy (Intermediate, Verified 04/30/25 09:12) Itching loratadine (From CLARITIN) Allergy (Intermediate, Verified 04/30/25 09:12) Itchy and red eyes tree and shrub pollen Allergy (Intermediate, Verified 04/30/25 09:12) Itching dustmites Allergy (Intermediate, Uncoded 04/30/25 09:12) Itching ragweed Allergy (Intermediate, Uncoded 04/30/25 09:12) Itching Tobacco use date assessed: 02/19/25 Fall risk assessment: 2 + Falls in past year Last assessed Fall Risk: 04/30/25 Dental Screening Dental Screen Date: 02/19/25 HPI HPI Comments History of Present Illness Details 74 y/o Female patient with intellectual disability presents to the clinic today for EDF. She was admitted at [facility] [place] [facility] on 04/19 for an evaluation and treatment of Left Knee pain after a mechanical Fall at a Day program. All imaging negative at the ED. Today Patient reports no pain and she has resumed her regular activities. FORMERLY [facility], [facility] Medical History (Updated 04/30/25 @ 09:17 by Michelle Parker NP) Acute arthralgia of knee PKU (phenylketonuria) OCD (obsessive compulsive disorder) Wheezing on auscultation Acute viral bronchitis Reactive airway disease Hypoxia Compression fracture of lumbosacral spine Anxiety Mental disability Allergic rhinitis Elevated LFTs Osteoporosis Pure hypercholesterolemia Premature atrial contractions Surgical History S/P colonoscopy (~07/05/20) S/P laparoscopic cholecystectomy (~06/28/14) Family History Other Family history unknown Social History Household Members: Other Household Members Other:: care home residents 7 staff Housing: Other Housing Other:: care home Are you a primary childcare teacher to a significant other at home: No Do you presently have visiting nurse or other home services: Yes (resides in care home) Alcohol intake: never Comment: assisted staff at bedside. Patient Tobacco Use Status: Never used Tobacco e-Cigarette/Vaping Use: Never Used Second Hand Smoke Exposure: No Advance Directives Date on File: 02/26/25 service: No Current occupational status: retired Cognitive needs: No Hearing needs: No Vision needs: No Questionnaire PHQ-9 Over the last 2 weeks, how often have you been bothered by any of the following problems? 1. Little interest or pleasure in doing things: not at all 2. Feeling down, depressed, or hopeless: not at all 3. Trouble falling or staying asleep, or sleeping too much: not at all 4. Feeling tired or having little energy: not at all 5. Poor appetite or overeating: not at all 6. Feeling bad about yourself - or that you are a failure or have let yourself or your family down: not at all 7. Trouble concentrating on things, such as reading the newspaper or watching television: not at all 8. Moving or speaking so slowly that other people could have noticed. Or the opposite - being so fidgety or restless that you have been moving around a lot more than usual: not at all 9. Thoughts that you would be better off or of hurting yourself in some way: not at all Total score: 0 Source: Developed by Drs. Suraj Rushing, Janice Navarro, Micah Pelaez and colleagues, with an educational amna from [employer]. Thrive Questionnaire Date Thrive assessed: 12/25/24 I am a: Patient What is your living situation today?: I have a steady place to live Within the past 12 months, did the food you bought not last and you didn't have the money to get more?: Never true Within the past 12 months, did you worry whether your food would run out before you got money to buy more?: Never true Do you have trouble paying for medicines?: No Do you have trouble getting transportation to medical appointments?: No Do you have trouble paying your heating and electricity bill?: No Do you have trouble taking care of your child, family member or friend?: No Do you have trouble with day-to-day activities such as bathing, preparing meals, shopping, managing finances, etc.?: No Are you currently unemployed and looking for a job?: No Are you interested in more education?: No Please select the resources that you would like help with: None Currently or been in a relationship where the following occur: No concerns reported THRIVE Score: 0 AUDIT C Alcohol Use Questionnaire (AUDIT-C) 1. How often do you have a drink containing alcohol?: Never Total Score: 0 OANH-7 AMB Questionnaire OANH-7 Date OANH - 7 assessed: 12/25/24 Feeling nervous, anxious, or on edge: 0 = Not at all Not being able to stop or control worryin = Not at all Worrying too much about different things: 0 = Not at all Trouble relaxin = Not at all Being so restless that it is hard to sit still: 0 = Not at all Becoming easily annoyed or irritable: 0 = Not at all Feeling afraid as if something awful might happen: 0 = Not at all Total OANH-7 score (0-4 normal; 5-9 mild; 10-14 moderate; 15-21 severe): 0 Source: Developed by Drs. Suraj Rushing, Janice Navarro, Micah Pelaez and colleagues, with an educational amna from [employer]. Review of Systems Const All systems reviewed & are unremarkable except as noted in HPI and below Physical exam (Primary Care) Vital Signs: Last Vital Signs Temp 97.1 F 04/30/25 09:09 Pulse 70 04/30/25 09:09 BP 120/62 04/30/25 09:09 Pulse Ox 97 04/30/25 09:09 Oxygen Delivery Method Room Air 04/30/25 09:09 Tobacco/Smoking Status: Tobacco use Status Tobacco use date assessed 02/19/25 04/30/25 09:13 Patient Tobacco Use Status Never used Tobacco 04/30/25 09:13 e-Cigarette/Vaping Use Never Used 04/30/25 09:13 PHQ-9: PHQ-9 Score PHQ-9: Total score 0 04/30/25 09:38 Thrive Assessment: Date of Thrive Assessment Date Thrive assessed 12/25/24 04/30/25 09:13 Currently or been in a relationship where the following occur: No concerns reported Coding Level of Care Code Est Pt Level 4 (29079) Diagnoses Acute arthralgia of knee M25.569 Time Spent (min) 20 Assessment & Plan Assessment & Plan (1) Acute arthralgia of knee: Code(s): M25.569 - Pain in unspecified knee Category: Medical Plan: Resolved.
== END 2025-04-30 10:02 | disposition home or self-care (01) ==
LOC: HO.HMCH 08:57
PROVIDERS: PCP Internal Medicine; Visit Provider Nurse Practitioner Family
DX: M25.569 Pain in unspecified knee (principal)

== ENCOUNTER → 2025-04-30 08:56 | Outpatient (BNVA) | payer MEDICARE, MEDICAID, SELFPAY | PROVIDERS: PCP Internal Medicine; Visit Provider Nurse Practitioner Family | DX: M25.562 Pain in left knee (principal) | CPT/HCPCS: 99212 ==

== ENCOUNTER 2025-05-23 11:24 | Emergency (ER) | payer MEDICARE, MEDICAID, SELFPAY ==
--- NOTE | ~2025-05-23 | XR_ITS ---
CLINICAL HISTORY: pain cough Chest radiograph, 1 view Comparison: CR/AK/SR - XR CHEST 2V - 04/26/25 16:05 EDT Findings: The cardiomediastinal silhouette is not enlarged. Pulmonary vascularity is mildly prominent. The left apical lesion is less well-defined than on the prior study. No other focal consolidation or pleural effusion. No definite pneumothorax. IMPRESSION: The left apical lesion is less well-defined than on the prior study. No other focal consolidation. Mild pulmonary vascular congestion. This document has been electronically signed by: Artis Barajas DO on 05/23/2025 13:03:01
--- NOTE | 2025-05-23 11:28 | ECG_ITS ---
Test Reason : chest pain Blood Pressure : */* mmHG Vent. Rate : 85 BPM Atrial Rate : 85 BPM P-R Int : 156 ms QRS Dur : 78 ms QT Int : 358 ms P-R-T Axes : 28 49 16 degrees QTcB Int : 426 ms Normal sinus rhythm Low voltage QRS Nonspecific ST and T wave abnormality Abnormal ECG When compared with ECG of 13-Mar-2025 11:56, Criteria for Septal infarct are no longer Present Inverted T waves have replaced nonspecific T wave abnormality in Inferior leads Referred By: Generic ED Physician Electronically Signed By: SARAH BABB
[2025-05-23 11:49] VITALS: BP 131/73; PULSE 79; RESP 20; TEMP 36.3; O2SAT 95; BMI 24.3
[2025-05-23 12:11] LABS: MANUAL DIFF FLAG NO
[2025-05-23 12:13] LABS: Hematocrit 38.5 % (37.0-47.0); Hemoglobin 13.1 g/dl (12.0-16.0); Imm Gran Abs Auto 0.04 X10*3/uL (0.00-0.03); Imm Gran Pct Auto 0.4 % (0.0-0.4); Lymphocytes Absolute Auto 1.2 X10*3/uL (1.2-4.9); Mean Corpuscular HGB Conc 34.0 g/dl (31.0-35.0); Mean Corpuscular Hemoglobin 30.9 pg (27.0-33.0); Mean Corpuscular Volume 90.8 fL (80.0-98.0); NRBC Abs Auto 0.000 X10*3/uL (0.0-0.012); NRBC Pct Auto 0.0 /100WBC (0.0-0.2); Platelet Count 177 X10*3/uL (160-400); Red Blood Count 4.24 X10*6/uL (4.20-5.50); White Blood Count 10.3 X10*3/uL (4.8-10.8)
[2025-05-23 12:43] LABS: Alanine Aminotransferase 24 U/L (0-31); Albumin Level 4.2 g/dL (3.5-5.0); Alkaline Phosphatase 83 U/L (39-117); Anion Gap 13 (12-20); Aspartate Amino Transferase 31 U/L (5-31); Blood Urea Nitrogen 13 mg/dL (9-16); Calcium 9.3 mg/dL (8.4-10.2); Carbon Dioxide 27 mmol/L (22-29); Chloride 104 mmol/L (96-108); Creatinine Clr Calc Pharmacy 63.3; Estimated Glomerular Filt Rate > 60; Lipase 24 U/L (8-78); Potassium 4.3 mmol/L (3.3-5.1); Sodium 140 mmol/L (135-145); Total Protein 7.0 g/dL (6.5-8.0)
[2025-05-23 12:50] LABS: Troponin-I High Sensitivity 2.9 ng/L (<3.5-17.0)
[2025-05-23 13:52] LABS: Resp Syncy Virus RNA Qual PCR NEGATIVE (Negative); SARS COV2 PCR INHOUSE NEGATIVE (Negative)
[2025-05-23 14:17] VITALS: BP 149/83; PULSE 75; RESP 20; O2SAT 96
--- NOTE | 2025-05-23 14:22 | ED.CHESTPAIN ---
HPI - Chest Pain General Chief Complaint: Chest Pain Stated Complaint: CP,head hurt and throat Time Seen by Provider: 05/23/25 14:22 History of Present Illness ED Provider: Venkat QUICK narrative: The patient is a 74-year-old woman who lives at a retirement. She is a client of the department of developmental Services and has a legal guardian. She has a history of reactive airways disease. Apparently she was coughing a great deal last night. She was given Robitussin at the retirement. Today she complained of chest pain that is worse when she coughs or takes a deep breath and so she was brought to the hospital. No definite fever. Related Data Home Medications ?Medication ?Instructions ?Recorded ?Confirmed denosumab 60 mg/mL subcutaneous 60 mg subcut [id number] 08/06/22 05/07/25 syringe (Prolia) acetaminophen 325 mg tablet 650 mg PO Q6H PRN Headache, 02/23/25 05/07/25 Toothache, Muscle/Joint Pain, Discomfort calcium 600 mg (as 1 tab PO DAILY@1600 02/23/25 05/07/25 carbonate)-vitamin D3 10 mcg (400 unit) tablet (Calcium 600 + D(3)) ketotifen fumarate 0.025 % (0.035 1 drp ophthalmic (eye) DAILY PRN 02/23/25 05/07/25 %) eye drops allergy symptoms dextromethorphan-guaifenesin 20 10 ml PO DAILY 04/07/25 05/07/25 mg-200 mg/10 mL prefilled spoon dicyclomine 20 mg tablet 20 mg PO DAILY 04/07/25 05/07/25 Previous Rx's ?Medication ?Instructions ?Recorded nystatin 100,000 unit/gram topical 1 appl topical DAILY PRN rash #15 06/17/24 powder grams tolnaftate 1 % topical cream 1 appl topical BID PRN rash #30 06/17/24 grams atorvastatin 10 mg tablet 10 mg PO DAILY@1600 #30 tabs 03/04/25 inhalational spacing device (Tae #1 ea 03/05/25 Aerosol [place] Enhancer spacer) cholecalciferol (vitamin D3) 25 25 mcg PO DAILY #28 caps 03/11/25 mcg (1,000 unit) capsule (Vitamin D3) paroxetine HCl 40 mg tablet 40 mg PO DAILY 90 days #90 tabs 03/11/25 multivitamin with folic acid 400 1 tab PO DAILY 90 days #90 tabs 04/06/25 mcg tablet (High Potency Multivitamin) cetirizine 10 mg tablet 10 mg PO DAILY@1600 for allergies 04/28/25 #30 tabs valacyclovir 500 mg tablet 500 mg PO DAILY@1600 #28 tabs 04/28/25 Breyna 80 mcg-4.5 mcg/actuation 1 puff inhalation Q12H #10.3 grams 05/06/25 HFA aerosol inhaler (budesonide-formoterol) acetaminophen 500 mg capsule 1,000 mg (2 x 500 mg) PO Q8H PRN 05/23/25 fever or pain #14 caps azithromycin 250 mg tablet 250 mg PO DAILY 4 days #4 tabs 05/23/25 prednisone 20 mg tablet 20 mg PO DAILY #12 tabs 05/23/25 Allergies Allergy/AdvReac Type Severity Reaction Status Date / Time aspartame (ASPARTAME) Allergy Severe cannot Verified 05/23/25 11:52 take due to PKU dx phenylalanine (Phenylalanine) Allergy Severe cannot Verified 05/23/25 11:52 take due to PKU dx cat dander (cats) Allergy Intermediate Itching Verified 05/23/25 11:52 loratadine (From CLARITIN) Allergy Intermediate Itchy and Verified 05/23/25 11:52 red eyes tree and shrub pollen Allergy Intermediate Itching Verified 05/23/25 11:52 dustmites Allergy Intermediate Itching Uncoded 04/30/25 09:12 ragweed Allergy Intermediate Itching Uncoded 04/30/25 09:12 Review of Systems Review of Systems: Yes all other systems are reviewed and are negative [facility] Past Medical History Medical History (Updated 05/24/25 @ 00:00 by Addison Gao) Acute arthralgia of knee PKU (phenylketonuria) OCD (obsessive compulsive disorder) Wheezing on auscultation Acute viral bronchitis Reactive airway disease Hypoxia Compression fracture of lumbosacral spine Anxiety Mental disability Allergic rhinitis Elevated LFTs Osteoporosis Pure hypercholesterolemia Premature atrial contractions Surgical History S/P colonoscopy (~07/05/20) S/P laparoscopic cholecystectomy (~06/28/14) Family History Family History Other Family history unknown Social History Social History Household Members: Other Household Members Other:: retirement residents 7 staff Housing: Other Housing Other:: retirement Are you a primary healthcare advisory services manager to a significant other at home: No Do you presently have visiting nurse or other home services: Yes (resides in retirement) Alcohol intake: never Comment: detention staff at bedside. Patient Tobacco Use Status: Never used Tobacco e-Cigarette/Vaping Use: Never Used Second Hand Smoke Exposure: No Advance Directives: Yes Advance Directives on File: Yes Advance Directives Date on File: 02/26/25 Do you have a plan to hurt others: No Plan service: No Current occupational status: retired Cognitive needs: No Hearing needs: No Vision needs: No Physical Exam Vital Signs: Vital Signs: Last Vital Signs Temp 98.2 F 05/23/25 17:25 Pulse 77 05/23/25 17:25 Resp 18 05/23/25 17:25 BP 134/84 05/23/25 17:25 Pulse Ox 97 05/23/25 17:25 O2 Del Method Room Air 05/23/25 17:25 BMI result Body Mass Index 24.3 Const: Other: The patient is awake and alert. She is pleasant cooperative. She was complaining of chest discomfort. She did not appear in distress. HEENT: Other: The face is symmetrical. Mucous membranes moist. Eyes: Other: Pupils are round equal, conjunctivae are clear, extraocular movements intact Neck: Neck: Yes normal visual inspection, Yes full ROM, Yes no lymphadenopathy and Yes no JVD Chest: Other: The patient has chest wall tenderness with palpation of the parasternal borders. Palpation seems to reproduce her pain. Resp: Other: No increased work of breathing. Scattered wheezes bilaterally. Cardio: Rate: regular rate Rhythm: regular rhythm Heart sounds: S1 normal heart sound present and S2 normal heart sound present GI: Other: Abdomen is soft nontender Skin: Other: The skin is dry and unremarkable General skin exam: no rashes or lesions noted Neuro: Other: the patient is awake and alert. She seems to have some cognitive impairment but is pleasant and cheerful. I believe she is at her normal mental status. Cranial nerves are grossly intact. She moves her extremities symmetrically in seems grossly neurologically intact without focal deficits. Extrem: Other: There is no calf swelling or tenderness. No asymmetry. No peripheral edema. Medications Administered Discontinued Medications Generic Name Dose Route Start Last Admin Trade Name Dev PRGeovanna Reason Stop Dose Admin Acetaminophen 975 mg 05/23/25 14:47 05/23/25 14:54 Acetaminophen 325 Mg Tablet PO 05/23/25 14:48 975 mg ONCE ONE Administration Albuterol/Ipratropium 3 ml 05/23/25 14:51 05/23/25 15:42 Albuterol/Iprat 2.5/0.5mg 3 Ml Ampul.Neb INHALE 05/23/25 14:52 3 ml ONCE ONE Administration Azithromycin 500 mg 05/23/25 14:51 05/23/25 14:59 Azithromycin 500 Mg Tablet PO 05/23/25 14:52 500 mg ONCE ONE Administration Ibuprofen 400 mg 05/23/25 14:47 05/23/25 14:54 Ibuprofen 400 Mg Tablet PO 05/23/25 14:48 400 mg ONCE ONE Administration Prednisone 60 mg 05/23/25 14:51 05/23/25 14:59 Prednisone 20 Mg Tablet PO 05/23/25 14:52 60 mg ONCE ONE Administration Medical Decision Making Medical Decision Making MDM Narrative: The patient is a 74-year-old woman with a history of cognitive impairment who lives at a retirement who presents with chest pain that seems to have followed an increase in her coughing. Clinically she seems to have chest wall pain. She does not appear obviously toxic or in significant distress. The patient has recently been going through a workup of a left upper lobe mass of uncertain etiology. A CT-guided biopsy was made at this hospital 1 month ago which was inconclusive and, according to a note by Dr. Dugan there was a plan for possible open biopsy by thoracic surgery. This was to be arranged. Today the chest x-ray looks better than previously. The mass is not as apparent today. I am not sure what to make of this left upper lobe mass but I do not think there is any worsening. I also think that the patient's presentation today is probably more related to an acute bronchitis with increased cough resulting in chest wall pain rather than anything to do with a chest mass. The patient will therefore be treated as a COPD exacerbation and her chest pain will be treated as chest wall pain. She will be placed on a course of azithromycin and prednisone. Acetaminophen as needed for discomfort. Follow up with her regular providers. Return to the emergency room if worse. I do not think her chest pain represents an acute coronary syndrome or pulmonary embolism for Lab Data 05/23/25 12:07 05/23/25 12:07 Labs: Lab Results 05/23/25 Range/Units 12:07 WBC 10.3 (4.8-10.8) X10*3/uL RBC 4.24 (4.20-5.50) X10*6/uL Hgb 13.1 (12.0-16.0) g/dl Hct 38.5 (37.0-47.0) % MCV 90.8 (80.0-98.0) fL MCH 30.9 (27.0-33.0) pg MCHC 34.0 (31.0-35.0) g/dl RDW 13.2 (11.0-16.0) % Plt Count 177 (160-400) X10*3/uL MPV 10.3 (9.4-12.3) fL Immature Gran % (Auto) 0.4 (0.0-0.4) % Neut % (Auto) 77.0 H (45-73) % Lymph % (Auto) 11.5 L (20-40) % Boundary % (Auto) 10.2 (2-11) % Eos % (Auto) 0.6 (0-4) % Baso % (Auto) 0.3 (0-2) % Lymph # (Auto) 1.2 (1.2-4.9) X10*3/uL Boundary # (Auto) 1.1 (0.1-1.2) X10*3/uL Eos # (Auto) 0.1 (0.0-0.4) X10*3/uL Baso # (Auto) 0.0 (0.0-0.2) X10*3/uL Abs Immat Gran (auto) 0.04 H (0.00-0.03) X10*3/uL Absolute Neuts (auto) 7.9 (2.0-8.3) x10*3/uL Absolute Nucleated RBC 0.000 (0.0-0.012) X10*3/uL Nucleated RBC % (auto) 0.0 (0.0-0.2) /100WBC Sodium 140 (135-145) mmol/L Potassium 4.3 (3.3-5.1) mmol/L Chloride 104 (96-108) mmol/L Carbon Dioxide 27 (22-29) mmol/L Anion Gap 13 (12-20) BUN 13 (9-16) mg/dL Creatinine 0.74 (0.5-1.4) mg/dL Estim Creat Clear Calc 63.3 Estimated GFR > 60 Random Glucose 94 (60-115) mg/dL Calcium 9.3 (8.4-10.2) mg/dL Total Bilirubin 0.9 (0.0-1.0) mg/dL Direct Bilirubin 0.4 (0.0-0.5) mg/dL AST 31 (5-31) U/L ALT 24 (0-31) U/L Alkaline Phosphatase 83 (39-117) U/L Troponin I High Sens 2.9 (<3.5-17.0) ng/L Total Protein 7.0 (6.5-8.0) g/dL Albumin 4.2 (3.5-5.0) g/dL Lipase 24 (8-78) U/L Influenza Type A (PCR) NEGATIVE (Negative) Influenza Type B (PCR) NEGATIVE (Negative) RSV RNA Qual (PCR) NEGATIVE (Negative) SARS-CoV-2 RNA (RT-PCR) NEGATIVE (Negative) Independent Interpretation Interpretation: EKG at 11:34 shows normal sinus rhythm at 85 beats per minute. No significant change from previous EKG according to my reading. No definite acute ischemic changes. Discharge Plan Discharge Clinical Impression: Acute chest wall pain, Cough, Acute exacerbation of chronic obstructive pulmonary disease Patient Disposition: Home, Self-Care Additional Instructions: I believe that she probably has some kind of bronchitis which is causing a lot of coughing and I think the coughing is causing pain in the chest. I think the pain is chest wall pain as a result of all the coughing. She should receive acetaminophen as needed for pain. For the bronchitis she has been prescribed a course of prednisone, a steroid medication which is an anti-inflammatory. She has also been started on a course of azithromycin, an antibiotic. Please make sure she takes her inhaler medications. Please have her follow up with the regular doctor. Return to the emergency room if significantly worse. Prescriptions: New azithromycin 250 mg tablet 250 mg PO DAILY 4 Days Qty: 4 0RF Rx Instructions: start on day 2 of therapy prednisone 20 mg tablet 20 mg PO DAILY Qty: 12 0RF Rx Instructions: Take 3 tablets by mouth daily for 2 days then take 2 tablets by mouth daily for 3 days. acetaminophen 500 mg capsule 1,000 mg PO Q8H PRN (Reason: fever or pain) Qty: 14 0RF No Action atorvastatin 10 mg tablet 10 mg PO DAILY@1600 Qty: 30 3RF cholecalciferol (vitamin D3) [Vitamin D3] 25 mcg (1,000 unit) capsule 25 mcg PO DAILY Qty: 28 3RF paroxetine HCl 40 mg tablet 40 mg PO DAILY 90 Days Qty: 90 0RF multivitamin with folic acid [High Potency Multivitamin] 400 mcg tablet 1 tab PO DAILY 90 Days Qty: 90 0RF cetirizine 10 mg tablet 10 mg PO DAILY@1600 Qty: 30 0RF valacyclovir 500 mg tablet 500 mg PO DAILY@1600 Qty: 28 0RF budesonide-formoterol [Breyna] 80-4.5 mcg/actuation HFA aerosol inhaler 1 puff inhalation Q12H Qty: 10.3 6RF calcium carbonate-vitamin D3 [Calcium 600 + D(3)] 600 mg-10 mcg (400 unit) Tablet 1 tab PO DAILY@1600 acetaminophen 325 mg tablet 650 mg PO Q6H PRN (Reason: Headache, Toothache, Muscle/Joint Pain, Discomfort) Rx Instructions: Take 2 tablets for temperature > 101, headache, toothache, muscle pain, joint pain, discomfort due to minor injury or sutures. Call PCP if symptoms continue more than 48 hours; DO not exceed 4 doses in 24 hours ketotifen fumarate 0.025 % (0.035 %) drops 1 drp ophthalmic (eye) DAILY PRN (Reason: allergy symptoms) Rx Instructions: apply to both eyes once daily at 4 PM dicyclomine 20 mg Tablet 20 mg PO DAILY Robitussin DM To Go 20-200 mg/10 mL Prefilled Spoon 10 ml PO DAILY Prolia 60 mg/mL syringe 60 mg subcut [id number] nystatin 100,000 unit/gram powder 1 appl topical DAILY PRN (Reason: rash) Qty: 15 0RF Rx Instructions: Not to be used with antifungal cream. tolnaftate 1 % cream 1 appl topical BID PRN (Reason: rash) Qty: 30 0RF (DME) Tae Aerosol [place] Enhancer Spacer See Rx Instructions .Route Qty: 1 0RF Rx Instructions: As directed Referrals: Panchito Chance MD [Physician, Internal Medicine] Interventions: ED Discharge Assessment Last Done: 05/23/25 17:25 Discharge Date/Time: 05/23/25 17:26 Print Language: Cymro
--- NOTE | 2025-05-23 15:05 | PC.NURSE ---
pt medicated per MAR
[2025-05-23] MEDS: Albuterol/Iprat 2.5/0.5MG 3 ML AMPUL.NEB INHALE (15:42)
[2025-05-23 15:45] VITALS: PULSE 77; RESP 18; O2SAT 95
[2025-05-23 17:25] VITALS: BP 134/84; PULSE 77; RESP 18; TEMP 36.8; O2SAT 97
== END 2025-05-23 17:26 | disposition home or self-care (01) ==
PROVIDERS: Emergency Provider Emergency Medicine
DX: R07.89 Other chest pain (principal); R05.9 Cough, unspecified; J44.1 Chronic obstructive pulmonary disease with (acute) exacerbation; Z79.899 Other long term (current) drug therapy; Z03.818 Encounter for observation for suspected exposure to other biological agents ruled out
CPT/HCPCS: 71045; 80048; 80076; 83690; 84484; 85025; 87637; 93005; 94640; 99284

== ENCOUNTER → 2025-05-23 11:28 | Outpatient (BNV) | payer MEDICARE, MEDICAID, SELFPAY | PROVIDERS: Emergency Provider Emergency Medicine; Visit Provider Internal Medicine | DX: R94.31 Abnormal electrocardiogram [ECG] [EKG] (principal); R07.9 Chest pain, unspecified | CPT/HCPCS: 93010 ==

== ENCOUNTER → 2025-05-23 11:54 | Outpatient (BNV) | payer MEDICARE, MEDICAID, SELFPAY | PROVIDERS: Visit Provider Radiology Diagnostic Radiology | DX: J98.4 Other disorders of lung (principal) | CPT/HCPCS: 71045 ==

== ENCOUNTER 2025-05-29 13:49 | Outpatient (AMB) | payer MEDICARE, MEDICAID, SELFPAY ==
[2025-05-29 13:51] VITALS: BP 100/60; PULSE 68; RESP 17; O2SAT 96; BMI 24.7
--- NOTE | 2025-05-29 13:51 | MHC.OFFWIV ---
Intake Vital Signs 05/29/25 13:51 Height 5 ft 6 in Weight 153 lb BMI 24.7 BP 100/60 Blood Pressure Location Lt brachial Position Sitting Respiration 17 Pulse 68 Pulse Source Pulse Oximeter Temp Source Oral Pulse Oximetry (%) 96 Oxygen Delivery Method Room Air Intake Visit Reasons: EP- sun burn Intake Note: Pt is here today c/o sun burn: arms,neck and face: yesterday Patient Tobacco Use Status: Never used Tobacco Allergies aspartame (ASPARTAME) Allergy (Severe, Verified 05/29/25 13:57) cannot take due to PKU dx phenylalanine (Phenylalanine) Allergy (Severe, Verified 05/29/25 13:57) cannot take due to PKU dx cat dander (cats) Allergy (Intermediate, Verified 05/29/25 13:57) Itching loratadine (From CLARITIN) Allergy (Intermediate, Verified 05/29/25 13:57) Itchy and red eyes tree and shrub pollen Allergy (Intermediate, Verified 05/29/25 13:57) Itching dustmites Allergy (Intermediate, Uncoded 05/29/25 13:57) Itching ragweed Allergy (Intermediate, Uncoded 05/29/25 13:57) Itching HPI HPI Comments History of Present Illness Details This is a 74-year-old female with a past medical history of 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 The patient was reportedly brought to the [facility] for the afternoon and no sunscreen was applied. Patient was treated with topical aloe only at her half-way but has been complaining of pain, mostly on her anterior chest wall. [facility] Medical History (Updated 05/29/25 @ 14:29 by Kristi Smith PA-C) Acute arthralgia of knee PKU (phenylketonuria) OCD (obsessive compulsive disorder) Wheezing on auscultation Acute viral bronchitis Reactive airway disease Hypoxia Compression fracture of lumbosacral spine Anxiety Mental disability Allergic rhinitis Elevated LFTs Osteoporosis Pure hypercholesterolemia Premature atrial contractions Surgical History S/P colonoscopy (~07/05/20) S/P laparoscopic cholecystectomy (~06/28/14) Family History Other Family history unknown Social History Household Members: Other Household Members Other:: half-way residents 7 staff Housing: Other Housing Other:: half-way Are you a primary personal care aide to a significant other at home: No Do you presently have visiting nurse or other home services: Yes (resides in half-way) Alcohol intake: never Comment: [facility] staff at bedside. Patient Tobacco Use Status: Never used Tobacco e-Cigarette/Vaping Use: Never Used Second Hand Smoke Exposure: No Advance Directives Date on File: 02/26/25 service: No Current occupational status: retired Cognitive needs: No Hearing needs: No Vision needs: No Review of Systems Const Details: Pt has known developmental delays; states only pain from the redness and points to anterior chest wall. All systems reviewed & are unremarkable except as noted in HPI and below Physical Exam Vital Signs: Last Vital Signs Pulse 68 05/29/25 13:51 Resp 17 05/29/25 13:51 BP 100/60 05/29/25 13:51 Pulse Ox 96 05/29/25 13:51 Oxygen Delivery Method Room Air 05/29/25 13:51 BMI result Body Mass Index 24.7 Const General: cooperative, healthy appearing, no acute distress, well developed, alert, awake and other (pleasant and interactive, no acute distress) Nutritional Appearance: average body habitus Orientation/consciousness: oriented to person Limitations: other limitations (Developmental delay) Eyes Visual Sears: normal visual sears by confrontation Alignment and Position: alignment normal Conjunctivae: conjunctival abnormal bilateral conjunctival injection EOM: EOMs intact bilaterally Direct Ophthalmoscopy: normal light reflex Skin Other: Patient has macular erythema consistent with sunburn on the forehead, malar region of the face and chin, superior aspect of anterior chest wall, dorsal arms bilaterally including dorsal surface of the hands; additionally there is a surface abrasion measuring 1.5 cm x 1 cm on the left chin without evidence of secondary cellulitis. There is no blistering or weeping of the dermis. Neuro General: oriented to person Psych Appearance: well kempt Mental Status: other (Alert, pleasant, answers questions appropriately.) Attitude: cooperative Insight: Limited insight present (Psych) Judgement: Limited judgement present (Psych) Assessment & Plan Assessment & Plan (1) Sunburn: Comment: Staff will continue to apply aloe lotion 3 times daily and utilize cool compresses intermittently. Patient is given ibuprofen 400 mg here in the department and ibuprofen 600 mg q.8 hours as prescribed to her pharmacy; staff is instructed to give her first dose of ibuprofen 600 mg with her nighttime medications this evening. Code(s): L55.9 - Sunburn, unspecified Plan: Cool compresses, aloe topically, ibuprofen 600 mg every 8 hours as prescribed and follow up with PCP within 3-5 days. SPF when outside at ALL times. Orders: Orders AMB Ibuprofen Adult Dose Today L55.9 - Sunburn, unspecified Medications: New ibuprofen 600 mg PO Q8H PRN 20 tabs 0RF pain ibuprofen 400 mg (2 x 200 mg) PO ONCE 2 tabs 0RF L55.9 - Sunburn, unspecified Coding Level of Care Code Est Pt Level 3 (65166) Diagnoses Sunburn L55.9 Time Spent (min) 20
== END 2025-05-29 14:18 | disposition home or self-care (01) ==
LOC: HO.HMCWIC 13:49
PROVIDERS: PCP Internal Medicine; Visit Provider Physician Assistant
DX: L55.9 Sunburn, unspecified (principal)

== ENCOUNTER → 2025-05-29 13:49 | Outpatient (BNVA) | payer MEDICARE, MEDICAID, SELFPAY | PROVIDERS: PCP Internal Medicine; Visit Provider Physician Assistant | DX: L55.9 Sunburn, unspecified (principal) | CPT/HCPCS: 99212 ==

== ENCOUNTER 2025-06-16 14:41 | Outpatient (AMB) | payer MEDICARE, MEDICAID, SELFPAY ==
[2025-06-16 14:46] VITALS: BMI 24.7
--- NOTE | 2025-06-16 14:46 | A.OFFVIS_ITS ---
Vital Signs 06/16/25 14:46 Height 5 ft 6 in Weight 153 lb BMI 24.7 Intake Visit Reasons: Lung Mass Medical Sales Consultant Required: No Gmat Instructor: Gmat Instructor offered & declined Accompanied by: business banking sales assistant Allergies aspartame (ASPARTAME) Allergy (Severe, Verified 05/29/25 13:57) cannot take due to PKU dx phenylalanine (Phenylalanine) Allergy (Severe, Verified 05/29/25 13:57) cannot take due to PKU dx cat dander (cats) Allergy (Intermediate, Verified 05/29/25 13:57) Itching loratadine (From CLARITIN) Allergy (Intermediate, Verified 05/29/25 13:57) Itchy and red eyes tree and shrub pollen Allergy (Intermediate, Verified 05/29/25 13:57) Itching dustmites Allergy (Intermediate, Uncoded 05/29/25 13:57) Itching ragweed Allergy (Intermediate, Uncoded 05/29/25 13:57) Itching Medication List - Last Reconciled 06/16/25 by Carol Ann Markham LPN acetaminophen 650 mg PO Q6H PRN atorvastatin 10 mg PO DAILY@1600 Breyna 80-4.5 mcg/actuation (budesonide-formoterol) 1 puff inhalation Q12H NS calcium carbonate-vitamin D3 600 mg-10 mcg (400 unit) (Calcium 600 + D(3)) 1 tab PO DAILY@1600 cetirizine 10 mg PO DAILY@1600 cholecalciferol (vitamin D3) (Vitamin D3) 25 mcg PO DAILY denosumab (Prolia) 60 mg subcut [id number] dextromethorphan-guaifenesin 20-200 mg/10 mL 10 mL PO DAILY dicyclomine 20 mg PO DAILY ibuprofen 600 mg PO Q8H PRN inhalational spacing device (Tae Aerosol [place] Enhancer spacer) As directed ketotifen fumarate 0.025%(0.035%) 1 drp ophthalmic (eye) DAILY PRN multivitamin with folic acid 400 mcg (High Potency Multivitamin) 1 tab PO DAILY 90 days nystatin 1 appl topical DAILY PRN paroxetine HCl 40 mg PO DAILY 90 days tolnaftate 1% 1 appl topical BID PRN valacyclovir 500 mg PO DAILY@1600 HPI HPI Lung Mass: Details: Melony is a pleasant 74 year old female, never smoker, diagnosed with phenylketonuria at , HLD, osteoporosis, vitamin-D deficiency and history of cholecystectomy. She was initially referred by PCP for pulmonary evaluation for possible asthma vs RAD and incidental finding of JENNIFER nodule, now under the care of oncology. She is accompanied by staff from detention,Patti who provides history, group product manager, as patient poor historian due to PKU. She states that since the last visit, patient diagnosed with bronchitis and treated with azithromycin as well as prednisone with resolution of symptoms. She continues to use Symbicort one inhalation BID with spacer however she does not feel patient is receiving full dose due to poor inspiration. She then had accidental fall in February subsequently evaluated [place] [facility] with incidental finding of suspicious 2.7 x 2.9 cm solid nodule in the left upper lobe. She was evaluated by Dr. Dugan, who sent for PET scan which revealed mild activity and underwent biopsy which was negative for malignancy however a tough biopsy. Subsequently she was referred to thoracic however has not had an evaluation at this time. [facility] Medical History (Updated 06/16/25 @ 15:22 by Ana Villalobos NP) Acute arthralgia of knee PKU (phenylketonuria) OCD (obsessive compulsive disorder) Wheezing on auscultation Acute viral bronchitis Reactive airway disease Hypoxia Compression fracture of lumbosacral spine Anxiety Mental disability Allergic rhinitis Elevated LFTs Osteoporosis Pure hypercholesterolemia Premature atrial contractions Surgical History S/P colonoscopy (~07/05/20) S/P laparoscopic cholecystectomy (~06/28/14) Family History Other Family history unknown Social History Household Members: Other Household Members Other:: detention residents 7 staff Housing: Other Housing Other:: detention Are you a primary respiratory care practitioner to a significant other at home: No Do you presently have visiting nurse or other home services: Yes (resides in detention) Alcohol intake: never Comment: senior living staff at bedside. Patient Tobacco Use Status: Never used Tobacco e-Cigarette/Vaping Use: Never Used Second Hand Smoke Exposure: No Advance Directives Date on File: 02/26/25 service: No Current occupational status: retired Cognitive needs: No Hearing needs: No Vision needs: No Review of Systems Const Denies chills, Denies excessive sweating, Denies fever(s), Denies headache(s) and Denies night sweats Eyes Denies dry eyes, Denies irritation and Denies itchy eyes ENT Reports Normal hearing present, Denies headache(s), Denies nasal congestion, Denies nasal discharge, Denies post nasal drip and Denies sore throat Card Denies chest pain, Denies chest pain at rest, Denies chest pain with activity, Denies claudication, Denies leg edema, Denies dyspnea, Denies dyspnea on exertion, Denies orthopnea and Denies paroxysmal nocturnal dyspnea Resp Denies chest congestion, Denies cough, Denies excessive phlegm production, Denies pain on inspiration, Denies pain with cough, Denies dyspnea, Denies dyspnea on exertion, Denies stridor and Denies wheezing Musc Denies myalgias Neuro Reports Normal hearing present and Denies headache(s) Endo Denies excessive sweating Harsh/Lymph Denies lymphadenopathy Aller/Immun Denies itchy eyes, Denies seasonal rhinorrhea and Denies wheezing Physical Exam Vital Signs: BMI result Body Mass Index 24.7 Const General: cooperative, healthy appearing, comfortable, no acute distress, well developed and alert Limitations: other limitations (cognitive delay d/t PKU) HEENT Head: Yes normal to inspection, Yes normocephalic and Yes atraumatic Ears: hearing grossly normal bilaterally and external ears normal Eyes General: appearance normal, both eyes and all related structures Eyelids: Yes eyelids normal Sclerae: sclerae normal EOM: EOMs intact bilaterally Neck Neck: Yes normal visual inspection and Yes no lymphadenopathy Lymphatic: no lymphadenopathy noted Chest Chest palpation & inspection: normal inspection of the chest Resp Effort & Inspection: normal respiratory effort, able to speak in complete sentences, no audible wheezes, no cough, no stridor, not tachypneic, no tripod positioning and no use of accessory muscles Auscultation: clear to auscultation bilaterally Cardio Jugular venous distension: no JVD Rate: regular rate Rhythm: regular rhythm Skin Other: warm, dry General skin exam: no rashes or lesions noted Neuro Cranial nerves: Yes Normal hearing present Cognition (Neuro): normal cognition Gait exam (Neuro): Normal gait present Extrem General: Yes normal to inspection, Yes capillary refill normal, Yes no clubbing, cyanosis or edema and Yes no pedal edema Psych Appearance: grossly normal and well kempt Speech and movement: Normal speech and movement present and Clear speech present Attitude: cooperative Insight: Poor insight present (Psych) Judgement: Poor judgement present (Psych) Assessment & Plan Assessment & Plan (1) Reactive airway disease: Code(s): J45.909 - Unspecified asthma, uncomplicated Category: Medical (2) Mass of left lung: Code(s): R91.8 - Other nonspecific abnormal finding of lung field Category: Medical (3) Mental disability: Comment: phenylketonuria-resides in a detention Code(s): F79 - Unspecified intellectual disabilities Category: Medical Plan Melony has been moderately controlled on Symbicort, advised to continue 2 inhalations BID. May need to consider nebulized therapy only as staff notes some difficulty with use of inhaler despite spacer. Staff is aware to call if symptoms become less controlled. She is under the care of Oncology for suspicious 2.7 x 2.9 cm solid nodule of left upper lobe, PET with mild FDG activity and biopsy 04/26 did not reveal any carcinoma however IR noted difficult biopsy. She was referred to thoracic for further evaluation however has yet to be notified by office. Unclear if referral was placed through [facility], will reenter. All questions were answered and patient is in agreement of plan. Will follow-up after thoracic consult or sooner if needed. Orders: Referrals Thoracic/General Surgery Referral R91.8 - Other nonspecific abnormal finding of lung field Medications: Changed From Breyna 80-4.5 mcg/actuation (budesonide-formoterol) 1 puff inhalation Q12H 10.3 grams 6RF NS To Breyna 80-4.5 mcg/actuation (budesonide-formoterol) 2 puffs inhalation Q12H 10.3 grams 6RF NS Coding Level of Care Code Est Pt Level 4 (86624) Diagnoses Reactive airway disease J45.909 Mass of left lung R91.8 Mental disability F79
--- OUTSIDE RECORDS SUMMARY | 2025-06-16 15:06 | XMS_ITS | Clinical Summary ---
Author Organization [facility] Address [address] [place] [address] Phone Care Team Providers Care Surveillance Sensor Operator Name Role Phone Unavailable Primary Care Provider Unavailabl e Encounters Date Type Department Care Team Description 03/19/2025 10:30 AM EDT - 03/19/2025 11:59 PM EDT Hospital Encounter [facility] PET Scan [address] [place] [address] Lung mass Discharge Disposition: Home [...] Zoster Vaccines (2 of 2) 01/15/2020 11/20/2019, 08/0 04/2015 COVID-19 Vaccine ( season) 2024 11/29/2021, 01/13/2021, 12/16/2020 Depression Screening 11/11/2024 Colorectal Cancer Screening: Colonoscopy 03/19/2025 Falls Risk Assessment 03/19/2025 Hepatitis C Screening 03/19/2025 Medicare Annual Wellness Visit 03/19/2025 Osteoporosis Screening (Bone Density Screening) 03/19/2025 Social Influencers of Health Screening 03/19/2025 Influenza Vaccine (#1) 2025 , 08/19/2023, 09/15/2022, Additional history exists DTaP,Tdap,and Td Vaccines (2 - Td or Tdap) 04/11/2026 04/11/2016 RSV Immunization Adult Patients (1 - 1-dose 75+ series) 2026 Varicella Vaccines Aged Out 06/16/2015 No longer eligible based on patient's age to complete this topic HIB Vaccines Aged Out No longer eligi [...] Signed Date: 03/24/2025 13:53 ET Workstation ID: [id number] Transcribed By: Self Edit Transcribed Date: 03/24/2025 [...] Signed Date: 03/24/2025 13:53 ET Workstation ID: [id number] Transcribed By: Self Edit Transcribed Date: 03/24/2025 13:48 ET Kaitlin uDgan MD [facility] PROCEDURES Final Result from Last 3 Months Insurance MEDICARE [place]ICAID - [place]
== END 2025-06-16 15:14 | disposition home or self-care (01) ==
LOC: HO.HPSW 14:42
PROVIDERS: PCP Internal Medicine; Visit Provider Nurse Practitioner Family
DX: J45.909 Unspecified asthma, uncomplicated (principal); R91.8 Other nonspecific abnormal finding of lung field; F79 Unspecified intellectual disabilities
CPT/HCPCS: 99214

== ENCOUNTER → 2025-06-16 14:41 | Outpatient (BNVA) | payer MEDICARE, MEDICAID, SELFPAY | PROVIDERS: PCP Internal Medicine; Visit Provider Nurse Practitioner Family | DX: R91.8 Other nonspecific abnormal finding of lung field (principal); J45.909 Unspecified asthma, uncomplicated; F79 Unspecified intellectual disabilities; Z79.899 Other long term (current) drug therapy | CPT/HCPCS: 99212 ==

== ENCOUNTER → 2025-06-24 | Outpatient (BNV) | payer MEDICARE, MEDICAID, SELFPAY | PROVIDERS: PCP Internal Medicine; Visit Provider Internal Medicine | DX: Z13.1 Encounter for screening for diabetes mellitus (principal) | CPT/HCPCS: 83036 ==

== ENCOUNTER → 2025-08-24 09:15 | Outpatient (BNVA) | payer MEDICARE, MEDICAID, SELFPAY | PROVIDERS: PCP Internal Medicine; Visit Provider Internal Medicine | DX: Z00.00 Encounter for general adult medical examination without abnormal findings (principal); C34.92 Malignant neoplasm of unspecified part of left bronchus or lung; I48.0 Paroxysmal atrial fibrillation; E78.00 Pure hypercholesterolemia, unspecified; R79.89 Other specified abnormal findings of blood chemistry; J30.9 Allergic rhinitis, unspecified; M81.0 Age-related osteoporosis without current pathological fracture; F41.9 Anxiety disorder, unspecified; S32.000S Wedge compression fracture of unspecified lumbar vertebra, sequela; X58.XXXS Exposure to other specified factors, sequela | CPT/HCPCS: 96127; 99397 ==

== ENCOUNTER 2025-08-24 09:49 | Outpatient (AMB) | payer MEDICARE, MEDICAID, SELFPAY ==
--- NOTE | 2025-08-24 09:16 | MHC.PC.OV ---
Vital Signs 08/24/25 09:17 Height 5 ft 1 in Weight 152 lb 4 oz BMI 28.8 BP 116/80 Blood Pressure Location Lt brachial Position Sitting Pulse 71 Pulse Source Pulse Oximeter Pulse Oximetry (%) 96 Oxygen Delivery Method Room Air Intake Visit Reasons: Annual Exam Mold Holder Required: No Accompanied by: Self / Same As Patient Allergies aspartame (ASPARTAME) Allergy (Severe, Verified 08/24/25 09:17) cannot take due to PKU dx phenylalanine (Phenylalanine) Allergy (Severe, Verified 08/24/25 09:17) cannot take due to PKU dx cat dander (cats) Allergy (Intermediate, Verified 08/24/25 09:17) Itching loratadine (From CLARITIN) Allergy (Intermediate, Verified 08/24/25 09:17) Itchy and red eyes tree and shrub pollen Allergy (Intermediate, Verified 08/24/25 09:17) Itching dustmites Allergy (Intermediate, Uncoded 08/24/25 09:17) Itching ragweed Allergy (Intermediate, Uncoded 08/24/25 09:17) Itching Tobacco use date assessed: 08/24/25 Fall risk assessment: 1 Fall in past year Last assessed Fall Risk: 08/24/25 Dental Screening Dental Screen Date: 08/24/25 Did you have a dental visit in the last 12 months?: Yes Did you have a dental problem in the last 6 months where you did not have access to dental care?: No Was dental information given to patient?: Patient has dentist [facility] Medical History (Updated 08/09/25 @ 14:24 by Kaitlin Dugan MD) Acute arthralgia of knee PKU (phenylketonuria) OCD (obsessive compulsive disorder) Wheezing on auscultation Acute viral bronchitis Reactive airway disease Hypoxia Compression fracture of lumbosacral spine Anxiety Mental disability Allergic rhinitis Elevated LFTs Osteoporosis Pure hypercholesterolemia Premature atrial contractions Surgical History S/P colonoscopy (~07/05/20) S/P laparoscopic cholecystectomy (~06/28/14) Family History Other Family history unknown Social History Household Members: Other Household Members Other:: intermediate residents 7 staff Housing: Other Housing Other:: intermediate Are you a primary rn palliative care to a significant other at home: No Do you presently have visiting nurse or other home services: Yes (resides in intermediate) Alcohol intake: never Comment: care home staff at bedside. Patient Tobacco Use Status: Never used Tobacco e-Cigarette/Vaping Use: Never Used Second Hand Smoke Exposure: No Advance Directives Date on File: 02/26/25 service: No Current occupational status: retired Cognitive needs: No Hearing needs: No Vision needs: No Questionnaire Thrive Questionnaire Date Thrive assessed: 04/30/25 I am a: Patient What is your living situation today?: I have a steady place to live Within the past 12 months, did the food you bought not last and you didn't have the money to get more?: Never true Within the past 12 months, did you worry whether your food would run out before you got money to buy more?: Never true Do you have trouble paying for medicines?: No Do you have trouble getting transportation to medical appointments?: No Do you have trouble paying your heating and electricity bill?: No Do you have trouble taking care of your child, family member or friend?: No Do you have trouble with day-to-day activities such as bathing, preparing meals, shopping, managing finances, etc.?: No Are you currently unemployed and looking for a job?: No Are you interested in more education?: No Please select the resources that you would like help with: None Currently or been in a relationship where the following occur: No concerns reported THRIVE Score: 0 AUDIT C Alcohol Use Questionnaire (AUDIT-C) 1. How often do you have a drink containing alcohol?: Never 3. How often do you have six or more drinks on one occasion?: Never Total Score: 0 OANH-7 AMB Questionnaire OANH-7 Date OANH - 7 assessed: 12/25/24 Source: Developed by Drs. Suraj Rushing, Janice Navarro, Micah Pelaez and colleagues, with an educational amna from [employer]. Physical exam (Primary Care) Vital Signs: Last Vital Signs Pulse 71 08/24/25 09:17 BP 116/80 08/24/25 09:17 Pulse Ox 96 08/24/25 09:17 Oxygen Delivery Method Room Air 10/14/25 09:17 BMI result Body Mass Index 28.8 Tobacco/Smoking Status: Tobacco use Status Tobacco use date assessed 08/24/25 08/24/25 09:22 Patient Tobacco Use Status Never used Tobacco 08/24/25 09:22 e-Cigarette/Vaping Use Never Used 08/24/25 09:22 Thrive Assessment: Date of Thrive Assessment Date Thrive assessed 04/30/25 08/24/25 09:22 Currently or been in a relationship where the following occur: No concerns reported Coding
[2025-08-24 09:17] VITALS: BP 116/80; PULSE 71; O2SAT 96; BMI 28.8
--- NOTE | 2025-08-24 09:47 | A.OFFVIS_ITS ---
Intake Vital Signs 08/24/25 09:17 Height 5 ft 1 in Weight 152 lb 4 oz BMI 28.8 BP 116/80 Blood Pressure Location Lt brachial Position Sitting Pulse 71 Pulse Source Pulse Oximeter Pulse Oximetry (%) 96 Oxygen Delivery Method Room Air Intake Visit Reasons: Annual Exam Basting Cleaner Required: No Accompanied by: caregiver Allergies aspartame (ASPARTAME) Allergy (Severe, Verified 08/24/25 09:17) cannot take due to PKU dx phenylalanine (Phenylalanine) Allergy (Severe, Verified 08/24/25 09:17) cannot take due to PKU dx cat dander (cats) Allergy (Intermediate, Verified 08/24/25 09:17) Itching loratadine (From CLARITIN) Allergy (Intermediate, Verified 08/24/25 09:17) Itchy and red eyes tree and shrub pollen Allergy (Intermediate, Verified 08/24/25 09:17) Itching dustmites Allergy (Intermediate, Uncoded 08/24/25 09:17) Itching ragweed Allergy (Intermediate, Uncoded 08/24/25 09:17) Itching Do you need a note to return to daycare/school/sports/work: No [facility] Medical History (Updated 08/09/25 @ 14:24 by Kaitlin Dugan MD) Acute arthralgia of knee PKU (phenylketonuria) OCD (obsessive compulsive disorder) Wheezing on auscultation Acute viral bronchitis Reactive airway disease Hypoxia Compression fracture of lumbosacral spine Anxiety Mental disability Allergic rhinitis Elevated LFTs Osteoporosis Pure hypercholesterolemia Premature atrial contractions Surgical History S/P colonoscopy (~07/05/20) S/P laparoscopic cholecystectomy (~06/28/14) Family History Other Family history unknown Social History Household Members: Other Household Members Other:: prison residents 7 staff Housing: Other Housing Other:: prison Are you a primary adult daycare coordinator to a significant other at home: No Do you presently have visiting nurse or other home services: Yes (resides in prison) Alcohol intake: never Comment: longterm staff at bedside. Patient Tobacco Use Status: Never used Tobacco e-Cigarette/Vaping Use: Never Used Second Hand Smoke Exposure: No Advance Directives Date on File: 02/26/25 service: No Current occupational status: retired Cognitive needs: No Hearing needs: No Vision needs: No Questionnaire PHQ-9 Over the last 2 weeks, how often have you been bothered by any of the following problems? 1. Little interest or pleasure in doing things: not at all 2. Feeling down, depressed, or hopeless: not at all 3. Trouble falling or staying asleep, or sleeping too much: not at all 4. Feeling tired or having little energy: not at all 5. Poor appetite or overeating: not at all 6. Feeling bad about yourself - or that you are a failure or have let yourself or your family down: not at all 7. Trouble concentrating on things, such as reading the newspaper or watching television: not at all 8. Moving or speaking so slowly that other people could have noticed. Or the opposite - being so fidgety or restless that you have been moving around a lot more than usual: not at all 9. Thoughts that you would be better off or of hurting yourself in some way: not at all Total score: 0 Source: Developed by Drs. Suraj Rushing, Janice Navarro, Micah Pelaez and colleagues, with an educational amna from [employer]. PHQ-2/PHQ-9 PHQ-2 Over the last 2 weeks, how often have you been bothered by any of the following problems? 1. Little interest or pleasure in doing things: not at all 2. Feeling down, depressed, or hopeless: not at all Total score: 0 If score is 3 or greater, continue 3. Trouble falling or staying asleep, or sleeping too much: not at all 4. Feeling tired or having little energy: not at all 5. Poor appetite or overeating: not at all 6. Feeling bad about yourself - or that you are a failure or have let yourself or your family down: not at all 7. Trouble concentrating on things, such as reading the newspaper or watching television: not at all 8. Moving or speaking so slowly that other people could have noticed. Or the opposite - being so fidgety or restless that you have been moving around a lot more than usual: not at all 9. Thoughts that you would be better off or of hurting yourself in some way: not at all Total score: 0 0-4 None-Minimal, 5-9 Mild, 10-14 Moderate, 15-19 Moderately Severe, 20-27 Severe Source: Developed by Drs. Suraj Rushing, Janice Navarro, Micah Pelaez and colleagues, with an educational amna from [employer]. Thrive Questionnaire Date Thrive assessed: 08/24/25 I am a: Patient What is your living situation today?: I have a steady place to live Within the past 12 months, did the food you bought not last and you didn't have the money to get more?: Never true Within the past 12 months, did you worry whether your food would run out before you got money to buy more?: Never true Do you have trouble paying for medicines?: No Do you have trouble getting transportation to medical appointments?: No Do you have trouble paying your heating and electricity bill?: No Do you have trouble taking care of your child, family member or friend?: No Do you have trouble with day-to-day activities such as bathing, preparing meals, shopping, managing finances, etc.?: No Are you currently unemployed and looking for a job?: No Are you interested in more education?: No Please select the resources that you would like help with: None Currently or been in a relationship where the following occur: No concerns reported THRIVE Score: 0 OANH-7 AMB Questionnaire OANH-7 Date OANH - 7 assessed: 08/24/25 Feeling nervous, anxious, or on edge: 0 = Not at all Not being able to stop or control worryin = Not at all Worrying too much about different things: 0 = Not at all Trouble relaxin = Not at all Being so restless that it is hard to sit still: 0 = Not at all Becoming easily annoyed or irritable: 0 = Not at all Feeling afraid as if something awful might happen: 0 = Not at all Total OANH-7 score (0-4 normal; 5-9 mild; 10-14 moderate; 15-21 severe): 0 Source: Developed by Drs. Suraj Rushing, Janice Micah Motley and colleagues, with an educational amna from [employer]. Physical Exam Vital Signs: Last Vital Signs Pulse 71 08/24/25 09:17 BP 116/80 08/24/25 09:17 Pulse Ox 96 08/24/25 09:17 Oxygen Delivery Method Room Air 08/24/25 09:17 BMI result Body Mass Index 28.8 Quality Reporting (2019) Depression/Bipolar (159/160/161/177) PHQ-9: Total score: 0 Coding
--- NOTE | 2025-08-24 09:49 | A.OFFPC_ITS ---
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 cat dander (cats) Allergy (Intermediate, Verified 08/29/25 23:53) Itching loratadine (From CLARITIN) Allergy (Intermediate, Verified 08/29/25 23:53) Itchy and red eyes tree and shrub pollen Allergy (Intermediate, Verified 08/29/25 23:53) Itching dustmites Allergy (Intermediate, Uncoded 08/29/25 23:53) Itching ragweed Allergy (Intermediate, Uncoded 08/29/25 23:53) Itching Medication List - Last Reconciled 08/29/25 by Panchito Chance MD acetaminophen 500 mg PO Q6H PRN 30 days atorvastatin 10 mg PO DAILY@1600 Breyna 80-4.5 mcg/actuation (budesonide-formoterol) 2 puffs inhalation Q12H NS calcium carbonate-vitamin D3 600 mg-10 mcg (400 unit) (Calcium 600 + D(3)) 1 tab PO DAILY@1600 cetirizine 10 mg PO DAILY@1600 cholecalciferol (vitamin D3) (Vitamin D3) 25 mcg PO DAILY denosumab (Prolia) 60 mg subcut [id number] dextromethorphan-guaifenesin 20-200 mg/10 mL 10 mL PO DAILY dicyclomine 20 mg PO DAILY ibuprofen 400 mg PO Q8H PRN 30 days inhalational spacing device (Tae Aerosol [place] Enhancer spacer) As directed ketotifen fumarate 0.025%(0.035%) 1 drp ophthalmic (eye) DAILY PRN multivitamin with folic acid 400 mcg 1 tab PO DAILY 90 days nystatin 1 appl topical DAILY PRN paroxetine HCl 40 mg PO DAILY 90 days tolnaftate 1% 1 appl topical BID PRN valacyclovir 500 mg PO DAILY@1600 90 days Tobacco use date assessed: 08/24/25 Fall risk assessment: 1 Fall in past year Last assessed Fall Risk: 08/24/25 Dental Screening Dental Screen Date: 08/24/25 Did you have a dental visit in the last 12 months?: Yes Did you have a dental problem in the last 6 months where you did not have access to dental care?: No Was dental information given to patient?: Patient has dentist HPI Annual Exam HPI Details Patient comes in today for her annual physical examination States that she feels okay She is accompanied by her intermediate staff, who helps provide information and coordination of her care as patient is cognitively impaired and has significant mental disability and is unable to participate in the decision-making process wi th regards to her healthcare Patient denies any headaches or dizziness Denies any chest pains, no increased shortness of breath No nausea/vomiting, no abdominal pain No change in bowel habits noted She denies any acute urinary symptoms She was recently diagnosed with adenocarcinoma of the lung with negative mediastinal lymph nodes when a chest CT done in February 2025 after a fall revealed the presence of a left upper lobe pulmonary nodule that appeared suspicious for malignancy A CT-guided biopsy was attempted on 04/26/2025 but results came back nondiagnostic She was then referred to thoracic surgery for surgical excision and biopsy, which revealed the above findings it was then decided that patient would benefit from a left upper lobectomy, which was successfully performed on 07/28/2025 Patient reportedly developed atrial fibrillation postop that responded to medication therapy with IV diltiazem and metoprolol She has since remained in sinus rhythm and because of her low chads-Vasc score, she was not started on anticoagulation She needs several of her Rx refilled She was not able to get her follow up labs done prior to her appointment today although she had extensive labs drawn over the past few months when she was admitted to the hospital and underwent left upper lobe lobectomy Her annual mammogram is scheduled in October 2025 She had her screening colonoscopy last done in 2019 in at the time, was advised repeat colonoscopy done in 10 years (2029), age and health permitting She no longer needs to keep up with yearly gynecology exam and Pap smear based on her age [facility] Medical History (Updated 08/30/25 @ 00:27 by Panchito Chance MD) Paroxysmal atrial fibrillation Adenocarcinoma of left lung Acute arthralgia of knee PKU (phenylketonuria) OCD (obsessive compulsive disorder) Wheezing on auscultation Acute viral bronchitis Reactive airway disease Hypoxia Compression fracture of lumbosacral spine Anxiety Mental disability Allergic rhinitis Elevated LFTs Osteoporosis Pure hypercholesterolemia Premature atrial contractions Surgical History (Updated 08/30/25 @ 00:25 by Panchito Chance MD) History of lobectomy of lung S/P colonoscopy (~07/05/20) S/P laparoscopic cholecystectomy (~06/28/14) Family History Other Family history unknown Social History Household Members: Other Household Members Other:: intermediate residents 7 staff Housing: Other Housing Other:: intermediate Are you a primary manager progressive care to a significant other at home: No Do you presently have visiting nurse or other home services: Yes (resides in intermediate) Alcohol intake: never Comment: long-term staff at bedside. Patient Tobacco Use Status: Never used Tobacco e-Cigarette/Vaping Use: Never Used Second Hand Smoke Exposure: No Advance Directives Date on File: 02/26/25 service: No Current occupational status: retired Cognitive needs: No Hearing needs: No Vision needs: No Questionnaire PHQ-9 Over the last 2 weeks, how often have you been bothered by any of the following problems? 1. Little interest or pleasure in doing things: not at all 2. Feeling down, depressed, or hopeless: not at all 3. Trouble falling or staying asleep, or sleeping too much: not at all 4. Feeling tired or having little energy: not at all 5. Poor appetite or overeating: not at all 6. Feeling bad about yourself - or that you are a failure or have let yourself or your family down: not at all 7. Trouble concentrating on things, such as reading the newspaper or watching television: not at all 8. Moving or speaking so slowly that other people could have noticed. Or the opposite - being so fidgety or restless that you have been moving around a lot more than usual: not at all 9. Thoughts that you would be better off or of hurting yourself in some way: not at all Total score: 0 Depression Screening Interpretation: Negative Depression Screening Done: Yes 44239 - PHQ-9 Billing: Yes Source: Developed by Drs. Suraj Rushing, Janice Navarro, Micah Pelaez and colleagues, with an educational amna from [employer]. Thrive Questionnaire Date Thrive assessed: 08/24/25 I am a: Patient What is your living situation today?: I have a steady place to live Within the past 12 months, did the food you bought not last and you didn't have the money to get more?: Never true Within the past 12 months, did you worry whether your food would run out before you got money to buy more?: Never true Do you have trouble paying for medicines?: No Do you have trouble getting transportation to medical appointments?: No Do you have trouble paying your heating and electricity bill?: No Do you have trouble taking care of your child, family member or friend?: No Do you have trouble with day-to-day activities such as bathing, preparing meals, shopping, managing finances, etc.?: No Are you currently unemployed and looking for a job?: No Are you interested in more education?: No Please select the resources that you would like help with: None Currently or been in a relationship where the following occur: No concerns reported THRIVE Score: 0 AUDIT C Alcohol Use Questionnaire (AUDIT-C) 1. How often do you have a drink containing alcohol?: Never 3. How often do you have six or more drinks on one occasion?: Never Total Score: 0 Score Reviewed/Action Taken: Yes OANH-7 AMB Questionnaire OANH-7 Date OANH - 7 assessed: 12/25/24 Source: Developed by Drs. Suraj Rushing, Micah Warner and colleagues, with an educational amna from [employer]. Review of Systems Const Details: Information here is obtained primarily from staff from patient's intermediate, as patient has significant cognitive impairment and mental disability Denies chills, Denies fatigue, Denies fever(s), Denies headache(s) and Denies malaise Eyes Denies blurry vision, Denies change in vision, Denies irritation and Denies itchy eyes ENT Denies dysphagia, Denies dizziness, Denies otalgia, Denies headache(s), Denies nasal congestion, Denies neck pain, Denies odynophagia, Denies sinus pain and Denies sore throat Card Denies chest pain, Denies rapid heart rate, Denies irregular heart rhythm, Denies palpitations and Denies dyspnea Resp Denies chest congestion, Denies cough, Denies dyspnea and Denies wheezing GI Denies abdominal pain, Denies bloating, Denies constipation, Denies dysphagia, Denies heartburn, Denies diarrhea, Denies nausea, Denies odynophagia and Denies vomiting Denies hematuria, Denies urinary frequency, Denies dysuria, Denies urinary incontinence and Denies urinary urgency Musc Denies back pain, Denies arthralgias, Denies joint swelling, Denies muscle weakness and Denies neck pain Skin/Breast Denies breast pain, Denies breast mass, Denies change in pigmentation, Denies lesions, Denies rash and Denies unusual bruising Neuro Denies dizziness, Denies headache(s) and Denies paresthesias Psych Denies anxiety and Denies depression Endo Denies fatigue and Denies palpitations Harsh/Lymph Denies easy bruising Aller/Immun Denies itchy eyes and Denies wheezing Physical exam (Primary Care) Vital Signs: Last Vital Signs Pulse 71 08/24/25 09:17 BP 116/80 08/24/25 09:17 Pulse Ox 96 08/24/25 09:17 Oxygen Delivery Method Room Air 08/24/25 09:17 BMI result Body Mass Index 28.8 Tobacco/Smoking Status: Tobacco use Status Tobacco use date assessed 08/24/25 08/24/25 09:50 Patient Tobacco Use Status Never used Tobacco 08/24/25 09:50 e-Cigarette/Vaping Use Never Used 08/24/25 09:50 Depression Screening Interpretation: Negative Thrive Assessment: Date of Thrive Assessment Date Thrive assessed 04/30/25 08/24/25 09:50 Currently or been in a relationship where the following occur: No concerns reported Const General: no acute distress, alert and awake Orientation/consciousness: oriented to person Limitations: other limitations (has mental disability and is cognitively impaired) [facility] Head: Yes normocephalic and Yes atraumatic Ears: external ears normal, TM's normal bilaterally and EAC's normal General nose exam: No nasal discharge present Face and sinus: Yes normal facial exam and Yes sinuses nontender Teeth and gingiva: dentition normal Throat: Yes posterior oropharynx normal and Yes tonsils normal (no TP congestion) Eyes Eyelids: Yes eyelids normal Conjunctivae: conjunctivae normal Pupils: Equal, round and reactive pupils present EOM: EOMs intact bilaterally Neck Neck: Yes supple and No lymphadenopathy Thyroid: Thyroid normal Resp Auscultation: clear to auscultation bilaterally, no rales and no wheezes Cardio Rate: regular rate Rhythm: regular rhythm Heart sounds: no murmurs GI Palpation (GI): Soft to palpation, nontender and No hepatosplenomegaly present Auscultation: normal bowel sounds General: Yes no CVA tenderness Back/Spine/Pelvis Back: no CVA tenderness Thoracic/Lumbar Spine: No lumbar spinal tenderness Skin Lesions: no lesions Rashes: no rashes Neuro General: oriented to person, moves all extremities, no focal motor deficits and CN's II-XI intact bilaterally Cranial nerves: Yes Equal, round and reactive pupils present Cognition (Neuro): abnormal cognition (is cognitively impaired) Gait exam (Neuro): Normal gait present Extrem General: Yes no clubbing, cyanosis or edema Results Reviewed Results Reviewed: Laboratory Tests 05/23/25 12:07 WBC 10.3 Hgb 13.1 Hct 38.5 Plt Count 177 Sodium 140 Potassium 4.3 Creatinine 0.74 Estimated GFR > 60 Random Glucose 94 Calcium 9.3 AST 31 ALT 24 Total Protein 7.0 Albumin 4.2 Coding Level of Care Code Est Pt Prev Care >65y(00854) Diagnoses Annual physical exam Z00.00 Adenocarcinoma of left lung C34.92 Paroxysmal atrial fibrillation I48.0 Premature atrial contractions I49.1 Pure hypercholesterolemia E78.00 Elevated LFTs R79.89 Allergic rhinitis, unspecified seasonality, unspecified trigger J30.9 Allergic rhinitis trigger: unspecified Allergic rhinitis seasonality: unspecified Age-related osteoporosis without current pathological fracture M81.0 Osteoporosis type: age-related Presence of current pathological fracture: without current pathological fracture Closed compression fracture of lumbosacral spine, sequela S32.000S Encounter type: sequela Fracture type: closed Anxiety F41.9 Mental disability F79 Additional Codes PHQ-9 - 11304 - PHQ-9 Billing: Yes ([id number]) Assessment & Plan Assessment & Plan (1) Annual physical exam: Code(s): Z00.00 - Encounter for general adult medical examination without abnormal findings Category: Medical Plan: She was not able to get her follow-up labs done prior to her appointment today and the intermediate staff who is with her today is advised to try to help patient get these done as soon as possible Her annual mammogram is scheduled in October 2025 She had her screening colonoscopy last done in 2019 in at the time, was advised repeat colonoscopy done in 10 years (2029), age and health permitting She no longer needs to keep up with yearly gynecology exam and Pap smear based on her age (2) Adenocarcinoma of left lung: Code(s): C34.92 - Malignant neoplasm of unspecified part of left bronchus or lung Category: Medical Plan: S/P da Cherrie left upper lobectomy with Dr. Jignesh Jiménez last month on 07/28/2025 Mediastinal lymph nodes were negative Follow-up with Oncology as scheduled This was diagnosed when a chest CT done in February 2025 after a fall revealed the presence of a left upper lobe pulmonary nodule that appeared suspicious for malignancy A CT-guided biopsy was attempted on 04/26/2025 but results came back nondiagnostic She was then referred to thoracic surgery for surgical excision and biopsy, which revealed the above findings it was then decided that patient would benefit from a left upper lobectomy, which was successfully performed on 07/28/2025 (3) Paroxysmal atrial fibrillation: Code(s): I48.0 - Paroxysmal atrial fibrillation Category: Medical Plan: Patient reportedly developed atrial fibrillation after her pulmonary lobectomy last month that responded to medical management with IV Diltiazem and Metoprolol She has since remained in sinus rhythm and because of her low chads-Vasc score, she was not started on anticoagulation (4) Premature atrial contractions: Code(s): I49.1 - Atrial premature depolarization Category: Medical Plan: Patient has had no recent recurrence of her cardiac symptoms except for her brief bout with AF last month post-op Echocardiogram done a couple of years ago was mostly normal, with a normal EF [place] with [facility] as scheduled (5) Pure hypercholesterolemia: Code(s): E78.00 - Pure hypercholesterolemia, unspecified Category: Medical Plan: Her cholesterol levels were normal when they were last checked in August 2024 Reinforced low cholesterol diet Continue Atorvastatin 10 mg QD Will have patient recheck her labs and fasting lipids STEPHANIE for follow up (6) Elevated LFTs: Code(s): R79.89 - Other specified abnormal findings of blood chemistry Category: Medical Plan: Improved - her LFTs were normal when last checked in August 2024 Will continue to monitor her LFTs regularly (7) Allergic rhinitis: Code(s): J30.9 - Allergic rhinitis, unspecified Category: Medical Qualifiers: Allergic rhinitis trigger: unspecified Allergic rhinitis seasonality: unspecified Qualified Code(s): J30.9 - Allergic rhinitis, unspecified Plan: Continue Fluticasone 50 mcg nasal spray QD PRN and Loratadine 10 mg QD PRN (8) Osteoporosis: Code(s): M81.0 - Age-related osteoporosis without current pathological fracture Category: Medical Qualifiers: Osteoporosis type: age-related Presence of current pathological fracture: without current pathological fracture Qualified Code(s): M81.0 - Age- related osteoporosis without current pathological fracture Plan: BMD done on 07/03/2018 showed (+) severe osteoporosis with a 23.4% increase in BMD in the AP spine from previous BMD 3 years ago and a 9% increase from b aseline; left femur BMD showed just a 1.5% increase from previous Continue Calcium+D tablet 600-200 mg-unit once a day with food; patient was on Fosamax previously but this was discontinued by endocrinology several months ago She reportedly had a follow up BMD sometime a couple of years ago - we have not received a copy of this for documentation Continue Prolia 60 mg SQ Q 6 months Follow up with endocrinology as scheduled (9) Compression fracture of lumbosacral spine: Comment: L3 - seen on x-rays done in 09/2016 Code(s): S32.000A - Wedge compression fracture of unspecified lumbar vertebra, initial encounter for closed fracture Category: Medical Qualifiers: Encounter type: sequela Fracture type: closed Qualified Code(s): S32.000S - Wedge compression fracture of unspecified lumbar vertebra, sequela Plan: Reinforced activity and weight-lifting restrictions although patient does not do too much in terms of physical activity (10) Anxiety: Code(s): F41.9 - Anxiety disorder, unspecified Category: Medical Plan: Continue Paroxetine 40 mg QD Follow up with psychiatry as scheduled (11) Mental disability: Comment: 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 Code(s): F79 - Unspecified intellectual disabilities Category: Medical Plan: Patient has had no agitation or behavioral issues noted recently, per intermediate staff Plan Follow-up in 6 months Medications: New ketotifen fumarate 0.025%(0.035%) apply to both eyes once daily at 4 PM 1 drp ophthalmic (eye) DAILY PRN 5 mL 1RF allergy symptoms/eye itching Changed From ibuprofen 600 mg PO Q8H PRN 20 tabs 0RF pain To ibuprofen Take with food 400 mg PO Q8H PRN 90 tabs 1RF pain 30 days From valacyclovir 500 mg PO DAILY@1600 28 tabs 0RF To valacyclovir 500 mg PO DAILY@1600 90 tabs 1RF 90 days From acetaminophen Take 2 tablets for temperature > 101, headache, toothache, muscle pain, joint pain, discomfort due to minor injury or sutures. Call PCP if symptoms continue more than 48 hours; DO not exceed 4 doses in 24 hours 650 mg PO Q6H PRN To acetaminophen Take 2 tablets for temperature > 101, headache, toothache, muscle pain, joint pain, discomfort due to minor injury or sutures. Call PCP if symptoms continue more than 48 hours; DO not exceed 4 doses in 24 hours 500 mg PO Q6H PRN 120 tabs 3RF Headache, Toothache, Muscle/Joint Pain, Discomfort 30 days Refilled nystatin Not to be used with antifungal cream. 1 appl topical DAILY PRN 60 grams 0RF rash tolnaftate 1% 1 appl topical BID PRN 30 grams 0RF rash paroxetine HCl 40 mg PO DAILY 90 tabs 0RF 90 days
--- OUTSIDE RECORDS SUMMARY | 2025-08-24 10:04 | XMS_ITS ---
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 She was discussed at our multidisciplinary weekly tumor board meeting with the decision made to refer to medical oncology for discussion of any further treatment options. Her and her caregiver were also instructed while in office we would be continuing to follow her with chest CT surveillance with her next chest CT scan due in 6 months time which would be January 2026 and have a visit at the thoracic surgery department thereafter discussed results. She has no longer required the use of oxycodone for pain analgesics and was instructed to continue with Tylenol 1000 mg every 6 hours as needed for her incisional pain for the next 2 weeks at which point in time she can decrease her dosage to 650 mg every 6 hours as needed she was doing prior to her surgery. Pleural effusion 08/11/2025 Assessment & Plan (08/11/2025 4:06 PM EDT): On 07/28/2025 she underwent a da Cherrie left upper lobectomy and mediastinal lymphadenectomy. Her postoperative 2-week chest x-ray does show increase of now a moderate left- sided pleural effusion. We will be referring her to interventional pulmonology for further assessment of the left-sided pleural effusion. Primary cancer of left upper lobe of lung (CMS/HCC V24, CMS/HCC V28) 07/08/2025 PKU (phenylketonuria) (CMS/HCC V24) 06/24/2025 Lung mass 06/24/2025 Current Treatment and Therapy Plans No current plan information found. Past Treatment and Therapy Plans No past plan information found. Lifetime Dose Tracking * Chemical Lifetime Dose Automatic Entry Manual Entr y CTDIvol 4.83 mGy 4.83 mGy 0 mGy
--- OUTSIDE RECORDS SUMMARY | 2025-08-24 10:04 | XMS_ITS | Clinical Summary ---
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 05/23/20 25 Active atorvastatin (LIPITOR) 10 mg tablet Take 1 tablet (10 mg total) by mouth 1 (one) time each day. 06/15/20 25 Active PARoxetine (PAXIL) 40 mg tablet Take 1 tablet (40 mg total) by mouth. 06/15/20 25 Active valACYclovir (VALTREX) 500 mg tablet Take 1 tablet (500 mg total) by mouth 1 (one) time each day. 06/15/20 25 Active cetirizine (ZyrTEC) 10 mg tablet Take 1 tablet (10 mg total) by mouth 1 (one) time each day. Active cholecalcifero l (VITAMIN D-3) 25 mcg (1,000 unit) tablet Take 1 tablet (1,000 Units total) by mouth 1 (one) time each day. Active Breyna 80-4.5 mcg/actuation inhaler Inhale 2 puffs by mouth 2 (two) times a day. 07/15/20 25 Active calcium carbonate-vit D3-min 600 mg-10 mcg (400 unit) tablet Take 1 tablet by mouth 1 (one) time each day. Active multivitamin tablet Take 1 tablet by mouth 1 (one) time each day. Active oxyCODONE (OXY-IR) 5 mg immediate release capsule Take 1 capsule (5 mg total) by mouth every 6 (six) hours if needed for severe pain. Max Daily Amount: 20 mg 15 capsule 08/01/20 Active acetaminophen (Tylenol Extra Strength) 500 mg tablet Take 2 tablets (1,000 mg total) by mouth every 6 (six) hours if needed for mild pain or moderate pain. 60 tablet 08/01/20 25 Active amoxicillin (AMOXIL) 500 mg capsule Only 1 hr prior to dental appts 09/07/20 24 Discontinued(En tered in Error) dicyclomine (BENTYL) 20 mg tablet Take 1 tablet (20 mg total) by mouth 4 (four) times a day if needed. 10/12/20 24 025 Discontinued multivitamin tablet Take 1 tablet by mouth 1 (one) time each day. Discontinued( erapy completed) budesonide-for moteroL (SYMBICORT) 160-4.5 mcg/actuation inhaler Inhale 2 puffs by mouth 2 (two) times a day. Rinse mouth with water after use to reduce aftertaste and incidence of candidiasis. Do not swallow. Discontinued(Do se adjustment) tolnaftate (TINACTIN) 1 % cream Apply topically 2 (two) times a day. Discontinued( erapy completed) nystatin (MYCOSTATIN) 100,000 unit/mL suspension Swish and swallow 4 (four) times a day. Discontinued( erapy completed) calcium carbonate-mariama min D 500 mg-5 mcg (200 unit) per tablet Take 1 tablet by mouth 1 (one) time each day. Discontinued dextromethorph an-guaiFENesin (ROBITUSSIN-DM ) 10-100 mg/5 mL syrup Take by mouth every 4 (four) hours if needed for cough. 2 teapsoons as needed Discontinued( erapy completed) ibuprofen (ADVIL,MOTRIN) 400 mg tablet Take 1 tablet (400 mg total) by mouth every 8 (eight) hours if needed for mild pain for up to 10 days. 30 each 08/01/20 25 025 oxyCODONE (OXY-IR) 5 mg immediate release capsule Take 1 capsule (5 mg total) by mouth every 6 (six) hours if needed for severe pain for up to 10 days. Max Daily Amount: 20 mg 40 capsule 08/01/20 25 025 Active Problems Problem Noted Date Diagnosed Date [...] (phenylketonuria) (CMS/HCC V24) 06/24/2025 Lung mass 06/24/2025 Encounters Date Type Department Care Team Description 08/23/2025 Telephone [facility] Hematology Oncology [address] [place] [phone] Panchito Chance MD 08/13/2025 9:27 AM EDT - 08/13/2025 11:59 PM EDT Hospital Encounter [facility] Xray [address] [place] [phone] Pleural effusion on left Discharge Disposition: Home or Self Care 08/13/2025 8:00 AM EDT Consult Pulmonology - [place] [address] [facility] [address] [place] [phone] Cheryl Matthews MD Pleural effusion on left (Primary Dx) 08/11/2025 1:00 PM EDT Office Visit Thoracic Surgery - [place] [address] [phone] Erich Jiménez, PA History of lung cancer (Primary Dx); Pleural effusion 08/11/2025 12:10 PM EDT - 08/11/2025 11:59 PM EDT Hospital Encounter [facility] Xray [address] [place] [phone] Primary cancer of left upper lobe of lung (CMS/HCC V24, CMS/HCC V28) Discharge Disposition: Home or Self Care 08/03/2025 Telephone Thoracic Surgery - [place] [address] [phone] Rose Andrews MD 07/28/2025 7:30 AM EDT - 07/28/2025 12:00 PM EDT Surgery [facility] Main OR [address] [place] [phone] Rose Andrews MD DAVINCI left upper lobectomy [61117 (CPT ) +1 more] 07/28/2025 7:10 AM EDT Anesthesia Event [facility] Main OR [address] [place] [phone] Marcelo Peoples MD Chang, Ling, CRNA 07/28/2025 5:35 AM EDT - 08/01/2025 5:21 PM EDT Hospital Encounter [facility] Intermediate Care Unit B [address] [place] [phone] Rose Andrews MD Kokosadze, Estate, MD Primary cancer of left upper lobe of lung ([facility]/HCC V24, [facility]/HCC V28) Discharge Disposition: Home-Health Care Svc 07/08/2025 11:00 AM EDT Office Visit Thoracic Surgery - [place] [address] [phone] Rose Andrews MD Primary cancer of left upper lobe of lung ([facility]/HCC V24, [facility]/HCC V28) (Primary Dx); Neoplasm 07/02/2025 2:23 PM EDT Anesthesia Event [facility] Main OR [address] [place] [phone] Arjun Scruggs DO 07/02/2025 2:00 PM EDT - 07/02/2025 3:30 PM EDT Surgery [facility] Main OR [address] [place] [phone] Rose Andrews MD Navigation bronchoscopy/EBUS with biopsies [62158 (CPT ) +5 more] 07/02/2025 9:52 AM EDT - 07/02/2025 4:56 PM EDT Hospital Encounter [facility] Main OR [address] [place] [place] [phone] Rose Andrews MD Lung mass Discharge Disposition: Jail Care 07/02/2025 6:25 AM EDT - 07/02/2025 11:59 PM EDT Hospital Encounter [facility] Xray [address] [place] [phone] Pain Discharge Disposition: Home or Self Care 06/30/2025 1:46 PM EDT - 06/30/2025 11:59 PM EDT Hospital Encounter [facility] Pulmonary [address] [place] [phone] Lung mass Discharge Disposition: Home or Self Care 06/25/2025 Telephone Thoracic Surgery - [place] 299 [facility] [address] [phone] Kolby Villa [place] 06/24/2025 12:23 PM EDT - 06/24/2025 11:59 PM EDT Hospital Encounter [facility] CT Scan [address] [place] [phone] Lung mass Discharge Disposition: Home or Self Care 06/24/2025 11:30 AM EDT Consult Thoracic Surgery - [place] [address] [facility] [address] [place] [phone] Rose Andrews MD Lung mass (Primary Dx); Neoplasm 06/22/2025 Telephone Thoracic Surgery - [place] 299 [facility] [address] [place] [phone] Brenda Dc MA from Last 3 Months Surgical History Surgery Date Site/Laterality Comments CHOLECYSTECTOMY CT NAVIGATIONAL BRONCH PLAN SCAN 07/02/2025 Left JENNIFER Shahram Bronch BRONCHOSCOPY Navigation bronchoscopy/EBUS w Bx LUNG LOBECTOMY 07/28/2025 Left JENNIFER Lobectomy Medical History Medical History Date Comments Hyperlipidemia Arthritis Angina pectoris ([facility] V24) Heart valve disease Anxiety OCD (obsessive compulsive disorder) PKU (phenylketonuria) ([facility] V24) Osteoporosis Recurrent cold sores Pulmonary nodule 07/02/2025 JENNIFER nodule Cancer ([facility] V24, [facility] V28) Cancer of bronchus of left u pper lobe ([facility] V24, [facility] V28) Lung cancer ([facility] V24, [facility] V28) JENNIFER Social History Tobacco Use Types Packs/Day Years Used Date Smoking Tobacco: Never Smokeless Tobacco: Never Tobacco Cessation:Counseling Given: Not Answered Alcohol Use Standard Drinks/Week Comments Never 0 (1 standard drink = 0.6 oz pur e alcohol) Interpersonal Safety Answer Date Record ed Physical Abuse Unrecognized value 07/28/2025 Verbal Abuse Unrecognized value 07/28/2025 Comments No Sex and Gender Information Value Date Recorded Sex Assigned at Not on file Legal Sex Female 2:22 PM EDT Gender Identity Not on file Sexual Orientation Not on file Obstetrics History Last Filed Vital Signs Vital Sign Reading Time Taken Comments Blood Pressure 136/80 08/13/2025 8:11 AM EDT Pulse 82 08/13/2025 8:11 AM EDT Temperature 36.7 C (98.1 F) 08/13/2025 8:11 AM EDT Respiratory Rate 14 08/11/2025 12:5 9 PM EDT Oxygen Saturation 95% 08/13/2025 8:11 AM EDT Inhaled Oxygen Concentration - - Weight 69.7 kg (153 lb 11.2 oz) 08/13/2025 8:11 AM EDT Height 162.6 cm (5' 4 ) 08/13/2025 8:11 AM EDT Body Mass Index 26.38 08/13/2025 8:11 AM EDT Plan of Treatment Upcoming Encounters Date Type Department Care Team (Late st Contact Info) Description 08/30/2025 3:00 PM EDT Office Visit [facility] Hematology Oncology [address] [place] [phone] Aisha Rojas DO [address] [place] [address] 09/07/2025 8:30 AM EDT Office Visit Pulmonology - [place] [address] [facility] [address] [place] [phone] Cheryl Matthews MD [address] [place] [address] Health Maintenance Due Date Last Done Comments Breast Cancer Screening 1950 Colorectal Cancer Screening: Colonoscopy 1950 RSV Immunization Adult Patients (1 - Risk 50-74 years 1-dose series) 2001 Pneumococcal Vaccine: 50+ Years (2 of 2 - PCV) 04/11/2017 04/11/2016 Zoster Vaccines (2 of 2) 01/15/2020 11/20/2019, 08/04/2015 Depression Screening 11/11/2024 Cholesterol Screening (Lipid Panel) 03/19/2025 Hepatitis C Screening 03/19/2025 Medicare Annual Wellness Visit 03/19/2025 Osteoporosis Screening (Bone Density Screening) 03/19/2025 Social Influencers of Health Screening 03/19/2025 COVID-19 Vaccine ( season) 2025 11/29/2021, 01/13/2021, 12/16/2020 Influenza Vaccine (#1) 2025 4, 08/19/2023, 09/15/2022, Additional history exists DTaP,Tdap,and Td Vaccines (2 - Td or Tdap) 04/11/2026 04/11/2016 Falls Risk Assessment 08/01/2026 08/01/2025 Varicella Vaccines Aged Out 06/16/2015 No longer [...] on patient's age to complete this topic Medical Devices Implanted Type Area Carpentry Specialist Device Identifier Shelf Expiration Date Model / Serial / Lot Sealant Progel Air Pleural 4ml - Sna - [id number] Implanted:Qty: 1 on 07/28/2025 by Rose Andrews MD at [facility] Hemostasis Left: Chest CR BARD - DAVOL DIV [id number] 08/11/2026 [id number] / [id number] / [id number] Sealant Fibrin Vistaseal 10ml - [id number] - [id number] Implanted:Qty: 1 on 07/28/2025 by Rose Andrews MD at [facility] Hemostasis Left: Chest [employer] [id number] 12/29/2026 [id number] / [id number] / [id number] Sealant Patch Fibrin Evarrest 4x2in - [id number] - [id number] Implanted:Qty: 1 on 07/28/2025 by Rose Andrews MD at [facility] [place] Hemostasis Left: Chest [employer] [id number] 01/08/2026 [id number] / [id number] / [id number] Procedures Procedure Name Priority Date/Time Associated Diagnosis Comments XR CHEST 2 VIEWS STAT 08/13/2025 9:40 AM EDT Pleural effusion on left LA THORACENTESIS PLEURAL SPACE NEEDLE/CATH ASPIRATION W IMAGING GUIDANCE Routine 08/13/2025 9:27 AM EDT Pleural effusion on left NON-GYNECOLOGIC CYTOLOGY Routine 08/13/2025 9:26 AM EDT Pleural effusion on left DIFFERENTIAL BODY FLUID Routine 08/13/2025 9:26 AM EDT Pleural effusion on left CELL COUNT WITH REFLEX DIFFERENTIAL, BODY FLUID Routine 08/13/2025 9:26 AM EDT Pleural effusion on left GLUCOSE, BODY FLUID Routine 08/13/2025 9 :26 AM EDT Pleural effusion on left PROTEIN, BODY FLUID Routine 08/13/2025 9 :26 AM EDT Pleural effusion on left LACTATE DEHYDROGENASE, BODY FLUID Routine 08/13/2025 9:26 AM EDT Pleural effusion on left CULTURE BODY FLUID WITH GRAM STAIN Routine 08/13/2025 9:26 AM EDT Pleural effusion on left XR CHEST 2 VIEWS Routine 08/11/2025 12:1 9 PM EDT Primary cancer of left upper lobe of lung (CMS/HCC V24, CMS/HCC V28) ECG OUTSIDE 08/02/2025 RESPIRATORY VIRUS PANEL MOLECULAR STUDY Routine 07/31/2025 1:39 PM EDT PEP THERAPY Routine 07/31/2025 12:00 PM EDT CBC WITH AUTO DIFFERENTIAL Routine 07/31/2025 8:31 AM EDT BASIC METABOLIC PANEL Routine 07/31/2025 8:31 AM EDT CBC AND DIFFERENTIAL Routine 07/31/2025 8:31 AM EDT PEP THERAPY Routine 07/31/2025 8:01 AM EDT ECG 12-LEAD STAT 07/31/2025 6:40 AM EDT PEP THERAPY Routine 07/30/2025 8:00 PM EDT PEP THERAPY Routine 07/30/2025 4:00 PM EDT XR CHEST 1 VIEW STAT 07/30/2025 12:37 PM EDT MAGNESIUM Add-On 07/30/2025 12:26 PM EDT TROPONIN I HIGH SENSITIVITY Routine 07/30/2025 12:26 PM EDT BASIC METABOLIC PANEL Routine 07/30/2025 12:26 PM EDT COMPLETE BLOOD COUNT Routine 07/30/2025 12:26 PM EDT ECG 12-LEAD Routine 07/30/2025 12:22 PM EDT PEP THERAPY Routine 07/30/2025 12:01 PM EDT PEP THERAPY Routine 07/30/2025 8:02 AM EDT XR CHEST 1 VIEW STAT 07/30/2025 6:10 AM EDT POCT GLUCOSE BLOOD Routine 07/29/2025 7: 38 PM EDT PEP THERAPY Routine 07/29/2025 4:00 PM EDT PEP THERAPY Routine 07/29/2025 12:02 PM EDT PEP THERAPY Routine 07/29/2025 8:02 AM EDT XR CHEST 1 VIEW STAT 07/29/2025 6:01 AM EDT MAGNESIUM Routine 07/29/2025 5:47 AM EDT PHOSPHORUS Routine 07/29/2025 5:47 AM EDT BASIC METABOLIC PANEL Routine 07/29/2025 5:47 AM EDT COMPLETE BLOOD COUNT Routine 07/29/2025 5:47 AM EDT HEMOGLOBIN AND HEMATOCRIT Routine 07/28/2025 6:40 PM EDT XR CHEST 1 VIEW Routine 07/28/2025 5:53 PM EDT PEP THERAPY Routine 07/28/2025 4:00 PM EDT PEP THERAPY Routine 07/28/2025 2:28 PM EDT PEP THERAPY Routine 07/28/2025 2:28 PM EDT PEP THERAPY Routine 07/28/2025 2:28 PM EDT PEP THERAPY Routine 07/28/2025 2:28 PM EDT MAGNESIUM STAT 07/28/2025 12:12 PM EDT PHOSPHORUS STAT 07/28/2025 12:12 PM EDT BASIC METABOLIC PANEL STAT 07/28/2025 12:12 PM EDT COMPLETE BLOOD COUNT STAT 07/28/2025 12:12 PM EDT XR CHEST 1 VIEW STAT 07/28/2025 11:55 AM EDT PREPARE RBC STAT 07/28/2025 10:03 AM EDT TISSUE EXAM Routine 07/28/2025 8:27 AM EDT Primary cancer of left upper lobe of lung (CMS/HCC V24, CMS/HCC V28) TH AN ARTERIAL LINE (CHARGE) Routine 07/28/2025 8:18 AM EDT TH AN ENDOTRACHEAL(NO CHARGE) Routine 07/28/2025 8:14 AM EDT LA REMOVAL OF LUNG OTHER THAN PNEUMONECTOMY SINGLE LOBE 07/28/2025 7:18 AM EDT Primary cancer of left upper lobe of lung (CMS/HCC V24, CMS/HCC V28) Case Notes [employer] LA THORACOSCOPY SURGICAL WITH LOBECTOMY 07/28/2025 7:18 AM EDT Primary cancer of left upper lobe of lung (CMS/HCC V24, CMS/HCC V28) Case Notes [employer] PREPARE RBC Routine 07/28/2025 7:10 AM EDT CBC WITH AUTO DIFFERENTIAL Routine 07/20/2025 9:17 AM EDT Primary cancer of left upper lobe of lung (CMS/HCC V24, CMS/HCC V28) BASIC METABOLIC PANEL Routine 07/20/2025 9:17 AM EDT Primary cancer of left upper lobe of lung (CMS/HCC V24, CMS/HCC V28) CBC AND DIFFERENTIAL Routine 07/20/2025 9:17 AM EDT Primary cancer of left upper lobe of lung (CMS/HCC V24, CMS/HCC V28) PROTHROMBIN TIME WITH INR Routine 07/20/2025 9:17 AM EDT Primary cancer of left upper lobe of lung (CMS/HCC V24, CMS/HCC V28) Neoplasm ACTIVATED PARTIAL THROMBOPLASTIN TIME Routine 07/20/2025 9:17 AM EDT Primary cancer of left upper lobe of lung (CMS/HCC V24, CMS/HCC V28) Neoplasm TYPE AND SCREEN Routine 07/20/2025 9:17 AM EDT Primary cancer of left upper lobe of lung (CMS/HCC V24, CMS/HCC V28) MOLECULAR INTELLIGENCE TUMOR PROFILING Routine 07/16/2025 10:23 AM EDT XR CHEST 1 VIEW STAT 07/02/2025 4:04 PM EDT OXYGEN THERAPY, ADULT Routine 07/02/2025 3:32 PM EDT XR CHEST 1 VIEW Routine 07/02/2025 3:19 PM EDT Pain ..CONCENTRATION Routine 07/02/2025 3:18 PM EDT Lung mass ACID FAST BACILLI STAIN Routine 07/02/2025 3:18 PM EDT Lung mass CULTURE, AFB AND SMEAR WITH REFLEX TO IDENTIFICATION AND SUSCEPTIBILITY Routine 07/02/2025 3:18 PM EDT Lung mass CULTURE FUNGAL, OTHER Routine 07/02/2025 3:18 PM EDT Lung mass TISSUE EXAM Routine 07/02/2025 3:11 PM EDT Lung mass NON-GYNECOLOGIC CYTOLOGY Routine 07/02/2025 3:06 PM EDT Lung mass TH AN ENDOTRACHEAL(NO CHARGE) Routine 07/02/2025 2:47 PM EDT LA CORE NDL BX LNG/MED PERQ 07/02/2025 2:23 PM EDT Lung mass Case Notes CYTOLOGY Special Needs TIME CHANGE W/ KOLBY VIA PHONE 06/24 JT NOTIFIED CYTOLOGY LA BRONCHOSCOPY INCL FLUORO GUIDANCE W BRONCHIAL/ENDOBRONCHIA L BX SGL/MULT 07/02/2025 2:23 PM EDT Lung mass Case Notes CYTOLOGY Special Needs TIME CHANGE W/ KOLBY VIA PHONE 06/24 JT NOTIFIED CYTOLOGY LA BRONCHOSCOPY RIGID/FLEXIBLE W/TRANSBRONCHIAL LUNG BIOPSY(S) SINGLE LOBE 07/02/2025 2:23 PM EDT Lung mass Case Notes CYTOLOGY Special Needs TIME CHANGE W/ KOLBY VIA PHONE 06/24 JT NOTIFIED CYTOLOGY LA BRONCHOSCOPY RIGID/FLEXIBLE COMPUTER ASSISTED IMAGE GUIDED NAVIGATION 07/02/2025 2:23 PM EDT Lung mass Case Notes CYTOLOGY Special Needs TIME CHANGE W/ KOLBY VIA PHONE 06/24 JT NOTIFIED CYTOLOGY LA BRONCHOSCOPY INCL FLUOROSCOPIC GUID W EBUS DURING PERIPHERAL LESION 07/02/2025 2:23 PM EDT Lung mass Case Notes CYTOLOGY Special Needs TIME CHANGE W/ KOLBY VIA PHONE 06/24 JT NOTIFIED CYTOLOGY LA BRONCHOSCOPY INCL FLUROSCOPIC GUIDANCE W PLCMNT FIDUCIAL MARKER SGL/MULT 07/02/2025 2:23 PM EDT Lung mass Case Notes CYTOLOGY Special Needs TIME CHANGE W/ KOLBY VIA PHONE 06/24 JT NOTIFIED CYTOLOGY HC SPIROMETRY BRONCHODILATION RESPONSIVENESS PRE/POST BRONCHODILATOR ADMINISTRATION Routine 06/30/2025 2:40 PM EDT Lung mass PROCEDURAL ECG Routine 06/28/2025 10:46 AM EDT Lung mass CBC WITH AUTO DIFFERENTIAL Routine 06/28/2025 10:38 AM EDT Lung mass BASIC METABOLIC PANEL Routine 06/28/2025 10:38 AM EDT Lung mass CBC AND DIFFERENTIAL Routine 06/28/2025 10:38 AM EDT Lung mass PROTHROMBIN TIME WITH INR Routine 06/28/2025 10:38 AM EDT Lung mass Neoplasm ACTIVATED PARTIAL THROMBOPLASTIN TIME Routine 06/28/2025 10:38 AM EDT Lung mass Neoplasm TYPE AND SCREEN Routine 06/28/2025 10:38 AM EDT Lung mass CT CHEST WO CONTRAST Routine 06/24/2025 12:35 PM EDT Lung mass from Last 3 Months Results * XR Chest 2 Views (08/13/2025 9:40 AM EDT) Only the most recent of2 resultswithin the time period is included. Anatomical Region Laterality Modality Body Radiographic Charlette ging 08/13/2025 9:42 AM EDT Impressions 08/13/2025 9:45 AM EDT Previous surgery. Interval decrease in the amount of left pleural fluid. Although there are few markings in the left apex there is no convincing extrapleural gas collection. -------- FINAL REPORT -------- Dictated By: Chava Broussard Dictated Date: 08/13/2025 09:42 ET Assigned Physician: Chava Broussard Reviewed and Electronically Signed By: Chava Broussard Signed Date: 08/13/2025 09:45 ET Workstation ID: [id number] Transcribed By: Self Edit Transcribed Date: 08/13/2025 09:42 ET Narrative 08/13/2025 9:45 AM EDT EXAMINATION: CHEST CLINICAL INFORMATION: Left thoracentesis COMPARISON: Frontal view 08/11/25 TECHNIQUE: 2 views of the chest FINDINGS: Kyphosis and rotation to the right. Cardiac size, lower left mediastinum and left hilum are obscured. The central markings on the right are prominent but unchanged. Some opacities associated with the anterior aspect of the mid lower right ribs appear similar to previous. I suspect some metallic suture around the left hilum. Linear opacities in the remaining left upper lung. Possibility of markings in the left apex similar to previous. There is interval decrease in the amount of left pleural fluid. Bridging osteophytes and/or syndesmophytes in the visualized thoracic spine. There is at least moderate compression deformity in the lumbar spine. There are surgical clips in the abdomen. Procedure Note Chava Broussard MD - 08/13/2025 EXAMINATION: CHEST CLINICAL INFORMATION: Left thoracentesis COMPARISON: Frontal view 08/11/25 TECHNIQUE: 2 views of the chest FINDINGS: Kyphosis and rotation to the right. Cardiac size, lower left mediastinum and left hilum are obscured. The central markings on the right are prominent but unchanged. Someopacities associated with the anterior aspect of the mid lower right ribsappear similar to previous. I suspect some metallic suture around the left hilum. Linear opacities in the remaining left upper lung. Possibility of markings in the left apex similar to previous. There is interval decrease in the amount of left pleural fluid. Bridging osteophytes and/or syndesmophytes in the visualized thoracicspine. There is at least moderate compression deformity in the lumbarspine. There are surgical clips in the abdomen. IMPRESSION: Previous surgery. Interval decrease in the amount of left pleural fluid. Although there are few markings in the left apex there is no convincingextrapleural gas collection. -------- FINAL REPORT -------- Dictated By: Chava Broussard Dictated Date: 08/13/2025 09:42 ET Assigned Physician: Chava Broussard Reviewed and Electronically Signed By: Chava Broussard Signed Date: 08/13/2025 09:45 ET Workstation ID: [id number] Transcribed By: Self Edit Transcribed Date: 08/13/2025 09:42 ET Cheryl Matthews MD IMG XR PROCEDURES Final Re sult * LA THORACENTESIS PLEURAL SPACE NEEDLE/CATH ASPIRATION W IMAGING GUIDANCE (08/13/2025 9:27 AM EDT) Cheryl Burgos MD - 08/13/2025 9:27 AM EDT Cheryl Matthews MD 08/13/2025 9:28 AM Thoracentesis Date/Time: 08/13/2025 9:27 AM Performed by: Cheryl Matthews MD Authorized by: Cheryl Matthews MD Consent: Consent obtained: Verbal Consent given by: Guardian Risks, benefits, and alternatives were discussed: yes Risks discussed: Bleeding, infection, pain and pneumothorax Alternatives discussed: No treatment [place] protocol: Procedure explained and questions answered to patient or proxy's satisfaction: yes Relevant documents present and verified: yes Test results available: yes Imaging studies available: yes Required blood products, implants, devices, and special equipment available: yes Site/side marked: yes Immediately prior to procedure, a time out was called: yes Patient identity confirmed: Verbally with patient Sedation: Sedation type: None Anesthesia: Anesthesia method: Local infiltration Local anesthetic: Lidocaine 1% WITH epi Procedure details: Preparation: Patient was prepped and draped in usual sterile fashion Patient position: Sitting Location: L midscapular line Intercostal space: 8th Puncture method: [id number] catheter Ultrasound guidance: yes Indwelling catheter placed: no Needle gauge: 20 Catheter size: 8 Fr Number of attempts: 1 Fluid characteristics: serous. Post-procedure details: Post-procedure chest x-ray: pending. Procedure completion: Tolerated well, no immediate complications Comments: 800 mL serous fluid removed, stopped for no further fluid Cheryl Matthews MD IN CLINIC/BEDSIDE ORDERABL ES Final Result * Cell count with reflex differential, body fluid (08/13/2025 9:26 AM EDT) Body Fluid Total Nucleated Cells 2,965 /mm3 LAB HEMETOLOGY METHOD 08/13/2025 11:45 AM EDT [facility] Body Fluid RBC 5,000 /mm3 LAB HEMETOLOGY METHOD 08/13/2025 11:45 AM EDT [facility] Body Fluid Color Yellow 08/13/2025 11:45 AM EDT [facility] Body Fluid Clarity Cloudy 08/13/2025 11:45 AM EDT [facility] Body Fluid Source Pleural 08/13/2025 11:45 AM EDT [facility] Pleural Fluid Structure of left pleural cavity / Unknown Non-blood Collection / Unknown 08/13/2025 9:26 AM EDT 08/13/2025 9:35 AM EDT Narrative [facility] - 08/13/2025 11:45 AM EDT No reference ranges have been established for body fluids. Clinical correlation recommended. Cheryl Matthews MD LAB BODY FLUIDS AND STOOLS ORDERABLES Final Result [facility] [address] [place] [address], [place] [phone] * Culture body fluid with gram stain (08/13/2025 9:26 AM EDT) Fluid Culture No growth at 3 days LAB MICROBIOLOGY METHOD 08/16/2025 10:22 AM EDT [facility] Gram Stain Result No polymorphonuclear leukocytes, No epithelial cells, and No organisms noted 08/16/2025 10:22 AM EDT [facility] Pleural Fluid Structure of left pleural cavity / Unknown Non-blood Collection / Unknown 08/13/2025 9:26 AM EDT 08/13/2025 9:35 AM EDT Cheryl Matthews MD LAB MICROBIOLOGY - GENERAL ORDERABLES Final Result [facility] [address] [place] [address], * Differential body fluid (08/13/2025 9:26 AM EDT) Fluid Neutrophils % 2 % 08/13/2025 11:45 AM EDT [facility] Fluid Lymphocytes % 68 % 08/13/2025 11:45 AM EDT [facility] Fluid Monocytes/Macrop hages 10 % 08/13/2025 11:45 AM EDT [facility] Fluid Eosinophils % 20 % 08/13/2025 11:45 AM EDT [facility] Fluid Basophils % 1 % 08/13/2025 11:45 AM EDT [facility] Fluid Other Cells % 0 % 08/13/2025 11:45 AM EDT [facility] Pleural Fluid Structure of left pleural cavity / Unknown Non-blood Collection / Unknown 08/13/2025 9:26 AM EDT 08/13/2025 9:35 AM EDT Narrative [facility] - 08/13/2025 11:45 AM EDT No reference ranges have been established for body fluids. Clinical correlation recommended. Cheryl Matthews MD LAB BODY FLUIDS AND STOOLS ORDERABLES Final Result Performing Organization Address [facility]/ZIP Co de Phone Number [facility] [address] [place] [address], * Protein, body fluid (08/13/2025 9:26 AM EDT) Protein, Fluid 3.9 See Comment g/dL LAB CHEMISTRY METHOD 08/13/2025 10:57 AM EDT [facility] Pleural Fluid Structure of left pleural cavity / Unknown Non-blood Collection / Unknown 08/13/2025 9:26 AM EDT 08/13/2025 9:35 AM EDT [facility] - 08/13/2025 10:57 AM EDT No reference ranges have been established for body fluids. Clinical correlation recommended. Cheryl Matthews MD LAB BODY FLUIDS AND STOOLS ORDERABLES Final Result Performing Organization Address [facility] de Phone Number [facility] [address] [place] [address], [place] [phone] * Lactate dehydrogenase, body fluid (08/13/2025 9:26 AM EDT) LD, Fluid 226 See Comment unit/L LAB CHEMISTRY METHOD 08/13/2025 10:57 AM EDT [facility] Pleural Fluid Structure of left pleural cavity / Unknown Non-blood Collection / Unknown 08/13/2025 9:26 AM EDT 08/13/2025 9:35 AM EDT [facility] - 08/13/2025 10:57 AM EDT No reference ranges have been established for body fluids. Clinical correlation recommended. us Cheryl Matthews MD LAB BODY FLUIDS AND STOOLS ORDERABLES Final Result Performing Organization Address [facility] de Phone Number [facility] [address] [place] [address], [place] [phone] * Glucose, body fluid (08/13/2025 9:26 AM EDT) Glucose, Fluid 99 See Comment mg/dL LAB CHEMISTRY METHOD 08/13/2025 10:57 AM EDT [facility] Pleural Fluid Structure of left pleural cavity / Unknown Non-blood Collection / Unknown 08/13/2025 9:26 AM EDT 08/13/2025 9:35 AM EDT [facility] - 08/13/2025 10:57 AM EDT No reference ranges have been established for body fluids. Clinical correlation recommended. Cheryl Matthews MD LAB BODY FLUIDS AND STOOLS ORDERABLES Final Result Performing Organization Address City/[facility]/ZIP Co de Phone Number [facility] [address] [place] [address], [place] [phone] * Non-gynecologic cytology (08/13/2025 9:26 AM EDT) Only the most recent of2 resultswithin the time period is included. Final Diagnosis Pleural Fluid Left, Thoracentesis, (ThinPrep, cell block): -NEGATIVE FOR MALIGNANT CELLS 08/16/2025 8:32 AM EDT [facility] at 0832 EDT Specimen A Adequacy Satisfactory for evaluation 08/16/2025 8:32 AM EDT [facility] Gross Description A. Pleural Cavity, Left, pleural fluid: Received is 800 ml of red cloudy fluid. One ThinPrep and one cell block are made. Cell block placed in formalin at 1200, total formalin fixation time is 57 hours. rp 08/16/2025 8:32 AM EDT [facility] Disclaimer Unless otherwise specified, all tissue is 10% NB formalin fixed and paraffin embedded. Technical cytopathology services provided by [facility], at [address] [place] [address] (CLIA # [id number]/Aidan Morris MD, Support Director.) 08/16/2025 8:32 AM EDT [facility] Pleural Fluid Structure of left pleural cavity / Unknown Non-blood Collection / Unknown 08/13/2025 9:26 AM EDT 08/13/2025 11:17 AM EDT Cheryl Matthews MD LAB CYTOLOGY ORDERABLES Fi nal Result Performing Organization Address City/[facility]/ZIP Co de Phone Number [facility] [address] [place] [address], [place] [phone] * ECG-Outside (08/02/2025) us Provider Onbase ECG ORDERABLES Final Result * Respiratory virus panel molecular study (07/31/2025 1:39 PM EDT) Adenovirus Detection by PCR Not Detected Not Detected LAB MICROBIOLOGY METHOD 07/31/2025 7:37 PM EDT [facility] Influenza A PCR Not Detected Not Detected LAB MICROBIOLOGY METHOD 07/31/2025 7:37 PM EDT [facility] Influenza B PCR Not Detected Not Detected LAB MICROBIOLOGY METHOD 07/31/2025 7:37 PM EDT [facility] Coronavirus 229E Not Detected Not Detected LAB MICROBIOLOGY METHOD 07/31/2025 7:37 PM EDT [facility] Coronavirus HKU1 Not Detected Not Detected LAB MICROBIOLOGY METHOD 07/31/2025 7:37 PM EDT [facility] Coronavirus OC43 Not Detected Not Detected LAB MICROBIOLOGY METHOD 07/31/2025 7:37 PM EDT [facility] Coronavirus NL63 Not Detected Not Detected LAB MICROBIOLOGY METHOD 07/31/2025 7:37 PM EDT [facility] Parainfluenza Virus 1 Not Detected Not Detected LAB MICROBIOLOGY METHOD 07/31/2025 7:37 PM EDT [facility] Parainfluenza Virus 2 Not Detected Not Detected LAB MICROBIOLOGY METHOD 07/31/2025 7:37 PM EDT [facility] Parainfluenza Virus 3 Not Detected Not Detected LAB MICROBIOLOGY METHOD 07/31/2025 7:37 PM EDT [facility] Parainfluenza Virus 4 Not Detected Not Detected LAB MICROBIOLOGY METHOD 07/31/2025 7:37 PM EDT [facility] RSV PCR Not Detected Not Detected LAB MICROBIOLOGY METHOD 07/31/2025 7:37 PM EDT [facility] Human Metapneumovirus A and B Not Detected Not Detected LAB MICROBIOLOGY METHOD 07/31/2025 7:37 PM EDT [facility] Rhinovirus/Entero virus Not Detected Not Detected LAB MICROBIOLOGY METHOD 07/31/2025 7:37 PM EDT [facility] Bordetella pertussis Not Detected Not Detected LAB MICROBIOLOGY METHOD 07/31/2025 7:37 PM EDT [facility] Bordetella parapertussis Not Detected Not Detected LAB MICROBIOLOGY METHOD 07/31/2025 7:37 PM EDT [facility] Mycoplasma pneumo by PCR Not Detected Not Detected LAB MICROBIOLOGY METHOD 07/31/2025 7:37 PM EDT [facility] Chlamydia pneumoniae Not Detected Not Detected LAB MICROBIOLOGY METHOD 07/31/2025 7:37 PM EDT [facility] SARS COV-2 Not Detected Not Detected LAB MICROBIOLOGY METHOD 07/31/2025 7:37 PM EDT [facility] Swab Nasopharyngeal structure / Unknown Non-blood Collection / Unknown 07/31/2025 1:39 PM EDT 07/31/2025 6:08 PM EDT [facility] - 07/31/2025 7:37 PM EDT Testing was performed using the [employer]™ Interactive[employer] Respiratory Pathogen PCR Assay. All results must be correlated with the clinical findings. Results should not be used as the sole basis for diagnosis. False Negative results may occur from the presence of sequence variants in the region targeted by the assay or the presence of inhibitors. Results may be affected by concurrent antiviral/antimicrobial therapy or levels of organisms that are below the limit of detection. us [place] Amy JOHNSON LAB MICROBIOLOGY - GENERAL O RDERABLES Final Result [facility] [address] [place] [address], * (ABNORMAL) CBC auto differential (07/31/2025 8:31 AM EDT) Only the most recent of3 resultswithin the time period is included. [facility] Signature WBC 11.2(H) 4.8 - 10.8 K/mcL LAB HEMETOLOGY METHOD 07/31/2025 8:51 AM EDT [facility] RBC 4.30 3.80 - 4.80 M/mcL LAB HEMETOLOGY METHOD 07/31/2025 8:51 AM EDT [facility] Hemoglobin 13.5 11.5 - 16.0 g/dL LAB HEMETOLOGY METHOD 07/31/2025 8:51 AM [facility] Hematocrit 41.3 35.0 - 47.0 % LAB HEMETOLOGY METHOD 07/31/2025 8:51 AM [facility] MCV 95.6 79.0 - 98.0 FL LAB HEMETOLOGY METHOD 07/31/2025 8:51 AM [facility] MCH 31.3 27.0 - 32.0 pcg LAB HEMETOLOGY METHOD 07/31/2025 8:51 AM [facility] MCHC 32.7 32.0 - 37.0 g/dL LAB HEMETOLOGY METHOD 07/31/2025 8:51 AM [facility] RDW 13.6 11.0 - 15.0 % LAB HEMETOLOGY METHOD 07/31/2025 8:51 AM [facility] Platelets 196 130 - 400 K/mcL LAB HEMETOLOGY METHOD 07/31/2025 8:[facility] MPV 10.5 7.0 - 11.0 FL LAB HEMETOLOGY METHOD 07/31/2025 8:51 AM [facility] NRBC 0.0 <1.0 % LAB HEMETOLOGY METHOD 07/31/2025 8:51 AM EDT [facility] NRBC Absolute 0.00 <0.10 K/mcL LAB HEMETOLOGY METHOD 07/31/2025 8:51 AM [facility] Neutrophils Relative 84.0 % LAB HEMETOLOGY METHOD 07/31/2025 8:51 AM [facility] Lymphocytes Relative 9.6 % LAB HEMETOLOGY METHOD 07/31/2025 8:51 AM [facility] Monocytes Relative 5.0 % LAB HEMETOLOGY METHOD 07/31/2025 8:51 AM [facility] Eosinophils Relative 0.8 % LAB HEMETOLOGY METHOD 07/31/2025 8:51 AM [facility] Basophils Relative 0.3 % LAB HEMETOLOGY METHOD 07/31/2025 8:51 AM [facility] Immature Granulocytes Relative 0.3 % LAB HEMETOLOGY METHOD 07/31/2025 8:51 AM [facility] Neutrophils Absolute 9.44(H) 1.50 - 7.00 K/mcL LAB HEMETOLOGY METHOD 07/31/2025 8:51 AM [facility] Lymphocytes Absolute 1.08 1.00 - 5.00 K/mcL LAB HEMETOLOGY METHOD 07/31/2025 8:51 AM [facility] Monocytes Absolute 0.56 0.20 - 1.00 K/mcL LAB HEMETOLOGY METHOD 07/31/2025 8:51 AM [facility] Eosinophils Absolute 0.09 0.00 - 0.50 K/mcL LAB HEMETOLOGY METHOD 07/31/2025 8:51 AM [facility] Basophils Absolute 0.03 0.00 - 0.20 K/mcL LAB HEMETOLOGY METHOD 07/31/2025 8:51 AM [facility] Immature Granulocytes Absolute 0.03 0.00 - 0.03 K/mcL LAB HEMETOLOGY METHOD 07/31/2025 8:51 AM [facility] Blood Venous blood specimen / Unknown Venipuncture / Unknown 07/31/2025 8:31 AM EDT 07/31/2025 8:41 AM EDT us Pedro Reyes MD LAB BLOOD ORDERABLES Final R esult [facility] [address] [place] [address], * (ABNORMAL) Basic metabolic panel (07/31/2025 8:31 AM EDT) Only the most recent of6 resultswithin the time period is included. Sodium 142 133 - 145 mmol/L LAB CHEMISTRY METHOD 07/31/2025 9:06 AM [facility] Potassium 3.9 3.5 - 5.5 mmol/L LAB CHEMISTRY METHOD 07/31/2025 9:06 AM [facility] Chloride 108 96 - 110 mmol/L LAB CHEMISTRY METHOD 07/31/2025 9:06 AM [facility] CO2 28 21 - 32 mmol/L LAB CHEMISTRY METHOD 07/31/2025 9:06 AM [facility] Anion Gap 6 3 - 11 LAB CHEMISTRY METHOD 07/31/2025 9:06 AM [facility] Glucose 169(H) 70 - 100 mg/dL LAB CHEMISTRY METHOD 07/31/2025 9:06 AM [facility] BUN 21 5 - 25 mg/dL LAB CHEMISTRY METHOD 07/31/2025 9:06 AM [facility] Creatinine 0.78 0.50 - 1.10 mg/dL LAB CHEMISTRY METHOD 07/31/2025 9:06 AM [facility] eGFR 80 >=60 mL/min/1. 73m2 LAB CHEMISTRY METHOD 07/31/2025 9:06 AM [facility] Comment:Calculation based on the Chronic Kidney Disease Epidemiology Collaboration (CKD-EPI) equation refit without adjustment for race. BUN/Creatinine Ratio 26.9 LAB CHEMISTRY METHOD 07/31/2025 9:06 AM EDT [facility] Calcium 8.8 8.5 - 10.5 mg/dL LAB CHEMISTRY METHOD 07/31/2025 9:06 AM EDT [facility] Blood Venous blood specimen / Unknown Venipuncture / Unknown 07/31/2025 8:31 AM EDT 07/31/2025 8:42 AM EDT us Pedro Reyes MD LAB BLOOD ORDERABLES Final R esult [facility] [address] [place] [address], [place] [phone] * ECG 12 lead (07/31/2025 6:40 AM EDT) Only the most recent of2 resultswithin the time period is included. Ventricular Rate ECG 58 BPM [facility] Atrial Rate 58 BPM [facility] P-R Interval 168 ms GEMUSE QRS Duration 74 ms GEMUSE Q-T Interval 422 ms GEM[facility] QTc 414 ms GEMUSE P Wave [place] 18 degrees GEMUSE R [place] 35 degrees GEMUSE T [place] 22 degrees GEMUSE ECG Interpretation Sinus bradycardia Septal infarct , age undetermined Abnormal ECG When compared with ECG of 30-JUL-2025 12:22, Atrial fibrillation has resolved Confirmed by Demetra RIOS JAMES ([id number]) on 07/31/2025 10:24:59 PM [facility] 07/31/2025 6:40 AM EDT 07/31/2025 10:24 PM EDT us Pedro Reyes MD ECG ORDERABLES Final Result Performing Organization Address City/[facility]/ZIP Co de Phone Number [facility] * XR Chest 1 View (07/30/2025 12:37 PM EDT) Only the most recent of7 resultswithin the time period is included. Anatomical Region Laterality Modality Body Radiographic Charlette ging 07/30/2025 12:5 8 PM EDT Impressions 07/30/2025 12:59 PM EDT FINDINGS/IMPRESSION: Interval removal of a left chest tube without visible pneumothorax. Postoperative left chest. Small left pleural effusion and associated volume loss/infiltrate. Stable coarse reticular markings throughout the left lung. -------- FINAL REPORT -------- Dictated By: Arabella Kiser Dictated Date: 07/30/2025 12:58 ET Assigned Physician: Arabella Kiser Reviewed and Electronically Signed By: Arabella Kiser Signed Date: 07/30/2025 12:59 ET Workstation ID: [id number] Transcribed By: Self Edit Transcribed Date: 07/30/2025 12:58 ET Narrative 07/30/2025 12:59 PM EDT XR CHEST 1 VIEW INDICATION: pain TECHNIQUE: XR CHEST 1 VIEW COMPARISON: No priors available. Procedure Note Arabella Kiser MD - 07/30/2025 XR CHEST 1 VIEW INDICATION: pain TECHNIQUE: XR CHEST 1 VIEW COMPARISON: No priors available. IMPRESSION: FINDINGS/IMPRESSION: Interval removal of a left chest tube without visiblepneumothorax. Postoperative left chest. Small left pleural effusion andassociated volume loss/infiltrate. Stable coarse reticular markingsthroughout the left lung. -------- FINAL REPORT -------- Dictated By: Arabella Kiser Dictated Date: 07/30/2025 12:58 ET Assigned Physician: Arabella Kiser Reviewed and Electronically Signed By: Arabella Kiser Signed Date: 07/30/2025 12:59 ET Workstation ID: [id number] Transcribed By: Self Edit Transcribed Date: 07/30/2025 12:58 ET us [facility] Amy JOHNSON IMG XR PROCEDURES Final Resu lt * Troponin I high sensitivity (07/30/2025 12:26 PM EDT) High Sensitivity Troponin I 18 <=54 ng/L LAB CHEMISTRY METHOD 07/30/2025 1:02 PM EDT [facility] Blood Venous blood specimen / Unknown Venipuncture / Unknown 07/30/2025 12:26 PM EDT 07/30/2025 12:34 PM EDT Narrative [facility] - 07/30/2025 1:02 PM EDT High levels of biotin in samples may falsely decrease hsTroponin values. Use caution when interpreting hsTroponin results in patients taking biotin who exhibit renal impairment (eGFR <60) or in patients taking more than 20 mg/day of biotin. [facility] Amy [facility]OH[facility] LAB BLOOD ORDERABLES Final R esult [facility] [address] [place] [address], [place] [phone] * (ABNORMAL) Complete blood count (07/30/2025 12:26 PM EDT) Only the most recent of3 resultswithin the time period is included. WBC 14.8(H) 4.8 - 10.8 K/mcL LAB HEMETOLOGY METHOD 07/30/2025 12:38 PM EDT [facility] RBC 4.40 3.80 - 4.80 M/mcL LAB HEMETOLOGY METHOD 07/30/2025 12:38 PM EDT [facility] Hemoglobin 13.6 11.5 - 16.0 g/dL LAB HEMETOLOGY METHOD 07/30/2025 12:38 PM EDT [facility] Hematocrit 41.3 35.0 - 47.0 % LAB HEMETOLOGY METHOD 07/30/2025 12:38 PM EDT [facility] MCV 94.9 79.0 - 98.0 FL LAB HEMETOLOGY METHOD 07/30/2025 12:38 PM EDT [facility] MCH 31.3 27.0 - 32.0 pcg LAB HEMETOLOGY METHOD 07/30/2025 12:38 PM EDT [facility] MCHC 32.9 32.0 - 37.0 g/dL LAB HEMETOLOGY METHOD 07/30/2025 12:38 PM EDT [facility] RDW 13.6 11.0 - 15.0 % LAB HEMETOLOGY METHOD 07/30/2025 12:38 PM EDT [facility] Platelets 212 130 - 400 K/mcL LAB HEMETOLOGY METHOD 07/30/2025 12:38 PM EDT [facility] MPV 10.8 7.0 - 11.0 FL LAB HEMETOLOGY METHOD 07/30/2025 12:38 PM EDT [facility] NRBC 0.0 <1.0 % LAB HEMETOLOGY METHOD 07/30/2025 12:38 PM EDT [facility] NRBC Absolute 0.00 <0.10 K/mcL LAB HEMETOLOGY METHOD 07/30/2025 12:38 PM EDT [facility] Blood Venous blood specimen / Unknown Venipuncture / Unknown 07/30/2025 12:26 PM EDT 07/30/2025 12:34 PM EDT [place] Amy JOHNSON LAB BLOOD ORDERABLES Final R esult [facility] [address] [place] [address], * Magnesium (07/30/2025 12:26 PM EDT) Only the most recent of3 resultswithin the time period is included. Magnesium 2.1 1.9 - 2.6 mg/dL LAB CHEMISTRY METHOD 07/30/2025 1:57 PM EDT [facility] Comment:Hemolysis present Blood Venous blood specimen / Unknown Venipuncture / Unknown 07/30/2025 12:26 PM EDT 07/30/2025 12:34 PM EDT us Pedro Reyes MD LAB BLOOD ORDERABLES Final R esult Performing Organization Address City/[facility]/ZIP Co de Phone Number [facility] [address] [place] [address], [place] [phone] * (ABNORMAL) POCT Glucose, blood (07/29/2025 7:38 PM EDT) [facility] Glucose POCT 145(H) 70 - 100 mg/dL 07/29/2025 7:38 PM EDT [facility] Blood Capillary blood specimen / Unknown 07/29/2025 7:38 PM EDT 07/29/2025 7:40 PM EDT us Pedro Reyes MD LAB POINT OF CARE TE ST DOCKED DEVICE UNSOLICITED RESULTS Final Result Performing Organization Address [facility] Co de Phone Number [facility] [address] [place] [address], [place] [phone] * Phosphorus (07/29/2025 5:47 AM EDT) Only the most recent of2 resultswithin the time period is included. [facility] Phosphorus 2.9 2.5 - 4.5 mg/dL LAB CHEMISTRY METHOD 07/29/2025 7:30 AM EDT [facility] Blood Venous blood specimen / Unknown Venipuncture / Unknown 07/29/2025 5:47 AM EDT 07/29/2025 6:17 AM EDT us Vandana Morgan NP LAB BLOOD ORDERABLES Final Result Performing Organization Address [facility]/ZIP Co de Phone Number [facility] [address] [place] [address], [place] [phone] * Hemoglobin and hematocrit (07/28/2025 6:40 PM EDT) [facility] Hemoglobin 12.7 11.5 - 16.0 g/dL LAB HEMETOLOGY METHOD 07/28/2025 7:07 PM EDT [facility] Hematocrit 38.1 35.0 - 47.0 % LAB HEMETOLOGY METHOD 07/28/2025 7:07 PM EDT [facility] Blood Venous blood specimen / Unknown Venipuncture / Unknown 07/28/2025 6:40 PM EDT 07/28/2025 6:57 PM EDT us Anaid CUMMINS LAB BLOOD ORDERABLES Final Re sult [facility] [address] [place] [address], * Prepare RBC: 2 Units (07/28/2025 10:03 AM EDT) Only the most recent of2 resultswithin the time period is included. Product Code [id number] 07/28/2025 12:26 PM EDT [facility] Unit Number [id number] 07/28/20 12:26 PM EDT [facility] Crossmatch Compatible 07/28/2025 10:08 AM EDT [facility] Dispense Status Released From Crossmatch 07/28/2025 12:26 PM EDT [facility] Unit ABO Rh OPOS 07/28/2025 12:26 PM EDT [facility] Unit Expiration Date Time [id number] 07/28/2025 12:26 PM EDT [facility] Unit Blood Type 5100 07/28/2025 12:26 PM EDT [facility] Product Code [id number] 07/28/2025 12:[facility] Number [id number] 07/28/20 12:27 PM EDT [facility] Crossmatch Compatible 07/28/2025 10:08 AM EDT [facility] Dispense Status Released From Crossmatch 07/28/2025 12:27 PM EDT [facility] Unit ABO Rh OPOS 07/28/2025 12:27 PM EDT [facility] Unit Expiration Date Time [id number] 07/28/2025 12:27 PM EDT [facility] Unit Blood Type 5100 07/28/2025 12:27 PM EDT [facility] Blood Venous blood specimen / Unknown 07/28/2025 10:03 AM EDT 07/20/2025 9:33 AM EDT Marcelo Peolpes MD BLOOD BANK PRODUCT ORDERABLES Final Result [facility] [address] [place] [address], [place] [phone] * Tissue exam (07/28/2025 8:27 AM EDT) Only the most recent of2 resultswithin the time period is included. Final Diagnosis A. Lymph Node, Level 8, Left-biopsy: -BENIGN LYMPH NODE B. Lymph Node, Level 9, Left-biopsy: -BENIGN LYMPH NODE C. 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, moderately differentiated Spread Through Air Spaces (REGINALDO): Not identified Visceral Pleura Invasion: Present Direct Invasion of Other Structures: Not applicable (no other structures present) Treatment Effect: No known presurgical therapy Lymphatic and / or Vascular Invasion: Not identified Tumor Comment: Elastic stain confirms pleural invasion MARGINS Margin Status for Invasive Tumor: All margins negative for invasive tumor Closest Margin(s) to Invasive Tumor: Bronchial Closest Margin(s) to Invasive Tumor: Vascular Closest Margin(s) to Invasive Tumor: Parenchymal Distance from Invasive Tumor to Closest Margin: 4.1 cm Margin Status for Non-Invasive Tumor: Not applicable REGIONAL LYMPH NODES Lymph Node(s) from Prior Procedures: No known prior lymph node sampling performed Regional Lymph Node Status: : All regional lymph nodes negative for tumor Number of Lymph Nodes Examined: two Cesar Site(s) Examined: 8L: Para-esophageal (below trent) Cesar Site(s) Examined: 9L: Pulmonary ligament DISTANT METASTASIS Distant Site(s) Involved: Cannot be determined pTNM CLASSIFICATION (AJCC Version 9) Reporting of pT, pN, and (when applicable) pM categories is based on information available to the pathologist at the time the report is issued. As per the AJCC (Chapter 1, 8th Ed.) it is the managing physician's responsibility to establish the final pathologic stage based upon all pertinent information, including but potentially not limited to this pathology report. pT Category: pT1c pN Category: pN0 ADDITIONAL FINDINGS Additional Findings: Atypical adenomatous hyperplasia: three foci Additional Findings: Fibrosis: subpleuarl fibroelastosis Additional Findings: Emphysema Additional Findings: Rare non-casseating granuloma, suggestive of aspiration 5 11:38 AM EDT [facility] ([facility]) [facility] Gross Description A. Lymph Node, Level 8, Left: Labeled level 8, lymph node . Received in formalin, on Telfa, is a 0.7 x 0.4 x 0.3 cm focally anthracotic, [place] portion of cesar tissue with minimally attached adipose tissue. The specimen is bisected, wrapped in paper and submitted entirely in one cassette, two pieces. B. Lymph Node, Level 9, Left: Labeled level 9, lymph node . Received in formalin, on Telfa, is a 0.8 x 0.6 x 0.3 cm focally anthracotic, [place] portion of cesar tissue with minimally attached adipose tissue. The specimen is bisected, with the paper and submitted entirely in one cassette, two pieces. C. Lung, Left Upper Lobe, : Labeled Lung JENNIFER . Received in formalin is a 134 g, 15.6 x 10.3 x 2.2 cm lobe of lung that displays one staple line that extends from the hilum. The staple line is removed and the underlying parenchyma is inked blue. The stapled bronchovascular margins are removed and submitted en face. The serosa is brown-hanna with a firm, puckered area on the superior aspect that is inked katarina. The cut surfaces show a 2.3 x 1.9 x 1.9 cm well-circumscribed, rubbery, white lesion that is contiguous with the inked puckering. The lesion is located 4.1 cm from the hilum, and 4.3 cm from the staple line. The remaining uninvolved parenchyma is hanna-brown and spongiform. No additional masses are identified. Four possible intraparenchymal lymph nodes are identified ranging from 0.2 cm to 0.4 cm. Additionally, there is a 1.6 x 1.1 x 0.4 cm portion of friable brown tissue that was submitted with the specimen. Sewer Pipe Offbearer sections are submitted in twenty-two cassettes. 1: Bronchial margin (inked green), en face, two pieces 2: Vasculature margins (inked green), en face, two pieces 3-12: Entirety of lesion sequentially submitted from superior to inferior (5-6, 7-8, 9-10 are bisected), one piece each 13-14: Tissue adjacent to lesion, one piece each 15-16: Random lung from the superior lobe, two pieces each 17-18: Random lung from the middle lobe, two pieces each 19-20: Random lung from the inferior lobe, two pieces each 21: Four possible lymph nodes, four pieces 22: Friable tissue, in toto, one piece KR 5 11:38 AM EDT [facility] ([facility]) [facility] Disclaimer NOTE: The immunohistochemical tests and in situ hybridization tests were developed and their performance characteristics were determined by [facility]. They have not been cleared or approved by the U.S. Food and Drug Administration. The FDA has determined that such clearance or approval is not necessary. These tests are used for clinical purposes. They should not be regarded as investigational or for research. This laboratory is certified under the Clinical Laboratory Improvement Amendments of 1988 (CLIA) as qualified to perform high complexity clinical laboratory testing. (controls appropriate) Unless otherwise specified, all tissue is 10% NB formalin fixed and paraffin embedded. 11:38 AM EDT [facility] Tissue Lymph node specimen / Unknown 07/28/2025 8:27 AM EDT 07/28/2025 2:02 PM EDT Tissue specimen (specimen) Lymph node specimen / Unknown 07/28/2025 8:30 AM EDT 07/28/2025 2:02 PM EDT Tissue specimen (specimen) Structure of upper lobe of left lung / Unknown 07/28/2025 10:16 AM EDT 07/28/2025 2:02 PM EDT us Rose Andrews MD LAB PATHOLOGY ORDERABLES Final R esult [facility] [address] [place] [address], [place] [phone] * TH AN ARTERIAL LINE (CHARGE) (07/28/2025 8:18 AM EDT) Cosme Chen SRNA - 07/28/2025 8:18 AM EDT SABRINA Myers 07/28/2025 8:20 AM Arterial Line Performed by: SABRINA Myers Authorized by: Marcelo Peoples MD Consent: Written consent obtained. Risks and benefits: risks, benefits and alternatives were discussed Consent given by: guardian Patient understanding: patient states understanding of the procedure being performed Patient consent: the patient's understanding of the procedure matches consent given Procedure consent: procedure consent matches procedure scheduled Relevant documents: relevant documents present and verified Site marked: the operative site was marked Patient identity confirmed: verbally with patient Time out: Immediately prior to procedure a time out was called to verify the correct patient, procedure, equipment, support merchandiser and site/side marked as required. Preparation: Patient was prepped and draped in the usual sterile fashion. Indications: hemodynamic monitoring Location: right radial Sedation: Patient sedated: yes Sedatives: see MAR for details Seymour's test normal: yes Needle gauge: 18 Seldinger technique: Seldinger technique used Number of attempts: 1 Post-procedure: dressing applied Post-procedure CMS: normal Staffing Anesthesiologist: Marcelo Peoples MD Resident/BRANCHER: Mckenna Mondragon CRNA us Marcelo Peoples MD ANESTHESIA ORDERABLES Final Re sult * TH AN ENDOTRACHEAL(NO CHARGE) (07/28/2025 8:14 AM EDT) Cosme Chen SRNA - 07/28/2025 8:14 AM EDT SABRINA Myers 07/28/2025 8:18 AM General Information and Staff Patient location during procedure: OR Anesthesiologist: Marcelo Peoples MD Resident/BRANCHER: Mckenna Mnodragon CRNA Other anesthesia staff: SABRINA Myers Performed: other anesthesia staff Performed by: SABRINA Myers Authorized by: Marcelo Peoples MD Intubation Airway not difficult Urgency: elective Final Airway Details Successful airway: ETT - double lumen left Cuffed: yes Successful intubation technique: direct laryngoscopy Facilitating devices/methods: anterior pressure/BURP Blade: Vanessa Blade size: #3 ETT DL size (fr): 35 Cormack-Lehane Classification: grade IIa - partial view of glottis Placement verified by: chest auscultation Measured from: teeth ETT to teeth (cm): 29 Number of attempts at approach: 1Final airway type: endotracheal airway Indications and Patient Condition Indications for airway management: anesthesia Spontaneous Ventilation: absent Sedation level: Yes Preoxygenated: yes Soft Tissue Damage: No Dentition Unchanged: Yes Patient position: sniffing Mask difficulty assessment: 2 - vent by mask + OA or adjuvant +/- NMBA us Marcelo Peoples MD ANESTHESIA ORDERABLES Final Re sult * Activated partial thromboplastin time (07/20/2025 9:17 AM EDT) Only the most recent of2 resultswithin the time period is included. aPTT 30.9 24.1 - 39.3 sec LAB COAGULATION METHOD 07/20/2025 9:50 AM EDT [facility] Blood Venous blood specimen / Unknown Venipuncture / Unknown 07/20/2025 9:17 AM EDT 07/20/2025 9:33 AM EDT us Rose Andrews MD LAB BLOOD ORDERABLES Final Resul t Performing Organization Address [facility] Co de Phone Number [facility] [address] [place] [address], [place] [phone] * Prothrombin time with INR (07/20/2025 9:17 AM EDT) Only the most recent of2 resultswithin the time period is included. Protime 10.9 10.6 - 13.9 sec LAB COAGULATION METHOD 07/20/2025 9:50 AM EDT [facility] INR 0.9 LAB COAGULATION METHOD 07/20/2025 9:50 AM EDT [facility] Blood Venous blood specimen / Unknown Venipuncture / Unknown 07/20/2025 9:17 AM EDT 07/20/2025 9:33 AM EDT us Rose Andrews MD LAB BLOOD ORDERABLES Final Resul t Performing Organization Address [facility]/ZIP Co de Phone Number [facility] [address] [place] [address], [place] [phone] * Type and screen (07/20/2025 9:17 AM EDT) Only the most recent of2 resultswithin the time period is included. ABO Group O 07/20/2025 10:33 AM EDT [facility] Rh Type Positive 07/20/2025 10:33 AM EDT [facility] Antibody Screen Negative 07/20/2025 10:33 AM EDT [facility] Blood Venous blood specimen / Unknown Venipuncture / Unknown 07/20/2025 9:17 AM EDT 07/20/2025 9:33 AM EDT Rose Andrews MD LAB BLOOD BANK TEST ORDERABLES F inal Result [facility] [address] [place] [address], [place] [phone] * Molecular intelligence tumor profiling (07/16/2025 10:23 AM EDT) Tissue Travon Provider LAB MOLECULAR DIAGNOSTICS ORDERABLES Final Result * Concentration (07/02/2025 3:18 PM EDT) AFB Concentration Performed 9:05 AM EDT [facility] Structure of upper lobe of left lung / Unknown 07/02/2025 3:18 PM EDT 07/02/2025 3:45 PM EDT Narrative [facility] - 08/16/2025 9:05 AM EDT Performed at: 01 - [facility] [id number] [employer]: Sandi Rueda MD, Phone: [phone] Rose Andrews MD LAB BLOOD ORDERABLES Edited Resu lt - Final [facility] * Culture, afb and smear with reflex to identification and susceptibility (07/02/2025 3:18 PM EDT) AFB Specimen Processing Concentration 08/16/2025 9:05 AM EDT [facility] Acid Fast Smear Negative 08/16/2025 9:05 AM EDT [facility] Acid Fast Culture Negative 08/16/2025 9:05 AM EDT [facility] Comment:No acid fast bacilli isolated after 6 weeks. Wash Structure of upper lobe of left lung / Unknown 07/02/2025 3:18 PM EDT 07/02/2025 3:45 PM EDT Narrative [facility] - 08/16/2025 9:05 AM EDT Performed at: - [facility] [address] [id number] [employer]: Sandi Rueda MD, Phone: [phone] us Rose Andrews MD LAB MICROBIOLOGY - GENERAL ORDER NIMO Final Result [facility] * Acid fast bacilli stain (07/02/2025 3:18 PM EDT) AFB Stain Result No Acid fast bacilli seen on direct smear (Fuchsin method, 1000x) No Acid Fast Bacilli seen on direct smear 07/02/2025 10:15 PM EDT [facility] Wash Structure of upper lobe of left lung / Unknown 07/02/2025 3:18 PM EDT 07/02/2025 3:45 PM EDT us Rose Andrews MD LAB MICROBIOLOGY - GENERAL ORDER NIMO Final Result Performing Organization Address [facility] Co de Phone Number [facility] [address] [place] [address], [place] [phone] * Culture fungal, other (07/02/2025 3:18 PM EDT) Culture, Fungus Negative for Fungus after 4 Weeks 08/02/2025 7:58 AM EDT [facility] Wash Structure of upper lobe of left lung / Unknown 07/02/2025 3:18 PM EDT 07/02/2025 3:45 PM EDT us Rose Andrews MD LAB MICROBIOLOGY - GENERAL ORDER NIMO Final Result Performing Organization Address City/[facility]/ZIP Co de Phone Number [facility] [address] [place] [address], [place] [phone] * TH AN ENDOTRACHEAL(NO CHARGE) (07/02/2025 2:47 PM EDT) Ruma Macario CRNA - 07/02/2025 2:47 PM EDT Ruma Sanchez CRNA 07/02/2025 2:47 PM General Information and Staff Patient location during procedure: OR Resident/BRANCHER: Ruma Sanchez CRNA Performed: resident/BRANCHER/CAA Performed by: Ruma Sanchez CRNA Authorized by: Arjun Scruggs DO Intubation Airway not difficult Urgency: elective Final Airway Details Successful airway: ETT Cuffed: yes Successful intubation technique: video laryngoscopy Blade: Vanessa Blade size: #3 ETT size (mm): 8.5 Cormack-Lehane Classification: grade I - full view of glottis Placement verified by: chest auscultation and capnometry Measured from: lips ETT to lips (cm): 20 Number of attempts at approach: 1Final airway type: endotracheal airway Indications and Patient Condition Indications for airway management: anesthesia and airway protection Spontaneous ventilation: present Sedation level: Yes Preoxygenated: yes Soft Tissue Damage: No Dentition Unchanged: Yes Patient position: sniffing MILS maintained throughout Mask difficulty assessment: 1 - vent by mask Arjun Scruggs DO ANESTHESIA ORDERABLES Final Res ult * Pulmonary function testing: Carbon Monoxide Diffusing Capacity, Nitrogen Wash Out, Spirometry with Bronchodilator (06/30/2025 2:40 PM EDT) Rhonda Cole MD - 07/01/2025 12:46 PM EDT Table formatting from the original result was not included. Images from the original result were not included. [facility] [address] [place] [id number] Pulmonary Functions Report Date of service: 06/30/25 Patient Name: Melony Flowers Date of : 1950 Age: 74 y.o. Gender: female Ordering Provider: Rose Andrews MD Diagnosis listed on Order: Lung mass Reason for Exam: Order Questions Answers Reason for Exam: Preop Which PFTs would you like to perform? Carbon Monoxide Diffusing Capacity,Nitrogen Wash Out,Spirometry with Bronchodilator Pulmonary Test Finding: Spirometry/ Flow Volume Loop: FEV1 is 1.48 and 75 % of predicted., FVC is 59 % of predicted. , FEV1/FVC ratio is 99 % of predicted. Spirometry Post Bronchodilator Response: No bronchodilator response. Lung Volumes: TLC is 61 % of predicted. RV is 70 % of predicted. RV/TLC is is 114 % of predicted. Diffusion Capacity: DLCO is 81 % of predicted (Adjusted DLCO is 80 %). DLCO/VA is 116 % of predicted. Quality of Study: Meets ATS criteria for acceptability and repeatability Refer to scanned report for all additional results and graphs. Interpretation/Impression: No obstruction. Moderate restriction. And no decrease in diffusion. Findings consistent with moderate restrictive lung disease. Rose Andrews MD PFT ORDERABLES Final Result * ECG 12 lead - Procedural (No Charge) (06/28/2025 10:46 AM EDT) Ventricular Rate ECG 70 BPM GEMUSE Atrial Rate 70 BPM GEMUSE P-R Interval 156 ms GEMUSE QRS Duration 74 ms GEMUSE Q-T Interval 394 ms GEMUSE QTc 425 ms GEMUSE P Wave [place] 59 degrees GEMUSE R [place] 62 degrees GEMUSE T [place] 51 degrees GEMUSE ECG Interpretation Normal sinus rhythm Normal ECG No previous ECGs available Confirmed by ZAKIA GONZALEZ ([id number]) on 06/29/2025 1:16:27 PM GEMUSE 06/28/2025 10:4 6 AM EDT 06/29/2025 1:16 PM EDT us Rose Andrews MD ECG ORDERABLES Final Result GEMUSE * CT Chest wo Contrast (06/24/2025 12:35 PM EDT) Anatomical Region Laterality Modality Body Computed Tomogra phy 06/29/2025 5:51 PM EDT Impressions 06/29/2025 7:01 PM EDT Left upper lobe mass is similar compared to 02/2025 and is suspicious for neoplasm. No thoracic lymphadenopathy. -------- FINAL REPORT -------- Dictated By: ANOOP RUBIN Dictated Date: 06/29/2025 17:51 ET Assigned Physician: ANOOP RUBIN Reviewed and Electronically Signed By: ANOOP RUBIN Signed Date: 06/29/2025 19:01 ET Workstation ID: [id number] Transcribed By: Self Edit Transcribed Date: 06/29/2025 17:51 ET Narrative 06/29/2025 7:01 PM EDT PROCEDURE: Chest CT INDICATION: Lung nodule TECHNIQUE: Chest CT without contrast. Multi planar reformats were created and interpreted. The examination was performed utilizing dose reduction techniques. Total DLP 150 COMPARISON: 04/26/2025 and 02/22/2025, PET/CT 03/19/2025 FINDINGS: LUNGS/PLEURA: Central airways are patent. There is a 4 cm mass in the left upper lobe with adjacent linear scarring, similar compared to 02/22/2025. Right middle lobe granuloma. No other nodules. No pleural effusion or pneumothorax. MEDIASTINUM: Thyroid gland is normal. No mediastinal or hilar lymphadenopathy. Esophagus is normal. Cardiac chambers are normal in size. No pericardial effusion. CHEST WALL: No axillary lymphadenopathy or superficial hematoma. UPPER ABDOMEN:Cholecystectomy. BONES: Exaggerated thoracic kyphosis. Degenerative changes seen throughout the thoracic spine. Multiple old, nondisplaced, healed right rib fractures. Procedure Note Anoop Rubin MD - 06/29/2025 PROCEDURE: Chest CT INDICATION: Lung nodule TECHNIQUE: Chest CT without contrast. Multi planar reformats were createdand interpreted. The examination was performed utilizing dose reductiontechniques. Total DLP 150 COMPARISON: 04/26/2025 and 02/22/2025, PET/CT 03/19/2025 FINDINGS: LUNGS/PLEURA: Central airways are patent. There is a 4 cm mass in theleft upper lobe with adjacent linear scarring, similar compared to02/22/2025. Right middle lobe granuloma. No other nodules. No pleuraleffusion or pneumothorax. MEDIASTINUM: Thyroid gland is normal. No mediastinal or hilarlymphadenopathy. Esophagus is normal. Cardiac chambers are normal insize. No pericardial effusion. CHEST WALL: No axillary lymphadenopathy or superficial hematoma. UPPER ABDOMEN:Cholecystectomy. BONES: Exaggerated thoracic kyphosis. Degenerative changes seenthroughout the thoracic spine. Multiple old, nondisplaced, healed rightrib fractures. IMPRESSION: Left upper lobe mass is similar compared to 02/2025 and is suspicious forneoplasm. No thoracic lymphadenopathy. -------- FINAL REPORT -------- Dictated By: ANOOP RUBIN Dictated Date: 06/29/2025 17:51 ET Assigned Physician: ANOOP RUBIN Reviewed and Electronically Signed By: ANOOP RUBIN Signed Date: 06/29/2025 19:01 ET Workstation ID: [id number] Transcribed By: Self Edit Transcribed Date: 06/29/2025 17:51 ET Rose Andrews MD IMG CT PROCEDURES Final Result from Last 3 Months Insurance MEDICARE MEDICAID - [place] Advance Directives * Full Code - Default (Latest Code Status on File) Date Activated Date Inactivated Comments 07/28/2025 11:38 AM 08/01/2025 7:26 PM This is ord er is used when code status has not been discussed with the patient, or code status is otherwise unknown/unconfirmed To update the patient's code status, place a code status order. Do not modify or discontinue any currently active code status orders. * Full Code - Default Date Activated Date Inactivated Comments 07/28/2025 5:52 AM 07/28/2025 11:38 AM This is ord er is used when code status has not been discussed with the patient, or code status is otherwise unknown/unconfirmed To update the patient's code status, place a code status order. Do not modify or discontinue any currently active code status orders. * Full Code - Default Date Activated Date Inactivated Comments 07/02/2025 10:33 AM 07/02/2025 7:03 PM This is ord er is used when code status has not been discussed with the patient, or code status is otherwise unknown/unconfirmed To update the patient's code status, place a code status order. Do not modify or discontinue any currently active code status orders. Care Teams Tool And Die Maker/Designer Relationship Specialty Start Date End Date Panchito Chance MD [address] [place] [address] [address] [place], [place] PCP - General Internal Medicine 06/24/25
--- OUTSIDE RECORDS SUMMARY | 2025-08-24 10:04 | XMS_ITS | Encounter Summary ---
Author Organization [facility] Address [address] [place] [address] Care Team Providers Care Oil Field Rig Builder Name Role Phone Panchito Chance MD Primary Care Provider + [phone] Encounter Details Date Type Department Care Team (Late st Contact Info) Description 08/23/2025 Telephone [facility] Hematology Oncology [address] [place] [phone] Panchito Chance MD [address] [place] [address] Social History Tobacco Use Types Packs/Day Years Used Date Smoking Tobacco: Never Smokeless Tobacco: Never Alcohol Use Standard Drinks/Week Comments Never 0 (1 standard drink = 0.6 oz pur e alcohol) Interpersonal Safety Answer Date Record ed Physical Abuse Unrecognized value 07/28/2025 Verbal Abuse Unrecognized value 07/28/2025 Comments No Sex and Gender Information Value Date Recorded Sex Assigned at Not on file Legal Sex Female 2:22 PM EDT Gender Identity Not on file Sexual Orientation Not on file documented as of this encounter Progress Notes * Gwendolyn uD - 08/23/2025 2:48 PM EDT [facility] Genetic Testing [facility] cancer risk assessment - CARE link sent to patients cell phone / e-mail. documented in this encounter Plan of Treatment Upcoming Encounters Date Type Department Care Team (Late st Contact Info) Description 08/30/2025 3:00 PM EDT Office Visit [facility] Hematology Oncology [address] [place] [phone] Aisha Rojas, DO [address] [place] [address] 09/07/2025 8:30 AM EDT Office Visit Pulmonology - [place] [address] [facility] [address] [place] [phone] Cheryl Matthews MD [address] [place] [address] documented as of this encounter Visit Diagnoses Not on filedocumented in this encounter Care Teams Oil Field [employer] Builder Relationship Specialty Start Date End Date Panchito Chance MD [address] [place] [address] [address] [place], [place] PCP - General Internal Medicine 06/24/25 documented as of this encounter
== END 2025-08-24 10:54 | disposition home or self-care (01) ==
PROVIDERS: PCP Internal Medicine; Visit Provider Internal Medicine
DX: Z00.00 Encounter for general adult medical examination without abnormal findings (principal); C34.92 Malignant neoplasm of unspecified part of left bronchus or lung; I48.0 Paroxysmal atrial fibrillation; I49.1 Atrial premature depolarization; E78.00 Pure hypercholesterolemia, unspecified; R79.89 Other specified abnormal findings of blood chemistry; J30.9 Allergic rhinitis, unspecified; M81.0 Age-related osteoporosis without current pathological fracture; S32.000S Wedge compression fracture of unspecified lumbar vertebra, sequela; F41.9 Anxiety disorder, unspecified; F79 Unspecified intellectual disabilities

== ENCOUNTER 2025-09-15 11:37 | Outpatient (AMB) | payer MEDICARE, MEDICAID, SELFPAY ==
[2025-09-15 11:41] VITALS: BP 120/66; PULSE 68; O2SAT 96; BMI 29.2
--- NOTE | 2025-09-15 11:41 | A.OFFVIS_ITS ---
Vital Signs 09/15/25 11:41 Height 5 ft 1 in Weight 154 lb 6 oz BMI 29.2 BP 120/66 Blood Pressure Location Rt brachial Position Sitting Pulse 68 Pulse Source Pulse Oximeter Pulse Oximetry (%) 96 Oxygen Delivery Method Room Air Intake Visit Reasons: Lung Mass Allergies aspartame (ASPARTAME) Allergy (Severe, Verified 09/15/25 11:46) cannot take due to PKU dx phenylalanine (Phenylalanine) Allergy (Severe, Verified 09/15/25 11:46) cannot take due to PKU dx cat dander (cats) Allergy (Intermediate, Verified 09/15/25 11:46) Itching loratadine (From CLARITIN) Allergy (Intermediate, Verified 09/15/25 11:46) Itchy and red eyes tree and shrub pollen Allergy (Intermediate, Verified 09/15/25 11:46) Itching dustmites Allergy (Intermediate, Uncoded 09/15/25 11:46) Itching ragweed Allergy (Intermediate, Uncoded 09/15/25 11:46) Itching HPI HPI Lung Mass: Details: Melony is a pleasant 75 year old female, never smoker, diagnosed with phenylketonuria at , HLD, osteoporosis, vitamin-D deficiency and history of cholecystectomy. She was initially referred by PCP for pulmonary evaluation for possible asthma vs RAD and incidental finding of JENNIFER nodule, now under the care of oncology/thoracic. She is accompanied by staff from [facility], who provides history, as patient poor historian due to PKU. She had accidental fall in February subsequently evaluated at [facility] [place] [facility] with incidental finding of suspicious 2.7 x 2.9 cm solid nodule in the left upper lobe. She was evaluated by Dr. Dugan, who sent for PET scan which revealed mild activity and underwent biopsy which was negative for malignancy however a tough biopsy. Subsequently she was referred to thoracic underwent left upper lobectomy on 07/28, diagnosed with adenocarcinoma of the lung with negative mediastinal lymph nodes. Given that patient with stage 1A no further treatment was recommended. Since undergoing surgery patient has developed left pleural effusion which reportedly underwent thoracentesis, pathology pending. She has upcoming appt with thoracic this Saturday to follow up. Today staff reports patient with difficultly with inhaler technique and questioning nebulized therapy for dyspnea and dry cough. [facility] Medical History (Updated 09/15/25 @ 12:10 by Ana Villalobos NP) Paroxysmal atrial fibrillation Adenocarcinoma of left lung Acute arthralgia of knee PKU (phenylketonuria) OCD (obsessive compulsive disorder) Wheezing on auscultation Acute viral bronchitis Reactive airway disease Hypoxia Compression fracture of lumbosacral spine Anxiety Mental disability Allergic rhinitis Elevated LFTs Osteoporosis Pure hypercholesterolemia Premature atrial contractions Surgical History (Updated 08/30/25 @ 00:25 by Panchito Chance MD) History of lobectomy of lung S/P colonoscopy (~07/05/20) S/P laparoscopic cholecystectomy (~06/28/14) Family History Other Family history unknown Social History Household Members: Other Household Members Other:: [facility] residents 7 staff Housing: Other Housing Other:: [facility] Are you a primary palliative care nurse practitioner to a significant other at home: No Do you presently have visiting nurse or other home services: Yes (resides in [facility]) Alcohol intake: never Comment: assisted staff at bedside. Patient Tobacco Use Status: Never used Tobacco e-Cigarette/Vaping Use: Never Used Second Hand Smoke Exposure: No Advance Directives Date on File: 02/26/25 service: No Current occupational status: retired Cognitive needs: No Hearing needs: No Vision needs: No Review of Systems Const Details: Information provided by staff member Denies chills, Denies excessive sweating, Denies fever(s), Denies headache(s) and Denies night sweats Eyes Denies dry eyes, Denies irritation and Denies itchy eyes ENT Reports Normal hearing present, Denies headache(s), Denies nasal congestion, Denies nasal discharge, Denies post nasal drip and Denies sore throat Card Denies chest pain, Denies chest pain at rest, Denies chest pain with activity, Denies claudication, Denies leg edema, Denies dyspnea, Denies dyspnea on exertion, Denies orthopnea and Denies paroxysmal nocturnal dyspnea Resp Denies chest congestion, Denies cough, Denies excessive phlegm production, Denies pain on inspiration, Denies pain with cough, Denies dyspnea, Denies dyspnea on exertion, Denies stridor and Denies wheezing Musc Denies myalgias Neuro Reports Normal hearing present and Denies headache(s) Endo Denies excessive sweating Harsh/Lymph Denies lymphadenopathy Aller/Immun Denies itchy eyes, Denies seasonal rhinorrhea and Denies wheezing Physical Exam Vital Signs: Last Vital Signs Pulse 68 09/15/25 11:41 BP 120/66 09/15/25 11:41 Pulse Ox 96 09/15/25 11:41 Oxygen Delivery Method Room Air 09/15/25 11:41 BMI result Body Mass Index 29.2 Const General: cooperative, healthy appearing, comfortable, no acute distress, well developed and alert Limitations: other limitations (cognitive delay d/t PKU) HEENT Head: Yes normal to inspection, Yes normocephalic and Yes atraumatic Ears: hearing grossly normal bilaterally and external ears normal Eyes General: appearance normal, both eyes and all related structures Eyelids: Yes eyelids normal Sclerae: sclerae normal EOM: EOMs intact bilaterally Neck Neck: Yes normal visual inspection and Yes no lymphadenopathy Lymphatic: no lymphadenopathy noted Chest Chest palpation & inspection: normal inspection of the chest Resp Other: diminished aeration throughout LLL Effort & Inspection: normal respiratory effort, able to speak in complete sentences, no audible wheezes, no cough, no stridor, not tachypneic, no tripod positioning and no use of accessory muscles Cardio Jugular venous distension: no JVD Rate: regular rate Rhythm: regular rhythm Skin Other: warm, dry General skin exam: no rashes or lesions noted Neuro Cranial nerves: Yes Normal hearing present Cognition (Neuro): normal cognition Gait exam (Neuro): Normal gait present Extrem General: Yes normal to inspection, Yes capillary refill normal, Yes no clubbing, cyanosis or edema and Yes no pedal edema Psych Appearance: grossly normal and well kempt Speech and movement: Normal speech and movement present and Clear speech present Attitude: cooperative Insight: Poor insight present (Psych) Judgement: Poor judgement present (Psych) Assessment & Plan Assessment & Plan (1) Adenocarcinoma of left lung: Code(s): C34.92 - Malignant neoplasm of unspecified part of left bronchus or lung Category: Medical (2) Reactive airway disease: Code(s): J45.909 - Unspecified asthma, uncomplicated Category: Medical (3) Mental disability: Comment: phenylketonuria-resides in a [facility] Code(s): F79 - Unspecified intellectual disabilities Category: Medical Plan Melony has been moderately controlled on Symbicort, however staff feels patient may benefit from nebulized therapy. Will send nebulizer for home use with albuterol to use on a daily basis. Will reassess at next visit for increasing nebulized therapy and d/c Symbicort. Patient recently diagnosed with adenocarcinoma, [id number] with no need for further treatment however patient developed left sided pleural effusion, s/p thoracentesis awaiting pathology. On exam today patient with diminished aeration of LLL, suggestive of recurrent effusion. She has upcoming appt with thoracic this Saturday for further evaluation. Staff is aware if patient develops worsening dyspnea to seek emergent care or if unable to keep thoracic appt, will send for CXR. All questions were answered and patient is in agreement of plan. Will follow-up in 10-12 weeks or sooner if needed. Orders: Orders XR chest 2V 09/15/25 J90 - Pleural effusion, not elsewhere classified Medications: New albuterol sulfate 2.5 mg (3 mL) inhalation DAILY 90 mL 3RF shortness of breath or wheezing Coding Level of Care Code Est Pt Level 4 (92911) Diagnoses Adenocarcinoma of left lung C34.92 Reactive airway disease J45.909 Mental disability F79
--- OUTSIDE RECORDS SUMMARY | 2025-09-15 14:18 | XMS_ITS | Clinical Summary ---
Author Organization [facility] Address [address] [place] [phone] Phone Care Team Providers Care Plumbing Foreman Name Role Phone Panchito Chance MD Primary Care Provider + [phone] Allergies Active Allergy Reactions Criticality Noted Date Comments Aspartame Other High 06/24/2025 Loratadine Other Medium 06/24/2025 House Dust Mite Sneezing Low 06/24/2025 Phenylalanine Other High 06/24/2025 PKU Ragweed Pollen Sneezing Low 06/24/2025 Medications acetaminophen (TYLENOL) 500 mg tablet Take 650 mg by mouth every 6 (six) hours if needed. 05/23/2025 Active atorvastatin (LIPITOR) 10 mg tablet Take 1 tablet (10 mg total) by mouth 1 (one) time each day. 06/15/2025 Active PARoxetine (PAXIL) 40 mg tablet Take 1 tablet (40 mg total) by mouth. 06/15/2025 Active valACYclovir (VALTREX) 500 mg tablet Take 1 tablet (500 mg total) by mouth 1 (one) time each day. 06/15/2025 Active cetirizine (ZyrTEC) 10 mg tablet Take 1 tablet (10 mg total) by mouth 1 (one) time each day. Active cholecalciferol (VITAMIN D-3) 25 mcg (1,000 unit) tablet Take 1 tablet (1,000 Units total) by mouth 1 (one) time each day. Active Breyna 80-4.5 mcg/actuation inhaler Inhale 2 puffs by mouth 2 (two) times a day. 07/15/2025 Active calcium carbonate-vit D3-min 600 mg-10 mcg (400 unit) tablet Take 1 tablet by mouth 2 (two) times a day. Active multivitamin tablet Take 1 tablet by mouth 1 (one) time each day. Active oxyCODONE (OXY-IR) 5 mg immediate release capsule Take 1 capsule (5 mg total) by mouth every 6 (six) hours if needed for severe pain. Max Daily Amount: 20 mg 15 capsule 08/01/2025 Active acetaminophen (Tylenol Extra Strength) 500 mg tablet Take 2 tablets (1,000 mg total) by mouth every 6 (six) hours if needed for mild pain or moderate pain. 60 tablet 08/01/2025 08/11/20 26 Active Active Problems Problem Noted Date Diagnosed Date [...] of lung (CMS/HCC V24, CMS/HCC V28) 07/08/2025 Cancer Staging:Pathologic:Stage IA3(pT1c, pN0, cM0) - Signed by Aisha Rojas DO on 08/30/2025 PKU (phenylketonuria) ([facility] [place]24) 06/24/2025 Lung mass 06/24/2025 Encounters Date Type Department Care Team Description 09/07/2025 8:30 AM EDT Office Visit Pulmonology - [place] [address] [phone] Cheryl Matthews MD Pleural effusion on left (Primary Dx); Non-small cell cancer of left lung ([facility] V24, [facility] V28) 08/30/2025 3:00 PM EDT Office Visit [facility] Hematology Oncology [address] [place] [phone] Aisha Rojas DO Primary cancer of left upper lobe of lung ([facility] [place]24, [facility] V28) (Primary Dx) 08/23/2025 Telephone [facility] Hematology Oncology [address] [place] [phone] Panchito Chance MD 08/13/2025 9:27 AM EDT - 08/13/2025 11:59 PM EDT Hospital Encounter [facility] [address] [phone] Pleural effusion on left Discharge Disposition: Home or Self Care 08/13/2025 8:00 AM EDT Consult Pulmonology - [address] [phone] Cheryl Matthews MD Pleural effusion on left (Primary Dx) 08/11/2025 1:00 PM EDT Office Visit Thoracic Surgery - [address] [phone] Erich Jiménez PA History of lung cancer (Primary Dx); Pleural effusion 08/11/2025 12:10 PM EDT - 08/11/2025 11:59 PM EDT Hospital Encounter [facility] Xray [address] [place] [phone] Primary cancer of left upper lobe of lung ([facility]/HCC V24, [facility]/HCC V28) Discharge Disposition: Home or Self Care 08/03/2025 Telephone Thoracic Surgery - [place] [address] [phone] Rose Andrews MD 07/28/2025 7:30 AM EDT - 07/28/2025 12:00 PM EDT Surgery [facility] OR [address] [place] [phone] Rose Andrews MD DAVINCI left upper lobectomy [05567 (CPT ) +1 more] 07/28/2025 7:10 AM EDT Anesthesia Event [facility] OR [address] [place] [phone] Marcelo Peoples MD Chang, Ling, SQUIRT MACHINE OPERATOR 07/28/2025 5:35 AM EDT - 08/01/2025 5:21 PM EDT Hospital Encounter [facility] Intermediate Care Unit B [address] [place] [phone] Rose Andrews MD Kokosadze, Estate, MD Primary cancer of left upper lobe of lung ([facility]/HCC V24, [facility]/HCC V28) Discharge Disposition: Home-Health Care [facility] 07/08/2025 11:00 AM EDT Office Visit Thoracic Surgery [facility] [address] [phone] Rose Andrews MD Primary cancer of left upper lobe of lung (CMS/HCC V24, [facility]/HCC V28) (Primary Dx); Neoplasm 07/02/2025 2:23 PM EDT Anesthesia Event [facility] OR [address] [place] [phone] Arjun Scruggs, 07/02/2025 2:00 PM EDT - 07/02/2025 3:30 PM EDT Surgery [facility] OR [address] [place] [phone] Rose Andrews MD Navigation bronchoscopy/EBUS with biopsies [49257 (CPT ) +5 more] 07/02/2025 9:52 AM EDT - 07/02/2025 4:56 PM EDT Hospital Encounter [facility] Main OR [address] [place] [phone] Rose Andrews MD Lung mass Discharge Disposition: Soda Fountain Manager Care 07/02/2025 6:25 AM EDT - 07/02/2025 11:59 PM EDT Hospital Encounter [facility] Xray [address] [place] [phone] Pain Discharge Disposition: Home or Self Care 06/30/2025 1:46 PM EDT - 06/30/2025 11:59 PM EDT Hospital Encounter [facility] Pulmonary [address] [place] [phone] Lung mass Discharge Disposition: Home or Self Care 06/25/2025 Telephone Thoracic Surgery - [place] [address] [phone] Kolby Villa [place] 06/24/2025 12:23 PM EDT - 06/24/2025 11:59 PM EDT Hospital Encounter [facility] CT Scan [address] [place] [phone] Lung mass Discharge Disposition: Home or Self Care 06/24/2025 11:30 AM EDT Consult Thoracic Surgery - [place] [address] [phone] Rose Andrews MD Lung mass (Primary Dx); Neoplasm 06/22/2025 Telephone Thoracic Surgery - [place] [address] [phone] Brenda Dc MA from Last 3 Months Surgical History Surgery Date Site/Laterality Comments CHOLECYSTECTOMY CT NAVIGATIONAL BRONCH PLAN SCAN 07/02/2025 Left JENNIFER Shahram Bronch BRONCHOSCOPY Navigation bronchoscopy/EBUS w Bx LUNG LOBECTOMY 07/28/2025 Left JENNIFER Lobectomy Medical History Medical History Date Comments Hyperlipidemia Arthritis Angina pectoris ([facility] V24) Heart valve disease Anxiety OCD (obsessive compulsive disorder) PKU (phenylketonuria) ([facility] V24) Osteoporosis Recurrent cold sores Pulmonary nodule 07/02/2025 JENNIFER nodule Cancer ([facility] V24, [facility] V28) Cancer of bronchus of left u pper lobe ([facility] V24, [facility] V28) Lung cancer ([facility] V24, [facility] V28) JENNIFER Social History Tobacco Use Types [...] Information Value Date Recorded Sex Assigned at Female 09/01/2025 5:36 PM EDT Legal Sex Female 2:22 PM EDT Gender Identity Female 09/01/2025 5:36 PM EDT Sexual Orientation Not on file Obstetrics History Last Filed Vital Signs Vital Sign Reading Time Taken Comments Blood Pressure 142/71 09/07/2025 8:28 AM EDT Pulse 80 09/07/2025 8:28 AM EDT Temperature 36.6 C (97.9 F) 09/07/2025 8:28 AM EDT Respiratory Rate 14 08/11/2025 12:59 PM EDT Oxygen Saturation 95% 09/07/2025 8:28 AM EDT Inhaled Oxygen Concentration - - Weight 70.1 kg (154 lb 8 oz) 09/07/2025 8:28 AM EDT Height 160 cm (5' 3 ) 09/07/2025 8:28 AM EDT Body Mass Index 27.37 09/07/2025 8:28 AM EDT Plan of Treatment Upcoming Encounters Date Type Department Care Team (Late st Contact Info) Description 09/17/2025 9:00 AM EST Appointment [facility] Interventional Radiology [address] [place] [address] 10/05/2025 11:30 AM EST Office Visit Pulmonology - [place] [address] [facility] [address] [place] [phone] Cheryl Matthews MD [address] [place] [phone] 10/08/2025 9:00 AM EST Appointment [facility] CT Scan [address] [place] [phone] 10/08/2025 9:15 AM EST Appointment [facility] CT Scan [address] [place] [phone] 10/15/2025 9:00 AM EST Office Visit [facility] Hematology Oncology [address] [place] [phone] Aisha Rojas, DO [address] [place] [address] Health Maintenance Due Date Last Done Comments Breast Cancer Screening 1950 Colorectal Cancer Screening: Colonoscopy 1950 RSV Immunization Adult Patients (1 - Risk 50-74 years 1-dose series) 2001 Pneumococcal Vaccine: 50+ Years (2 of 2 - PCV) 04/11/2017 04/11/2016 Zoster Vaccines (2 of 2) 01/15/2020 11/20/2019, 0804/2015 Depression Screening 11/11/2024 Cholesterol Screening (Lipid Panel) 03/19/2025 Hepatitis C Screening 03/19/2025 Medicare Annual Wellness Visit 03/19/2025 Osteoporosis Screening (Bone Density Screening) 03/19/2025 Social Influencers of Health Screening 03/19/2025 COVID-19 Vaccine (4 - season) 2025 11/29/2021, 01/13/2021, 12/16/2020 Influenza Vaccine (#1) 2025 , 08/19/2023, 09/15/2022, [...] on patient's age to complete this topic Goals Goal Patient Goal Type Associated Problems Recent Progress Patient-Stated? Author Autogenera maribel Goal Care Plan Autogenerated Problem No Allan, Priyanka Medical Devices Implanted Type Area Nurse Transition Device Identifier Shelf Expiration Date Model / Serial / Lot Sealant Progel Air Pleural 4ml - Sna - [id number] Implanted:Qty: 1 on 07/28/2025 by Rose Andrews MD at [facility] Hemostasis Left: Chest CR BARD - DAVOL DIV [id number] 08/11/2026 [id number] / [id number] / [id number] Sealant Fibrin Vistaseal 10ml - [id number] - [id number] Implanted:Qty: 1 on 07/28/2025 by Rsoe Andrews MD at [facility] Hemostasis Left: Chest [facility] [employer] [id number] 12/29/2026 [id number] / [id number] / [id number] Sealant Patch Fibrin Evarrest 4x2in - [id number] - [id number] Implanted:Qty: 1 on 07/28/2025 by Rose Andrews MD at [facility] Hemostasis Left: Chest [facility] [employer] [id number] 01/08/2026 [id number] / [id number] / [id number] Procedures Procedure Name Priority Date/Time Associated Diagnosis Comments XR CHEST 2 VIEWS STAT 08/13/2025 9:40 AM EDT Pleural effusion on left IN THORACENTESIS PLEURAL SPACE NEEDLE/CATH ASPIRATION W IMAGING [...] ENDOTRACHEAL(NO CHARGE) Routine 07/28/2025 8:14 AM EDT IN REMOVAL OF LUNG OTHER THAN PNEUMONECTOMY SINGLE LOBE 07/28/2025 7:18 AM EDT Primary cancer of left upper lobe of lung (CMS/HCC V24, CMS/HCC V28) Case Notes [employer] IN THORACOSCOPY SURGICAL WITH LOBECTOMY 07/28/2025 7:18 AM [...] ENDOTRACHEAL(NO CHARGE) Routine 07/02/2025 2:47 PM EDT IN CORE NDL BX LNG/MED PERQ 07/02/2025 2:23 PM EDT Lung mass Case Notes CYTOLOGY Special Needs TIME CHANGE W/ KOLBY VIA PHONE 06/24 JT NOTIFIED CYTOLOGY IN BRONCHOSCOPY INCL FLUORO GUIDANCE W BRONCHIAL/ENDOBRONCHIA L BX SGL/MULT 07/02/2025 2:23 PM EDT Lung mass Case Notes CYTOLOGY Special Needs TIME CHANGE W/ KOLBY VIA PHONE 06/24 JT NOTIFIED CYTOLOGY IN BRONCHOSCOPY RIGID/FLEXIBLE W/TRANSBRONCHIAL LUNG BIOPSY(S) SINGLE LOBE 07/02/2025 2:23 PM EDT Lung mass Case Notes CYTOLOGY Special Needs TIME CHANGE W/ KOLBY VIA PHONE 06/24 JT NOTIFIED CYTOLOGY IN BRONCHOSCOPY RIGID/FLEXIBLE COMPUTER ASSISTED IMAGE GUIDED NAVIGATION 07/02/2025 2:23 PM EDT Lung mass Case Notes CYTOLOGY Special Needs TIME CHANGE W/ KOLBY VIA PHONE 06/24 JT NOTIFIED CYTOLOGY IN BRONCHOSCOPY INCL FLUOROSCOPIC GUID W EBUS DURING PERIPHERAL LESION 07/02/2025 2:23 PM EDT Lung mass Case Notes CYTOLOGY Special Needs TIME CHANGE W/ KOLBY VIA PHONE 06/24 JT NOTIFIED CYTOLOGY IN BRONCHOSCOPY INCL FLUROSCOPIC GUIDANCE W PLCMNT FIDUCIAL [...] Signed Date: 08/13/2025 09:45 ET Workstation ID: [id number] Transcribed By: Self Edit Transcribed Date: 08/13/2025 [...] Signed Date: 08/13/2025 09:45 ET Workstation ID: [id number] Transcribed By: Self Edit Transcribed Date: 08/13/2025 09:42 ET us Cheryl Matthews MD IMG XR PROCEDURES Final Re sult * IN THORACENTESIS PLEURAL SPACE NEEDLE/CATH ASPIRATION W IMAGING GUIDANCE (08/13/2025 9:27 AM EDT) Narrative Cheryl Matthews MD - 08/13/2025 9:27 AM EDT Cheryl Matthews MD 08/13/2025 9:28 AM Thoracentesis Date/Time: 08/13/2025 9:27 AM Performed by: Cheryl Matthews MD Authorized by: Cheryl Matthews MD Consent: Consent obtained: Verbal Consent given by: Guardian Risks, benefits, and alternatives were discussed: yes Risks discussed: Bleeding, infection, pain and pneumothorax Alternatives discussed: No treatment Marianna protocol: Procedure explained and questions answered to [...] midscapular line Intercostal space: 8th Puncture method: [id number] catheter Ultrasound guidance: yes Indwelling catheter placed: no Needle gauge: 20 Catheter size: 8 Fr Number of attempts: 1 Fluid characteristics: serous. Post-procedure details: Post-procedure chest x-ray: pending. Procedure completion: Tolerated well, no immediate complications Comments: 800 mL serous fluid removed, stopped for no further fluid us Cheryl Matthews MD IN CLINIC/BEDSIDE ORDERABL ES Final Result * Cell count with reflex differential, body fluid (08/13/2025 9:26 AM EDT) Body Fluid Total Nucleated Cells 2,965 /mm3 LAB HEMETOLOGY METHOD 08/13/2025 11:45 AM EDT [facility] Body Fluid RBC 5,000 /mm3 LAB HEMETOLOGY METHOD 08/13/2025 11:45 AM EDT [facility] Body Fluid Color Yellow 08/13/2025 11:45 AM EDT [facility] Body Fluid Clarity Cloudy 08/13/2025 11:45 AM EDT [facility] Body Fluid Source Pleural 08/13/2025 11:45 AM EDT [facility] Pleural Fluid Structure of left pleural cavity / Unknown Non-blood Collection / Unknown 08/13/2025 9:26 AM EDT 08/13/2025 9:35 AM EDT Narrative [facility] - 08/13/2025 11:45 AM EDT No reference ranges have been established for body fluids. Clinical correlation recommended. us Cheryl Matthews MD LAB BODY FLUIDS AND STOOLS ORDERABLES Final Result Performing Organization Address [facility] Co de Phone Number [facility] [address] [place] [address], [place] [phone] * Culture body fluid with gram stain (08/13/2025 9:26 AM EDT) Fluid Culture No growth at 3 days LAB MICROBIOLOGY METHOD 08/16/2025 10:22 AM EDT [facility] Gram Stain Result No polymorphonuclear leukocytes, No epithelial cells, and No organisms noted 08/16/2025 10:22 AM EDT [facility] Pleural Fluid Structure of left pleural cavity / Unknown Non-blood Collection / Unknown 08/13/2025 9:26 AM EDT 08/13/2025 9:35 AM EDT Cheryl Matthews MD LAB MICROBIOLOGY - GENERAL ORDERABLES Final Result Performing Organization Address City/[facility]/ZIP Co de Phone Number [facility] [address] [place] [address], [place] [phone] * Differential body fluid (08/13/2025 9:26 AM EDT) Fluid Neutrophils % 2 % 08/13/2025 11:45 AM EDT [facility] Fluid Lymphocytes % 68 % 08/13/2025 11:45 AM EDT [facility] Fluid Monocytes/Macrop hages 10 % 08/13/2025 11:45 AM EDT [facility] Fluid Eosinophils % 20 % 08/13/2025 11:45 AM EDT [facility] Fluid Basophils % 1 % 08/13/2025 11:45 AM EDT [facility] Fluid Other Cells % 0 % 08/13/2025 11:45 AM EDT [facility] Pleural Fluid Structure of left pleural cavity / Unknown Non-blood Collection / Unknown 08/13/2025 9:26 AM EDT 08/13/2025 9:35 AM EDT Narrative [facility] - 08/13/2025 11:45 AM EDT No reference ranges have been established for body fluids. Clinical correlation recommended. Cheryl Matthews MD LAB BODY FLUIDS AND STOOLS ORDERABLES Final Result Performing Organization Address City/[facility]/ZIP Co de Phone Number [facility] [address] [place] [address], [place] [phone] * Protein, body fluid (08/13/2025 9:26 AM EDT) Protein, Fluid 3.9 See Comment g/dL LAB CHEMISTRY METHOD 08/13/2025 10:57 AM EDT [facility] Pleural Fluid Structure of left pleural cavity / Unknown Non-blood Collection / Unknown 08/13/2025 9:26 AM EDT 08/13/2025 9:35 AM EDT Narrative [facility] - 08/13/2025 10:57 AM EDT No reference ranges have been established for body fluids. Clinical correlation recommended. us Cheryl Matthews MD LAB BODY FLUIDS AND STOOLS ORDERABLES Final Result Performing Organization Address [facility]/ZIP Co de Phone Number [facility] [address] [place] [address], [place] [phone] * Lactate dehydrogenase, body fluid (08/13/2025 9:26 AM EDT) LD, Fluid 226 See Comment unit/L LAB CHEMISTRY METHOD 08/13/2025 10:57 AM EDT [facility] Pleural Fluid Structure of left pleural cavity / Unknown Non-blood Collection / Unknown 08/13/2025 9:26 AM EDT 08/13/2025 9:35 AM EDT [facility] - 08/13/2025 10:57 AM EDT No reference ranges have been established for body fluids. Clinical correlation recommended. us Cheryl Matthews MD LAB BODY FLUIDS AND STOOLS ORDERABLES Final Result Performing Organization Address [facility] Co de Phone Number [facility] [address] [place] [address], [place] [phone] * Glucose, body fluid (08/13/2025 9:26 AM EDT) Glucose, Fluid 99 See Comment mg/dL LAB CHEMISTRY METHOD 08/13/2025 10:57 AM EDT [facility] Pleural Fluid Structure of left pleural cavity / Unknown Non-blood Collection / Unknown 08/13/2025 9:26 AM EDT 08/13/2025 9:35 AM EDT [facility] - 08/13/2025 10:57 AM EDT No reference ranges have been established for body fluids. Clinical correlation recommended. us Cheryl Matthews MD LAB BODY FLUIDS AND STOOLS ORDERABLES Final Result Performing Organization Address [facility]/ZIP Co de Phone Number [facility] [address] [place] [address], [place] [phone] * Non-gynecologic cytology (08/13/2025 9:26 AM EDT) Only the most recent of2 resultswithin the time period is included. Final Diagnosis Pleural Fluid Left, Thoracentesis, (ThinPrep, cell block): -NEGATIVE FOR MALIGNANT CELLS 08/16/2025 8:32 AM EDT [facility] at 0832 EDT Specimen A Adequacy Satisfactory for evaluation 08/16/2025 8:32 AM EDT [facility] Gross Description A. Pleural Cavity, Left, pleural fluid: Received is 800 ml of red cloudy fluid. One ThinPrep and one cell block are made. Cell block placed in formalin at 1200, total formalin fixation time is 57 hours. rp 08/16/2025 8:32 AM EDT [facility] Disclaimer Unless otherwise specified, all tissue is 10% NB formalin fixed and paraffin embedded. Technical cytopathology services provided by [facility], at [address] [place] [address] ([facility] # [id number]/Aidan [place] MD, [employer].) 08/16/2025 8:32 AM EDT [facility] Pleural Fluid Structure of left pleural cavity / Unknown Non-blood Collection / Unknown 08/13/2025 9:26 AM EDT 08/13/2025 11:17 AM EDT Cheryl Matthews MD LAB CYTOLOGY ORDERABLES Fi nal Result [facility] [address] [place] [address], * ECG-Outside (08/02/2025) us Provider Onbase ECG ORDERABLES Final Result * Respiratory virus panel molecular study (07/31/2025 1:39 PM EDT) Adenovirus Detection by PCR Not Detected Not Detected LAB MICROBIOLOGY METHOD 07/31/2025 7:37 PM EDT [facility] Influenza A PCR Not Detected Not Detected LAB MICROBIOLOGY METHOD 07/31/2025 7:37 PM EDT [facility] Influenza B PCR Not Detected Not Detected LAB MICROBIOLOGY METHOD 07/31/2025 7:37 PM EDT [facility] Coronavirus 229E Not Detected Not Detected LAB MICROBIOLOGY METHOD 07/31/2025 7:37 PM EDT [facility] Coronavirus HKU1 Not Detected Not Detected LAB MICROBIOLOGY METHOD 07/31/2025 7:37 PM EDT [facility] Coronavirus OC43 Not Detected Not Detected LAB MICROBIOLOGY METHOD 07/31/2025 7:37 PM EDT [facility] Coronavirus NL63 Not Detected Not Detected LAB MICROBIOLOGY METHOD 07/31/2025 7:37 PM EDT [facility] Parainfluenza Virus 1 Not Detected Not Detected LAB MICROBIOLOGY METHOD 07/31/2025 7:37 PM EDT [facility] Parainfluenza Virus 2 Not Detected Not Detected LAB MICROBIOLOGY METHOD 07/31/2025 7:37 PM EDT [facility] Parainfluenza Virus 3 Not Detected Not Detected LAB MICROBIOLOGY METHOD 07/31/2025 7:37 PM EDT [facility] Parainfluenza Virus 4 Not Detected Not Detected LAB MICROBIOLOGY METHOD 07/31/2025 7:37 PM EDT [facility] RSV PCR Not Detected Not Detected LAB MICROBIOLOGY METHOD 07/31/2025 7:37 PM EDT [facility] Human Metapneumovirus A and B Not Detected Not Detected LAB MICROBIOLOGY METHOD 07/31/2025 7:37 PM EDT [facility] Rhinovirus/Entero virus Not Detected Not Detected LAB MICROBIOLOGY METHOD 07/31/2025 7:37 PM EDT [facility] Bordetella pertussis Not Detected Not Detected LAB MICROBIOLOGY METHOD 07/31/2025 7:37 PM EDT [facility] Bordetella parapertussis Not Detected Not Detected LAB MICROBIOLOGY METHOD 07/31/2025 7:37 PM EDT [facility] Mycoplasma pneumo by PCR Not Detected Not Detected LAB MICROBIOLOGY METHOD 07/31/2025 7:37 PM EDT [facility] Chlamydia pneumoniae Not Detected Not Detected LAB MICROBIOLOGY METHOD 07/31/2025 7:37 PM EDT [facility] SARS COV-2 Not Detected Not Detected LAB MICROBIOLOGY METHOD 07/31/2025 7:37 PM EDT [facility] Swab Nasopharyngeal structure / Unknown Non-blood Collection / Unknown 07/31/2025 1:39 PM EDT 07/31/2025 6:08 PM EDT Narrative [facility] - 07/31/2025 7:37 PM EDT Testing was performed using the [employer] Respiratory Pathogen PCR Assay. All results must [...] are below the limit of detection. us Estsunil Reyes MD LAB MICROBIOLOGY - GENERAL O RDERABLES Final Result [facility] [address] [place] [address], * (ABNORMAL) CBC auto differential (07/31/2025 8:31 AM EDT) Only the most recent of3 resultswithin the time period is included. WBC 11.2(H) 4.8 - 10.8 K/mcL LAB HEMETOLOGY METHOD 07/31/2025 8:51 AM EDT [facility] RBC 4.30 3.80 - 4.80 M/mcL LAB HEMETOLOGY METHOD 07/31/2025 8:51 AM EDT [facility] Hemoglobin 13.5 11.5 - 16.0 g/dL LAB HEMETOLOGY METHOD 07/31/2025 8:51 AM [facility] Hematocrit 41.3 35.0 - 47.0 % LAB HEMETOLOGY METHOD 07/31/2025 8:51 AM [facility] MCV 95.6 79.0 - 98.0 FL LAB HEMETOLOGY METHOD 07/31/2025 8:51 AM [facility] MCH 31.3 27.0 - 32.0 pcg LAB HEMETOLOGY METHOD 07/31/2025 8:51 AM [facility] MCHC 32.7 32.0 - 37.0 g/dL LAB HEMETOLOGY METHOD 07/31/2025 8:51 AM [facility] RDW 13.6 11.0 - 15.0 % LAB HEMETOLOGY METHOD 07/31/2025 8:51 AM [facility] [facility] Platelets 196 130 - 400 K/mcL LAB HEMETOLOGY METHOD 07/31/2025 8:51 AM [facility] MPV 10.5 7.0 - 11.0 FL LAB HEMETOLOGY METHOD 07/31/2025 8:51 AM [facility] NRBC 0.0 <1.0 % LAB HEMETOLOGY METHOD 07/31/2025 8:51 AM [facility] NRBC Absolute 0.00 <0.10 K/mcL LAB HEMETOLOGY METHOD 07/31/2025 8:51 AM [facility] Neutrophils Relative 84.0 % LAB HEMETOLOGY METHOD 07/31/2025 8:51 AM [facility] Lymphocytes Relative 9.6 % LAB HEMETOLOGY METHOD 07/31/2025 8:51 AM [facility] Monocytes Relative 5.0 % LAB HEMETOLOGY METHOD 07/31/2025 8:51 AM [facility] Eosinophils Relative 0.8 % LAB HEMETOLOGY METHOD 07/31/2025 8:51 AM EDT [facility] Basophils Relative 0.3 % LAB HEMETOLOGY METHOD 07/31/2025 8:51 AM [facility] Immature Granulocytes Relative 0.3 % LAB HEMETOLOGY METHOD 07/31/2025 8:51 AM EDT [facility] Neutrophils Absolute 9.44(H) 1.50 - 7.00 K/mcL LAB HEMETOLOGY METHOD 07/31/2025 8:51 AM EDT [facility] Lymphocytes Absolute 1.08 1.00 - 5.00 K/mcL LAB HEMETOLOGY METHOD 07/31/2025 8:51 AM EDT [facility] Monocytes Absolute 0.56 0.20 - 1.00 K/mcL LAB HEMETOLOGY METHOD 07/31/2025 8:51 AM EDT [facility] Eosinophils Absolute 0.09 0.00 - 0.50 K/mcL LAB HEMETOLOGY METHOD 07/31/2025 8:51 AM EDT [facility] Basophils Absolute 0.03 0.00 - 0.20 K/mcL LAB HEMETOLOGY METHOD 07/31/2025 8:51 AM [facility] Immature Granulocytes Absolute 0.03 0.00 - 0.03 K/mcL LAB HEMETOLOGY METHOD 07/31/2025 8:51 AM EDT [facility] Blood Venous blood specimen / Unknown Venipuncture / Unknown 07/31/2025 8:31 AM EDT 07/31/2025 8:41 AM EDT [facility] Amy JOHNSON LAB BLOOD ORDERABLES Final R esult [facility] [address] [place] [address], * (ABNORMAL) Basic metabolic panel (07/31/2025 8:31 AM EDT) Only the most recent of6 resultswithin the time period is included. Sodium 142 133 - 145 mmol/L LAB CHEMISTRY METHOD 07/31/2025 9:06 AM [facility] Potassium 3.9 3.5 - 5.5 mmol/L LAB CHEMISTRY METHOD 07/31/2025 9:06 AM [facility] Chloride 108 96 - 110 mmol/L LAB CHEMISTRY METHOD 07/31/2025 9:06 AM [facility] CO2 28 21 - 32 mmol/L LAB CHEMISTRY METHOD 07/31/2025 9:06 AM [facility] Anion Gap 6 3 - 11 LAB CHEMISTRY METHOD 07/31/2025 9:06 AM [facility] Glucose 169(H) 70 - 100 mg/dL LAB CHEMISTRY METHOD 07/31/2025 9:06 AM [facility] BUN 21 5 - 25 mg/dL LAB CHEMISTRY METHOD 07/31/2025 9:06 AM [facility] Creatinine 0.78 0.50 - 1.10 mg/dL LAB CHEMISTRY METHOD 07/31/2025 9:06 AM [facility] eGFR 80 >=60 mL/min/1. 73m2 LAB CHEMISTRY METHOD 07/31/2025 9:06 AM [facility] Comment:Calculation based on the Chronic Kidney Disease Epidemiology Collaboration (CKD-EPI) equation refit without adjustment for race. BUN/Creatinine Ratio 26.9 LAB CHEMISTRY METHOD 07/31/2025 9:06 AM [facility] Calcium 8.8 8.5 - 10.5 mg/dL LAB CHEMISTRY METHOD 07/31/2025 9:06 AM [facility] Blood Venous blood specimen / Unknown Venipuncture / Unknown 07/31/2025 8:31 AM EDT 07/31/2025 8:42 AM EDT us Pedro Reyes MD LAB BLOOD ORDERABLES Final R esult [facility] [address] [place] [address], [place] [phone] * ECG 12 lead (07/31/2025 6:40 AM EDT) Only the most recent of2 resultswithin the time period is included. Ventricular Rate ECG 58 BPM GEMUSE Atrial Rate 58 BPM GEMUSE P-R Interval 168 ms GEMUSE QRS Duration 74 ms GEMUSE Q-T Interval 422 ms GEMUSE QTc 414 ms GEMUSE P Wave [place] 18 degrees GEMUSE R [place] 35 degrees GEMUSE T [place] 22 degrees GEMUSE ECG Interpretation Sinus bradycardia Septal infarct , age undetermined Abnormal ECG When compared with ECG of 30-JUL-2025 12:22, Atrial fibrillation has resolved Confirmed by Demetra RIOS JAMES ([id number]) on 07/31/2025 10:24:59 PM GEMUSE 07/31/2025 6:40 AM EDT 07/31/2025 10:24 PM EDT us Pedro Reyes MD ECG ORDERABLES Final Result Performing Organization Address City/[facility]/ZIP Co de Phone Number GEMUSE * [...] Signed Date: 07/30/2025 12:59 ET Workstation ID: [id number] Transcribed By: Self Edit Transcribed Date: 07/30/2025 [...] Signed Date: 07/30/2025 12:59 ET Workstation ID: [id number] Transcribed By: Self Edit Transcribed Date: 07/30/2025 12:58 ET Pedro Reyes MD IMG XR PROCEDURES Final Resu lt * Troponin I high sensitivity (07/30/2025 12:26 PM EDT) High Sensitivity Troponin I 18 <=54 ng/L LAB CHEMISTRY METHOD 07/30/2025 1:02 PM EDT [facility] Blood Venous blood specimen / Unknown Venipuncture / Unknown 07/30/2025 12:26 PM EDT 07/30/2025 12:34 PM EDT Narrative [facility] - 07/30/2025 1:02 PM EDT High levels of biotin in samples may falsely decrease hsTroponin values. Use caution when interpreting hsTroponin results in patients taking biotin who exhibit renal impairment (eGFR <60) or in patients taking more than 20 mg/day of biotin. us Pedro Reyes MD LAB BLOOD ORDERABLES Final R esult [facility] [address] [place] [address], * (ABNORMAL) Complete blood count (07/30/2025 12:26 PM EDT) Only the most recent of3 resultswithin the time period is included. WBC 14.8(H) 4.8 - 10.8 K/mcL LAB HEMETOLOGY METHOD 07/30/2025 12:38 PM EDT [facility] RBC 4.40 3.80 - 4.80 M/mcL LAB HEMETOLOGY METHOD 07/30/2025 12:38 PM EDT [facility] Hemoglobin 13.6 11.5 - 16.0 g/dL LAB HEMETOLOGY METHOD 07/30/2025 12:38 PM EDT [facility] Hematocrit 41.3 35.0 - 47.0 % LAB HEMETOLOGY METHOD 07/30/2025 12:38 PM EDT [facility] MCV 94.9 79.0 - 98.0 FL LAB HEMETOLOGY METHOD 07/30/2025 12:38 PM EDT [facility] MCH 31.3 27.0 - 32.0 pcg LAB HEMETOLOGY METHOD 07/30/2025 12:38 PM EDT [facility] MCHC 32.9 32.0 - 37.0 g/dL LAB HEMETOLOGY METHOD 07/30/2025 12:38 PM EDT [facility] RDW 13.6 11.0 - 15.0 % LAB HEMETOLOGY METHOD 07/30/2025 12:38 PM EDT [facility] Platelets 212 130 - 400 K/mcL LAB HEMETOLOGY METHOD 07/30/2025 12:38 PM EDT [facility] MPV 10.8 7.0 - 11.0 FL LAB HEMETOLOGY METHOD 07/30/2025 12:38 PM EDT [facility] NRBC 0.0 <1.0 % LAB HEMETOLOGY METHOD 07/30/2025 12:38 PM EDT [facility] NRBC Absolute 0.00 <0.10 K/mcL LAB HEMETOLOGY METHOD 07/30/2025 12:38 PM EDT [facility] Blood Venous blood specimen / Unknown Venipuncture / Unknown 07/30/2025 12:26 PM EDT 07/30/2025 12:34 PM EDT us Pedro Reyes MD LAB BLOOD ORDERABLES Final R esult Performing Organization Address [facility]/ZIP Co de Phone Number [facility] [address] [place] [address], [place] [phone] * Magnesium (07/30/2025 12:26 PM EDT) Only the most recent of3 resultswithin the time period is included. Magnesium 2.1 1.9 - 2.6 mg/dL LAB CHEMISTRY METHOD 07/30/2025 1:57 PM EDT [facility] Comment:Hemolysis present Blood Venous blood specimen / Unknown Venipuncture / Unknown 07/30/2025 12:26 PM EDT 07/30/2025 12:34 PM EDT us Pedro Reyes MD LAB BLOOD ORDERABLES Final R esult Performing Organization Address City/[facility]/ZIP Co de Phone Number [facility] [address] [place] [address], [place] [phone] * (ABNORMAL) POCT Glucose, blood (07/29/2025 7:38 PM EDT) Glucose POCT 145(H) 70 - 100 mg/dL 07/29/2025 7:38 PM EDT [facility] Blood Capillary blood specimen / Unknown 07/29/2025 7:38 PM EDT 07/29/2025 7:40 PM EDT Pedro Reyes MD LAB POINT OF CARE TE ST DOCKED DEVICE UNSOLICITED RESULTS Final Result Performing Organization Address [facility] Co de Phone Number [facility] [address] [place] [address], [place] [phone] * Phosphorus (07/29/2025 5:47 AM EDT) Only the most recent of2 resultswithin the time period is included. Phosphorus 2.9 2.5 - 4.5 mg/dL LAB CHEMISTRY METHOD 07/29/2025 7:30 AM EDT [facility] Blood Venous blood specimen / Unknown Venipuncture / Unknown 07/29/2025 5:47 AM EDT 07/29/2025 6:17 AM EDT Vandana Morgan NP LAB BLOOD ORDERABLES Final Result Performing Organization Address [facility] de Phone Number [facility] [address] [place] [address], [place] [phone] * Hemoglobin and hematocrit (07/28/2025 6:40 PM EDT) Hemoglobin 12.7 11.5 - 16.0 g/dL LAB HEMETOLOGY METHOD 07/28/2025 7:07 PM EDT [facility] Hematocrit 38.1 35.0 - 47.0 % LAB HEMETOLOGY METHOD 07/28/2025 7:07 PM EDT [facility] Blood Venous blood specimen / Unknown Venipuncture / Unknown 07/28/2025 6:40 PM EDT 07/28/2025 6:57 PM EDT Anaid CUMMINS LAB BLOOD ORDERABLES Final Re sult [facility] [address] [place] [address], * Prepare RBC: 2 Units (07/28/2025 10:03 AM EDT) Only the most recent of2 resultswithin the time period is included. Product Code [id number] 07/28/2025 12:26 PM EDT [facility] Unit Number [id number] 07/28/20 12:26 PM EDT [facility] Crossmatch Compatible 07/28/2025 10:08 AM EDT [facility] Dispense Status Released From Crossmatch 07/28/2025 12:26 PM EDT [facility] Unit ABO Rh OPOS 07/28/2025 12:26 PM EDT [facility] Unit Expiration Date Time [id number] 07/28/2025 12:26 PM EDT [facility] Unit Blood Type 5100 07/28/2025 12:26 PM EDT [facility] Product Code [id number] 07/28/2025 12:27 PM EDT [facility] Unit Number [id number] 07/28/20 12:27 PM EDT [facility] Crossmatch Compatible 07/28/2025 10:08 AM EDT [facility] Dispense Status Released From Crossmatch 07/28/2025 12:27 PM EDT [facility] Unit ABO Rh OPOS 07/28/2025 12:27 PM EDT [facility] Unit Expiration Date Time [id number] 07/28/2025 12:27 PM EDT [facility] Unit Blood Type 5100 07/28/2025 12:27 PM EDT [facility] Blood Venous blood specimen / Unknown 07/28/2025 10:03 AM EDT 07/20/2025 9:33 AM EDT Marcelo Peoples MD BLOOD BANK PRODUCT ORDERABLES Final Result [facility] [address] [place] [address], [place] [phone] * Tissue exam (07/28/2025 8:27 AM EDT) Only the most recent of2 resultswithin the time period is included. Final Diagnosis A. Lymph Node, Level 8, Left-biopsy: -BENIGN LYMPH NODE B. Lymph Node, Level 9, Left-biopsy: -BENIGN LYMPH NODE C. Lung, Left Upper Lobe-lobectomy: -ADENOSQUAMOUS CARCINOMA -See synoptic summary 11:38 AM EDT [facility] at 1138 EDT Synoptic Checklist [...] suggestive of aspiration 5 11:38 AM EDT [facility] Gross Description A. Lymph Node, [...] tissue that was submitted with the specimen. Wait Staff sections are submitted in twenty-two cassettes. 1: [...] Friable tissue, in toto, one piece KR 11:38 AM T [facility] Disclaimer NOTE: The immunohistochemical tests and in situ hybridization tests were developed and their performance characteristics were determined by [facility]. They have not been cleared [...] formalin fixed and paraffin embedded. 11:38 AM T [facility] Tissue Lymph node specimen / Unknown 07/28/2025 8:27 AM EDT 07/28/2025 2:02 PM EDT Tissue specimen (specimen) Lymph node specimen / Unknown 07/28/2025 8:30 AM EDT 07/28/2025 2:02 PM EDT Tissue specimen (specimen) Structure of upper lobe of left lung / Unknown 07/28/2025 10:16 AM EDT 07/28/2025 2:02 PM EDT Rose Andrews MD LAB PATHOLOGY ORDERABLES Final R esult [facility] [address] [place] [address], [place] [phone] * TH AN ARTERIAL LINE (CHARGE) (07/28/2025 [...] to verify the correct patient, procedure, equipment, litigation support analyst and site/side marked as required. Preparation: Patient was prepped and draped in the usual sterile fashion. Indications: hemodynamic monitoring Location: right radial Sedation: Patient sedated: yes Sedatives: see MAR for details Seymour's test normal: yes Needle gauge: 18 Seldinger technique: Seldinger technique used Number of attempts: 1 Post-procedure: dressing applied Post-procedure CMS: normal Staffing Anesthesiologist: Marcelo Peoples MD Resident/SQUIRT MACHINE OPERATOR: Mckenna Mondragon CRNA Marcelo Peoples MD ANESTHESIA ORDERABLES Final Re sult * TH AN ENDOTRACHEAL(NO CHARGE) (07/28/2025 8:14 AM EDT) Cosme Chen SRNA - 07/28/2025 8:14 AM EDT SABRINA Myers 07/28/2025 8:18 AM General Information and Staff Patient location during procedure: OR Anesthesiologist: Marcelo Peoples MD Resident/SQUIRT MACHINE OPERATOR: Mckenna Mondragon CRNA Other anesthesia staff: SABRINA Myers Performed: [...] LAB COAGULATION METHOD 07/20/2025 9:50 AM EDT [facility] Blood Venous blood specimen / Unknown Venipuncture / Unknown 07/20/2025 9:17 AM EDT 07/20/2025 9:33 AM EDT us Rose Andrews MD LAB BLOOD ORDERABLES Final Resul t [facility] [address] [place] [address], [place] [phone] * Prothrombin time with INR (07/20/2025 9:17 AM EDT) Only the most recent of2 resultswithin the time period is included. Protime 10.9 10.6 - 13.9 sec LAB COAGULATION METHOD 07/20/2025 9:50 AM EDT [facility] INR 0.9 LAB COAGULATION METHOD 07/20/2025 9:50 AM EDT [facility] Blood Venous blood specimen / Unknown Venipuncture / Unknown 07/20/2025 9:17 AM EDT 07/20/2025 9:33 AM EDT us Rose Andrews MD LAB BLOOD ORDERABLES Final Resul t Performing Organization Address [facility]/ZIP Co de Phone Number [facility] [address] [place] [address], * Type and screen (07/20/2025 9:17 AM EDT) Only the most recent of2 resultswithin the time period is included. Pathologist [facility] ABO Group O 07/20/2025 10:33 AM EDT [facility] Rh Type Positive 07/20/2025 10:33 AM EDT [facility] Antibody Screen Negative 07/20/2025 10:33 AM EDT [facility] Blood Venous blood specimen / Unknown Venipuncture / Unknown 07/20/2025 9:17 AM EDT 07/20/2025 9:33 AM EDT us Rose Andrews MD LAB BLOOD BANK TEST ORDERABLES F inal Result [facility] [address] [place] [address], * Molecular intelligence tumor profiling (07/16/2025 10:23 AM EDT) Tissue [facility] Provider LAB MOLECULAR DIAGNOSTICS ORDERABLES Final Result * Concentration (07/02/2025 3:18 PM EDT) Pathologist [facility] AFB Concentration Performed 9:05 AM EDT [facility] Wash Structure of upper lobe of left lung / Unknown 07/02/2025 3:18 PM EDT 07/02/2025 3:45 PM EDT Narrative [facility] - 08/16/2025 9:05 AM EDT Performed at: - [facility] [address] [id number] Decorating Supervisor: Sandi Rueda MD, Phone: [phone] Rose Andrews MD LAB BLOOD ORDERABLES Edited Resu lt - Final Performing Organization Address City/[facility]/ZIP Co de Phone Number [facility] * Culture, afb and smear with reflex to identification and susceptibility (07/02/2025 3:18 PM EDT) [facility] AFB Specimen Processing Concentration 08/16/2025 9:05 AM EDT [facility] Acid Fast Smear Negative 08/16/2025 9:05 AM EDT [facility] Acid Fast Culture Negative 08/16/2025 9:05 AM EDT [facility] Comment:No acid fast bacilli isolated after 6 weeks. Wash Structure of upper lobe of left lung / Unknown 07/02/2025 3:18 PM EDT 07/02/2025 3:45 PM EDT Narrative [facility] - 08/16/2025 9:05 AM EDT Performed at: - [facility] [id number] Decorating Supervisor: Sandi Rueda MD, Phone: [phone] Rose Andrews MD LAB MICROBIOLOGY - GENERAL ORDER NIMO Final Result Performing Organization Address [facility]/ZIP Co de Phone Number [facility] * Acid fast bacilli stain (07/02/2025 3:18 PM EDT) Pathologist [facility] AFB Stain Result No Acid fast bacilli seen on direct smear (Fuchsin method, 1000x) No Acid Fast Bacilli seen on direct smear 07/02/2025 10:15 PM EDT [facility] Wash Structure of upper lobe of left lung / Unknown 07/02/2025 3:18 PM EDT 07/02/2025 3:45 PM EDT us Rose Andrews MD LAB MICROBIOLOGY - GENERAL ORDER NIMO Final Result Performing Organization Address [facility] Co de Phone Number [facility] [address] [place] [address], [place] [phone] * Culture fungal, other (07/02/2025 3:18 PM EDT) Culture, Fungus Negative for Fungus after 4 Weeks 08/02/2025 7:58 AM EDT [facility] Wash Structure of upper lobe of left lung / Unknown 07/02/2025 3:18 PM EDT 07/02/2025 3:45 PM EDT us Rose Andrews MD LAB MICROBIOLOGY - GENERAL ORDER NIMO Final Result Performing Organization Address [facility] de Phone Number [facility] [address] [place] [address], [place] [phone] * TH AN ENDOTRACHEAL(NO CHARGE) (07/02/2025 2:47 PM EDT) Ruma Macario CRNA - 07/02/2025 2:47 PM EDT Ruma Sanchez CRNA 07/02/2025 2:47 PM General Information and Staff Patient location during procedure: OR Resident/SQUIRT MACHINE OPERATOR: Ruma Sanhcez CRNA Performed: resident/SQUIRT MACHINE OPERATOR/CAA Performed by: Ruma Sancehz CRNA Authorized by: Arjun Scruggs DO Intubation [...] Spirometry with Bronchodilator (06/30/2025 2:40 PM EDT) Narrative Rhonda Clifford MD - 07/01/2025 12:46 PM EDT Table formatting from the original result was not included. Images from the original result were not included. [facility] [address] [place] [id number] Pulmonary Functions Report Date of service: 06/30/25 [...] GEMUSE QTc 425 ms GEMUSE P Wave [place] 59 degrees GEMUSE R [place] 62 degrees GEMUSE T [place] 51 degrees GEMUSE ECG Interpretation Normal sinus rhythm Normal ECG No previous ECGs available Confirmed by ZAKIA GONZALEZ ([id number]) on 06/29/2025 1:16:27 PM GEMUSE 06/28/2025 10:4 6 AM EDT 06/29/2025 1:16 PM EDT Rose Andrews MD ECG ORDERABLES Final Result [...] Signed Date: 06/29/2025 19:01 ET Workstation ID: [id number] Transcribed By: Self Edit Transcribed Date: 06/29/2025 [...] Signed Date: 06/29/2025 19:01 ET Workstation ID: [id number] Transcribed By: Self Edit Transcribed Date: 06/29/2025 17:51 ET us Rose Andrews MD IMG CT PROCEDURES Final Result from Last 3 Months Additional Health Concerns Active Problems Noted Date Diagnosed Date Autogenerated Problem 09/10/2025 Insurance MEDICARE [place]ICAID - [place] Advance Directives [...] currently active code status orders. Care Teams Plumbing Foreman Relationship Specialty Start Date End Date Panchito Chance MD [address] [place] [address] Dr [address] [place], [place] PCP - General Internal Medicine 06/24/25
--- OUTSIDE RECORDS SUMMARY | 2025-09-15 14:19 | XMS_ITS ---
Author Organization [facility] Address [address] [place] [address] Phone Care Team Providers Care Farmworker Cranberry Name Role Phone Panchito Chance MD Primary Care Provider [phone] Active Problems Problem Noted Date Diagnosed Date [...] Aisha Rojas DO on 08/30/2025 PKU (phenylketonuria) (CMS/HCC V24) 06/24/2025 Lung mass 06/24/2025 Current Treatment and Therapy Plans No current plan information found. Past Treatment and Therapy Plans No past plan information found. Lifetime Dose Tracking * Chemical Lifetime Dose Automatic Entry Manual Entr y CTDIvol 4.83 mGy 4.83 mGy 0 mGy
== END 2025-09-15 12:13 | disposition home or self-care (01) ==
LOC: HO.HPSW 11:38
PROVIDERS: PCP Internal Medicine; Visit Provider Nurse Practitioner Family
DX: C34.92 Malignant neoplasm of unspecified part of left bronchus or lung (principal); J45.909 Unspecified asthma, uncomplicated; F79 Unspecified intellectual disabilities
CPT/HCPCS: 99214

== ENCOUNTER → 2025-09-15 11:37 | Outpatient (BNVA) | payer MEDICARE, MEDICAID, SELFPAY | PROVIDERS: PCP Internal Medicine; Visit Provider Nurse Practitioner Family | DX: C34.12 Malignant neoplasm of upper lobe, left bronchus or lung (principal); R06.02 Shortness of breath; R05.1 Acute cough; F79 Unspecified intellectual disabilities; J45.909 Unspecified asthma, uncomplicated | CPT/HCPCS: 99212 ==

== ENCOUNTER 2025-10-18 14:55 | Outpatient (REF) | payer MEDICARE, MEDICAID, SELFPAY ==
--- NOTE | ~2025-10-18 | MM_ITS ---
EXAMINATION: MM SCREENING DIGITAL BREAST TOMOSYNTHESIS, BILATERAL CLINICAL INFORMATION: Screening. Asymptomatic. COMPARISON: Comparison made to multiple prior, most recent October 12, 2024, and most remote September 20, 2017. TECHNIQUE: Digital breast tomosynthesis is performed in mediolateral oblique and craniocaudal views along with computer-aided detection (CAD). Synthesized 2D images are generated from the tomosynthesis. Best possible images according to technologist notes. FINDINGS: BREAST COMPOSITION: There are scattered areas of fibroglandular density. RIGHT BREAST: No significant masses, suspicious calcifications or other abnormalities are seen. LEFT BREAST: Technical recall. Motion limits evaluation, but no obvious mass or other suspicious finding. MM/MM tomosynthesis screening BI IMPRESSION: RIGHT BREAST: Negative, no mammographic evidence of malignancy. Normal interval follow-up is recommended in 12 months. LEFT BREAST: Technical recall. Patient will be called back to repeat the MLO view and CC view without motion and tentatively with better positioning. ASSESSMENT: BI-RADS: Category 0: Incomplete - Technical Recall RECOMMENDATION: 1. Additional views of the left breast 2. Targeted ultrasound if warranted after review of the additional views. 3. Radiology department staff will contact the patient for additional imaging. FOLLOW-UP: Additional Imaging required This examination should not preclude the clinical evaluation of a suspicious palpable abnormality. This patient's information was entered into a reminder system with a target due date for their next mammogram. Electronically signed by: Raymond Pleitez MD 10/18/2025 08:[address] [facility]
== END 2025-10-18 14:56 | disposition home or self-care (01) ==
LOC: HO.MAMMO 14:55
PROVIDERS: Visit Provider Internal Medicine
DX: Z12.31 Encounter for screening mammogram for malignant neoplasm of breast (principal)
CPT/HCPCS: 77063; 77067

== ENCOUNTER → 2025-10-18 15:00 | Outpatient (BNV) | payer MEDICARE, MEDICAID, SELFPAY | PROVIDERS: Visit Provider Radiology Body Imaging | DX: Z12.31 Encounter for screening mammogram for malignant neoplasm of breast (principal) | CPT/HCPCS: 77063; 77067 ==